=== PATIENT | male | born 1950 | race Caucasian/White ===

== ENCOUNTER 2019-06-05 16:57 | Emergency (ER) | payer MEDICAID, SELFPAY | END 2019-06-06 00:02 | disposition admitted as inpatient to this hospital (09) | LOC: ER 07-18 09:18 | PROVIDERS: Emergency Provider Emergency Medicine; Family Provider Internal Medicine; PCP Internal Medicine | DX: J18.9 Pneumonia, unspecified organism (principal); F17.210 Nicotine dependence, cigarettes, uncomplicated | CPT/HCPCS: 36600; 71045; 74177; 80053; 80307; 82550; 82803; 83605; 83690; 84443; 84484; 85025; 87040; 93005; 94660; 96360; 96365; 96366; 96367; 96368; 96374; 96375; 99282; 99285; J2405; J3370; J7030; J7050; Q9967 ==

== ENCOUNTER 2019-06-05 16:57 | Inpatient (IN) | payer MEDICAID, SELFPAY ==
[2019-06-05] VITALS (10 sets, daily range): BP systolic 116–154; BP diastolic 57–100; PULSE 74–99; RESP 17–35; TEMP 36.8; O2SAT 90–98; BMI 32.5
--- NOTE | 2019-06-05 15:29 | ED_ITS ---
Entered by Nuha León, acting as scribe for Leroy Whitehead DO Documented by User: Katia Noyola MD 06/05/19 23:59 HPI - General Adult General: Chief complaint: General Medical Stated complaint: WEAKNESS X1 MONTH Time Seen by Provider: 06/05/19 18:13 [facility] ED PFSH: Statuses (acute, chronic, etc) shown below reflect problem list status as previously entered and may not be historically accurate Surgical History H/O laminectomy (Acute) History of dental surgery (Acute) Social History Smoking and tobacco status: current some day smoker Alcohol intake: current Course Vital Signs: Vital signs: Vital Signs Temperature 97.9 F 06/10/19 16:55 Pulse Rate 75 06/10/19 16:55 Respiratory Rate 18 06/10/19 16:55 Blood Pressure 142/78 06/10/19 16:55 Pulse Oximetry 91 06/10/19 16:55 MDM - General Adult MDM Narrative: Medical decision making narrative: Patient presents here with cough and is found to have bilateral pneumonia. Patient is requiring BiPAP here. Patient is much improved here after BiPAP and I spoke to hospitalist and will admit. Patient given IV antibiotics here. Lab Data: Labs: Lab Results 06/05/19 06/05/19 06/05/19 Range/Units 15:08 15:08 15:08 WBC 14.1 H (4.0-10.0) 10^3/ uL RBC 4.47 (4.1-5.3) 10^6/u L Hgb 11.9 (11.7-16.6) g/dL Hct 38.1 L (42.0-52.0) % MCV 85.2 (80-94) fL MCH 26.6 L (28.0-34.0) pg MCHC 31.2 (30.0-36.0) g/dL RDW 13.6 (12.1-15.1) % Plt Count 336 (130-400) 10^3/c mm MPV 10.6 H (7.4-10.4) fL Neut % (Auto) 82.5 % Lymph % (Auto) 8.7 % Montgomery % (Auto) 6.7 % Eos % (Auto) 1.2 % Baso % (Auto) 0.3 % Neut # (Auto) 11.6 H (1.8-7.7) 10^3/u L Lymph # (Auto) 1.2 (0.8-4.8) 10^3/u L Montgomery # (Auto) 1.0 H (0.2-0.9) 10^3/u L Eos # (Auto) 0.2 (0.0-0.8) 10^3/u L Baso # (Auto) 0.0 (0.0-0.1) 10^3/u L Nucleated RBC % (a uto) 0 % Nucleated RBCs # 0.0 /100WBC Specimen Type Sample Site ABG pH (7.35-7.45) ABG pCO2 (35-45) mmHg ABG pO2 (80.0-100.0) mmH g ABG HCO3 (22-26) mmol/L ABG Base Excess (-2.0-2.0) mmol/ L Bladimir Test Hematocrit (42-52) % O2 Delivery Device FiO2 % Mode BiPAP Physician Office Clin Asst ID Sodium 140 (136-145) mmol/L Potassium 3.8 (3.5-5.1) mmol/L Chloride 98 (98-107) mmol/L Carbon Dioxide 27 (22-29) mmol/L Anion Gap 18.8 (5-19) BUN 14 (8-23) mg/dL Creatinine 0.8 (0.7-1.2) mg/dL GFR Calculation 96.1 (90-130) mL/min Glucose 203 H (74-106) mg/dL Lactic Acid (0.5-2.2) mmol/L Calcium 9.8 (8.8-10.2) mg/Dl Total Bilirubin 0.5 (0.15-1.2) mg/dL AST 20 (0-40) U/L ALT 18 (0-41) U/L Alkaline Phosphata se 95 (40-130) IU/L Creatine Kinase 59 (39-308) U/L Troponin I 6 Hour (0-15) ng/L Troponin T Baselin e 30 H (0-15) ng/mL Troponin T 120 Min [place] (0-15) ng/mL Total Protein 7.6 (6.6-8.7) g/dL Albumin 4.0 (3.5-5.2) g/dL Globulin 3.6 (1.3-4.6) g/dL Lipase 165 H (13-60) U/L TSH 1.01 (0.27-4.20) uIU/ mL Ethyl Alcohol (0-10) mg/dL 06/05/19 06/05/19 06/05/19 Range/Units 19:30 21:35 21:38 WBC (4.0-10.0) 10^3/ uL RBC (4.1-5.3) 10^6/u L Hgb (11.7-16.6) g/dL Hct (42.0-52.0) % MCV (80-94) fL MCH (28.0-34.0) pg MCHC (30.0-36.0) g/dL RDW (12.1-15.1) % Plt Count (130-400) 10^3/c mm MPV (7.4-10.4) fL Neut % (Auto) % Lymph % (Auto) % Montgomery % (Auto) % Eos % (Auto) % Baso % (Auto) % Neut # (Auto) (1.8-7.7) 10^3/u L Lymph # (Auto) (0.8-4.8) 10^3/u L Montgomery # (Auto) (0.2-0.9) 10^3/u L Eos # (Auto) (0.0-0.8) 10^3/u L Baso # (Auto) (0.0-0.1) 10^3/u L Nucleated RBC % (a uto) % Nucleated RBCs # /100WBC Specimen Type Arterial Sample Site Radial, right ABG pH 7.50 H (7.35-7.45) ABG pCO2 32.5 L (35-45) mmHg ABG pO2 112.0 H (80.0-100.0) mmH g ABG HCO3 25.2 (22-26) mmol/L ABG Base Excess 2.3 H (-2.0-2.0) mmol/ L Bladimir Test Pos Hematocrit 33.5 L (42-52) % O2 Delivery Device Bipap FiO2 40.0 % Mode BiPAP 18/9 Physician Office Clin Asst ID harkr Sodium (136-145) mmol/L Potassium (3.5-5.1) mmol/L Chloride (98-107) mmol/L Carbon Dioxide (22-29) mmol/L Anion Gap (5-19) BUN (8-23) mg/dL Creatinine (0.7-1.2) mg/dL GFR Calculation (90-130) mL/min Glucose (74-106) mg/dL Lactic Acid 1.3 (0.5-2.2) mmol/L Calcium (8.8-10.2) mg/Dl Total Bilirubin (0.15-1.2) mg/dL AST (0-40) U/L ALT (0-41) U/L Alkaline Phosphata se (40-130) IU/L Creatine Kinase (39-308) U/L Troponin I 6 Hour (0-15) ng/L Troponin T Baselin e (0-15) ng/mL Troponin T 120 Min [place] 30.97 H (0-15) ng/mL Total Protein (6.6-8.7) g/dL Albumin (3.5-5.2) g/dL Globulin (1.3-4.6) g/dL Lipase (13-60) U/L TSH (0.27-4.20) uIU/ mL Ethyl Alcohol (0-10) mg/dL 06/05/19 06/05/19 Range/Units 21:42 21:42 WBC (4.0-10.0) 10^3/ uL RBC (4.1-5.3) 10^6/u L Hgb (11.7-16.6) g/dL Hct (42.0-52.0) % MCV (80-94) fL MCH (28.0-34.0) pg MCHC (30.0-36.0) g/dL RDW (12.1-15.1) % Plt Count (130-400) 10^3/c mm MPV (7.4-10.4) fL Neut % (Auto) % Lymph % (Auto) % Montgomery % (Auto) % Eos % (Auto) % Baso % (Auto) % Neut # (Auto) (1.8-7.7) 10^3/u L Lymph # (Auto) (0.8-4.8) 10^3/u L Montgomery # (Auto) (0.2-0.9) 10^3/u L Eos # (Auto) (0.0-0.8) 10^3/u L Baso # (Auto) (0.0-0.1) 10^3/u L Nucleated RBC % (a uto) % Nucleated RBCs # /100WBC Specimen Type Sample Site ABG pH (7.35-7.45) ABG pCO2 (35-45) mmHg ABG pO2 (80.0-100.0) mmH g ABG HCO3 (22-26) mmol/L ABG Base Excess (-2.0-2.0) mmol/ L Bladimir Test Hematocrit (42-52) % O2 Delivery Device FiO2 % Mode BiPAP Physician Office Clin Asst ID Sodium (136-145) mmol/L Potassium (3.5-5.1) mmol/L Chloride (98-107) mmol/L Carbon Dioxide (22-29) mmol/L Anion Gap (5-19) BUN (8-23) mg/dL Creatinine (0.7-1.2) mg/dL GFR Calculation (90-130) mL/min Glucose (74-106) mg/dL Lactic Acid (0.5-2.2) mmol/L Calcium (8.8-10.2) mg/Dl Total Bilirubin (0.15-1.2) mg/dL AST (0-40) U/L ALT (0-41) U/L Alkaline Phosphata se (40-130) IU/L Creatine Kinase (39-308) U/L Troponin I 6 Hour 30.82 H (0-15) ng/L Troponin T Baselin e (0-15) ng/mL Troponin T 120 Min [place] (0-15) ng/mL Total Protein (6.6-8.7) g/dL Albumin (3.5-5.2) g/dL Globulin (1.3-4.6) g/dL Lipase (13-60) U/L TSH (0.27-4.20) uIU/ mL Ethyl Alcohol < 10 (0-10) mg/dL Imaging Data^: Other Imaging: Attestation: I personally reviewed and interpreted this imaging study as follows: Radiologist's impression: Ordering Physician: Leroy Whitehead DO Date of Service: 06/05/19 Procedure(s): CT abdomen pelvis w con* [id number] Accession Number(s): [id number] cc: Leroy Whitehead DO PROCEDURE INFORMATION: Exam: CT Abdomen And Pelvis With Contrast Exam date and time: 06/05/2019 6:24 PM Age: 69 years old Clinical indication: Abdominal pain; Generalized; Additional info: Abd pain / n/v TECHNIQUE: Imaging protocol: Computed tomography of the abdomen and pelvis with intravenous contrast. Total DLP: 1936.36 mGy-cm Radiation optimization: All CT scans at this facility use at least one of these dose optimization techniques: automated exposure control; mA and/or kV adjustment per patient size (includes targeted exams where dose is matched to clinical indication); or iterative reconstruction. Contrast material: OMNI 300; Contrast volume: 95 ml; Contrast route: AC IV; COMPARISON: Right upper quadrant ultrasound August 25, 2018. Portable chest earlier today. PA and lateral chest May 26, 2019. FINDINGS: Lungs: Diffuse interstitial thickening with relatively confluent ground-glass opacities throughout the included lung bases, with some subpleural sparing posteriorly. The included airways appear patent. No pleural effusions. Liver: Normal. No mass. Gallbladder and bile ducts: Normal. No calcified stones. No ductal dilation. Pancreas: Normal. No ductal dilation. Spleen: Normal. No splenomegaly. Adrenals: Normal. No mass. 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 No renal or ureteral calculi. No hydronephrosis. 2.1 cm left upper pole simple cyst. Stomach and bowel: No obstruction. No inflammatory changes. Appendix: No evidence of appendicitis. Intraperitoneal space: No free air. No significant fluid collection. Vasculature: Moderate atherosclerotic calcification. No aortic aneurysm. Lymph nodes: Unremarkable. No enlarged lymph nodes. Bladder: Unremarkable as visualized. Reproductive: Unremarkable as visualized. Bones/joints: Lumbar degenerative changes with posterior decompression at L4/5. No acute or aggressive osseous lesion. Soft tissues: Unremarkable. CT/CT abdomen pelvis w con* [id number] IMPRESSION: 1. No acute abdominopelvic findings. 2. Incidental 2.1 cm simple left renal cyst. 3. Limited imaging of the lung bases reveals diffuse interstitial thickening and ground-glass opacities, as seen on earlier portable chest. Differential is broad including atypical pneumonia and nonspecific inflammatory airways disease. The appearance is not typical for edema. EKG Data^: EKG 1: Attestation: I personally reviewed and interpreted this EKG as follows: EKG interpretation date: 06/05/19 EKG interpretation time: 21:51 Interpretation: nsr hr [address] or t wave abnormalities qrs 11 Computer generated interpretation: Chest X-Ray 06/05/19 15:44 Impression: 1. Diffuse interstitial changes throughout both lungs which may represent pneumonia, unusual pulmonary edema, drug reaction and a large number of other entities. 2. Cardiomegaly and atherosclerosis. Abdomen/Pelvis CT 06/05/19 17:56 IMPRESSION: 1. No acute abdominopelvic findings. 2. Incidental 2.1 cm simple left renal cyst. 3. Limited imaging of the lung bases reveals diffuse interstitial thickening and ground-glass opacities, as seen on earlier portable chest. Differential is broad including atypical pneumonia and nonspecific inflammatory airways disease. The appearance is not typical for edema. Radiation Dose CTDIVOL = (mGy): DLP = 1936.36 (mGy-cm) Chest CTA 06/08/19 09:36 IMPRESSION: 1. Severe bilateral alveolar and interstitial opacities consistent with pneumonia versus pulmonary edema. 2. Mild to moderate centrilobular emphysema. 3. Severe calcified coronary artery disease. Radiation Dose CTDIVOL = (mGy): DLP = 1130.11 (mGy-cm) Discharge Plan Discharge Patient Disposition: Admitted As Inpatient Admit Provider: Terry Mello Clinical Impression: Bilateral pneumonia Condition: Stable Discharge Orders: Discharge Order (Routine); Ordered 06/10/19 Ordered By: Sharon Olivares Discharge Diet: Usual diet Discharge Activity: Oxygen as instructed Discharge Date/Time: 06/06/19 00:02 Coding Level of Care Code ED Differential Repairer for Chg Fwd Exam Problem Focused Documented by User: Leroy Whitehead DO 06/12/19 08:39 HPI - General Adult General: Chief complaint: General Medical Stated complaint: WEAKNESS X1 MONTH Time Seen by Provider: 06/05/19 18:13 History of Present Illness: HPI narrative: 69 yo male presents with weakness [id number]. Pt states that he feels like he is dying. Pt states that he has diarrhea, cough and shortness of breath. Pt states that he can't get up due to weakness, and has a loss of appetite. Pt states that he had a medication changes yesterday by Dr. Goodwin. Pt states that he is out of his inhaler. MD complaint: weakness Location: back (chronic low back pain) Relieving factors: none Associated symptoms: Reports cough, decreased appetite, short of breath and weakness; Deny chest pain, confusion, dyspnea, headache(s), malaise, nausea, rash, palpitations, syncope or vomiting Review of Systems Const: Reports: fatigue and night sweats; Denies: fever, chills, body aches or malaise Eyes: Denies: change in vision or blurry vision ENMT: Denies: throat pain, oral sores/lesions, dental pain, nasal discharge or nasal congestion Card: Denies: chest pain, palpitations, irregular heart rhythm, edema, syncope, shortness of breath on exertion, shortness of breath when lying down or leg pain with exertion Resp: Reports: productive cough; Denies: shortness of breath or wheezing GI: Reports: diarrhea; Denies: abdominal pain, nausea, vomiting, vomiting blood, coffee grounds in vomit, difficulty swallowing, heartburn/indigestion, constipation, cramping, blood in stool or black tarry stool : Denies: flank pain, difficulty urinating, painful urination, urinary frequency, urinary urgency, urinary incontinence or blood in urine Musc: Reports: back pain (chronic); Denies: neck pain, extremity pain, extremity swelling, joint pain or joint swelling Skin/Breast: Denies: rash, itching or redness Neuro: Reports: difficulty walking; Denies: headache, numbness in extremities, weakness in extremities, changes in sensation, lack of coordination, frequent falls, dizziness, vertigo or confusion Endo: Denies: excessive urination, excessive thirst, tired all the time or cold intolerance Jose/Lymph: Denies: easy bruising, easy bleeding, petechiae, enlarged lymph nodes or tender lymph nodes PFSH ED PFSH: Statuses (acute, chronic, etc) shown below reflect problem list status as previously entered and may not be historically accurate Surgical History H/O laminectomy (Acute) History of dental surgery (Acute) Social History Smoking and tobacco status: current some day smoker Alcohol intake: current Physical Exam Const: COMMON NORMALS: average body habitus, oriented x3 and alert GENERAL APPEARANCE: cooperative and well developed NUTRITIONAL APPEARANCE: obese ORIENTATION/CONSCIOUSNESS: Yes awake, Yes oriented to person and Yes oriented to place HENMT: COMMON NORMALS: normocephalic, head/scalp atraumatic, EAC's normal, TM's normal bilaterally, external nose normal, moist oral mucous membranes and oropharynx normal HEAD & SCALP: normocephalic and atraumatic NOSE: external nose normal EXTERNAL AUDITORY CANAL: EAC's normal TYMPANIC MEMBRANE: TM's normal bilaterally MOUTH: oral and palatal mucosa normal, lip normal and tongue normal THROAT: posterior oropharynx normal and tonsils normal Eye: COMMON NORMALS: PERRL, EOMs intact bilaterally, conjunctivae normal and no scleral icterus CONJUNCTIVA: Yes conjunctivae normal PUPIL: Yes PERRL Neck/C-Spine: COMMON NORMALS: full ROM, no lymphadenopathy, supple, no meningeal signs and thyroid normal THYROID: thyroid normal and asymmetrical Lymph: LYMPHATIC: no lymphadenopathy noted Chest: COMMONS NORMALS: palpation of chest normal CHEST: Yes abnormal inspection of the chest Resp: EFFORT & INSPECTION: Yes labored and Yes grunting AUSCULTATION: rhonchi throughout and wheezes throughout Cardio: COMMON NORMALS: regular rate and regular rhythm RATE: regular rate RHYTHM: regular rhythm HEART SOUNDS: no murmurs GI: COMMON NORMALS: normal to inspection, nondistended, normoactive bowel sounds, soft to palpation and no hepatosplenomegaly PALPATION: Yes soft and Yes no hepatosplenomegaly : COMMON NORMALS: Yes no CVA tenderness BLADDER/KIDNEY EXAM: Yes no CVA tenderness Back/Pelvis: COMMON NORMALS: no CVA tenderness LUMBAR SPINE/LOWER BACK: Yes normal to inspection Extremity: COMMON NORMALS: no clubbing, cyanosis or edema, no calf tenderness and no pedal edema Neuro: COMMON NORMALS: oriented x3 SENSORIUM/ORIENTATION: Yes alert, Yes oriented to person and Yes oriented to place MENINGEAL SIGNS: Yes no meningeal signs Skin: COMMON NORMALS: no rashes or lesions noted and skin turgor normal GENERAL SKIN EXAM: no rashes or lesions noted and turgor normal Course ED course: Initially seen by myself initial orders entered. Care turned over to Dr. Noyola at change of shift. Vital Signs: Vital signs: Vital Signs Temperature 97.9 F 06/10/19 16:55 Pulse Rate 75 06/10/19 16:55 Respiratory Rate 18 06/10/19 16:55 Blood Pressure 142/78 06/10/19 16:55 Pulse Oximetry 91 06/10/19 16:55 MDM - General Adult Lab Data: Labs: Lab Results 06/05/19 06/05/19 06/05/19 Range/Units 15:08 15:08 15:08 WBC 14.1 H (4.0-10.0) 10^3/ uL RBC 4.47 (4.1-5.3) 10^6/u L Hgb 11.9 (11.7-16.6) g/dL Hct 38.1 L (42.0-52.0) % MCV 85.2 (80-94) fL MCH 26.6 L (28.0-34.0) pg MCHC 31.2 (30.0-36.0) g/dL RDW 13.6 (12.1-15.1) % Plt Count 336 (130-400) 10^3/c mm MPV 10.6 H (7.4-10.4) fL Neut % (Auto) 82.5 % Lymph % (Auto) 8.7 % Montgomery % (Auto) 6.7 % Eos % (Auto) 1.2 % Baso % (Auto) 0.3 % Neut # (Auto) 11.6 H (1.8-7.7) 10^3/u L Lymph # (Auto) 1.2 (0.8-4.8) 10^3/u L Montgomery # (Auto) 1.0 H (0.2-0.9) 10^3/u L Eos # (Auto) 0.2 (0.0-0.8) 10^3/u L Baso # (Auto) 0.0 (0.0-0.1) 10^3/u L Nucleated RBC % (a uto) 0 % Nucleated RBCs # 0.0 /100WBC Specimen Type Sample Site ABG pH (7.35-7.45) ABG pCO2 (35-45) mmHg ABG pO2 (80.0-100.0) mmH g ABG HCO3 (22-26) mmol/L ABG Base Excess (-2.0-2.0) mmol/ L Bladimir Test Hematocrit (42-52) % O2 Delivery Device FiO2 % Mode BiPAP Physician Office Clin Asst ID Sodium 140 (136-145) mmol/L Potassium 3.8 (3.5-5.1) mmol/L Chloride 98 (98-107) mmol/L Carbon Dioxide 27 (22-29) mmol/L Anion Gap 18.8 (5-19) BUN 14 (8-23) mg/dL Creatinine 0.8 (0.7-1.2) mg/dL GFR Calculation 96.1 (90-130) mL/min Glucose 203 H (74-106) mg/dL Lactic Acid (0.5-2.2) mmol/L Calcium 9.8 (8.8-10.2) mg/Dl Total Bilirubin 0.5 (0.15-1.2) mg/dL AST 20 (0-40) U/L ALT 18 (0-41) U/L Alkaline Phosphata se 95 (40-130) IU/L Creatine Kinase 59 (39-308) U/L Troponin I 6 Hour (0-15) ng/L Troponin T Baselin e 30 H (0-15) ng/mL Troponin T 120 Min [place] (0-15) ng/mL Total Protein 7.6 (6.6-8.7) g/dL Albumin 4.0 (3.5-5.2) g/dL Globulin 3.6 (1.3-4.6) g/dL Lipase 165 H (13-60) U/L TSH 1.01 (0.27-4.20) uIU/ mL Ethyl Alcohol (0-10) mg/dL 06/05/19 06/05/19 06/05/19 Range/Units 19:30 21:35 21:38 WBC (4.0-10.0) 10^3/ uL RBC (4.1-5.3) 10^6/u L Hgb (11.7-16.6) g/dL Hct (42.0-52.0) % MCV (80-94) fL MCH (28.0-34.0) pg MCHC (30.0-36.0) g/dL RDW (12.1-15.1) % Plt Count (130-400) 10^3/c mm MPV (7.4-10.4) fL Neut % (Auto) % Lymph % (Auto) % Montgomery % (Auto) % Eos % (Auto) % Baso % (Auto) % Neut # (Auto) (1.8-7.7) 10^3/u L Lymph # (Auto) (0.8-4.8) 10^3/u L Montgomery # (Auto) (0.2-0.9) 10^3/u L Eos # (Auto) (0.0-0.8) 10^3/u L Baso # (Auto) (0.0-0.1) 10^3/u L Nucleated RBC % (a uto) % Nucleated RBCs # /100WBC Specimen Type Arterial Sample Site Radial, right ABG pH 7.50 H (7.35-7.45) ABG pCO2 32.5 L (35-45) mmHg ABG pO2 112.0 H (80.0-100.0) mmH g ABG HCO3 25.2 (22-26) mmol/L ABG Base Excess 2.3 H (-2.0-2.0) mmol/ L Bladimir Test Pos Hematocrit 33.5 L (42-52) % O2 Delivery Device Bipap FiO2 40.0 % Mode BiPAP 18/9 Physician Office Clin Asst ID harkr Sodium (136-145) mmol/L Potassium (3.5-5.1) mmol/L Chloride (98-107) mmol/L Carbon Dioxide (22-29) mmol/L Anion Gap (5-19) BUN (8-23) mg/dL Creatinine (0.7-1.2) mg/dL GFR Calculation (90-130) mL/min Glucose (74-106) mg/dL Lactic Acid 1.3 (0.5-2.2) mmol/L Calcium (8.8-10.2) mg/Dl Total Bilirubin (0.15-1.2) mg/dL AST (0-40) U/L ALT (0-41) U/L Alkaline Phosphata se (40-130) IU/L Creatine Kinase (39-308) U/L Troponin I 6 Hour (0-15) ng/L Troponin T Baselin e (0-15) ng/mL Troponin T 120 Min [place] 30.97 H (0-15) ng/mL Total Protein (6.6-8.7) g/dL Albumin (3.5-5.2) g/dL Globulin (1.3-4.6) g/dL Lipase (13-60) U/L TSH (0.27-4.20) uIU/ mL Ethyl Alcohol (0-10) mg/dL 06/05/19 06/05/19 Range/Units 21:42 21:42 WBC (4.0-10.0) 10^3/ uL RBC (4.1-5.3) 10^6/u L Hgb (11.7-16.6) g/dL Hct (42.0-52.0) % MCV (80-94) fL MCH (28.0-34.0) pg MCHC (30.0-36.0) g/dL RDW (12.1-15.1) % Plt Count (130-400) 10^3/c mm MPV (7.4-10.4) fL Neut % (Auto) % Lymph % (Auto) % Montgomery % (Auto) % Eos % (Auto) % Baso % (Auto) % Neut # (Auto) (1.8-7.7) 10^3/u L Lymph # (Auto) (0.8-4.8) 10^3/u L Montgomery # (Auto) (0.2-0.9) 10^3/u L Eos # (Auto) (0.0-0.8) 10^3/u L Baso # (Auto) (0.0-0.1) 10^3/u L Nucleated RBC % (a uto) % Nucleated RBCs # /100WBC Specimen Type Sample Site ABG pH (7.35-7.45) ABG pCO2 (35-45) mmHg ABG pO2 (80.0-100.0) mmH g ABG HCO3 (22-26) mmol/L ABG Base Excess (-2.0-2.0) mmol/ L Bladimir Test Hematocrit (42-52) % O2 Delivery Device FiO2 % Mode BiPAP Physician Office Clin Asst ID Sodium (136-145) mmol/L Potassium (3.5-5.1) mmol/L Chloride (98-107) mmol/L Carbon Dioxide (22-29) mmol/L Anion Gap (5-19) BUN (8-23) mg/dL Creatinine (0.7-1.2) mg/dL GFR Calculation (90-130) mL/min Glucose (74-106) mg/dL Lactic Acid (0.5-2.2) mmol/L Calcium (8.8-10.2) mg/Dl Total Bilirubin (0.15-1.2) mg/dL AST (0-40) U/L ALT (0-41) U/L Alkaline Phosphata se (40-130) IU/L Creatine Kinase (39-308) U/L Troponin I 6 Hour 30.82 H (0-15) ng/L Troponin T Baselin e (0-15) ng/mL Troponin T 120 Min [place] (0-15) ng/mL Total Protein (6.6-8.7) g/dL Albumin (3.5-5.2) g/dL Globulin (1.3-4.6) g/dL Lipase (13-60) U/L TSH (0.27-4.20) uIU/ mL Ethyl Alcohol < 10 (0-10) mg/dL EKG Data^: EKG 1: Computer generated interpretation: Chest X-Ray 06/05/19 15:44 Impression: 1. Diffuse interstitial changes throughout both lungs which may represent pneumonia, unusual pulmonary edema, drug reaction and a large number of other entities. 2. Cardiomegaly and atherosclerosis. Abdomen/Pelvis CT 06/05/19 17:56 IMPRESSION: 1. No acute abdominopelvic findings. 2. Incidental 2.1 cm simple left renal cyst. 3. Limited imaging of the lung bases reveals diffuse interstitial thickening and ground-glass opacities, as seen on earlier portable chest. Differential is broad including atypical pneumonia and nonspecific inflammatory airways disease. The appearance is not typical for edema. Radiation Dose CTDIVOL = (mGy): DLP = 1936.36 (mGy-cm) Chest CTA 06/08/19 09:36 IMPRESSION: 1. Severe bilateral alveolar and interstitial opacities consistent with pneumonia versus pulmonary edema. 2. Mild to moderate centrilobular emphysema. 3. Severe calcified coronary artery disease. Radiation Dose CTDIVOL = (mGy): DLP = 1130.11 (mGy-cm) Discharge Plan Discharge Patient Disposition: Admitted As Inpatient Admit Provider: Terry Mello Clinical Impression: Bilateral pneumonia Condition: Stable Discharge Orders: Discharge Order (Routine); Ordered 06/10/19 Ordered By: Sharon Olivares Discharge Diet: Usual diet Discharge Activity: Oxygen as instructed Discharge Date/Time: 06/06/19 00:02 Coding Level of Care Code ED Differential Repairer for Chg Fwd Exam Problem Focused The documentation recorded by the Mau gold Kialy, accurately reflects the service I personally performed and the decisions made by Ventura badillo Curtis L, Jun 05, 2019 16:57
--- NOTE | 2019-06-05 15:44 | XR_ITS ---
WS: [id number] Portable AP upright chest, 06/05/2019 Clinical Data: dyspnea Comparison: Portable chest, 05/26/2019. Findings: No nodules, masses or effusions are seen. The heart is enlarged. The aortic arch and descen ding aorta are tortuous. The pulmonary vascularity is not increased. No pneumonia or pneumothorax is seen. The diffuse interstitial changes throughout both lungs remains the same. XR/XR chest 1V portable [id number] Impression: 1. Diffuse interstitial changes throughout both lungs which may represent pneum onia, unusual pulmonary edema, drug reaction and a large number of other entiti es. 2. Cardiomegaly and atherosclerosis.
[2019-06-05] MEDS: ondansetron 2 mg/ML SDV 2 mL 4 MG IVP (16:00)
[2019-06-05] MEDS: sodium chloride 0.9% 1,000 ML 999 ML IV (16:00)
[2019-06-05 16:02] LABS: Basophils % 0.3 %; Eosinophils # 0.2 10^3/uL (0.0-0.8); Eosinophils % 1.2 %; Hematocrit 38.1 % (42.0-52.0); Hemoglobin 11.9 g/dL (11.7-16.6); Lymphocytes # 1.2 10^3/uL (0.8-4.8); Lymphocytes % 8.7 %; Mean Corpuscular HGB Conc 31.2 g/dL (30.0-36.0); Mean Corpuscular Hemoglobin 26.6 pg (28.0-34.0); Mean Corpuscular Volume 85.2 fL (80-94); Mean Platelet Volume 10.6 fL (7.4-10.4); Monocytes % 6.7 %; Neutrophils # 11.6 10^3/uL (1.8-7.7); Neutrophils % 82.5 %; Nucleated Red Blood Cells % 0 %; Platelet Count 336 10^3/cmm (130-400); Red Blood Count 4.47 10^6/uL (4.1-5.3); Red Cell Distribution Width 13.6 % (12.1-15.1); White Blood Count 14.1 10^3/uL (4.0-10.0)
[2019-06-05 16:16] LABS: Alanine Aminotransferase 18 U/L (0-41); Alkaline Phosphatase 95 IU/L (40-130); Anion Gap 18.8 (5-19); Aspartate Amino Transferase 20 U/L (0-40); Blood Urea Nitrogen 14 mg/dL (8-23); Calcium 9.8 mg/Dl (8.8-10.2); Carbon Dioxide 27 mmol/L (22-29); Chloride 98 mmol/L (98-107); Creatine Phosphokinase 59 U/L (39-308); Globulin 3.6 g/dL (1.3-4.6); Glomerular Filtration Rate 96.1 mL/min (90-130); Glucose 203 mg/dL (74-106); Lipase 165 U/L (13-60); Potassium 3.8 mmol/L (3.5-5.1); Sodium 140 mmol/L (136-145); Thyroid Stimulating Hormone 1.01 uIU/mL (0.27-4.20); Total Bilirubin 0.5 mg/dL (0.15-1.2); Total Protein 7.6 g/dL (6.6-8.7)
[2019-06-05 16:33] LABS: Troponin(5th) Baseline 30 ng/mL (0-15)
--- NOTE | 2019-06-05 17:46 | ECG_ITS ---
Measurements Intervals [place] Rate: 80 P: 52 RI: 172 QRS: 23 QRSD: 103 T: 87 QT: 413 QTc: 476 SINUS RHYTHM LOW QRS VOLTAGE IN EXTREMITY LEADS [QRS DEFLECTION < 0.5 mV IN LIMB LEADS] NONSPECIFIC T-WAVE ABNORMALITY Compared to ECG 06/05/2019 16:14:33 Possible ischemia no longer present T-wave abnormality still present Electronically Signed On 06-06-2019 5:39:[address] [employer] by Kathryn Cabrera M.[email or web address]
--- NOTE | 2019-06-05 17:56 | CTR_ITS ---
PROCEDURE INFORMATION: Exam: CT Abdomen And Pelvis With Contrast Exam date and time: 06/05/2019 6:24 PM Age: 69 years old Clinical indication: Abdominal pain; Generalized; Additional info: Abd pain / n/v TECHNIQUE: Imaging protocol: Computed tomography of the abdomen and pelvis with intravenous contrast. Total DLP: 1936.36 mGy-cm Radiation optimization: All CT scans at this facility use at least one of these dose optimization techniques: automated exposure control; mA and/or kV adjustment per patient size (includes targeted exams where dose is matched to clinical indication); or iterative reconstruction. Contrast material: OMNI 300; Contrast volume: 95 ml; Contrast route: AC IV; COMPARISON: Right upper quadrant ultrasound August 25, 2018. Portable chest earlier today. PA and lateral chest May 26, 2019. FINDINGS: Lungs: Diffuse interstitial thickening with relatively confluent ground-glass opacities throughout the included lung bases, with some subpleural sparing posteriorly. The included airways appear patent. No pleural effusions. Liver: Normal. No mass. Gallbladder and bile ducts: Normal. No calcified stones. No ductal dilation. Pancreas: Normal. No ductal dilation. Spleen: Normal. No splenomegaly. Adrenals: Normal. No mass. 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 No renal or ureteral calculi. No hydronephrosis. 2.1 cm left upper pole simple cyst. Stomach and bowel: No obstruction. No inflammatory changes. Appendix: No evidence of appendicitis. Intraperitoneal space: No free air. No significant fluid collection. Vasculature: Moderate atherosclerotic calcification. No aortic aneurysm. Lymph nodes: Unremarkable. No enlarged lymph nodes. Bladder: Unremarkable as visualized. Reproductive: Unremarkable as visualized. Bones/joints: Lumbar degenerative changes with posterior decompression at L4/5. No acute or aggressive osseous lesion. Soft tissues: Unremarkable. CT/CT abdomen pelvis w con* [id number] IMPRESSION: 1. No acute abdominopelvic findings. 2. Incidental 2.1 cm simple left renal cyst. 3. Limited imaging of the lung bases reveals diffuse interstitial thickening and ground-glass opacities, as seen on earlier portable chest. Differential is broad including atypical pneumonia and nonspecific inflammatory airways disease. The appearance is not typical for edema. Radiation Dose CTDIVOL = (mGy): DLP = 1936.36 (mGy-cm)
[2019-06-05] MEDS: ipratropium-albuterol 3 mL Neb INHALATION (19:19)
[2019-06-05 20:06] LABS: Troponin 5 2HR 30.97 ng/mL (0-15)
--- NOTE | 2019-06-05 21:24 | PC.NURSE ---
Assisted patient to bedside commode and changed linen. Assisted patient in clean up and placed new brief on and helped back into bed. Placed warm blankets on patient.
[2019-06-05 21:46] LABS: ABG PCO2 32.5 mmHg (35-45); Arterial Blood Gas Hematocrit 33.5 % (42-52); Base Excess ABG 2.3 mmol/L (-2.0-2.0); Blood Gas Allen Test Pos; Blood Gas Sample Site Radial, right; Blood Gas Sample Type Arterial; HCO3 ABG 25.2 mmol/L (22-26)
--- NOTE | 2019-06-05 21:46 | ECG_ITS ---
Measurements Intervals [place] Rate: 77 P: 46 MS: 173 QRS: 16 QRSD: 110 T: 27 QT: 414 QTc: 469 SINUS RHYTHM LOW QRS VOLTAGE IN EXTREMITY LEADS [QRS DEFLECTION < 0.5 mV IN LIMB LEADS] MODERATE T-WAVE ABNORMALITY, CONSIDER ANTERIOR ISCHEMIA [-0.1+ mV T WAVE IN V3/V4] Compared to ECG 05/26/2019 13:50:04 Low QRS voltage now present T-wave abnormality now present Possible ischemia now present Electronically Signed On 06-05-2019 17:10:23 DICTATING MACHINE TYPIST by Kathryn Cabrera M.D. [email or web address]
--- NOTE | 2019-06-05 21:47 | PM.HP ---
Providers/Chief Complaint Primary Care Provider: Flaquita Goodwin MD Chief Complaint: bilateral pneumonia History of Present Illness Yoni Connell is a 69 year old male who carries diagnosis of sleep apnea, uses 2 L oxygen at night, non-oxygen dependent COPD, obesity, came in after experiencing shortness of breath and cough. Patient is stating that his symptoms started about 4 weeks ago with runny nose, runny eyes, fever, cough and chills, initially he attributed his symptoms to cold and try to use his inhalers more often but his breathing and cough was getting worse on daily basis, he also experienced subjective fever with chills and couple of episodes of diarrhea, he is feeling weak, he was experiencing myalgias, not associated with any nausea or vomiting. In general he was feeling weaker and weaker and because excessive cough and shortness of breath he decided to come to ER today for evaluation. He has orthopnea and PND as well, no chest pain, numbness, tingling, dysuria. He is a poor historian. Patient says he quit smoking he is using a rolling papers to smoke tobacco this days he is denying use of electronic cigarettes Diagnostics in ER shows leukocytosis, tachypnea, patient was afebrile, hypertensive, CT shows bilateral interstitial infiltrates versus groundglass appearance Flu panel negative He was put on BiPAP, blood gas showed respiratory alkalosis Review of Systems Narrative: In general patient is feeling weaker, he says he is hurting everywhere, he is suffering from myalgias, Conjunctive are normal no injections or hyperemia No sore throat, No chest pain No abdominal pain, diarrhea positive, No headache, No skin ulcers, No burning on voiding urine No headache, No night sweats Sad mood/depression positive Shortness of breath positive at rest and on exertion Medications/Allergies Home Medications Medication Instructions Recorded Confirmed Last Taken Type enalapril maleate 10 mg PO DAILY 06/05/19 06/05/19 06/04/19 History metformin 500 mg PO BID 06/05/19 06/05/19 06/04/19 History trazodone 150 mg PO BEDTIME 06/05/19 06/05/19 06/04/19 History Allergies Allergy/AdvReac Type Severity Reaction Status Date / Time No Known Allergies Allergy Verified 06/05/19 15:25 PFSH Acute PFSH: Statuses (acute, chronic, etc) shown below reflect problem list status as previously entered and may not be historically accurate Medical History (Updated 06/05/19 @ 23:19 by Terry Mello MD) Alcohol intoxication (Acute) Anxiety (Acute) Bladder cancer (Acute) COPD (chronic obstructive pulmonary disease) (Acute) Dyslipidemia (Acute) GERD (gastroesophageal reflux disease) (Acute) Hypertension (Acute) Neuropathy (Acute) Polysubstance abuse (Acute) Sleep apnea (Acute) Type 2 diabetes mellitus (Acute) Surgical History (Updated 06/05/19 @ 21:49 by Terry Mello MD) H/O laminectomy (Acute) History of dental surgery (Acute) Family History (Updated 06/05/19 @ 21:49 by Terry Mello MD) Other CAD (coronary artery disease) Cancer Diabetes Hyperlipidemia Social History (Updated 06/05/19 @ 21:49 by Terry Mello MD) Smoking and tobacco status: current some day smoker Alcohol intake: current Substance/Drug Use: current Vitals/I&O/Wt Last Vital Signs Temp 98.3 F 06/05/19 15:18 Pulse 79 06/05/19 19:27 Resp 19 H 06/05/19 19:27 BP 154/100 06/05/19 18:00 Pulse Ox 98 06/05/19 19:27 Weight last 48 hrs Weight 108.862 kg Physical Exam Narrative: EXAM NARRATIVE: Obese male with poor hygiene Laying in his bed with BiPAP BiPAP machine was discontinued for interview and physical exam No pursed lip breathing, No JVD or signs of heart failure S1-S2 no murmur appreciated, no lower extremity edema, Neurologically nonfocal exam, no cerebellar signs, and reflexes equivocal On lung auscultation he has bilateral crackles with rhonchi without active wheezing decreased airflow, Abdomen soft nontender but distended, bowel sounds present No signs of ischemia gangrene or skin ulcers No CVA tenderness A&P Assessment and plan (1) Sepsis: Status: Acute Code(s): A41.9 - Sepsis, unspecified organism (2) Bilateral pneumonia: Status: Acute Code(s): J18.9 - Pneumonia, unspecified organism Sepsis secondary to community-acquired bilateral pneumonia Flu panel negative, patient is using rolling prefer to smoke nicotine Sepsis criteria met with tachypnea, leukocytosis, lactic acid normal, We will treat him with ceftriaxone and azithromycin DuoNeb scheduled Prednisone 40 mg for 5 days because of bilateral interstitial infiltrates, atypical lung imaging bilateral interstitial infiltrates with groundglass opacities he is not using electronic cigarettes or vaps Will check urine antigens for Legionella and strep pneumo He has been drinking alcohol on occasional basis previously he had a history of alcohol intoxication, will keep on thiamine, folic acid and CIWY protocol will check alcohol level PT evaluation patient is living alone at home Acute COPD exacerbation secondary to community-acquired pneumonia Currently on BiPAP to decrease work of breathing, blood gases showing respiratory alkalosis Obstructive sleep apnea history: Patient uses 2 L of oxygen at night, currently on BiPAP He is full code Attestations Medical Necessity Statement*: Anticipating stay to cross more than 2 midnights because of his myalgias, bilateral pneumonia and sepsis Time Spent in Patient Care: Greater than 35 minutes (>than 50% of time spent in counselling and/or direct pt care on unit). 50 Coding Level of Care Code Acute Production Gear Cutter for Margarito Vera Diagnoses Sepsis A41.9 Bilateral pneumonia J18.9
[2019-06-05 22:02] LABS: Lactic Sepsis W/Reflex 1.3 mmol/L (0.5-2.2)
[2019-06-05 22:14] LABS: Alcohol Level < 10 mg/dL (0-10)
[2019-06-05 22:17] LABS: Troponin 5 6HR 30.82 ng/L (0-15)
[2019-06-05] MEDS: piperacillin-tazobactam 3.375 GM in sodium chloride 0.9% (plus) 50 ML IV (22:48)
--- NOTE | 2019-06-05 23:05 | PC.NURSE ---
Patient rang call light and stated that he wants the bipap taken off. I explained to him that without the bipap his oxygen will drop. Informed doctor and nurse.
[2019-06-06] VITALS (22 sets, daily range): BP systolic 103–123; BP diastolic 57–78; PULSE 73–109; RESP 18–34; TEMP 36.5–38.1; O2SAT 88–97
[2019-06-06] MEDS: diphenoxylate/atropine Tablet 2 TAB PO (00:12)
[2019-06-06] MEDS: trazodone 150 mg Tablet PO ×2 (00:57→20:16)
[2019-06-06] MEDS: enoxaparin 40 mg/0.4 mL Syringe SUBCUT ×2 (00:57→23:12)
[2019-06-06] MEDS: ipratropium-albuterol 3 mL Neb INHALATION ×4 (02:04→23:07)
[2019-06-06 02:49] LABS: Influenza A by IFA Negative (Negative); Influenza B by IFA Negative (Negative)
[2019-06-06 03:31] LABS: Amphetamines Screen Urine Negative (Negative); Barbiturates Screen Urine Negative (Negative); Benzodiazepines Screen Urine Positive (Negative); Cocaine Screen Urine Negative (Negative); Opiate Screen Urine Negative (Negative); PCP Screen Urine Negative (Negative); THC Screen Urine Negative (Negative)
[2019-06-06 04:54] LABS: ABG PCO2 45.4 mmHg (35-45); ABG PH Result 7.41 (7.35-7.45); Base Excess ABG 3.3 mmol/L (-2.0-2.0); Blood Gas Allen Test Pos; Blood Gas Sample Site Radial, right; Blood Gas Sample Type Arterial; HCO3 ABG 28.6 mmol/L (22-26); PO2 ABG 74.9 mmHg (80.0-100.0)
[2019-06-06 06:08] LABS: Basophils % 0.4 %; Eosinophils # 0.5 10^3/uL (0.0-0.8); Eosinophils % 4.9 %; Hematocrit 35.2 % (42.0-52.0); Hemoglobin 10.6 g/dL (11.7-16.6); Lymphocytes # 1.1 10^3/uL (0.8-4.8); Lymphocytes % 11.1 %; Mean Corpuscular HGB Conc 30.1 g/dL (30.0-36.0); Mean Corpuscular Hemoglobin 25.4 pg (28.0-34.0); Mean Corpuscular Volume 84.4 fL (80-94); Mean Platelet Volume 9.6 fL (7.4-10.4); Monocytes # 0.8 10^3/uL (0.2-0.9); Monocytes % 7.9 %; Neutrophils # 7.6 10^3/uL (1.8-7.7); Nucleated Red Blood Cells % 0 %; Platelet Count 385 10^3/cmm (130-400); Red Blood Count 4.17 10^6/uL (4.1-5.3); Red Cell Distribution Width 13.8 % (12.1-15.1); White Blood Count 10.1 10^3/uL (4.0-10.0)
[2019-06-06 06:35] LABS: Anion Gap 15.1 (5-19); Blood Urea Nitrogen 12 mg/dL (8-23); Calcium 9.2 mg/Dl (8.8-10.2); Carbon Dioxide 27 mmol/L (22-29); Chloride 102 mmol/L (98-107); Glomerular Filtration Rate 74.3 mL/min (90-130); Glucose 198 mg/dL (74-106); Potassium 4.1 mmol/L (3.5-5.1); Sodium 140 mmol/L (136-145)
[2019-06-06 06:51] LABS: Lipase 334 U/L (13-60)
[2019-06-06] MEDS: cefTRIAXone 1,000 MG in sodium chloride 0.9% (plus) 50 ML 100 MG IV (08:42)
[2019-06-06] MEDS: multivitamin therapeutic Tablet 1 TAB PO (08:44)
[2019-06-06] MEDS: predniSONE 20 mg Tablet 40 MG PO (08:44)
[2019-06-06] MEDS: thiamine 100 mg Tablet PO (08:44)
[2019-06-06] MEDS: azithromycin 250 mg Tablet 500 MG PO (08:44)
[2019-06-06] MEDS: folic acid 1 mg Tablet PO (08:45)
[2019-06-06 08:55] LABS: Glucose Point of Care 176 mg/dL (70-110)
--- NOTE | 2019-06-06 10:57 | P.PN_ITS ---
Subjective Subjective: Interval history: History and physical was reviewed. Patient reports he is breathing better than he was on admission. Reports no chest discomfort. Medications: Reviewed: Yes Vitals/I&O/Wt Last Vital Signs Temp 99.1 F 06/06/19 07:11 Pulse 91 06/06/19 08:10 Resp 31 H 06/06/19 08:04 BP 108/74 06/06/19 07:11 Pulse Ox 94 06/06/19 08:04 06/05/19 06/06/19 06/06/19 22:59 06:59 14:59 Intake Total 75 / 75 600 / 600 Output Total 250 / 250 Balance 75 / 75 350 / 350 Weight last 48 hrs Weight 117.934 kg Weight 108.862 kg Physical Exam Narrative: EXAM NARRATIVE: General exam is no apparent distress. Cardiovascular regular rate and rhythm without murmur. Heart sounds distant Lungs diminished breath sounds bilaterally. A faint expiratory wheeze Abdomen is soft with positive bowel sounds Extremities no cyanosis clubbing or edema Data Micro: Micro: Microbiology 06/05/19 21:38 Blood Culture - Pr eliminary Blood SPECIMEN [facility] 06/05/19 21:42 Blood Culture - Pr eliminary Blood SPECIMEN [facility] Attestations Medical Necessity Statement*: Needs continued hospitalization for pulmonary toilet, IV antibiotics for pneumonia. Coding Level of Care Code Acute Prison Warden for Margarito Vera
[2019-06-06 11:25] LABS: Glucose Point of Care 289 mg/dL (70-110)
--- NOTE | 2019-06-06 11:32 | P.PN_ITS ---
Subjective Subjective: Interval history: Yoni reports he is doing okay. Reports his shortness of breath is improved. Medications: Reviewed: Yes Vitals/I&O/Wt Last Vital Signs Temp 99.1 F 06/06/19 07:11 Pulse 91 06/06/19 08:10 Resp 31 H 06/06/19 08:04 BP 108/74 06/06/19 07:11 Pulse Ox 94 06/06/19 08:04 06/05/19 06/06/19 06/06/19 22:59 06:59 14:59 Intake Total 75 / 75 600 / 600 Output Total 250 / 250 Balance 75 / 75 350 / 350 Weight last 48 hrs Weight 117.934 kg Weight 108.862 kg Physical Exam Narrative: EXAM NARRATIVE: General exam is a white male, no apparent distress Cardiovascular regular rate and rhythm without murmur Lungs diminished breath sounds bilaterally. A few expiratory wheezes Abdomen is soft, positive bowel sounds Extremities no cyanosis clubbing or edema Data Micro: Micro: Microbiology 06/05/19 21:38 Blood Culture - Pr eliminary Blood SPE[facility]EN [facility] 06/05/19 21:42 Blood Culture - Pr eliminary Blood SPECIMEN [facility] A&P Assessment and plan (1) Sepsis: Appears resolved. Status: Acute Code(s): A41.9 - Sepsis, unspecified organism (2) Bilateral pneumonia: Rocephin and a azithromycin have been started Status: Acute Code(s): J18.9 - Pneumonia, unspecified organism (3) COPD (chronic obstructive pulmonary disease): Currently with acute exacerbation. Pulmonary toilet. Prednisone. Status: Acute Code(s): J44.9 - Chronic obstructive pulmonary disease, unspecified (4) Type 2 diabetes mellitus: Stable. Sliding scale insulin ordered Status: Acute Code(s): E11.9 - Type 2 diabetes mellitus without complications (5) Alcohol intoxication: No evidence of withdrawal Status: Acute Code(s): F10.929 - Alcohol use, unspecified with intoxication, unspecified (6) Dyslipidemia: Stable Status: Acute Code(s): E78.5 - Hyperlipidemia, unspecified (7) Hypertension: Stable Status: Acute Code(s): I10 - Essential (primary) hypertension (8) GERD (gastroesophageal reflux disease): Asymptomatic Status: Acute Code(s): K21.9 - Gastro-esophageal reflux disease without esophagitis Attestations Medical Necessity Statement*: Needs continued hospitalization for IV antibiotics for pneumonia Coding Level of Care Code Acute [employer] for Chg Fwd Diagnoses Sepsis A41.9 Bilateral pneumonia J18.9 COPD (chronic obstructive pulmonary disease) J44.9 Type 2 diabetes mellitus E11.9 Alcohol intoxication F10.929 Dyslipidemia E78.5 Hypertension I10 GERD (gastroesophageal reflux disease) K21.9
--- NOTE | 2019-06-06 12:47 | PC.CHAP ---
Pastoral Care Encounter/Spiritual Assessment Type of Contact [x] Declined nutrition services worker visit [] Patient/Family/Request visit [] Outpatient visit [] Follow-up visit [] Physician referral [] Code/Alert [] Routine visit [] Staff referral [] Actively dying [] Patient sleeping [] Family support [] [] Out of room [] Palliative care [] [] Receiving care in room [] Pre-surgical visit [] Trauma [] Long length of stay [] ICU visit [] Other: Relational/Emotional Strength [] Patient feels connected with others/family/visitors/staff [] Distress [] Loneliness/isolation [] Abandonment Spirituality of Patient [] Person of [place] [] Attends Rastafari of their [place] [] Believes in Prayer [] Reads Bible or Jainism materials [] There are Spiritual issues to be addressed Rubber Down Interventions [] Prayer [] Active listening [] Non-anxious presence [] Spiritual/emotional support [] Crisis/trauma care [] Spiritual counseling [] Bereavement support [] Provided bereavement packet [] Provided Bible/devotional materials [] Provided toy/stuffed animal, coloring book to patient or family member [] Completed spiritual assessment [] Provided Communion [] Anointing/[place] [] Salvation [] Other: Impact on Illness or Injury [] Angry [] Fearful [] Anxious [] Often cries [] Exhaustion [] Unable to work [] Unable to attend mu-ism [] Unable to walk/stand [] Unable to read [] Unable to drive [] Unable to eat/drink [] Unable to sleep [] Unable to be with family [] Other: Summary Patient declined visit; Carl Green Time spent with patient 2-Minutes
[2019-06-06 19:01] LABS: Glucose Point of Care 308 mg/dL (70-110)
--- NOTE | 2019-06-06 19:48 | PC.RESP ---
BIPAP on standby at this time. No respiratory distress noted.
[2019-06-06 21:13] LABS: Glucose Point of Care 284 mg/dL (70-110)
[2019-06-07] VITALS (18 sets, daily range): BP systolic 104–131; BP diastolic 64–81; PULSE 63–145; RESP 16–23; TEMP 36.4–36.8; O2SAT 89–98
--- NOTE | 2019-06-07 02:33 | PC.RESP ---
Increased FiO2 to 40% due to low sats, sats increased to 91%
[2019-06-07] MEDS: ipratropium-albuterol 3 mL Neb INHALATION ×6 (02:35→23:52)
[2019-06-07 06:28] LABS: Glucose Point of Care 220 mg/dL (70-110)
--- NOTE | 2019-06-07 07:15 | PC.RESP ---
[id number] on standby at bedside
[2019-06-07] MEDS: folic acid 1 mg Tablet PO (08:46)
[2019-06-07] MEDS: multivitamin therapeutic Tablet 1 TAB PO (08:46)
[2019-06-07] MEDS: predniSONE 20 mg Tablet 40 MG PO (08:46)
[2019-06-07] MEDS: thiamine 100 mg Tablet PO (08:47)
[2019-06-07] MEDS: cefTRIAXone 1,000 MG in sodium chloride 0.9% (plus) 50 ML 100 MG IV (08:52)
[2019-06-07] MEDS: azithromycin 250 mg Tablet 500 MG PO (08:57)
[2019-06-07 11:18] LABS: Glucose Point of Care 233 mg/dL (70-110)
--- NOTE | 2019-06-07 12:34 | PC.PT ---
Patient SBA to independent with all functional activities. Discharge from skilled PT services.
--- NOTE | 2019-06-07 12:51 | P.PN_ITS ---
Subjective Subjective: Interval history: Yoni reports that he is feeling okay. Still short of breath. Coughing some. Does feel better than on admission but certainly not at baseline. Medications: Reviewed: Yes Vitals/I&O/Wt Last Vital Signs Temp 97.6 F 06/07/19 07:47 Pulse 78 06/07/19 11:10 Resp 18 06/07/19 11:04 BP 104/64 06/07/19 07:47 Pulse Ox 91 06/07/19 11:04 06/06/19 06/07/19 06/07/19 22:59 06:59 14:59 Intake Total 580 / 1470 150 / 1620 120 / 120 Output Total 400 / 650 Balance 180 / 820 150 / 970 120 / 120 Weight last 48 hrs Weight 117.934 kg Weight 108.862 kg Physical Exam Narrative: EXAM NARRATIVE: General exam is no apparent distress Cardiovascular regular rate and rhythm Lungs a few expiratory wheezes. Diminished breath sounds bilaterally Abdomen is soft, positive bowel sounds Extremities no cyanosis clubbing or edema Data Micro: Micro: Microbiology 06/05/19 21:38 Blood Culture - Pr eliminary Blood NEGATIVE TO KENIA E 06/05/19 21:42 Blood Culture - Pr eliminary Blood NEGATIVE TO KENIA E A&P Assessment and plan (1) Sepsis: Appears resolved. Status: Acute Code(s): A41.9 - Sepsis, unspecified organism (2) Bilateral pneumonia: Rocephin and a azithromycin have been started. Slow improvement Status: Acute Code(s): J18.9 - Pneumonia, unspecified organism (3) COPD (chronic obstructive pulmonary disease): Currently with acute exacerbation. Pulmonary toilet. Prednisone. Slow improvement. Encouraged activity today. Hopefully can wean oxygen some. If no significant improvement by tomorrow consider dedicated CT of chest secondary to groundglass appearance caught on chest x-ray and CT abdomen pelvis Status: Acute Code(s): J44.9 - Chronic obstructive pulmonary disease, unspecified (4) Type 2 diabetes mellitus: Stable. Sliding scale insulin ordered Status: Acute Code(s): E11.9 - Type 2 diabetes mellitus without complications (5) Alcohol intoxication: No evidence of withdrawal Status: Acute Code(s): F10.929 - Alcohol use, unspecified with intoxication, unspecified (6) Dyslipidemia: Stable Status: Acute Code(s): E78.5 - Hyperlipidemia, unspecified (7) Hypertension: Stable Status: Acute Code(s): I10 - Essential (primary) hypertension (8) GERD (gastroesophageal reflux disease): Asymptomatic Status: Acute Code(s): K21.9 - Gastro-esophageal reflux disease without esophagitis Attestations Medical Necessity Statement*: Needs continued hospitalization for IV antibiotics secondary to pneumonia Coding Level of Care Code Acute Serials Librarian for g Fwd Diagnoses Sepsis A41.9 Bilateral pneumonia J18.9 COPD (chronic obstructive pulmonary disease) J44.9 Type 2 diabetes mellitus E11.9 Alcohol intoxication F10.929 Dyslipidemia E78.5 Hypertension I10 GERD (gastroesophageal reflux disease) K21.9
--- NOTE | 2019-06-07 16:07 | PC.RESP ---
[id number] on standby at bedside.
[2019-06-07 17:07] LABS: Glucose Point of Care 282 mg/dL (70-110)
--- NOTE | 2019-06-07 19:58 | PC.RESP ---
pt refused bipap at this time pt stated it tore up his nose and he doesnt like it. pt educated on wearing bipap tonight pt still adamant about not wearing it unless his oxygen level drops
[2019-06-07] MEDS: trazodone 150 mg Tablet PO (21:17)
[2019-06-07 21:28] LABS: Glucose Point of Care 248 mg/dL (70-110)
[2019-06-07] MEDS: enoxaparin 40 mg/0.4 mL Syringe SUBCUT (23:05)
[2019-06-08] VITALS (18 sets, daily range): BP systolic 118–137; BP diastolic 69–76; PULSE 63–89; RESP 16–32; TEMP 36.6–36.8; O2SAT 82–95
[2019-06-08] MEDS: ipratropium-albuterol 3 mL Neb INHALATION ×5 (03:24→23:23)
[2019-06-08 06:55] LABS: Glucose Point of Care 134 mg/dL (70-110)
--- NOTE | 2019-06-08 07:05 | PC.RESP ---
bipap id: [id number] on standby at bedside.
--- NOTE | 2019-06-08 07:39 | PC.RESP ---
Nurse notified therapist about sats being in the 70s to low 80s. Therapist entered the room and the nurse had turned up Oxygen from 4LPM to 6LPM. sats are 90% HR 69. patient has agreed to wear bipap for awhile.
[2019-06-08] MEDS: azithromycin 250 mg Tablet 500 MG PO (09:25)
[2019-06-08] MEDS: predniSONE 20 mg Tablet 40 MG PO (09:25)
[2019-06-08] MEDS: multivitamin therapeutic Tablet 1 TAB PO (09:25)
[2019-06-08] MEDS: folic acid 1 mg Tablet PO (09:26)
[2019-06-08] MEDS: thiamine 100 mg Tablet PO (09:26)
[2019-06-08] MEDS: cefTRIAXone 1,000 MG in sodium chloride 0.9% (plus) 50 ML 100 MG IV (09:30)
--- NOTE | 2019-06-08 09:36 | CTR_ITS ---
PROCEDURE INFORMATION: Exam: CT Angiography Chest With Contrast Exam date and time: 06/08/2019 9:49 AM Age: 69 years old Clinical indication: Shortness of breath; Additional info: Dyspnea, hypoxia TECHNIQUE: Imaging protocol: Computed tomographic angiography of the chest with intravenous contrast. 3D rendering: MIP and/or 3D reconstructed images were created by the technologist. Total DLP: 1130.11 mGy-cm Radiation optimization: All CT scans at this facility use at least one of these dose optimization techniques: automated exposure control; mA and/or kV adjustment per patient size (includes targeted exams where dose is matched to clinical indication); or iterative reconstruction. Contrast material: OMNI 350; Contrast volume: 95 ml; Contrast route: RT AC; COMPARISON: CT chest wo con [id number] 06/27/2016 11:42 AM FINDINGS: Pulmonary arteries: Normal. No pulmonary emboli. Aorta: Unremarkable. No aortic aneurysm. No aortic dissection. Lungs: Severe bilateral alveolar and interstitial opacities consistent with pneumonia versus pulmonary edema. Mild to moderate centrilobular emphysema. Pleural space: Unremarkable. No pneumothorax. No pleural effusion. Heart: Severe calcified coronary artery disease. Kidneys and ureters: Stable left renal cyst measuring > 1.0 cm. Lymph nodes: Unremarkable. No enlarged lymph nodes. Bones/joints: Unremarkable. No acute fracture. Soft tissues: Unremarkable. CT/CT angio chest PE protcl [id number] IMPRESSION: 1. Severe bilateral alveolar and interstitial opacities consistent with pneumonia versus pulmonary edema. 2. Mild to moderate centrilobular emphysema. 3. Severe calcified coronary artery disease. Radiation Dose CTDIVOL = (mGy): DLP = 1130.11 (mGy-cm)
--- NOTE | 2019-06-08 09:43 | P.PN_ITS ---
Subjective Subjective: Interval history: Yoni reports he feels a little bit better. It appeared on documentation he was on 4 L but when I entered the room he was still on 6 L per nasal cannula. He reports he is less short of breath. He denies any chest pain. Medications: Reviewed: Yes Vitals/I&O/Wt Last Vital Signs Temp 97.8 F 06/08/19 07:24 Pulse 69 06/08/19 07:45 Resp 20 H 06/08/19 07:24 BP 118/69 06/08/19 07:24 Pulse Ox 91 06/08/19 07:45 06/07/19 06/08/19 06/08/19 22:59 06:59 14:59 Intake Total 1160 / 1570 Output Total 725 / 725 1225 / 1950 Balance 435 / 845 -1225 / -380 Physical Exam Narrative: EXAM NARRATIVE: General exam is no apparent distress Cardiovascular regular rate and rhythm without murmur Lungs diminished breath sounds bilaterally. A few expiratory wheezes Abdomen is soft, positive bowel sounds Extremities no cyanosis clubbing or edema A&P Assessment and plan (1) Sepsis: Appears resolved. Status: Acute Code(s): A41.9 - Sepsis, unspecified organism (2) Bilateral pneumonia: Rocephin and a azithromycin have been started. He feels clinically better but he is still on a fair amount of oxygen Status: Acute Code(s): J18.9 - Pneumonia, unspecified organism (3) COPD (chronic obstructive pulmonary disease): Currently with acute exacerbation. Pulmonary toilet. Prednisone. Very slow improvement. Will arrange for a dedicated CT chest, CTA considering his dyspnea and history of no oxygen at home. This will be done today. Status: Acute Code(s): J44.9 - Chronic obstructive pulmonary disease, unspecified (4) Type 2 diabetes mellitus: Stable. Sliding scale insulin ordered Status: Acute Code(s): E11.9 - Type 2 diabetes mellitus without complications (5) Alcohol intoxication: No evidence of withdrawal Status: Acute Code(s): F10.929 - Alcohol use, unspecified with intoxication, unspecified (6) Dyslipidemia: Stable Status: Acute Code(s): E78.5 - Hyperlipidemia, unspecified (7) Hypertension: Stable Status: Acute Code(s): I10 - Essential (primary) hypertension (8) GERD (gastroesophageal reflux disease): Asymptomatic Status: Acute Code(s): K21.9 - Gastro-esophageal reflux disease without esophagitis Attestations Medical Necessity Statement*: Needs continued hospitalization for IV antibiotics secondary to pneumonia Coding Level of Care Code Acute Greenhouse Assistant for Chg Fwd Diagnoses Sepsis A41.9 Bilateral pneumonia J18.9 COPD (chronic obstructive pulmonary disease) J44.9 Type 2 diabetes mellitus E11.9 Alcohol intoxication F10.929 Dyslipidemia E78.5 Hypertension I10 GERD (gastroesophageal reflux disease) K21.9
[2019-06-08] MEDS: iohexol 300 mg/mL 100 mL Btl IV (10:34)
--- NOTE | 2019-06-08 10:41 | PC.RESP ---
bipap id: [id number]
[2019-06-08 12:21] LABS: Glucose Point of Care 256 mg/dL (70-110)
--- NOTE | 2019-06-08 13:11 | USCV_ITS ---
Yoni Connell Age: 69 Gender: M : 1950 Exam Date: 06/08/2019 15:14 Ordering Phys: Senthil Chen MD Technologist: Enedina Vale [place] [facility] [place] Indication: Pulmonary edema BP: 137 / 76 HR: Rhythm: Sinus Technical Quality: Adequate MEASUREMENTS (Male / Female) Normal Values 2D ECHO LV Diastolic Diameter PLAX 4.7 cm 4.2 - 5.9 / 3.9 - 5.3 cm LV Systolic Diameter PLAX 3.5 cm LV Chamber Size 4.3 cm IVS Diastolic Thickness 1.4 cm 0.6 - 1.0 / 0.6 - 0.9 cm IVS Systolic Thickness 2.3 cm LVPW Diastolic Thickness 1.3 cm 0.6 - 1.0 / 0.6 - 0.9 cm LVPW Systolic Thickness 1.2 cm RV Chamber Size 4.1 cm LVOT Diameter 2.1 cm LV Ejection Fraction 2D Teich 49.0 % LA Diameter 4.8 cm LA Width 3.4 cm LA Height 6.2 cm RA Width 2.7 cm RA Height 5.5 cm Aorta at Sinotubular Diameter 3.7 cm M-MODE LV Diastolic Diameter MM 5.3 cm 4.2 - 5.9 / 3.9 - 5.3 cm LV Systolic Diameter MM 3.6 cm LV Ejection Fraction MM Teich 58.1 % IVS Diastolic Thickness MM 2.2 cm 0.6 - 1.0 / 0.6 - 0.9 cm IVS Systolic Thickness MM 2.3 cm LVPW Diastolic Thickness MM 1.4 cm 0.6 - 1.0 / 0.6 - 0.9 cm LVPW Systolic Thickness MM 2.0 cm RV Diastolic Diameter MM 2.7 cm Aortic Annulus Diameter 4.0 cm LA Ao Ratio MM 1.2 MV E Point Septal Separation 0.8 cm DOPPLER AV Peak Velocity 153.0 cm/s LVOT Peak Velocity 122.0 cm/s AV Area Cont Eq vti 2.9 cm squared AV Area Cont Eq pk 2.8 cm squared MV Area PHT 2.7 cm squared Mitral E to A Ratio 1.1 MV E' Velocity 12.0 cm/s Mitral E to MV E' Ratio 11.4 Mitral E to LV E' Lateral Ratio 8.5 Mitral E to LV E' Septal Ratio 17.2 TV Peak E Velocity 56.0 cm/s Right Atrial Pressure 3.0 mmHg PV Peak Velocity 102.0 cm/s FINDINGS Left Ventricle Normal left ventricular cavity size. Increased left ventricular wall thickness. Normal left ventricular systolic function. Left ventricular ejection fraction is estimated at 55 %. There is possible hypokinesis of basal inferoseptal and basal inferior baxter. Normal diastolic function. Right Ventricle Normal right ventricular size and systolic function. Tricuspid valve regurgitant jet is inadequate for estimation of right ventricular systolic pressure. Right Atrium Normal right atrial size. Right atrial pressure estimated at 3 mmHg. Left Atrium Normal left atrial size. Mitral Valve Structurally normal mitral valve. No mitral valve stenosis. Mild mitral valve regurgitation. Aortic Valve Structurally normal trileaflet aortic valve. No aortic valve stenosis. Trace aortic valve regurgitation. Tricuspid Valve Structurally normal tricuspid valve. No tricuspid valve stenosis. Trace tricuspid valve regurgitation. Pulmonic Valve Structurally normal pulmonic valve. No pulmonary valve stenosis. Trace pulmonary valve regurgitation. Pericardium No pericardial effusion. Aorta Normal-sized aortic root. Ascending aorta mildly dilated measured anteroposteriorly at 40 mm. CONCLUSIONS 1. Normal left ventricular cavity size and systolic function. Left ventricular ejection fraction is estimated at 55 %. There is possible hypokinesis of basal inferoseptal and basal inferior baxter. Normal diastolic function. 2. Normal right ventricular size and systolic function. 3. Mild mitral valve regurgitation. 4. No prior similar studies to compare. Kathryn Cabrera MD (Electronically Signed) Final Date: 09 June 2019 17:48 S
[2019-06-08] MEDS: FUROsemide 10 mg/mL SDV 4mL 40 MG IVP (14:32)
[2019-06-08 16:54] LABS: Glucose Point of Care 384 mg/dL (70-110)
[2019-06-08 21:11] LABS: Glucose Point of Care 340 mg/dL (70-110)
[2019-06-08] MEDS: trazodone 150 mg Tablet PO (21:16)
[2019-06-09] VITALS (19 sets, daily range): BP systolic 114–143; BP diastolic 63–80; PULSE 59–73; RESP 16–20; TEMP 36.5–36.9; O2SAT 90–98
[2019-06-09] MEDS: enoxaparin 40 mg/0.4 mL Syringe SUBCUT (00:11)
[2019-06-09] MEDS: ipratropium-albuterol 3 mL Neb INHALATION ×6 (03:31→23:07)
[2019-06-09 06:44] LABS: Anion Gap 15.8 (5-19); Blood Urea Nitrogen 12 mg/dL (8-23); Calcium 9.6 mg/Dl (8.8-10.2); Carbon Dioxide 30 mmol/L (22-29); Chloride 98 mmol/L (98-107); Glomerular Filtration Rate 112.1 mL/min (90-130); Glucose 149 mg/dL (74-106); Potassium 3.8 mmol/L (3.5-5.1); Sodium 140 mmol/L (136-145)
--- NOTE | 2019-06-09 07:21 | PC.RESP ---
bipap on stand by
[2019-06-09 07:48] LABS: Glucose Point of Care 166 mg/dL (70-110)
[2019-06-09 08:37] LABS: Basophils % 0.6 %; Eosinophils # 0.3 10^3/uL (0.0-0.8); Eosinophils % 5.1 %; Hematocrit 34.3 % (42.0-52.0); Hemoglobin 10.7 g/dL (11.7-16.6); Lymphocytes # 1.2 10^3/uL (0.8-4.8); Lymphocytes % 19.1 %; Mean Corpuscular HGB Conc 31.2 g/dL (30.0-36.0); Mean Corpuscular Hemoglobin 25.5 pg (28.0-34.0); Mean Corpuscular Volume 81.7 fL (80-94); Mean Platelet Volume 9.7 fL (7.4-10.4); Monocytes # 0.5 10^3/uL (0.2-0.9); Monocytes % 7.1 %; Neutrophils # 4.3 10^3/uL (1.8-7.7); Neutrophils % 67.2 %; Nucleated Red Blood Cells % 0 %; Platelet Count 390 10^3/cmm (130-400); Red Cell Distribution Width 13.2 % (12.1-15.1); White Blood Count 6.3 10^3/uL (4.0-10.0)
[2019-06-09] MEDS: cefTRIAXone 1,000 MG in sodium chloride 0.9% (plus) 50 ML 100 MG IV (08:43)
[2019-06-09] MEDS: multivitamin therapeutic Tablet 1 TAB PO (08:44)
[2019-06-09] MEDS: predniSONE 20 mg Tablet 40 MG PO (08:44)
[2019-06-09] MEDS: azithromycin 250 mg Tablet 500 MG PO (08:44)
[2019-06-09] MEDS: thiamine 100 mg Tablet PO (08:44)
[2019-06-09] MEDS: folic acid 1 mg Tablet PO (08:44)
[2019-06-09 11:55] LABS: Glucose Point of Care 273 mg/dL (70-110)
[2019-06-09 17:03] LABS: Glucose Point of Care 339 mg/dL (70-110)
--- NOTE | 2019-06-09 17:44 | PM.PN ---
Subjective Subjective: Interval history: Patient reports feeling symptomatically much improved today. His O2 sats are 94% on 6 L nasal cannula. He has remained afebrile and hemodynamically stable. Medications: Reviewed: Yes Vitals/I&O/Wt Last Vital Signs Temp 98.1 F 06/09/19 14:59 Pulse 68 06/09/19 15:20 Resp 16 06/09/19 15:13 BP 143/80 06/09/19 14:59 Pulse Ox 94 06/09/19 15:13 06/09/19 06/09/19 06/09/19 06:59 14:59 22:59 Intake Total 1170 / 1170 220 / 1390 Output Total 350 / 2800 350 / 350 Balance -350 / -1670 820 / 820 220 / 1040 Physical Exam Narrative: EXAM NARRATIVE: Awake alert and oriented, lying comfortably in bed. CVS S1-S2 normal no murmurs rubs gallops Respiratory system clear to auscultation bilateral anteriorly. Not auscultated posteriorly due to patient positioning Abdomen is soft nondistended nontender. A&P Assessment and plan (1) Sepsis: Appears resolved. Status: Acute Code(s): A41.9 - Sepsis, unspecified organism (2) Bilateral pneumonia: Rocephin and a azithromycin have been started. He feels clinically better but he is still on a fair amount of oxygen Status: Acute Code(s): J18.9 - Pneumonia, unspecified organism (3) COPD (chronic obstructive pulmonary disease): Currently with acute exacerbation. Pulmonary toilet. Prednisone. CT of the chest performed yesterday shows severe bilateral alveolar and interstitial opacities consistent with pneumonia versus pulmonary edema. Note made of emphysema. No note of PE. Status: Acute Code(s): J44.9 - Chronic obstructive pulmonary disease, unspecified (4) Type 2 diabetes mellitus: Stable. Sliding scale insulin ordered Status: Acute Code(s): E11.9 - Type 2 diabetes mellitus without complications (5) Alcohol intoxication: No evidence of withdrawal Status: Acute Code(s): F10.929 - Alcohol use, unspecified with intoxication, unspecified (6) Dyslipidemia: Stable Status: Acute Code(s): E78.5 - Hyperlipidemia, unspecified (7) Hypertension: Stable Status: Acute Code(s): I10 - Essential (primary) hypertension (8) GERD (gastroesophageal reflux disease): Asymptomatic Status: Acute Code(s): K21.9 - Gastro-esophageal reflux disease without esophagitis Attestations Medical Necessity Statement*: Admission for optimization of respiratory status.. 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
--- NOTE | 2019-06-09 19:05 | PC.NURSE ---
Introduction of staff and report received, aidet.
[2019-06-09 21:21] LABS: Glucose Point of Care 416 mg/dL (70-110)
[2019-06-09] MEDS: trazodone 150 mg Tablet PO (21:32)
[2019-06-10] VITALS (13 sets, daily range): BP systolic 116–152; BP diastolic 66–89; PULSE 57–75; RESP 16–18; TEMP 36.4–36.8; O2SAT 91–98
[2019-06-10] MEDS: enoxaparin 40 mg/0.4 mL Syringe SUBCUT (00:50)
[2019-06-10 07:15] LABS: Glucose Point of Care 143 mg/dL (70-110)
[2019-06-10] MEDS: ipratropium-albuterol 3 mL Neb INHALATION ×3 (07:21→15:49)
--- NOTE | 2019-06-10 07:25 | PC.RESP ---
BIPAP ID: [id number] on standby at bedside.
[2019-06-10] MEDS: cefTRIAXone 1,000 MG in sodium chloride 0.9% (plus) 50 ML 100 MG IV (08:26)
[2019-06-10] MEDS: azithromycin 250 mg Tablet 500 MG PO (08:27)
[2019-06-10] MEDS: folic acid 1 mg Tablet PO (08:28)
[2019-06-10] MEDS: predniSONE 20 mg Tablet 40 MG PO (08:28)
[2019-06-10] MEDS: thiamine 100 mg Tablet PO (08:28)
[2019-06-10] MEDS: multivitamin therapeutic Tablet 1 TAB PO (08:28)
[2019-06-10 11:36] LABS: Glucose Point of Care 299 mg/dL (70-110)
--- NOTE | 2019-06-10 11:42 | PC.RESP ---
BIPAP ID: [id number] ON STANDBY AT BEDSIDE.
[2019-06-10 17:02] LABS: Glucose Point of Care 365 mg/dL (70-110)
--- NOTE | 2019-06-10 17:42 | PM.DCS ---
Discharge Providers Date of Admission: 06/05/19 22:29 Date of Discharge: 06/10/19 Attending Provider at Admission: Terry Mello MD Attending Provider at Discharge: Sharon Olivares MD Primary Care Provider: Flaquita Goodwin MD Diagnoses at Discharge Discharge Diagnosis (1) Sepsis: Status: Acute (2) Bilateral pneumonia: Status: Acute (3) COPD (chronic obstructive pulmonary disease): Status: Acute (4) Type 2 diabetes mellitus: Status: Acute (5) Alcohol intoxication: Status: Acute (6) Dyslipidemia: Status: Acute (7) Hypertension: Status: Acute (8) GERD (gastroesophageal reflux disease): Status: Acute Reason for Visit Reason for Visit: Reason For Visit: bilateral pneumonia Hospital Course Discharge Summary: Taken from H&P Yoni Connell is a 69 year old male who carries diagnosis of sleep apnea, uses 2 L oxygen at night, non-oxygen dependent COPD, obesity, came in after experiencing shortness of breath and cough. Patient is stating that his symptoms started about 4 weeks ago with runny nose, runny eyes, fever, cough and chills, initially he attributed his symptoms to cold and try to use his inhalers more often but his breathing and cough was getting worse on daily basis, he also experienced subjective fever with chills and couple of episodes of diarrhea, he is feeling weak, he was experiencing myalgias, not associated with any nausea or vomiting. In general he was feeling weaker and weaker and because excessive cough and shortness of breath he decided to come to ER today for evaluation. He has orthopnea and PND as well, no chest pain, numbness, tingling, dysuria. He is a poor historian. Patient says he quit smoking he is using a rolling papers to smoke tobacco this days he is denying use of electronic cigarettes Diagnostics in ER shows leukocytosis, tachypnea, patient was afebrile, hypertensive, CT shows bilateral interstitial infiltrates versus groundglass appearance Flu panel negative He was put on BiPAP, blood gas showed respiratory alkalosis Patient was admitted and received IV antibiotic treatment with 5 days of ceftriaxone and azithromycin. He also received a course of prednisone 40 mg per acute COPD exacerbation. He improved significantly with BiPAP, duo nebs and supplemental O2. He does use 2 L of oxygen at night at the time of discharge is using between 5 to 6 L at rest. His shortness of breath significantly improved. He was also noted during that admission to have possible alcohol withdrawal for which he was started on thiamine folic acid. [facility] protocol was followed. He did not exhibit any gross signs of agitation at the time of discharge. CTA for PE was negative Physical Exam Narrative: EXAM NARRATIVE: General : Awake alert oriented no apparent distress Cardiovascular regular rate and rhythm without murmur Lungs diminished breath sounds bilaterally. A few expiratory wheezes Abdomen is soft, positive bowel sounds Extremities no cyanosis clubbing or edema Discharge Data Data Completed and Pending: Completed Studies During Hospitalization Category Date Time Status CT abdomen pelvis w con* [id number] Urge nt Cat Scan 06/05/19 17:[address] angio chest PE protcl [id number] Rout ine Cat Scan 06/08/19 09:36 Completed XR chest 1V vishal ble [id number] Urgent Exams 06/05/19 15:44 Completed CV echo complete* [id number] Routine Ultrasound 06/08/19 13:11 Completed Pending at discharge Category Date Time Status ABG [Arterial Blo od Gas W/O Coox] R outine Lab 06/05/19 21:35 Results Arterial Blood Ga s W/O Coox AM LABS Lab 06/06/19 04:43 Results Blood Culture Sta t Lab 06/05/19 21:38 Results Labs from last 24 hours 06/10/19 06/10/19 06/10/19 16:38 10:48 06:14 POC Glucose 365 299 143 06/09/19 20:54 POC Glucose 416 Vitals: Last Vital Signs Temp 97.9 F 06/10/19 16:55 Pulse 75 06/10/19 16:55 Resp 18 06/10/19 16:55 BP 142/78 06/10/19 16:55 Pulse Ox 91 06/10/19 16:55 Discharge Plan Discharge Patient Disposition: Home, Self-Care Condition: Stable Prescriptions: New prednisone 20 mg Tablet 40 mg PO DAILY Qty: 5 RF: 0 folic acid 1 mg Tablet 1 mg PO DAILY Qty: 0 RF: 0 Vitamin B-1 (mononitrate) 100 mg Tablet 100 mg PO DAILY Qty: 0 RF: 0 Thera 400 mcg Tablet 1 tab PO DAILY Qty: 0 RF: 0 Continued metformin 500 mg Tablet 500 mg PO BID RF: 0 enalapril maleate 10 mg Tablet 10 mg PO DAILY RF: 0 trazodone 150 mg Tablet 150 mg PO BEDTIME RF: 0 Advair Diskus 250-50 mcg/dose blister with device INHALATION RF: 0 bupropion HCl [Wellbutrin XL] 300 mg tablet extended release 24 hr 150 mg PO RF: 0 diazepam 10 mg tablet RF: 0 diclofenac sodium 50 mg tablet,delayed release (DR/EC) PO RF: 0 fluoxetine 40 mg capsule RF: 0 gabapentin 300 mg capsule RF: 0 glyburide 5 mg tablet RF: 0 Discontinued cephalexin 500 mg capsule RF: 0 Discharge Orders: Discharge Order (Routine); Ordered 06/10/19 Ordered By: Sharon Olivares Discharge Diet: Usual diet Discharge Activity: Oxygen as instructed Discharge Attestations Time Spent in Discharge Care*: greater than 30 min Quality Metrics Clinical Quality Measures During this hospital stay, did patient experience: None Coding Level of Care Code 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
[2019-06-11 07:51] LABS: BIPAP 18/9; Oxygen Device BIPAP
[2019-06-11 08:26] LABS: BIPAP 16/8; Oxygen Device BIPAP
== END 2019-06-10 17:00 | disposition home or self-care (01) | DRG 871 ==
LOC: ER 18:13 → MEDSURG 22:30
PROVIDERS: Family Medicine; Internal Medicine; Admitting Provider Internal Medicine; Emergency Provider Emergency Medicine; Family Provider Internal Medicine; PCP Internal Medicine; Visit Provider Student in an Organized Health Care Education/Training Program
DX: A41.9 Sepsis, unspecified organism (principal); J18.9 Pneumonia, unspecified organism; E87.3 Alkalosis; J44.1 Chronic obstructive pulmonary disease with (acute) exacerbation; E11.9 Type 2 diabetes mellitus without complications; F10.929 Alcohol use, unspecified with intoxication, unspecified; G47.33 Obstructive sleep apnea (adult) (pediatric); E66.9 Obesity, unspecified; Z68.33 Body mass index [BMI] 33.0-33.9, adult; F17.290 Nicotine dependence, other tobacco product, uncomplicated; E78.5 Hyperlipidemia, unspecified; K21.9 Gastro-esophageal reflux disease without esophagitis; I10 Essential (primary) hypertension; F41.9 Anxiety disorder, unspecified; Z79.84 Long term (current) use of oral hypoglycemic drugs
CPT/HCPCS: 36415; 36416; 36600; 71045; 71275; 74177; 80048; 80053; 80307; 82550; 82803; 82962; 83605; 83690; 84443; 84484; 85025; 87040; 87804; 93005; 93306; 94640; 94660; 96360; 96365; 96372; 96374; 97161; 97530; 99282; J0696; J1650; J1815; J1940; J2405; J2543; J3370; J3411; J7030; J7050; J7512; Q0144; Q9967

== ENCOUNTER → 2019-06-24 13:10 | Outpatient (BNVA) | payer MEDICAID, SELFPAY | PROVIDERS: Family Provider Internal Medicine; PCP Internal Medicine; Visit Provider Nurse Practitioner | DX: F33.2 Major depressive disorder, recurrent severe without psychotic features (principal); F41.1 Generalized anxiety disorder | CPT/HCPCS: 99213 ==

== ENCOUNTER 2019-08-05 05:56 | Day surgery (SDC) | payer MEDICAID, SELFPAY ==
[2019-08-04 11:05] VITALS: BMI 34.5
[2019-08-05 06:29] VITALS: BP 153/88; PULSE 71; RESP 16; TEMP 37.1; O2SAT 97
[2019-08-05] MEDS: sodium chloride 0.9% 1,000 ML 30 ML (06:30)
[2019-08-05 06:39] LABS: Glucose Point of Care 153 mg/dL (70-110)
--- NOTE | 2019-08-05 06:52 | ANES.PREANE2 ---
Pre-Anesthetic Assessment Pre-Anesthetic Assessment: Height/Weight: Height 1.83 m Weight 115.666 kg Temp Pulse Resp BP Pulse Ox 98.7 F 71 16 153/88 97 08/05/19 06:29 08/05/19 06:29 08/05/19 06:29 08/05/19 06:29 08/05/19 06:29 Preop Diagnosis: polyp Proposed Procedure: Operation Date: 08/05/19 07:00 Proposed Procedures p Colonoscopy 36850/Z86.010(Not Applicable) - Jalil Roth MD Was Beta Uriel taken within 24 hours: N/A Last intake: Intake Last Liquid Date 08/04/19 Last Liquid Time 20:00 Last Solid Date 08/04/19 Last Solid Time 20:00 Social: Social History: Tobacco (2-3cig day) Exam: Pre-Anes Outpt Exam: alert and oriented x 3 Airway: Submandibular: WNL Cervical ROM: WNL Dentition: False History/ROS: No significant history except as noted and No significant complaints Pulmonary: Pulmonary: COPD and Cough Comments: pneumonia 1/ has home o2 but doesnt wear it CV/HEM: CV/HEM: HTN : : None reported Hepatic: Hepatic: None reported GI: GI: None reported Metabolic: Metabolic: DM and Hyperlipidemia Musc/skel: Musc/skel: None reported Neuropsych: Neuropsych: None reported Anesthetic Plan: ASA status: 3 Anesthesia: MAC PFSH Anesthesia PFSH: Social History Smoking and tobacco status: former smoker Smoking risk assessment/counseling performed?: Yes Tobacco counseling given: counseling >3 minutes Alcohol intake: current Alcohol intake frequency: few times a month Alcohol type: beer Household members: family Marital status: Single Current occupational status: disabled History of recent travel: No Data Anesthesia Other Labs: Laboratory Results - last 48 hr 08/05/19 06:34 POC Glucose 153 Cardiac Studies: No Data to Display
--- NOTE | 2019-08-05 06:59 | W.PM.OPSUD ---
Surgery/Procedure H&P Update DATE OF PROCEDURE: August 05, 2019 DATE H&P PERFORMED: 08/04/19 H&P UPDATE INFORMATION: I have reviewed H&P completed within last 30 days, I have examined patient prior to procedure and No changes to prior documentation PREOP DIAGNOSIS: polyp PLANNED PROCEDURE: Operation Date: 08/05/19 07:00 Proposed Procedures p Colonoscopy 61948/Z86.010(Not Applicable) - Jalil Roth MD
[2019-08-05 07:29] VITALS: BP 130/78; PULSE 64; RESP 18; TEMP 37; O2SAT 97
[2019-08-05 07:45] VITALS: BP 132/77; PULSE 66; RESP 18; O2SAT 95
--- NOTE | 2019-08-05 07:59 | ANE.PACU2 ---
 Inpatient post-anesthesia follow up: Airway intact: Yes Vital signs: Temperature 98.6 F Pulse Rate 66 Respiratory Rate 18 Blood Pressure 132/77 Pulse Oximetry 95 Oxygen Delivery Me thod Room Air Oxygen Flow Rate 2.0 Fraction of Inspir ed Oxygen Hydration adequate: Yes Nausea and vomiting: No Mental status: Baseline
--- NOTE | 2019-08-08 17:54 | P.HP_ITS ---
Same Day Surgery H&P Indication for Procedure/HPI DATE OF PROCEDURE: August 08, 2019 CHIEF COMPLAINT/INDICATIONFOR SURGICAL PROCEDURE: History of colon polyps PREOP DIAGNOSIS: polyp PLANNED PROCEDRUE: Operation Date: 08/05/19 07:00 Proposed Procedures p Colonoscopy(Not Applicable) - Jalil Roth MD Medications/Allergies* Home Medications Medication Instructions Recorded Confirmed Type enalapril maleate 10 mg PO DAILY 06/05/19 08/05/19 History gabapentin 300 mg PO TID 06/06/19 08/05/19 History albuterol sulfate [ProAir HFA] 1 - 2 puff INHALATION QID PRN 08/04/19 08/05/19 History glyburide 5 mg PO BID 08/04/19 08/05/19 History lovastatin 40 mg PO DAILY 08/04/19 08/05/19 History metformin 1,000 mg PO BID 08/04/19 08/05/19 History ranitidine HCl 150 mg PO DAILY 08/05/19 08/05/19 History Allergies/Adverse Reactions Allergy/AdvReac Type Severity Reaction Status Date / Time No Known Allergies Allergy Verified 08/05/19 06:15 Pertinent History/Comorbid Conditions* Medical History (Updated 07/04/19 @ 13:20 by Jalil Roth MD) Alcohol intoxication Anxiety Bladder cancer COPD (chronic obstructive pulmonary disease) Dyslipidemia Generalized anxiety disorder GERD (gastroesophageal reflux disease) History of colon polyps Hypertension Major depressive disorder, recurrent severe without psychotic features Neuropathy Polysubstance abuse Sleep apnea Type 2 diabetes mellitus Surgical History (Updated 08/05/19 @ 07:29 by Jalil Roth MD) H/O circumcision H/O laminectomy History of bladder surgery history of bladder cancer History of dental surgery History of tonsillectomy Status post colonoscopy with polypectomy 08/04/19: rectal polyp Family History (Updated 07/04/19 @ 11:16 by Azalea Mondragon LPN) Diabetes CAD (coronary artery disease) Hyperlipidemia Cancer Denies family history of Anesthesia complication Bleeding disorder Social History Smoking and tobacco status: former smoker Smoking risk assessment/counseling performed?: Yes Tobacco counseling given: counseling >3 minutes Alcohol intake: current Alcohol intake frequency: few times a month Alcohol type: beer Household members: family Marital status: Single Current occupational status: disabled History of recent travel: No Pertinent Exam Findings alert, oriented x 3 and regular rate & rhythm Recommendations Surgery/Procedure today Coding Level of Care Code Acute 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
== END 2019-08-05 08:00 | disposition home or self-care (01) ==
PROVIDERS: Family Provider Internal Medicine; PCP Internal Medicine; Visit Provider Surgery
PROC: 0DJD8ZZ Inspection of Lower Intestinal Tract, Via Natural or Artificial Opening Endoscopic (ICD-10-PCS; CPT 45378; principal; 2019-08-05 07:00)
DX: D12.8 Benign neoplasm of rectum (principal); Z86.010 Personal history of colon polyps; Z85.51 Personal history of malignant neoplasm of bladder; J44.9 Chronic obstructive pulmonary disease, unspecified; E78.5 Hyperlipidemia, unspecified; I10 Essential (primary) hypertension; G47.30 Sleep apnea, unspecified; E11.40 Type 2 diabetes mellitus with diabetic neuropathy, unspecified; Z82.49 Family history of ischemic heart disease and other diseases of the circulatory system; Z83.3 Family history of diabetes mellitus; Z87.891 Personal history of nicotine dependence; Z99.81 Dependence on supplemental oxygen
CPT/HCPCS: 12345; 36416; 45380; 82962; 88305; J2001; J2704; J7030

== ENCOUNTER → 2019-08-14 10:10 | Outpatient (BNVA) | payer MEDICAID, SELFPAY | PROVIDERS: Family Provider Internal Medicine; PCP Internal Medicine; Visit Provider Urology | DX: C67.0 Malignant neoplasm of trigone of bladder (principal) | CPT/HCPCS: 81001 ==

== ENCOUNTER → 2019-09-16 08:28 | Outpatient (BNVA) | payer MEDICAID, SELFPAY | PROVIDERS: Family Provider Internal Medicine; PCP Internal Medicine; Visit Provider Nurse Practitioner | DX: F33.2 Major depressive disorder, recurrent severe without psychotic features (principal); F41.1 Generalized anxiety disorder | CPT/HCPCS: 99213 ==

== ENCOUNTER 2019-11-18 13:22 | Outpatient (CLI) | payer MEDICAID, SELFPAY ==
--- NOTE | 2019-11-18 13:35 | CT_ITS ---
WS: [id number] CT CHEST TECHNIQUE: Contrast enhanced CT of the chest with coronal and sagittal reformatted images. CLINICAL INFORMATION: HEMOPTYSIS/DYSPNEA COMPARISON: CTA chest June 08, [address] chest June 27, 2016, June 22, 2015 DLP: 988.[address] scans at [facility] use at least one of these dose optimization techniques: automat ed exposure control; mA and/or kV adjustment per patient size (includes targeted exams where dose is matched to clinical indication); or iterative reconstruction. FINDINGS: Stable mild/moderate centrilobular emphysema. No acute pulmonary infiltrates. Slight atelectasis in t he lung bases. No acute pulmonary infiltrates. Vascular calcification including coronary. No axillary lymphadenopathy. A few prominent mediastinal and paratracheal lymph nodes nonspecific but likely dianne ctive. No hilar lymphadenopathy. Adrenal glands are normal. Small left renal cyst measuring 2.1 cm. A few small noncalcified pulmonary nodules in both lower lobes the largest measuring 3 mm. Small subcentimeter nodule left upper lobe a long the fissure. Subpleural interstitial thickening in both lungs. Hypertrophic changes thoracic spi ne. Moderate thoracic kyphosis. CT/CT chest w con* [id number] IMPRESSION: 1. Mild chronic emphysematous change. 2. No acute pulmonary infiltrates. 3. A few tiny subpleural noncalcified pulmonary nodules in both lower lobes. R ecommend 12 month follow-up. 4. Small left renal cyst measuring 2 CM. 5. Vascular calcification including coronary. 6. A few prominent anterior mediastinal lymph nodes nonspecific but likely dianne ctive.
[2019-11-18] MEDS: iohexol 300 mg/mL 100 mL Btl IV (14:07)
== END 2019-11-18 13:23 | disposition home or self-care (01) ==
LOC: RAD 13:25
PROVIDERS: PCP Internal Medicine; Visit Provider Internal Medicine
DX: R04.2 Hemoptysis (principal); R06.00 Dyspnea, unspecified; J43.8 Other emphysema; N28.1 Cyst of kidney, acquired; I25.10 Atherosclerotic heart disease of native coronary artery without angina pectoris; R91.8 Other nonspecific abnormal finding of lung field
CPT/HCPCS: 71260

== ENCOUNTER → 2019-12-15 07:52 | Outpatient (BNVA) | payer MEDICAID, SELFPAY | PROVIDERS: PCP Internal Medicine; Visit Provider Nurse Practitioner | DX: F33.2 Major depressive disorder, recurrent severe without psychotic features (principal); F41.1 Generalized anxiety disorder | CPT/HCPCS: 99213 ==

== ENCOUNTER → 2020-03-09 08:21 | Outpatient (BNVA) | payer MEDICAID, SELFPAY | PROVIDERS: PCP Internal Medicine; Visit Provider Nurse Practitioner | DX: F41.1 Generalized anxiety disorder (principal); F33.2 Major depressive disorder, recurrent severe without psychotic features | CPT/HCPCS: 99213 ==

== ENCOUNTER → 2020-03-24 07:55 | Outpatient (BNVA) | payer MEDICAID, SELFPAY | PROVIDERS: PCP Internal Medicine; Referring Provider Internal Medicine; Visit Provider Anesthesiology Pain Medicine | DX: G89.29 Other chronic pain (principal); M47.816 Spondylosis without myelopathy or radiculopathy, lumbar region; M54.16 Radiculopathy, lumbar region; M51.36 Other intervertebral disc degeneration, lumbar region; M54.12 Radiculopathy, cervical region; M47.812 Spondylosis without myelopathy or radiculopathy, cervical region; M54.9 Dorsalgia, unspecified; Z79.899 Other long term (current) drug therapy | CPT/HCPCS: 99204 ==

== ENCOUNTER 2020-03-30 12:48 | Outpatient (CLI) | payer MEDICAID, SELFPAY ==
--- NOTE | 2020-03-30 13:00 | MR_ITS ---
WS: [id number] MRI CERVICAL SPINE HISTORY: M54.12 Radiculopathy, cervical region COMPARISON: None available. Mild straightening of the normal cervical lordosis. Mild multilevel spondylitic changes. No marrow ed beulah or fracture. Mild disc space narrowing and desiccation throughout and endplate osteophytes. Signal within the cervical cord is normal. Visualized posterior fossa is unremarkable. Craniocervical junction, C1 and C2 relationship, odontoid process and soft tissues are normal. C2-C3: Mild osteophytic ridging. No stenosis. C3-C4: Mild osteophytic ridging. No stenosis. C4-C5: Very mild annular disc bulging. No stenosis. C5-C6: Normal. C6-C7: Mild annular disc bulging and osteophytic ridging. Central shallow disc protrusion. Very mild encroachment upon the ventral thecal sac with mild LEFT foraminal narrowing. C7-T1: Mild annular disc bulging and osteophytic ridging. Mild central and bilateral foraminal stenos is, RIGHT greater than LEFT. Paraspinal soft tissue are normal. MR/MR cervical spin wo con* [id number] IMPRESSION: 1. Multilevel mild to moderate spondylitic changes throughout the cervical spi ne. 2. No acute fracture. 3. No severe central or foraminal stenosis. 4. Mild central and bilateral foraminal stenosis at C7-T1, greatest on the RIG HT. 5. Shallow central disc protrusion at C6-7 with mild central and LEFT foramina l narrowing.
--- NOTE | 2020-03-30 13:45 | MR_ITS ---
WS: [id number] MRI LUMBAR SPINE NONCONTRAST HISTORY: M54.16 Radiculopathy, lumbar region COMPARISON: 01/14/2014 TECHNIQUE: Sagittal and axial multisequence imaging is submitted. Straightening of the normal lumbar lordosis. No acute fractures or marrow edema. Posterior alignment is normal. Moderate degenerative disc disease L4-5 and L5-S1 with mild progression since 2013. Endplate osteophy raoul at all levels. Conus terminates normally at L1-2 disc level. L1-L2: Normal. L2-L3: Moderate ligamentum flavum hypertrophy encroaching upon the thecal sac. Mild central and subar ticular recess stenosis, greatest on the LEFT. Central stenosis has progressed since the prior study. RIGHT laminectomy defect is noted. L3-L4: Diffuse annular disc bulging and osteophytic ridging. Posterior laminectomy defects. No signif icant central stenosis. There is mild encroachment on the subarticular recesses and the L4 nerve root s bilaterally. Similar to the prior study. Prominent epidural fat is encroaching upon the thecal sac at the L3 and L4 levels. L4-L5: Moderate disc bulging and osteophytic ridging. Laminectomy defects posteriorly. Only mild encr oachment upon the thecal sac with more significant osteophyte encroachment into the lateral recesses bilaterally. Osteophytes about the L5 nerve roots bilaterally the subarticular recesses. Similar to t kalpesh prior study. Compared to the prior study there has been partial resolution of the central stenosis due to laminectomies. Mild arachnoiditis. L5-S1: Mild annular disc bulging and osteophytic ridging. LEFT renal cyst measures 2.2 cm. MR/MR lumbar spine wo con* [id number] IMPRESSION: 1. Posterior laminectomy defects are new at the L3 and L4 levels. 2. Resolution of the central stenosis at L4-5 due to the laminectomies. There is continued osteophyte encroachment into the subarticular recesses bilaterally encroaching upon the L5 nerve roots. 3. Mild central and bilateral subarticular recess stenosis at L2-3. 4. Mild osteophyte encroachment into the subarticular recesses at L3-4. No pro gression.
== END 2020-03-30 12:49 | disposition home or self-care (01) ==
LOC: RADSHAW 12:52
PROVIDERS: PCP Internal Medicine; Visit Provider Anesthesiology Pain Medicine
DX: M54.12 Radiculopathy, cervical region (principal); M54.16 Radiculopathy, lumbar region; M96.1 Postlaminectomy syndrome, not elsewhere classified; M48.061 Spinal stenosis, lumbar region without neurogenic claudication; M25.78 Osteophyte, vertebrae; M48.03 Spinal stenosis, cervicothoracic region; M50.223 Other cervical disc displacement at C6-C7 level
CPT/HCPCS: 72141; 72148

== ENCOUNTER → 2020-04-08 09:23 | Outpatient (BNVA) | payer MEDICAID, SELFPAY | PROVIDERS: PCP Internal Medicine; Visit Provider Urology | DX: C67.0 Malignant neoplasm of trigone of bladder (principal); N49.2 Inflammatory disorders of scrotum | CPT/HCPCS: 81003 ==

== ENCOUNTER → 2020-05-20 08:31 | Outpatient (BNVA) | payer MEDICAID, SELFPAY | PROVIDERS: PCP Internal Medicine; Visit Provider Nurse Practitioner | DX: F33.2 Major depressive disorder, recurrent severe without psychotic features (principal); F41.1 Generalized anxiety disorder | CPT/HCPCS: 99213 ==

== ENCOUNTER 2020-09-17 14:06 | Outpatient (CLI) | payer MEDICAID, SELFPAY ==
--- NOTE | 2020-09-17 | CT_ITS ---
WS: [id number] CT scan of the chest with IV contrast, additional two-dimensional coronal and sagittal reconstruction was performed. 09/17/2020 Clinical Data: COPD Comparison: CT chest, 11/18/2019. DLP: 1163.[address] scans at [facility] use at least one of these dose optimization techniques: automat ed exposure control; mA and/or kV adjustment per patient size (includes targeted exams where dose is matched to clinical indication); or iterative reconstruction. Findings: There is a left upper lobe mass measuring 4.8 x 5.4 x 7.3 cm in AP, superior-inferior and transverse dimensions respectively. This mass has developed since the last CT scan 11/18/2019. The small nodules noted in various locations throughout the lungs remain the same. There is peripheral atelectasis in t he lingula of the left upper lobe. The heart size is normal with no pericardial effusion. Coronary ar daniel calcification is present. No pneumonia or pneumothorax is noted. The pulmonary arterial system a nd thoracic aorta demonstrate no abnormalities or dilatations. There is no axillary or significant me diastinal adenopathy. The thyroid gland shows normal enhancement. The upper abdomen shows no change from before. There are no lesions in the visualized liver and the l eft kidney shows a renal cortical cyst. The adrenal glands are normal in size. The bony thorax shows no metastatic lesions. CT/CT chest w con* [id number] Impression: 1. Large left upper lobe mass with greatest dimension of 7.3 cm most consistent with cancer of the lung. 2. No change in subpleural nodules.
[2020-09-17] MEDS: iohexol 300 mg/mL 100 mL Btl IV (14:29)
== END 2020-09-17 14:07 | disposition home or self-care (01) ==
PROVIDERS: PCP Internal Medicine; Visit Provider Internal Medicine
DX: J44.9 Chronic obstructive pulmonary disease, unspecified (principal); R91.8 Other nonspecific abnormal finding of lung field
CPT/HCPCS: 71260; Q9967

== ENCOUNTER → 2020-09-27 09:28 | Outpatient (BNVA) | payer MEDICAID, SELFPAY | PROVIDERS: PCP Internal Medicine; Visit Provider Internal Medicine Critical Care Medicine | DX: Z20.822 Contact with and (suspected) exposure to COVID-19 (principal); J44.9 Chronic obstructive pulmonary disease, unspecified | CPT/HCPCS: 87635 ==

== ENCOUNTER 2020-10-01 05:43 | Day surgery (SDC) | payer MEDICAID, SELFPAY ==
[2020-09-29 13:42] VITALS: BMI 35.9
[2020-10-01] VITALS (12 sets, daily range): BP systolic 90–151; BP diastolic 53–89; PULSE 73–99; RESP 18–23; TEMP 36.2–36.8; O2SAT 90–100
[2020-10-01 06:40] LABS: Glucose Point of Care 163 mg/dL (70-110)
[2020-10-01] MEDS: sodium chloride 0.9% 1,000 ML 30 ML IV (06:45)
--- NOTE | 2020-10-01 06:53 | W.PM.OPSUD ---
Surgery/Procedure H&P Update DATE OF PROCEDURE: October 01, 2020 DATE H&P PERFORMED: 09/27/20 H&P UPDATE INFORMATION: I have reviewed H&P completed within last 30 days, I have examined patient prior to procedure and No changes to prior documentation PREOP DIAGNOSIS: Lung cancer PRIMARY INDICATION FOR PROCEDURE: Suspected lung cancer PLANNED PROCEDURE: Bronchoscopy inspection of the airway, possible endobronchial biopsy, bronchoalveolar lavage, Cytobrush, endobronchial sound guided transbronchial needle aspiration of lymph nodes and control of bleeding Operation Date: 10/01/20 07:10 Proposed Procedures p Bronchoscopy(Not Applicable) - Suzanna Castillo MD s Ebus(Not Applicable) - Suzanna Castillo MD Operation Date: 10/01/20 07:00 Proposed Procedures p Ebus [id number] R91.1(Not Applicable) - Suzanna Castillo MD s Bronchoscopy(Not Applicable) - Suzanna Castillo MD Operation Date: 10/01/20 07:00 Proposed Procedures p Ebus(Not Applicable) - Suzanna Castillo MD
--- NOTE | 2020-10-01 07:07 | ANES.PREANE2 ---
Pre-Anesthetic Assessment Pre-Anesthetic Assessment: Height/Weight: Height 1.83 m Weight 120.202 kg Temp Pulse Resp BP Pulse Ox 97.2 F L 73 20 H 145/82 95 10/01/20 06:15 10/01/20 06:15 10/01/20 06:15 10/01/20 06:15 10/01/20 06:15 Preop Diagnosis: Lung cancer Proposed Procedure: Operation Date: 10/01/20 07:10 Proposed Procedures p Bronchoscopy(Not Applicable) - Suzanna Castillo MD s Ebus(Not Applicable) - Suzanna Castillo MD Operation Date: 10/01/20 07:00 Proposed Procedures p Ebus [id number] R91.1(Not Applicable) - Suzanna Castillo MD s Bronchoscopy(Not Applicable) - Suzanna Castillo MD Operation Date: 10/01/20 07:00 Proposed Procedures p Ebus(Not Applicable) - Suzanna Castillo MD Familial anesthetic complications: None Was Beta Uriel taken within 24 hours: N/A Was Clonidine taken within 24 hours: N/A Last intake: Intake Last Liquid Date 09/30/20 Last Liquid Time 17:00 Last Solid Date 09/30/20 Last Solid Time 17:00 Social: Social History: No alcohol and No tobacco Comment: former smoker Exam: Pre-Anes Outpt Exam: alert, oriented x 3 and regular rate & rhythm Additional Exam Findings (including area of procedure): caorse breath sounds b/l Airway: Cervical ROM: WNL MP: 4 Dentition: Other (edentulous) Pulmonary: Pulmonary: COPD and Sleep apnea Comments: Radha gmass CV/HEM: CV/HEM: HTN GI: GI: GERD Metabolic: Metabolic: Hyperlipidemia Neuropsych: Neuropsych: Anxiety Anesthetic Plan: ASA status: 4 Anesthesia: General Risk of > 500 ml blood loss (7ml/kg in children): No Meds/Allergies Current Medications: Current Medications Generic Name Dose Route Start Last Admin Trade Name Freq PRN Reason Stop Dose Admin Sodium Chloride 1,000 mls @ 30 ml s/hr 10/01/20 06:15 10/01/20 06:45 Sodium Chloride 0.9% IV 10/02/20 06:14 30 mls/hr .Q24H LASHAWN Administration PFSH Anesthesia PFSH: Medical History (Updated 09/27/20 @ 09:21 by Suzanna Castillo MD) Alcohol intoxication Anxiety Bladder cancer Cancer of trigone of urinary bladder COPD (chronic obstructive pulmonary disease) Dyslipidemia Generalized anxiety disorder GERD (gastroesophageal reflux disease) History of colon polyps Hypertension Major depressive disorder, recurrent severe without psychotic features Neuropathy Polysubstance abuse Sleep apnea Type 2 diabetes mellitus Surgical History H/O circumcision H/O laminectomy History of bladder surgery history of bladder cancer History of dental surgery History of tonsillectomy Status post colonoscopy with polypectomy 08/04/19: rectal polyp Family History Father , in his 50's Heart failure Mother , at age 73 Cancer breast Other CAD (coronary artery disease) Diabetes Hyperlipidemia Denies family history of Anesthesia complication Bleeding disorder Social History Smoking and tobacco status: former smoker Quit status (tobacco): has quit using tobacco Year quit tobacco: Jun [id number] Second hand smoke exposure: Yes Smoking risk assessment/counseling performed?: Yes Tobacco counseling given: counseling >3 minutes Alcohol intake: current Alcohol intake frequency: few times a month Alcohol type: beer Lives independently: Yes Household members: none Housing: House Marital status: service: No Current occupational status: disabled Pets and animals: Yes History of recent travel: No Current gender identity: Male Data Anesthesia Other Labs: Laboratory Results - last 48 hr 10/01/20 06:35 POC Glucose 163 H Cardiac Studies: No Data to Display
[2020-10-01] MEDS: lidocaine 2% INJ 20 mL (07:25)
[2020-10-01] MEDS: lidocaine 1% INJ 20 mL XX (07:25)
--- NOTE | 2020-10-01 08:10 | P.OP_ITS ---
Operative Report Date of procedure: October 01, 2020 Pre-op Diagnosis: Lung cancer Post-op diagnosis: same Brief History: This is a 70-year-old gentleman coming in for bronchoscopic evaluation of left hilar lung mass. Procedure: Name of the procedure: Bronchoscopy with inspection of the airway, bronchoalveolar lavage, endobronchial biopsies, endobronchial ultrasound-guided transbronchial needle aspiration of lymph nodes and control of bleeding. Indication: Left hilar lung mass Anesthesia: General anesthesia. Local anesthesia: The vocal cords, trachea, elizabeth in the right and left pavan nstem bronchi were anesthetized with 1% lidocaine, 7 mL. Description of the procedure: The procedure was explained to the patient and the consent was obtained. The patient was brought to the OR. The patient underwent laryngeal mask airway placement for general anesthesia. Following induction of general anesthesia, the bronchoscope was advanced through the LMA. The vocal cords anesthetized with 1% lidocaine. 3 mL lidocaine was used. The upper and lower lower trachea appeared normal. No endotracheal lesion was seen. Splayed. The elizabeth, the right and left mainstem bronchi are anesthetized with 1% lidocaine. In a systematic manner bilateral bronchial tree was then examined. The bronchoscope was advanced into the left mainstem bronchus. Infiltrating endobronchial lesion was seen at the opening of the left upper lobe bronchus. The opening of the left upper lobe bronchus was completely occluded. The lesion was very friable and bled easily to touch. The segmental bronchi in the lower lobe bronchus were normal. The bronchoscope was then introduced into the right mainstem bronchus. The right upper lobe, right middle lobe and right lower lobe bronchi were examined up to the third subsegmental level and no abnormalities were identified. There was mild airway erythema throughout the lung. Endobronchial biopsies were performed from the left upper lobe. 5 specimens wer e obtained. Bronchoalveolar lavage was performed from the left upper lobe. 60 mL of fluid was instilled, fluid return was 35 mL. The fluid was bloody. The endobronchial ultrasound was introduced through the LMA. Left hilar lung mass was easily identified. There was subcarinal lymphadenopathy. No significant lymphadenopathy on the right side. Fine-needle aspiration was performed first from station 7 and then from left hilar lymph node. Samples: 1. Bronchoalveolar lavage specimen was sent for cytology. 2. The endobronchial biopsies are sent for histopathology. 3. The transbronchial needle aspiration of the aforementioned lymph node groups were sent for histopathology. Complications: There was no immediate complications.
--- NOTE | 2020-10-01 08:54 | SUR.PHASEI ---
0836 PT TO PACU SLEEPY WITH ORAL AIRWAY IN PLACE, MONITOR AFIB/A FLUTTER, WITH PVCS OCCASIONALLY , SOME SR PT IN AND OUT BP LOW ON ADMIT BUT NOW NORMAL, PT AWAKED AND ORAL AIRWAY OUT PT TALKATIVE NO DISTRESS, VSS PT ORIENTED X 3 SITTING UP IN BED AT 45 DEGREES LAST BP 116/77 PT REQUESTS SODA TO SIP ON HANDOFF AT BEDSIDE.
--- NOTE | 2020-10-01 12:56 | ANE.PACU2 ---
Inpatient post-anesthesia follow up: Airway intact: Yes Vital signs: Temperature 98.2 F Pulse Rate 77 Respiratory Rate 18 Blood Pressure 144/85 Pulse Oximetry 94 Oxygen Delivery Me thod Nasal Cannula Oxygen Flow Rate 2 Fraction of Inspir ed Oxygen Hydration adequate: Yes Nausea and vomiting: No Pain level: 1 Mental status: Baseline
[2020-10-06 10:24] LABS: PD-L1 (Clone 22C3) by IHC BBPL See Report
== END 2020-10-01 09:25 | disposition home or self-care (01) ==
PROVIDERS: PCP Internal Medicine; Visit Provider Internal Medicine Critical Care Medicine
PROC: BB4BZZZ Ultrasonography of Pleura (ICD-10-PCS; principal; 2020-10-01 07:00)
PROC: 0BJ08ZZ Inspection of Tracheobronchial Tree, Via Natural or Artificial Opening Endoscopic (ICD-10-PCS; CPT 31622; 2020-10-01 07:00)
DX: R91.8 Other nonspecific abnormal finding of lung field (principal); J44.9 Chronic obstructive pulmonary disease, unspecified; G47.30 Sleep apnea, unspecified; I10 Essential (primary) hypertension; K21.9 Gastro-esophageal reflux disease without esophagitis; E78.5 Hyperlipidemia, unspecified; F41.9 Anxiety disorder, unspecified; E11.40 Type 2 diabetes mellitus with diabetic neuropathy, unspecified; Z87.891 Personal history of nicotine dependence
CPT/HCPCS: 31624; 31625; 31652; 36416; 80500; 82962; 88112; 88305; 88342; 96360; 96361; J2704; J3010; J7030

== ENCOUNTER 2020-10-07 12:44 | Outpatient (CLI) | payer MEDICAID, SELFPAY ==
--- NOTE | 2020-10-07 17:37 | ONC CON_ITS ---
Dr. Tang New Patient Note Patient: Yoni Connell Unit #: [id number]: 1950 Dicatated By: Yamil Tang M.D.Date of Visit: October 07, 2020 Onc MED New Patient/Consult Referring Physician: Dr. LENNY CASTILLO M.D. Dr. MADHURI STEVENSON M.D. Chief Complaint: Lung cancer. 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 By clinical evaluation his disease is stage at least IIIA (T4, N1, M0). He had presented recently with hemoptysis, onset approximately [address] on 09/17/2020 showed a left upper lobe mass measuring 4.8 x 5.4 x 7.3 cm, new compared to a prior CT from November 2019. Small nodules noted in various locations throughout the lungs appeared stable. The visualized portions of the liver and the adrenal glands appeared normal. He was referred to Dr. Castillo. On 10/01/2020 he underwent bronchoscopy/EBUS with endobronchial biopsies and with FNA biopsies from station 7 and from left hilar lymph nodes. Pathology of the left upper lobe endobronchial biopsy and I have the left hilar mass FNA biopsy showed moderate to poorly differentiated squamous cell carcinoma. The FNA biopsy at station 7 showed benign pathology. He is seen now for further management. He says his energy has been a little slow. He still has mostly normal activity, though it is limited. His ECOG score is 1. He says his appetite is slowing down. His weight is down about 20 pounds. He has not had fever. He sometimes has night sweating. He has had some soreness in his throat, but no difficulty swallowing. He still has cough with associated hemoptysis. He says his breathing is okay, and he does not complain of chest pain. He has no GI or complaints. He does see Dr. Epstein for superficial bladder cancer. He has joint pain, mainly in the elbows and hands, and he also has lower back pain. He has been having headache behind his left eye. He sometimes has lightheadedness when he first wakes up in the morning. He has no focal neurologic symptoms. He does report ongoing problems with anxiety and depression. Past Medical History: His medical history includes chronic obstructive pulmonary disease, depression, gastroesophageal reflux disease, history of bladder cancer (followed by Dr Epstein), hyperlipidemia, hypertension, obstructive sleep apnea, peripheral neuropathy, polysubstance abuse, and type II diabetes. Past Surgical History: He underwent bronchoscopy/EBUS on 10/01/2020. His other surgical/procedural history includes tonsillectomy, TURBT in 2015, and lumbar laminectomy for lumbar spinal canal stenosis in 2013. Medications: Advair Diskus 1 puff(s) (of 250-50 mcg/dose) Aerosol Powder, Breath Activated Inhalation b.i.d., BuPROPion HCl ER (XL) 1 Tablet (of 300 mg) Tablet SR 24 HR Oral every am, DiazePAM 1 Tablet (of 5 mg) Oral t.i.d., Enalapril Maleate (10 mg) Tablet Oral daily, FLUoxetine HCl 1 Capsule (of 40 mg) Oral daily, Gabapentin 1 Tablet (of 300 mg) Oral t.i.d., Hydrocodone-Acetaminophen 1 Tablet (of 7.5-325 mg) Oral four times a day PRN, Lovastatin 1 Tablet (of 40 mg) Oral daily, Riarc-0-uwsp Ethyl Esters 2 Capsule (of 1 G) Oral daily, TraZODone HCl 1 Tablet (of 150 mg) Oral at bedtime Allergies: No Known Allergies. Social History: Mr. Connell is and he is a disabled. He has a history of smoking off and on for 50 years up to 1 pack of cigarettes daily. He has now quit smoking. He has had heavy alcohol use in the past, he now drinks beer just occasionally. His records indicate a history of polysubstance abuse. Family History: Father in his sleep at age 51, presumably of heart disease. Mother had breast cancer and diabetes. She at age 73. A brother age 60 with complications of dementia and alcoholism. A sister with asthma at age 55. Review Of Symptoms: Constitutional - His energy is a little slow. He has limited activity, though mostly normal. Appetite is slowing down. His weight is down about 20 pounds. He has not had fever. He sometimes has night sweating. ECOG score is 1, ENMT - He has hearing loss and tinnitus. No sinus congestion/drainage. No mouth sores. He sometimes has sore throat, but no difficulty swallowing, Hematologic/Lymphatic - No abnormal bruising, Respiratory - No shortness of breath. He has cough and hemoptysis, Cardiovascular - No angina pain. No palpitations, Gastrointestinal - No nausea or vomiting. No heartburn or acid reflux. No diarrhea or constipation. No blood in the stool or black stools, Genitourinary (M) - No dysuria or hematuria. No urinary frequency. No urgency or incontinence, Musculoskeletal - He has joint pain and he has chronic lower back pain, Integumentary - No skin rash or other skin changes, Neurologic - He has headache behind the left eye. He sometimes has lightheadedness when he first gets up. No numbness or tingling. No other focal neurologic symptoms, Psychiatric - He has anxiety and depressio Vital Signs: Performed on October 07, 2020 14:00: 7, 7, 35.78 (HIGH), 2.40 sq.m, 72 in, 96 %, 76 /min, 18 /min, 158/80 mm(hg) (HIGH), 97.7 F (LOW), and 263.8 lbs (LOW). Physical Examination: Constitutional - He appears somewhat weak generally, Eyes - Sclerae nonicteric. Conjunctivae clear, ENMT - No lesions noted in the oral cavity, Neck - No mass or thyromegaly, Hematologic/Lymphatic - No cervical, clavicular, or axillary adenopathy, Respiratory - Lungs sound clear with some decrease in air movement bilaterally, Cardiovascular - Heart rhythm is regular. There is no murmur, gallop, or rub noted, Abdomen - Moderately distended. Liver and spleen are not enlarged. There is no abdominal mass or ascites noted and there is no inguinal adenopathy, Back/Spine - No spine or CVA tenderness noted, Extremities - No edema. Pedal pulses are palpable bilaterally, Integumentary - No rashes. No suspicious skin lesions noted, Neurologic - No focal neurologic deficits noted. Problem List: 1. 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 By clinical evaluation his disease is stage at least IIIA (T4, N1, M0). 2. Hypertension. 3. Hyperlipidemia. 4. Type 2 diabetes. 5. COPD. 6. GERD. 7. Obstructive sleep apnea. 8. Peripheral neuropathy. 9. History of lumbar spinal stenosis. 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 11. History of polysubstance abuse. 12. Depression. 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 By clinical evaluation his disease is stage at least IIIA (T4, N1, M0). He has an endobronchial lesion with associated hemoptysis. The CT findings and pathology results were reviewed with the patient, and we discussed the clinical implications. He has non-small cell lung cancer, stage at least IIIA. It is very unlikely that his disease would be operable, and in all likelihood the recommended treatment will be chemoradiation, assuming we do not find evidence of more advanced disease. He does need to complete staging with PET/CT, which is already scheduled for Sunday, and with brain MRI, which will be scheduled now. I will check baseline laboratory studies as well. If there is no evidence of metastatic disease, he will be scheduled to have radiation oncology consultation with Dr. Green next week. He will also then need to see a surgeon for placement of Port-A-Cath venous access device for the chemotherapy. Signed By: Yamil Tang M.D. <<Signature on File>>
== END 2020-10-07 12:45 | disposition home or self-care (01) ==
LOC: ONCMED 12:46
PROVIDERS: PCP Internal Medicine; Visit Provider Internal Medicine Medical Oncology
DX: C34.12 Malignant neoplasm of upper lobe, left bronchus or lung (principal); I10 Essential (primary) hypertension; E78.5 Hyperlipidemia, unspecified; E11.42 Type 2 diabetes mellitus with diabetic polyneuropathy; J44.9 Chronic obstructive pulmonary disease, unspecified; K21.9 Gastro-esophageal reflux disease without esophagitis; G47.33 Obstructive sleep apnea (adult) (pediatric); F32.9 Major depressive disorder, single episode, unspecified; M51.36 Other intervertebral disc degeneration, lumbar region; M48.061 Spinal stenosis, lumbar region without neurogenic claudication; F19.10 Other psychoactive substance abuse, uncomplicated; Z85.51 Personal history of malignant neoplasm of bladder; Z79.899 Other long term (current) drug therapy
CPT/HCPCS: 99205

== ENCOUNTER → 2020-10-12 12:58 | Outpatient (BNVA) | payer MEDICAID, SELFPAY | PROVIDERS: PCP Internal Medicine; Visit Provider Urology | DX: C67.0 Malignant neoplasm of trigone of bladder (principal); C67.8 Malignant neoplasm of overlapping sites of bladder; R91.8 Other nonspecific abnormal finding of lung field | CPT/HCPCS: 81003 ==

== ENCOUNTER 2020-10-22 10:31 | Outpatient (CLI) | payer MEDICAID, SELFPAY ==
--- NOTE | 2020-10-22 11:00 | MR_ITS ---
WS: [id number] MRI HEAD WITH CONTRAST TECHNIQUE: Sagittal T1, T2 axial, T2 axial FLAIR, axial susceptibility weighted imaging, axial diffus ion weighted images, and coronal T2 images were obtained. Pre and post-T1 axial and post T1 coronal i mages. ADC and FSPGR images. CLINICAL INFORMATION: LUNG CANCER;HEADACHE COMPARISON: CT August 23, 2018 FINDINGS: No evidence of restricted diffusion to suggest acute ischemia. Ventricular system and basal cisterns are patent. Mild small vessel changes. Moderate parenchymal volume loss. Normal posterior fossa. Norm al vascular flow voids at the skull base. No extra-axial fluid collections. No evidence of mass or ma ss effect. No hemosiderin on susceptibly weighted images. Moderate symmetric atrophy temporal lobes and hippocam pal formations. Normal optic chiasm and pituitary infundibulum. Mild mucosal thickening in the right mastoid air cells. Mild mucosal thickening in the paranasal sinuses. No evidence of enhancing intracranial metastatic disease. Normal dural venous sinuses. MR/MR head wo/w con [id number] IMPRESSION: 1. No evidence of restricted diffusion to suggest acute ischemia. 2. No evidence of enhancing intracranial metastatic disease. 3. Mild small vessel changes. Moderate parenchymal volume loss. 4. No other significant findings.
[2020-10-22 11:38] LABS: Blood Urea Nitrogen 14 mg/dL (8-23); Glomerular Filtration Rate 95.8 mL/min (90-130)
[2020-10-22] MEDS: gadobenate dimeglumine 20 mL vial IV (12:02)
== END 2020-10-22 10:32 | disposition home or self-care (01) ==
LOC: RADSHAW 10:34
PROVIDERS: PCP Internal Medicine; Visit Provider Internal Medicine Medical Oncology
DX: C34.12 Malignant neoplasm of upper lobe, left bronchus or lung (principal); R51.9 Headache, unspecified
CPT/HCPCS: 70553; 82565; 84520; A9577

== ENCOUNTER 2020-10-27 13:48 | Outpatient (RCR) | payer MEDICAID, SELFPAY ==
--- NOTE | 2020-10-25 14:53 | N.ONRAD NP_ITS ---
Radiation Oncology New Patient Visit Patient: Yoni Connell MR#: [id number] : 1950 Age: 70 Sex: Male Dictated by: Dr. Jac Masters Date of Service: 10/25/2020 Referring Physician(s) : Alec Cheng M.D. Diagnosis: C34.12 - malignant neoplasm of upper lobe, left bronchus or lung, Diagnosed 10/07/2020 (active), stage iiia, t4, n1, m0. Radiotherapy to date: Summary > No prior radiation therapy. Chief Complaint / History of Present Illness: 70 yo formal smoker with several months of clotty hemoptysis. CT chest 09/2020 revealed a new central left hilar mass abutting the left main stem bronchus vs 11/2019. Small indeterminate lung nodules were stable. Bronch here 10/01/2020 with BX of ILDEFONSO and FNA of hilum positive for SCC. Breathing is more short but better with inhaler. He uses O2 at night. Inactive at home with a home health aid that comes for support. No RICEKTTS, N or V. MRI brain was clear. Weight declined from 280 to 250 despite good appetite. Current Medications: Advair Diskus, buPROPion HCl ER (XL), diazePAM, enalapril Maleate, fLUoxetine HCl, gabapentin, hydrocodone-Acetaminophen, lovastatin, [id number] Ethyl Esters, traZODone HCl. Allergies: No Known Allergies Medical History: - Chronic obstructive pulmonary disease, - depression, - gastroesophageal reflux disease, - history of bladder cancer (followed by Dr Epstein) , - hyperlipidemia, - hypertension, - obstructive sleep apnea, - peripheral neuropathy, - polysubstance abuse, - type II diabetes. No history of collagen vascular disease. No previous radiation therapy. Surgical History: Bronchoscopy/EBUS on 10/01/2020, colonoscopy, covid vaccine #1 in 06/2020, covid vaccine #2 in 07/2020, lumbar laminectomy for lumbar spinal canal stenosis on 03/06/2014, tonsillectomy and tURBT on 11/18/2015. Family History: Father is at age 50 having experienced heart disease. Mother is at age 73 having experienced breast cancer, and osteoarthritis. Brother is alive having experienced heart disease, and renal disease. Sister is at age 55 having experienced asthma. Father in his sleep at age 51, presumably of heart disease. Mother had breast cancer and diabetes. She at age 73. A brother age 60 with complications of dementia and alcoholism. A sister with asthma at age 55. Social History: Last screened on 10/25/2020 - Yes - but has quit for less than one year. Smoked 0.5 packs/day for 50 years (25 pack years). Last screened on 10/25/2020 - Drinks occasionally 2 drinks/da Lives alone with his dog. . ! adult daughter with whom he does have a relationship. Worked in [employer] in [place] became disabled due to back problems in 1996 and moved here. No significant hobbies. Current Complaints / Review of Systems: . Vital Signs: Performed on 10/25/2020 1:18 PM BMI - 35.235 kg/m2 (high), Height - 72.00 in, Weight - 259.8 lbs, Temperature - 96.0 f, Pulse - 87, Respiration - 20, O2 Sat - 96 %, Pain - 0 and BP - 146/ 102 mm(hg)(high). Physical Exam: Robust in NAD. Edentulous with dentures in place. No palpable adenopathy. Lungs clear with no rhonchi or wheezes. Heart regular with occasional premature beat. Abd obese otherwise ok, No focal neuro deficits seen. No clubbing or edema of extremities. Performance Status: 1 - No physically strenuous activity, but ambulatory and able to carry out light or sedentary work (e.g. office work, light house work). (ECOG) Pathology: Primary, c34.12 - malignant neoplasm of upper lobe, left bronchus or lung, Diagnosed 10/07/2020 (active) stage iiia, t4, n1, m0. Lab: Test performed on 10/22/2020 11:05 AM Cr Clearance (Est) - 147.5000 ml/min (high). Imaging: See HPI Impression: Plan: St III( T4 N1 M0) SCC of central left lung. Significant heme and unplanned weight loss. Not a good candidate to consider pneumonectomy. Agree with combined chest radiation and systemic chemo as best overall treatment. Discussed with patient. Port placement 10/26, simulation with treatment to follow. Signed by: 10/25/2020 2:51:18 PM <<Signature on File>> Time spent with patient: CPT Code: CPT Code:
--- NOTE | 2020-10-27 | CT_ITS ---
Radiation Therapy Planning CT images; total exam DLP: 1061.99 mGy-cm MTDD
== END 2020-11-01 23:59 | disposition home or self-care (01) ==
LOC: ONCMED 13:48
PROVIDERS: PCP Internal Medicine; Visit Provider Radiology Radiation Oncology
DX: Z51.0 Encounter for antineoplastic radiation therapy (principal); C34.12 Malignant neoplasm of upper lobe, left bronchus or lung; J44.9 Chronic obstructive pulmonary disease, unspecified; F32.9 Major depressive disorder, single episode, unspecified; K21.9 Gastro-esophageal reflux disease without esophagitis; E78.5 Hyperlipidemia, unspecified; I10 Essential (primary) hypertension; G47.33 Obstructive sleep apnea (adult) (pediatric); E11.42 Type 2 diabetes mellitus with diabetic polyneuropathy; F19.10 Other psychoactive substance abuse, uncomplicated; Z79.899 Other long term (current) drug therapy
CPT/HCPCS: 77300; 77301; 77334; 77338; 77470; 99205

== ENCOUNTER → 2020-10-28 11:29 | Outpatient (BNVA) | payer MEDICAID, SELFPAY | PROVIDERS: PCP Internal Medicine; Visit Provider Surgery | DX: Z20.822 Contact with and (suspected) exposure to COVID-19 (principal); C34.90 Malignant neoplasm of unspecified part of unspecified bronchus or lung | CPT/HCPCS: 87635 ==

== ENCOUNTER 2020-11-02 11:19 | Day surgery (SDC) | payer MEDICAID, SELFPAY ==
[2020-10-29 18:32] VITALS: BMI 35.2
[2020-11-02] VITALS (7 sets, daily range): BP systolic 112–149; BP diastolic 69–95; PULSE 57–67; RESP 13–19; TEMP 36.4–36.6; O2SAT 92–98
--- NOTE | 2020-11-02 | SCC_ITS ---
Procedure Done: 1. Placement of PowerPort in the right subclavian vein 2. Fluoroscopic guidance and interpretation for placement of catheter 29.2 seconds of fluoroscopic guidance, for a cumulative dose of 20.10 mGy, was provided to Dr. Roth by the radiology department. C-arm images of the chest were saved for the patient's permanent record. [facility]
[2020-11-02 11:47] LABS: Glucose Point of Care 167 mg/dL (70-110)
[2020-11-02] MEDS: sodium chloride 0.9% 1,000 ML 30 ML IV (11:51)
--- NOTE | 2020-11-02 12:10 | W.PM.OPSUD ---
Surgery/Procedure H&P Update DATE OF PROCEDURE: November 02, 2020 DATE H&P PERFORMED: 10/26/20 H&P UPDATE INFORMATION: I have reviewed H&P completed within last 30 days, I have examined patient prior to procedure and No changes to prior documentation PREOP DIAGNOSIS: Lung cancer PLANNED PROCEDURE: Operation Date: 11/02/20 12:00 Proposed Procedures p Portacath Placement [id number] c34.90(Not Applicable) - Jalil Roth MD
--- NOTE | 2020-11-02 12:15 | SC_ITS ---
WS: [id number] INTRAOPERATIVE TECHNIQUE: 2 Spot fluoroscopic images for intraoperative purposes. FLUOROSCOPY TIME: 29.2 seconds CLINICAL INFORMATION: port a cath COMPARISON: None. FINDINGS: Right Port-A-Cath with tip in the mid SVC. IMPRESSION: Images obtained for intraoperative purposes.
--- NOTE | 2020-11-02 12:42 | ANES.PREANE2 ---
Pre-Anesthetic Assessment Pre-Anesthetic Assessment: Height/Weight: Height 1.83 m Weight 117.934 kg Temp Pulse Resp BP Pulse Ox 97.8 F 65 18 149/95 92 11/02/20 11:37 11/02/20 11:37 11/02/20 11:37 11/02/20 11:37 11/02/20 11:37 Preop Diagnosis: Lung cancer Proposed Procedure: Operation Date: 11/02/20 12:00 Proposed Procedures p Portacath Placement 38097 c34.90(Not Applicable) - Jalil Roth MD Was Beta Uriel taken within 24 hours: N/A Was Clonidine taken within 24 hours: N/A Last intake: Intake Last Liquid Date 11/01/20 Last Liquid Time 18:30 Last Solid Date 11/01/20 Last Solid Time 18:30 Social: Social History: Alcohol and Tobacco Exam: Pre-Anes Outpt Exam: alert, oriented x 3 and regular rate & rhythm Airway: Submandibular: WNL Cervical ROM: WNL MP: 2 Dentition: False Pulmonary: Pulmonary: COPD CV/HEM: CV/HEM: HTN GI: GI: GERD Metabolic: Metabolic: DM and Morbid obesity Neuropsych: Neuropsych: Anxiety and Depression Anesthetic Plan: ASA status: 3 Anesthesia: MAC Risk of > 500 ml blood loss (7ml/kg in children): No Meds/Allergies Current Medications: Current Medications Generic Name Dose Route Start Last Admin Trade Name Freq PRN Reason Stop Dose Admin Sodium Chloride 1,000 mls @ 30 ml s/hr 11/02/20 11:30 11/02/20 11:51 Sodium Chloride 0.9% IV 11/03/20 11:29 30 mls/hr .Q24H LASHAWN Administration PFSH Anesthesia PFSH: Medical History Alcohol intoxication Anxiety Bladder cancer Cancer of trigone of urinary bladder COPD (chronic obstructive pulmonary disease) Dyslipidemia Generalized anxiety disorder GERD (gastroesophageal reflux disease) History of colon polyps Hypertension Major depressive disorder, recurrent severe without psychotic features Neuropathy Polysubstance abuse Sleep apnea Type 2 diabetes mellitus Surgical History H/O circumcision H/O laminectomy History of bladder surgery history of bladder cancer History of dental surgery History of tonsillectomy Status post colonoscopy with polypectomy 08/04/19: rectal polyp Family History Father , in his 50's Heart failure Mother , at age 73 Cancer breast Other CAD (coronary artery disease) Diabetes Hyperlipidemia Denies family history of Anesthesia complication Bleeding disorder Social History Smoking and tobacco status: former smoker Quit status (tobacco): has quit using tobacco Year quit tobacco: Jun [id number] Second hand smoke exposure: Yes Smoking risk assessment/counseling performed?: Yes Tobacco counseling given: counseling >3 minutes Alcohol intake: current Alcohol intake frequency: few times a month Alcohol type: beer Lives independently: Yes Household members: none Housing: House Marital status: service: No Current occupational status: disabled Pets and animals: Yes History of recent travel: No Current gender identity: Male Data Anesthesia Other Labs: Laboratory Results - last 48 hr 11/02/20 11:43 POC Glucose 167 H Cardiac Studies: No Data to Display
[2020-11-02] MEDS: lidocaine 1% INJ 20 mL INJECTION (12:46)
[2020-11-02] MEDS: heparin, porcine 1,000 unit/mL INJ 10 mL 6000 UNIT INJECTION (12:47)
--- NOTE | 2020-11-02 13:30 | PM.OP ---
Operative Report Date of procedure: November 02, 2020 Pre-op Diagnosis: Lung cancer Post-op diagnosis: same Procedure Done: 1. Placement of PowerPort in the right subclavian vein 2. Fluoroscopic guidance and interpretation for placement of catheter Pathology: none sent Surgeon: Jalil Roth Anesthesia: MAC Condition: stable Disposition: PACU Procedure: The patient was taken to the Operating Room and the chest and neck bilaterally were prepped and draped in a sterile manner after the antibiotic had been administered and shoulder rolls had been placed. A total of 10 mL of 1% lidocaine with 0.5% Marcaine was infiltrated under the clavicle on the right side at the site of the planned entry into the subclavian vein. An introducer needle was then used to access the subclavian vein under the clavicle and after withdrawing blood syringe was removed and a guidewire passed under fluoroscopy into the superior vena cava. The site of the planned port was then marked on the chest and a 15 blade was used to make a 3 cm skin incision this was extended into the subcutaneous tissue using electrocautery and a subcutaneous pocket over the pectoralis fascia was created 2-0 Vicryl suture was used to suture the port to the pectoral fascia in the pocket on 3 sides. The catheter, after having been flushed with hep saline, was attached to the tunneler and a tunnel created between the port site and the subclavian vein entry site. Under fluoroscopy the dilator sheath was passed over the guidewire into the proximal superior vena cava. The inner dilator was removed and the sheath left behind and~ the catheter was introduced through the peel-away sheath with the tip in the superior vena cava. The peel-away sheath was removed. The proximal end of the catheter was cut to the right size and was attached to the port. Using a Nickerson needle the port was accessed, it withdrew blood easily and flushed easily. A final 5cc of heparin was used to flush the PowerPort. The subcutaneous tissue was approximated using interrupted 3-0 Vicryl sutures and the skin at the introducer site and the port site was closed using subcuticular running 4-0 Monocryl sutures. Surgical glue was applied and the patient was stable throughout the procedure. Fluoroscopic guidance and interpretation was performed for introduction of the guidewire in the right subclavian vein, passage of dilator and placement of catheter tip in the distal superior vena cava.
== END 2020-11-02 14:27 | disposition home or self-care (01) ==
PROVIDERS: PCP Internal Medicine; Visit Provider Surgery
PROC: (CPT 36561; principal; 2020-11-02 12:00)
DX: C34.90 Malignant neoplasm of unspecified part of unspecified bronchus or lung (principal); J44.9 Chronic obstructive pulmonary disease, unspecified; I10 Essential (primary) hypertension; K21.9 Gastro-esophageal reflux disease without esophagitis; E11.40 Type 2 diabetes mellitus with diabetic neuropathy, unspecified; E66.01 Morbid (severe) obesity due to excess calories; Z68.35 Body mass index [BMI] 35.0-35.9, adult; F41.9 Anxiety disorder, unspecified; F32.9 Major depressive disorder, single episode, unspecified; Z85.51 Personal history of malignant neoplasm of bladder; E78.5 Hyperlipidemia, unspecified; Z86.010 Personal history of colon polyps
CPT/HCPCS: 36561; 36416; 77001; 82962; 96365; C1788; J0690; J1644; J2250; J3010; J3490; J7030

== ENCOUNTER → 2020-11-08 12:36 | Outpatient (BNVA) | payer MEDICAID, SELFPAY | PROVIDERS: PCP Internal Medicine; Visit Provider Nurse Practitioner | DX: F41.1 Generalized anxiety disorder (principal); F33.2 Major depressive disorder, recurrent severe without psychotic features; F17.211 Nicotine dependence, cigarettes, in remission | CPT/HCPCS: 99214 ==

== ENCOUNTER 2020-12-01 05:51 | Outpatient (RCR) | payer MEDICAID, SELFPAY ==
[2020-11-15 09:39] LABS: Basophils # 0.1 10^3/uL (0.0-0.1); Basophils % 0.9 %; Eosinophils # 0.8 10^3/uL (0.0-0.8); Eosinophils % 8.9 %; Hematocrit 40.6 % (42.0-52.0); Lymphocytes # 1.5 10^3/uL (0.8-4.8); Lymphocytes % 17.4 %; Mean Corpuscular Hemoglobin 27.7 pg (28.0-34.0); Mean Corpuscular Volume 86.6 fL (80-94); Mean Platelet Volume 10.1 fL (7.4-10.4); Monocytes # 0.8 10^3/uL (0.2-0.9); Monocytes % 9.3 %; Neutrophils # 5.52 10^3/uL (1.8-7.7); Neutrophils % 62.9 %; Nucleated Red Blood Cells % 0 %; Platelet Count 204 10^3/cmm (130-400); Red Blood Count 4.69 10^6/uL (4.1-5.3); Red Cell Distribution Width 13.7 % (12.1-15.1); White Blood Count 8.8 10^3/uL (4.0-10.0)
[2020-11-15 10:06] LABS: Alanine Aminotransferase 10 U/L (0-41); Albumin Level 4.4 g/dL (3.5-5.2); Alkaline Phosphatase 88 IU/L (40-130); Anion Gap 14.6 (5-19); Aspartate Amino Transferase 12 U/L (0-40); Blood Urea Nitrogen 14 mg/dL (8-23); Carbon Dioxide 27 mmol/L (22-29); Chloride 97 mmol/L (98-107); Globulin 2.5 g/dL (1.3-4.6); Glomerular Filtration Rate 95.8 mL/min (90-130); Glucose 244 mg/dL (65-115); Osmolality Calculated 287 mOsm/kg (285-295); Potassium 4.6 mmol/L (3.5-5.1); Sodium 134 mmol/L (136-145); Total Bilirubin 0.4 mg/dL (0.15-1.2); Total Protein 6.9 g/dL (6.6-8.7)
[2020-11-15] MEDS: sodium chloride 0.9% 250 ML 75 ML IV (12:05)
[2020-11-15] MEDS: palonosetron 0.25 mg/5 mL SDV IVP (12:05)
[2020-11-15] MEDS: famotidine 20 mg/2 mL INJ IVP (12:08)
[2020-11-15] MEDS: diphenhydrAMINE 50 mg/mL SDV 1mL 25 MG IVP (12:10)
[2020-11-15] MEDS: HYDROcodone-acetaminophen 7.5-325 mg Tablet 1 TAB PO (12:53)
--- NOTE | 2020-11-16 13:19 | ONCRAD TMN_ITS ---
Radiation Oncology Treatment Management Note Patient Name: Yoni Connell Date of : 1950 Date of Service: 11/15/2020 Attending Physician: Yoni Green M.D. 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 The patient has received 2 Gy of a prescribed 60 Lara with an intensity modulated carboplatin (2 AUC) and Abraxane (40 mg/m???) weekly during radiotherapy. Upon review of systems, he denied pulmonary symptoms. On physical examination, the patient weighed 273 lbs. His temperature was 97.8 ???F with a blood pressure of 125/74 mmHg. The pulse was 65 bpm and his respiratory rate was 20. Oxygen saturation while breathing room air was 96%. There was no erythema within the treatment brown. Auscultation of the posterior lung brown identified bronchial breath sounds. Continue thoracic radiotherapy as prescribed. Signed by: Dr. Yoni Green 11/16/2020 1:18:39 PM
[2020-11-19 14:05] LABS: Basophils # 0.1 10^3/uL (0.0-0.1); Basophils % 0.8 %; Eosinophils # 0.6 10^3/uL (0.0-0.8); Eosinophils % 8.4 %; Hematocrit 40.6 % (42.0-52.0); Hemoglobin 13.2 g/dL (11.7-16.6); Lymphocytes # 1.5 10^3/uL (0.8-4.8); Mean Corpuscular HGB Conc 32.5 g/dL (30.0-36.0); Mean Corpuscular Hemoglobin 29.2 pg (28.0-34.0); Mean Corpuscular Volume 89.8 fL (80-94); Mean Platelet Volume 12.4 fL (7.4-10.4); Monocytes # 0.7 10^3/uL (0.2-0.9); Monocytes % 8.6 %; Neutrophils # 4.71 10^3/uL (1.8-7.7); Neutrophils % 61.7 %; Nucleated Red Blood Cells % 0 %; Platelet Count 150 10^3/cmm (130-400); Red Blood Count 4.52 10^6/uL (4.1-5.3); White Blood Count 7.6 10^3/uL (4.0-10.0)
[2020-11-19 14:45] LABS: Alanine Aminotransferase 9 U/L (0-41); Albumin Level 4.1 g/dL (3.5-5.2); Alkaline Phosphatase 88 IU/L (40-130); Anion Gap 15.2 (5-19); Aspartate Amino Transferase 8 U/L (0-40); Blood Urea Nitrogen 17 mg/dL (8-23); Carbon Dioxide 25 mmol/L (22-29); Chloride 100 mmol/L (98-107); Globulin 2.6 g/dL (1.3-4.6); Glomerular Filtration Rate 95.8 mL/min (90-130); Glucose 245 mg/dL (65-115); Osmolality Calculated 292 mOsm/kg (285-295); Potassium 4.2 mmol/L (3.5-5.1); Sodium 136 mmol/L (136-145); Total Bilirubin 0.3 mg/dL (0.15-1.2); Total Protein 6.7 g/dL (6.6-8.7)
[2020-11-22] MEDS: alteplase 1 mg/mL SDV 2 mL 2 MG INTRACATH (12:20)
[2020-11-22] MEDS: sodium chloride 0.9% 250 ML 75 ML IV (12:40)
[2020-11-22] MEDS: diphenhydrAMINE 50 mg/mL SDV 1mL 25 MG IVP (12:40)
[2020-11-22] MEDS: famotidine 20 mg/2 mL INJ IVP (12:43)
[2020-11-22] MEDS: palonosetron 0.25 mg/5 mL SDV IVP (12:45)
--- NOTE | 2020-11-23 14:10 | ONCRAD TMN_ITS ---
Radiation Oncology Treatment Management Note Patient Name: Yoni Connell Date of : 1950 Date of Service: 11/23/2020 Attending Physician: Yoni Green M.D. 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 The patient has received 14 Gy of a prescribed 60 Lara with an intensity modulated carboplatin (2 AUC) and Abraxane (40 mg/m???) weekly during radiotherapy. Upon review of systems, he denied pulmonary symptoms. On physical examination, the patient weighed 271 lbs. His temperature was 98.9 ???F with a blood pressure of 124/76 mmHg. The pulse was 66 bpm and his respiratory rate was 20. Oxygen saturation while breathing room air was 98%. There was no erythema within the treatment brown. Auscultation of the posterior lung brown identified bronchial breath sounds. Continue thoracic radiotherapy as planned. Signed by: Dr. Yoni Green 11/23/2020 2:09:28 PM
[2020-11-26 11:30] LABS: Basophils # 0.1 10^3/uL (0.0-0.1); Basophils % 0.9 %; Eosinophils # 0.4 10^3/uL (0.0-0.8); Eosinophils % 5.4 %; Hematocrit 41.9 % (42.0-52.0); Hemoglobin 13.5 g/dL (11.7-16.6); Lymphocytes # 0.9 10^3/uL (0.8-4.8); Lymphocytes % 13.5 %; Mean Corpuscular HGB Conc 32.2 g/dL (30.0-36.0); Mean Corpuscular Hemoglobin 28.1 pg (28.0-34.0); Mean Corpuscular Volume 87.3 fL (80-94); Mean Platelet Volume 9.8 fL (7.4-10.4); Monocytes # 0.5 10^3/uL (0.2-0.9); Monocytes % 7.8 %; Neutrophils # 4.61 10^3/uL (1.8-7.7); Neutrophils % 71.6 %; Nucleated Red Blood Cells % 0 %; Platelet Count 227 10^3/cmm (130-400); White Blood Count 6.4 10^3/uL (4.0-10.0)
[2020-11-26 11:51] LABS: Alanine Aminotransferase 13 U/L (0-41); Albumin Level 4.2 g/dL (3.5-5.2); Alkaline Phosphatase 82 IU/L (40-130); Anion Gap 15.1 (5-19); Aspartate Amino Transferase 12 U/L (0-40); Blood Urea Nitrogen 13 mg/dL (8-23); Calcium 8.9 mg/dL (8.5-10.5); Carbon Dioxide 26 mmol/L (22-29); Chloride 100 mmol/L (98-107); Globulin 2.2 g/dL (1.3-4.6); Glomerular Filtration Rate 95.8 mL/min (90-130); Glucose 179 mg/dL (65-115); Osmolality Calculated 289 mOsm/kg (285-295); Potassium 4.1 mmol/L (3.5-5.1); Sodium 137 mmol/L (136-145); Total Bilirubin 0.3 mg/dL (0.15-1.2); Total Protein 6.4 g/dL (6.6-8.7)
--- NOTE | 2020-11-28 22:25 | ONC FU_ITS ---
[facility] Patient Note Patient: Yoni Connell Unit #: [id number]: 1950 Dictated By: Monty LockDate of Visit: Nov 15, 2020 Onc MED Follow-Up/Prog Note Chief Complaint: Lung cancer. 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 By clinical evaluation his disease is stage at least IIIA (T4, N1, M0). He had presented recently with hemoptysis, onset approximately [address] on 09/17/2020 showed a left upper lobe mass measuring 4.8 x 5.4 x 7.3 cm, new compared to a prior CT from November 2019. Small nodules noted in various locations throughout the lungs appeared stable. The visualized portions of the liver and the adrenal glands appeared normal. He was referred to Dr. Castillo. On 10/01/2020 he underwent bronchoscopy/EBUS with endobronchial biopsies and with FNA biopsies from station 7 and from left hilar lymph nodes. Pathology of the left upper lobe endobronchial biopsy and I have the left hilar mass FNA biopsy showed moderate to poorly differentiated squamous cell carcinoma. The FNA biopsy at station 7 showed benign pathology. He was seen on October 07, [address] Tang for further management. He had had about a 20 pound weight loss at that time. He also had been having a headache behind his left eye. 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 His last visit with Dr. Epstein per [facility] was October 12, 2020. Mr. Connell had PET/CT imaging on October 16, 2020 which reported a left upper lobe mass measuring 5.2 x 4.1 cm with an SUV of 20.6. He did have FDG positive subaortic lymph nodes and other pulmonary nodules were too small to characterize. He had staging MRI of the head with contrast on 10/22/2020 which reported no evidence of enhancing intracranial metastatic disease. There were mild small vessel changes and moderate parenchymal volume loss. There was no evidence of restricted diffusion to suggest acute ischemia. Mr. Connell was seen by Dr. Masters in Radiation Oncology at [facility] on October 25, 2020. At that time he was recommended to have combined treatment with radiation and systemic chemotherapy. Mr. Connell had a PowerPort placed per Dr. Roth on November 02, 2020. His chemotherapy recommendation is weekly carboplatin and Abraxane. He does a history of type 2 diabetes which has been relatively uncontrolled and therefore not a candidate for steroids for premeds for Taxol. Mr. Connell is here today for follow-up and initiation of his first week of treatment with chemotherapy to include weekly carboplatin and Abraxane. He has no new concerns today. He denies any new pain. He continues to have some hemoptysis. He states typically it only occurs once a day of the morning. He states it has gotten any better but has not gotten any worse . He denies any new shortness of breath orthopnea. He denies any nausea or vomiting. He states his appetite is good. He said no lower extremity edema. He denies any chest pain or palpitations. His ECOG is 1. Past Medical History: Chronic obstructive pulmonary disease Depression Gastroesophageal reflux disease History of bladder cancer (followed by Dr Epstein) Hyperlipidemia Hypertension Obstructive sleep apnea Peripheral neuropathy Polysubstance abuse Type II diabetes Past Surgical History: Bone marrow aspiration/biopsy Tonsillectomy PowerPort-Right subclavian vein-Dr Roth in 2020 Bronchoscopy/EBUS in 2020 Covid vaccine #2 in 2020 Covid vaccine #1 in 2020 Colonoscopy in 2019 TURBT in 2016 Lumbar laminectomy for lumbar spinal canal stenosis in 2013 Allergies: No Known Allergies. Medications: Advair Diskus 1 Puff(s) (of 250-50 mcg/dose) Aerosol Powder, Breath Activated Inhalation b.i.d. BuPROPion HCl ER (XL) 1 Tablet (of 300 mg) Tablet SR 24 HR Oral every am DiazePAM 1 Tablet (of 5 mg) Oral t.i.d. Enalapril Maleate (10 mg) Tablet Oral daily FLUoxetine HCl 1 Capsule (of 40 mg) Oral daily Gabapentin 1 Tablet (of 300 mg) Oral t.i.d. Hydrocodone-Acetaminophen 1 Tablet (of 7.5-325 mg) Tablet Oral four times a day PRN Lovastatin 1 Tablet (of 40 mg) Oral daily [id number] Ethyl Esters 2 Capsule (of 1 G) Oral daily Stiolto Respimat 2 Puff(s) (of 2.5-2.5 mcg/act) Aerosol, solution Inhalation b.i.d. TraZODone HCl 1 Tablet (of 150 mg) Oral at bedtime Family History: Mr. Connell's mother at age 73: breast cancer, and osteoarthritis. Mr. Connell's father at age 50: heart disease. Mr. Connell has 1 brother who is alive: heart disease, and renal disease. He has 1 sister who is : asthma. Father in his sleep at age 51, presumably of heart disease. Mother had breast cancer and diabetes. She at age 73. A brother age 60 with complications of dementia and alcoholism. A sister with asthma at age 55. Social History: Mr. Connell is and he is a disabled. Mr. Connell quit smoking less than one year ago but had smoked 0.5 packs/day for 50 years. He drinks occasionally. He consumes 2 drinks/day. He has a history of smoking off and on for 50 years up to 1 pack of cigarettes daily. He has now quit smoking. He has had heavy alcohol use in the past, he now drinks beer just occasionally. His records indicate a history of polysubstance abuse. Review Of Symptoms: <See Above> Vital Signs: Performed on Nov 15, 2020 14:30 Height - 72.00 in Temperature - 97.1 F (LOW) Pulse - 62 /min Respiration - 18 /min BP - 147/62 mm(hg) (HIGH) O2 Sat - 93 % (LOW) Performed on Nov 15, 2020 11:19 Height - 72.00 in Weight - 272.8 lbs BSA - 2.43 sq.m BMI - 37.00 (HIGH) Temperature - 97.4 F (LOW) Pulse - 72 /min Respiration - 20 /min BP - 144/82 mm(hg) (HIGH) O2 Sat - 94 % (LOW) Pain - 7 Fatigue - 7 Performed on Nov 15, 2020 11:02 Height - 72.00 in Weight - 272.8 lbs Temperature - 97.8 F Pulse - 65 Respiration - 20 BP - 125/74 mm(hg) O2 Sat - 96 % Pain - 0 Performed on Nov 15, 2020 11:02 BMI - 36.999 kg/m2 (HIGH),1 - No physically strenuous activity, but ambulatory and able to carry out light or sedentary work (e.g. office work, light house work). (ECOG) Physical Examination: Constitutional Alert, oriented, no acute distress. Skin pink, warm and dry. Head Normocephalic; atraumatic. Eyes Conjunctivae and sclerae are clear and without icterus. Pupils are reactive and equal. Neck Supple without masses or thyromegaly. No jugular venous distension. Hematologic/Lymphatic No petechiae or purpura. No tender or palpable lymph nodes in the cervical or supraclavicular areas. Respiratory Lungs are clear to auscultation without rhonchi or wheezing. Cardiovascular Regular rate and rhythm of heart without murmurs,clicks, gallops or rubs. Chest Chest is symmetric without chest wall deformities. Right chest wall Power Port site has healed well. Back/Spine Non-tender to palpation. Extremities No visible deformities, no cyanosis, clubbing or edema. Musculoskeletal No tenderness or swelling, normal range of motion without obvious weakness. Integumentary No rashes or lesions. Neurologic No sensory or motor deficits, normal cerebellar function, normal gait. Psychiatric Alert and oriented times three. Coherent speech. Verbalizes understanding of our discussions today. Laboratory:Test performed on Nov 19, 2020 11:30 Creatinine 0.8 mg/dL Cr Clearance (Est) 145.26 mL/min Test performed on Nov 15, 2020 09:23 Sodium 134 mmol/L Potassium 4.6 mmol/L Chloride 97 mmol/L CO2 27 mmol/L Anion Gap 14.6 BUN 14 mg/dL eGFR 95.8 mL/min Glucose 244 mg/dL Osmolality - Calculated 287 mOsm/kg Calcium 9.0 mg/dL Protein, Total 6.9 g/dL Albumin 4.4 g/dL Globulin 2.5 g/dL Bilirubin, Total 0.4 mg/dL ALT (SGPT) 10 U/L AST (SGOT) 12 U/L Alkaline Phosphatase 88 IU/L WBC 8.8 10 3/uL RBC 4.69 10 6/uL HGB 13.0 g/dL HCT 40.6 % MCV 86.6 fL MCH 27.7 pg MCHC 32.0 g/dL RDW 13.7 % Platelet Count 204 10 3/cmm MPV 10.1 fL Neutrophils 5.52 10 3/uL Lymphocytes 1.5 10 3/uL Monocytes 0.8 10 3/uL Eosinophils 0.8 10 3/uL Basophils 0.1 10 3/uL Neutrophil % 62.9 % Lymphocyte % 17.4 % Monocyte % 9.3 % Eosinophil % 8.9 % Basophils % 0.9 % NRBC % 0 % Test performed on October 07, 2020 14:54 Manual Diff Cancelled via OM: Entered in error Impression: 1. 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 By clinical evaluation his disease is stage at least IIIA (T4, N1, M0). 2. Hypertension. 3. Hyperlipidemia. 4. Type 2 diabetes. 5. COPD. 6. GERD. 7. Obstructive sleep apnea. 8. Peripheral neuropathy. 9. History of lumbar spinal stenosis. 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 11. History of polysubstance abuse. 12. Depression. Plan/Problems Addressed at this Visit: 1. 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 By clinical evaluation his disease is stage at least IIIA (T4, N1, M0). He has an endobronchial lesion with associated hemoptysis. The CT findings and pathology results were reviewed and the clinical implications were discussed per Dr Tang. He has non-small cell lung cancer, stage at least IIIA. It is very unlikely that his disease would be operable. He has a normal MRI of the brain and his staging PET/CT from 10/16/2020 reported a left upper lobe lung mass measuring 5.2 x 4.1 cm with an SUV of 20.6. There were multiple subcentral pulmonary nodules too small to characterize and activity the subaortic lymph nodes. Mr. Connell had port placement on 11/02/[address] Roth. His treatment plan consist of weekly chemotherapy with carboplatin and Abraxane and daily radiation. A. Proceed with week 1 carboplatin/Abraxane. B. He will have aggressive antiemetics. C. Today's labs reviewed in detail and discussed with Mr. Connell and a copy was given to him. WBC 8.8, hemoglobin 13, platelets 204,000, ANC is 5520. Potassium 4.6 random glucose 244, creatinine 0.8 LFTs are normal. He reports that he did have chocolate milk this morning and that is why his blood sugar is high. D. 2. Chemo teaching A. The patient was informed of chemotherapy plan and specific drugs were discussed. We also discussed how chemotherapy works and identified common side effects including alopecia; myelosuppression-including neutropenia, anemia, thrombocytopenia; peripheral neuropathy; fatigue; nausea; diarrhea; constipation; bleeding or bruising; skin changes; mouth sores; drug hypersensitivity/allergic reactions or anaphylaxis and extravasation. They have also been informed how to contact the clinic with side effects or symptoms, including but not limited to fever greater than 100.4???, chills, sore throat, bleeding or bruising that is not explained or mouth sores, cough, nasal discharge, diarrhea, constipation, nausea and/or vomiting not relieved with medications on hand at home, as well as any other concern or question they may have. Our hours are 8:00 a.m. to 4:30 p.m. on Sunday through and 8-12:00 on Sunday. However, someone is onsite health coach 24 hours per day and they have been advised to contact the [facility] at if it is after hours. We have also discussed potential long-term side effects of chemotherapy including secondary cancers, infertility, pulmonary complications, cardiac complications, and again peripheral neuropathy. We have discussed that they certainly need to let us know before taking any antioxidants or herbal or further dietary supplements, as we are unsure of how these agents react with chemotherapy and we request that they avoid these products for now. They were informed that it is okay to take multivitamins at normal doses. They verbally state that they understand to take all medications as directed by their healthcare provider unless otherwise indicated. They also verbalized understanding to leave the pressure dressing on the intravenous administration site for at least two hours after treatment. Instructions for oral care with baking soda and salt water rinses as well as a guide for use of [id number] medication were provided with the treatment plan. They have been given a written patient treatment plan, of which a copy is in the chart, as well as specific drug information. They have no questions and verbalized understanding and are willing to proceed with chemotherapy at this time. 3. Right PowerPort per Dr. Roth on November 02, 2020. A. He will require port maintenance with each port access. 4. Follow-up plan A. He will have weekly visits with CBC CMP prior to his weekly carboplatin Abraxane. B. He will continue with daily radiation as per Dr. Green. C. He may have supportive care as needed. D. Mr. Connell was instructed to contact us in the interim should questions or problems arise. Total time spent with Mr. Connell's visit today included review of his records prior to his visit and review of his current treatment plan. We discussed the plan of care to be weekly carboplatin and Abraxane and that he will not need steroid premedication. We also discussed potential side effects and how to identify those as well as how to manage them. Total visit time was 55 minutes which also included post visit documentation. Signed By: Monty Lock-, AOCNP Yamil Tang MD <<Signature on File>>
--- NOTE | 2020-11-29 09:36 | ONC FU_ITS ---
[facility] Patient Note Patient: Yoni Connell Unit #: [id number]: 1950 Dictated By: Monty LockDate of Visit: Nov 29, 2020 Onc MED Follow-Up/Prog Note Chief Complaint: Lung cancer. 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 By clinical evaluation his disease is stage at least IIIA (T4, N1, M0). He had presented recently with hemoptysis, onset approximately [address] on 09/17/2020 showed a left upper lobe mass measuring 4.8 x 5.4 x 7.3 cm, new compared to a prior CT from November 2019. Small nodules noted in various locations throughout the lungs appeared stable. The visualized portions of the liver and the adrenal glands appeared normal. He was referred to Dr. Castillo. On 10/01/2020 he underwent bronchoscopy/EBUS with endobronchial biopsies and with FNA biopsies from station 7 and from left hilar lymph nodes. Pathology of the left upper lobe endobronchial biopsy and I have the left hilar mass FNA biopsy showed moderate to poorly differentiated squamous cell carcinoma. The FNA biopsy at station 7 showed benign pathology. He was seen on October 07, [address] Tang for further management. He had had about a 20 pound weight loss at that time. He also had been having a headache behind his left eye. 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 His last visit with Dr. Epstein per [facility] was October 12, 2020. Mr. Connell had PET/CT imaging on October 16, 2020 which reported a left upper lobe mass measuring 5.2 x 4.1 cm with an SUV of 20.6. He did have FDG positive subaortic lymph nodes and other pulmonary nodules were too small to characterize. He had staging MRI of the head with contrast on 10/22/2020 which reported no evidence of enhancing intracranial metastatic disease. There were mild small vessel changes and moderate parenchymal volume loss. There was no evidence of restricted diffusion to suggest acute ischemia. Mr. Connell was seen by Dr. Masters in Radiation Oncology at [facility] [place] on October 25, 2020. At that time he was recommended to have combined treatment with radiation and systemic chemotherapy. Mr. Connell had a PowerPort placed per Dr. Roth on November 02, 2020. His chemotherapy recommendation is weekly carboplatin and Abraxane. He does a history of type 2 diabetes which has been relatively uncontrolled and therefore not a candidate for steroids for premeds for Taxol. Mr. Connell is here today for follow-up and his third week of treatment with weekly carboplatin and Abraxane. He has no new concerns today. Upon entering the exam room however he said that he felt shaky and weak. He states he had not eaten anything this morning but did take all of his morning meds. He was given tasneem crackers and 2 servings of fruit juice and recovered well. It was noted that he was diaphoretic on exam. His speech is clear. He states he feels much better after having some nutrition . He denies any new shortness of breath orthopnea. He states he has a productive cough but it is getting less and less and has had no hemoptysis. He denies any chest pain or palpitations. He said no nausea or vomiting. He states that he has arthritis in his right finger and thumb but otherwise has had no episodes of neuropathy or discomfort. His appetite is good. He continues to be relatively active around the house as much as he can. He denies any pain today. His ECOG is 1. Past Medical History: Chronic obstructive pulmonary disease Depression Gastroesophageal reflux disease History of bladder cancer (followed by Dr Epstein) Hyperlipidemia Hypertension Obstructive sleep apnea Peripheral neuropathy Polysubstance abuse Type II diabetes Past Surgical History: Bone marrow aspiration/biopsy Tonsillectomy PowerPort-Right subclavian vein-Dr Roth in 2020 Bronchoscopy/EBUS in 2020 Covid vaccine #2 in 2020 Covid vaccine #1 in 2020 Colonoscopy in 2019 TURBT in 2015 Lumbar laminectomy for lumbar spinal canal stenosis in 2013 Allergies: No Known Allergies. Medications: Advair Diskus 1 Puff(s) (of 250-50 mcg/dose) Aerosol Powder, Breath Activated Inhalation b.i.d. BuPROPion HCl ER (XL) 1 Tablet (of 300 mg) Tablet SR 24 HR Oral every am DiazePAM 1 Tablet (of 5 mg) Oral t.i.d. Enalapril Maleate (10 mg) Tablet Oral daily FLUoxetine HCl 1 Capsule (of 40 mg) Oral daily Gabapentin 1 Tablet (of 300 mg) Oral t.i.d. Hydrocodone-Acetaminophen 1 Tablet (of 7.5-325 mg) Tablet Oral four times a day PRN Lovastatin 1 Tablet (of 40 mg) Oral daily [id number] Ethyl Esters 2 Capsule (of 1 G) Oral daily Stiolto Respimat 2 Puff(s) (of 2.5-2.5 mcg/act) Aerosol, solution Inhalation b.i.d. TraZODone HCl 1 Tablet (of 150 mg) Oral at bedtime Family History: Mr. Connell's mother at age 73: breast cancer, and osteoarthritis. Mr. Connell's father at age 50: heart disease. Mr. Connell has 1 brother who is alive: heart disease, and renal disease. He has 1 sister who is : asthma. Father in his sleep at age 51, presumably of heart disease. Mother had breast cancer and diabetes. She at age 73. A brother age 60 with complications of dementia and alcoholism. A sister with asthma at age 55. Social History: Mr. Connell is and he is a disabled. Mr. Connell quit smoking less than one year ago but had smoked 0.5 packs/day for 50 years. He drinks occasionally. He consumes 2 drinks/day. He has a history of smoking off and on for 50 years up to 1 pack of cigarettes daily. He has now quit smoking. He has had heavy alcohol use in the past, he now drinks beer just occasionally. His records indicate a history of polysubstance abuse. Review Of Symptoms: <See Above> Vital Signs: Performed on Nov 29, 2020 08:53 Height - 72.00 in Weight - 260.8 lbs (LOW) BSA - 2.38 sq.m BMI - 35.37 (HIGH) Temperature - 96.2 F (LOW) Pulse - 93 /min Respiration - 18 /min BP - 120/86 mm(hg) O2 Sat - 97 % Pain - 7 Fatigue - 8,1 - No physically strenuous activity, but ambulatory and able to carry out light or sedentary work (e.g. office work, light house work). (ECOG) Physical Examination: Constitutional Alert, oriented, no acute distress. Skin pink, warm and dry. Head Normocephalic; atraumatic. Eyes Conjunctivae and sclerae are clear and without icterus. Pupils are reactive and equal. Neck Supple without masses or thyromegaly. No jugular venous distension. Hematologic/Lymphatic No petechiae or purpura. No tender or palpable lymph nodes in the cervical or supraclavicular areas. Respiratory Lungs are clear to auscultation without rhonchi or wheezing. Cardiovascular Regular rate and rhythm of heart without murmurs,clicks, gallops or rubs. Chest Chest is symmetric without chest wall deformities. Right chest wall Power Port site has healed well. Back/Spine Non-tender to palpation. Extremities No visible deformities, no cyanosis, clubbing or edema. Musculoskeletal No tenderness or swelling, normal range of motion without obvious weakness. Integumentary No rashes or lesions. Neurologic No sensory or motor deficits, normal cerebellar function, normal gait. Psychiatric Alert and oriented times three. Coherent speech. Verbalizes understanding of our discussions today. Laboratory:Test performed on Nov 26, 2020 09:13 Creatinine 0.8 mg/dL Cr Clearance (Est) 145.26 mL/min Test performed on Nov 15, 2020 09:23 Sodium 134 mmol/L Potassium 4.6 mmol/L Chloride 97 mmol/L CO2 27 mmol/L Anion Gap 14.6 BUN 14 mg/dL eGFR 95.8 mL/min Glucose 244 mg/dL Osmolality - Calculated 287 mOsm/kg Calcium 9.0 mg/dL Protein, Total 6.9 g/dL Albumin 4.4 g/dL Globulin 2.5 g/dL Bilirubin, Total 0.4 mg/dL ALT (SGPT) 10 U/L AST (SGOT) 12 U/L Alkaline Phosphatase 88 IU/L WBC 8.8 10 3/uL RBC 4.69 10 6/uL HGB 13.0 g/dL HCT 40.6 % MCV 86.6 fL MCH 27.7 pg MCHC 32.0 g/dL RDW 13.7 % Platelet Count 204 10 3/cmm MPV 10.1 fL Neutrophils 5.52 10 3/uL Lymphocytes 1.5 10 3/uL Monocytes 0.8 10 3/uL Eosinophils 0.8 10 3/uL Basophils 0.1 10 3/uL Neutrophil % 62.9 % Lymphocyte % 17.4 % Monocyte % 9.3 % Eosinophil % 8.9 % Basophils % 0.9 % NRBC % 0 % Test performed on October 07, 2020 14:54 Manual Diff Cancelled via OM: Entered in error Impression: 1. 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 By clinical evaluation his disease is stage at least IIIA (T4, N1, M0). 2. Hypertension. 3. Hyperlipidemia. 4. Type 2 diabetes. 5. COPD. 6. GERD. 7. Obstructive sleep apnea. 8. Peripheral neuropathy. 9. History of lumbar spinal stenosis. 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 11. History of polysubstance abuse. 12. Depression. Plan/Problems Addressed at this Visit: 1. 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 By clinical evaluation his disease is stage at least IIIA (T4, N1, M0). He has an endobronchial lesion with associated hemoptysis. The CT findings and pathology results were reviewed and the clinical implications were discussed per Dr Tang. He has non-small cell lung cancer, stage at least IIIA. It is very unlikely that his disease would be operable. He has a normal MRI of the brain and his staging PET/CT from 10/16/2020 reported a left upper lobe lung mass measuring 5.2 x 4.1 cm with an SUV of 20.6. There were multiple subcentral pulmonary nodules too small to characterize and activity the subaortic lymph nodes. Mr. Connell had port placement on 11/02/[address] Roth. His treatment plan consist of weekly chemotherapy with carboplatin and Abraxane and daily radiation. He began his first dose of carbo Abraxane on November 15, 2020. He has tolerated it well thus far. A. Proceed with week 3 carboplatin/Abraxane. B. He will have aggressive antiemetics. C. Labs from 11/26/2020 were reviewed in detail and discussed with Mr. Connell and a copy was given to him. WBC 6.4, hemoglobin 13.5, platelets 227,000 ANC is 4610. Potassium 4.1 random glucose on 11/26/2020 was 179 his creatinine was 0.8 and his LFTs were normal. 2. Right PowerPort per Dr. Roth on November 02, 2020. A. He will require port maintenance with each port access. 3. Follow-up plan A. He will have weekly visits with CBC CMP prior to his weekly carboplatin Abraxane. B. He will continue with daily radiation as per Dr. Green. C. He may have supportive care as needed. D. Mr. Connell was instructed to contact us in the interim should questions or problems arise. Signed By: Monty Lock-, [facility] Yamil Tang MD <<Signature on File>>
[2020-11-29] MEDS: sodium chloride 0.9% 250 ML 75 ML IV (09:40)
[2020-11-29] MEDS: famotidine 20 mg/2 mL INJ IVP (09:40)
[2020-11-29] MEDS: diphenhydrAMINE 50 mg/mL SDV 1mL 25 MG IV (09:42)
[2020-11-29] MEDS: palonosetron 0.25 mg/5 mL SDV IV (09:45)
--- NOTE | 2020-11-30 14:02 | ONCRAD TMN_ITS ---
Radiation Oncology Treatment Management Note Patient Name: Yoni Connell Date of : 1950 Date of Service: 11/30/2020 Attending Physician: Yoni Green M.D. 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 The patient has received 24 Gy of a prescribed 60 Lara with an intensity modulated carboplatin (2 AUC) and Abraxane (40 mg/m???) weekly during radiotherapy. Upon review of systems, he denied pulmonary symptoms. On physical examination, the patient weighed 262 lbs. His temperature was 98.2 ???F with a blood pressure of 141/84 mmHg. The pulse was 85 bpm and his respiratory rate was 20. Oxygen saturation while breathing room air was 96%. There was no erythema within the treatment brown. Auscultation of the posterior lung brown identified bronchial breath sounds. Continue thoracic radiotherapy as prescribed. Signed by: Dr. Yoni Green 11/30/2020 2:01:29 PM
== END 2020-12-01 23:59 | disposition home or self-care (01) ==
LOC: ONCMED 05:51
PROVIDERS: Internal Medicine Medical Oncology; Nurse Practitioner; Absent Provider Radiology Radiation Oncology; PCP Internal Medicine; Visit Provider Radiology Radiation Oncology
DX: Z51.0 Encounter for antineoplastic radiation therapy (principal); Z51.11 Encounter for antineoplastic chemotherapy; C34.12 Malignant neoplasm of upper lobe, left bronchus or lung; I10 Essential (primary) hypertension; E78.5 Hyperlipidemia, unspecified; J44.9 Chronic obstructive pulmonary disease, unspecified; K21.9 Gastro-esophageal reflux disease without esophagitis; G47.33 Obstructive sleep apnea (adult) (pediatric); E11.42 Type 2 diabetes mellitus with diabetic polyneuropathy; M51.36 Other intervertebral disc degeneration, lumbar region; M48.061 Spinal stenosis, lumbar region without neurogenic claudication; Z85.51 Personal history of malignant neoplasm of bladder; Z79.899 Other long term (current) drug therapy
CPT/HCPCS: 36415; 36591; 77336; 77386; 80053; 85025; 96367; 96368; 96375; 96413; 96417; 99214; 99215; J1100; J1200; J2469; J2997; J3490; J7050; J9045; J9264

== ENCOUNTER 2020-12-31 05:52 | Outpatient (RCR) | payer MEDICAID, SELFPAY ==
--- NOTE | 2020-12-07 14:13 | ONCRAD TMN_ITS ---
Radiation Oncology Treatment Management Note Patient Name: Yoni Connell Date of : 1950 Date of Service: 12/07/2020 Attending Physician: Yoni Green M.D. 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 The patient has received 32 Gy of a prescribed 60 Lara with an intensity modulated carboplatin (2 AUC) and Abraxane (40 mg/m???) weekly during radiotherapy. Upon review of systems, he denied pulmonary symptoms. On physical examination, the patient weighed 262 lbs. His temperature was 96.6 ???F with a blood pressure of 128/83 mmHg. The pulse was 89 bpm and his respiratory rate was 22. Oxygen saturation while breathing room air was 98%. There was no erythema within the treatment brown. Auscultation of the posterior lung brown identified bronchial breath sounds. Continue thoracic radiotherapy as planned. Signed by: Dr. Yoni Green 12/07/2020 2:11:15 PM
[2020-12-08 08:50] LABS: Basophils % 0.8 %; Eosinophils # 0.1 10^3/uL (0.0-0.8); Eosinophils % 2.3 %; Hematocrit 45.9 % (42.0-52.0); Hemoglobin 14.8 g/dL (11.7-16.6); Lymphocytes # 0.6 10^3/uL (0.8-4.8); Lymphocytes % 12.1 %; Mean Corpuscular HGB Conc 32.2 g/dL (30.0-36.0); Mean Corpuscular Hemoglobin 28.2 pg (28.0-34.0); Mean Corpuscular Volume 87.6 fL (80-94); Mean Platelet Volume 10.2 fL (7.4-10.4); Monocytes # 0.7 10^3/uL (0.2-0.9); Monocytes % 13.4 %; Neutrophils # 3.75 10^3/uL (1.8-7.7); Neutrophils % 70.8 %; Nucleated Red Blood Cells % 0 %; Platelet Count 131 10^3/cmm (130-400); Red Blood Count 5.24 10^6/uL (4.1-5.3); Red Cell Distribution Width 14.6 % (12.1-15.1); White Blood Count 5.3 10^3/uL (4.0-10.0)
[2020-12-08 09:10] LABS: Estmated Average Glucose 194; Hemoglobin A1C 8.4 % (4.0-6.0)
[2020-12-08 09:14] LABS: Alanine Aminotransferase 13 U/L (0-41); Albumin Level 4.1 g/dL (3.5-5.2); Alkaline Phosphatase 89 IU/L (40-130); Aspartate Amino Transferase 12 U/L (0-40); Blood Urea Nitrogen 18 mg/dL (8-23); Calcium 8.6 mg/dL (8.5-10.5); Carbon Dioxide 26 mmol/L (22-29); Chloride 98 mmol/L (98-107); Globulin 2.3 g/dL (1.3-4.6); Glomerular Filtration Rate 83.7 mL/min (90-130); Glucose 248 mg/dL (65-115); Osmolality Calculated 296 mOsm/kg (285-295); Sodium 138 mmol/L (136-145); Total Bilirubin 0.3 mg/dL (0.15-1.2); Total Protein 6.4 g/dL (6.6-8.7)
[2020-12-08 09:20] LABS: Anion Gap 18.2 (5-19); Potassium 4.2 mmol/L (3.5-5.1)
[2020-12-08] MEDS: famotidine 20 mg/2 mL INJ IVP (09:33)
[2020-12-08] MEDS: diphenhydrAMINE 50 mg/mL SDV 1mL 25 MG IVP (09:35)
[2020-12-08] MEDS: sodium chloride 0.9% 250 ML 75 ML IV (09:35)
[2020-12-08] MEDS: palonosetron 0.25 mg/5 mL SDV IVP (09:39)
--- NOTE | 2020-12-08 18:18 | ONC FU_ITS ---
Dr. Tang Patient Follow-Up Note Patient: Yoni Connell Unit #: [id number]: 1950 Dicatated By: Yamil Tang M.D.Date of Visit:Dec 08, 2020 Onc Med Follow-up/Prog Note Chief Complaint: Lung cancer. 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 By clinical evaluation his disease is stage at least IIIA (T4, N1, M0). He had presented recently with hemoptysis, onset approximately [address] on 09/17/2020 showed a left upper lobe mass measuring 4.8 x 5.4 x 7.3 cm, new compared to a prior CT from November 2019. Small nodules noted in various locations throughout the lungs appeared stable. The visualized portions of the liver and the adrenal glands appeared normal. He was referred to Dr. Castillo. On 10/01/2020 he underwent bronchoscopy/EBUS with endobronchial biopsies and with FNA biopsies from station 7 and from left hilar lymph nodes. Pathology of the left upper lobe endobronchial biopsy and of the left hilar mass FNA biopsy showed moderate to poorly differentiated squamous cell carcinoma. The FNA biopsy at station 7 showed benign pathology. I had seen him initially on 10/07/2020. His staging PET/CT on 10/16/2020 showed left upper lobe mass measuring 5.2 x 4.1 cm with SUV 20.6, consistent with primary malignancy. Lingular infiltrates were noted to be FDG negative and most likely benign. Multiple subcentimeter pulmonary nodules were too small to characterize. There was mild activity and subaortic lymph nodes, suspected to be due to local metastatic disease. Staging head MRI on 10/22/2020 showed no evidence of metastatic disease. With those findings, he was recommended to undergo chemoradiation. INTERIM HISTORY: On 11/15/2020 he began radiation, concurrently with weekly carboplatin/Abraxane chemotherapy. He tolerated his initial chemotherapy infusion without acute toxicity, and he then continued with week 2 treatment on 11/22/2020 and with week 3 treatment on 11/29/2020. He is seen for a follow-up visit. He has limited activity tolerance, which he just attributes to feeling lazy. His ECOG score is 2. His appetite is okay, he does have some early satiety. He has not had fever. He has had occasional sweating at night, but not lately. He has not had sore mouth or throat. He does tend to have cough when he first gets up in the morning. He does not complain of shortness of breath or chest pain. He has had very occasional nausea or heartburn. Bowel and bladder function have been okay. He has joint pain in his hands and elbows and he also has some chronic back pain. He does not complain of headache or dizziness. He has no numbness/paresthesia or other neuropathy symptoms. Medications: Advair Diskus 1 Puff(s) (of 250-50 mcg/dose) Aerosol Powder, Breath Activated Inhalation b.i.d., BuPROPion HCl ER (XL) 1 Tablet (of 300 mg) Tablet SR 24 HR Oral every am, DiazePAM 1 Tablet (of 5 mg) Oral t.i.d., Enalapril Maleate (10 mg) Tablet Oral daily, FLUoxetine HCl 1 Capsule (of 40 mg) Oral daily, Gabapentin 1 Tablet (of 300 mg) Oral t.i.d., Hydrocodone-Acetaminophen 1 Tablet (of 7.5-325 mg) Tablet Oral four times a day PRN, Lovastatin 1 Tablet (of 40 mg) Oral daily, [id number] Ethyl Esters 2 Capsule (of 1 G) Oral daily, Stiolto Respimat 2 Puff(s) (of 2.5-2.5 mcg/act) Aerosol, solution Inhalation b.i.d., TraZODone HCl 1 Tablet (of 150 mg) Oral at bedtime Allergies: No Known Allergies. Vital Signs: Performed on Dec 08, 2020 11:35 Height - 72.00 in Temperature - 97.0 F (LOW) Pulse - 81 /min Respiration - 18 /min BP - 124/85 mm(hg) O2 Sat - 97 % Performed on Dec 08, 2020 09:42 Height - 72.00 in Weight - 265.4 lbs (HIGH) BSA - 2.40 sq.m BMI - 35.99 (HIGH) Temperature - 97.4 F (LOW) Pulse - 86 /min Respiration - 18 /min BP - 143/74 mm(hg) (HIGH) O2 Sat - 97 % Pain - 0 Fatigue - 0 Physical Examination: Constitutional - He looks pretty good generally, Eyes - Sclerae nonicteric. Conjunctivae clear, ENMT - No lesions noted in the oral cavity, Hematologic/Lymphatic - No cervical, clavicular, or axillary adenopathy, Respiratory - Lungs sound clear with some decrease in air movement bilaterally, Cardiovascular - Heart rhythm is regular. There is no murmur, gallop, or rub noted, Abdomen - Moderately distended. Liver and spleen are not enlarged. There is no abdominal mass or ascites noted and there is no inguinal adenopathy, Extremities - No edema, Neurologic - No focal neurologic deficits noted. Lab/Imaging: Test performed on Dec 08, 2020 09:19 Creatinine 0.9 mg/dL Cr Clearance (Est) 129.12 mL/min Test performed on Dec 08, 2020 08:15 Sodium 138 mmol/L Potassium 4.2 mmol/L Chloride 98 mmol/L Est Avg Glucose (eAG) 194 mg/dL CO2 26 mmol/L Anion Gap 18.2 BUN 18 mg/dL eGFR 83.7 mL/min Glucose 248 mg/dL Osmolality - Calculated 296 mOsm/kg Calcium 8.6 mg/dL Protein, Total 6.4 g/dL Albumin 4.1 g/dL Globulin 2.3 g/dL Bilirubin, Total 0.3 mg/dL ALT (SGPT) 13 U/L AST (SGOT) 12 U/L Alkaline Phosphatase 89 IU/L Hemoglobin A1C % 8.4 % WBC 5.3 10 3/uL RBC 5.24 10 6/uL HGB 14.8 g/dL HCT 45.9 % MCV 87.6 fL MCH 28.2 pg MCHC 32.2 g/dL RDW 14.6 % Platelet Count 131 10 3/cmm MPV 10.2 fL Neutrophils 3.75 10 3/uL Lymphocytes 0.6 10 3/uL Monocytes 0.7 10 3/uL Eosinophils 0.1 10 3/uL Basophils 0.0 10 3/uL Neutrophil % 70.8 % Lymphocyte % 12.1 % Monocyte % 13.4 % Eosinophil % 2.3 % Basophils % 0.8 % NRBC % 0 % Problem List: 1. Moderate to poorly differentiated squamous cell carcinoma involving the upper lobe of the left lung, by clinical evaluation stage at least IIIA (T4, N1, M0). 2. Hypertension. 3. Hyperlipidemia. 4. Type 2 diabetes. 5. COPD. 6. GERD. 7. Obstructive sleep apnea. 8. Peripheral neuropathy. 9. History of lumbar spinal stenosis. 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 11. History of polysubstance abuse. 12. Depression. 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 By clinical evaluation his disease appeared to be stage at least IIIA (T4, N1, M0). He had an endobronchial lesion with associated hemoptysis at initial presentation. His staging PET/CT also showed mild activity in subaortic lymph nodes, suggesting possible N2 disease. With those findings, he was recommended to undergo chemoradiation. On 11/15/2020 he began radiation concurrently with weekly carboplatin/Abraxane chemotherapy. He has now completed 3 weekly chemotherapy infusions. Overall, he has tolerated his treatment very well. He will proceed with his week 4 carboplatin/Abraxane. The dosages remain the same. He returns in 1 week. Signed By: Yamil Tang M.D. <<Signature on File>>
[2020-12-13 09:31] LABS: Basophils % 0.8 %; Eosinophils # 0.1 10^3/uL (0.0-0.8); Eosinophils % 1.9 %; Hematocrit 42.7 % (42.0-52.0); Hemoglobin 14.2 g/dL (11.7-16.6); Lymphocytes # 0.6 10^3/uL (0.8-4.8); Lymphocytes % 12.2 %; Mean Corpuscular HGB Conc 33.3 g/dL (30.0-36.0); Mean Corpuscular Hemoglobin 28.9 pg (28.0-34.0); Mean Platelet Volume 10.3 fL (7.4-10.4); Monocytes # 0.4 10^3/uL (0.2-0.9); Monocytes % 7.5 %; Neutrophils # 3.67 10^3/uL (1.8-7.7); Nucleated Red Blood Cells % 0 %; Platelet Count 98 10^3/cmm (130-400); Red Blood Count 4.91 10^6/uL (4.1-5.3); Red Cell Distribution Width 14.5 % (12.1-15.1); White Blood Count 4.8 10^3/uL (4.0-10.0)
[2020-12-13 09:51] LABS: Alanine Aminotransferase 14 U/L (0-41); Albumin Level 4.1 g/dL (3.5-5.2); Alkaline Phosphatase 78 IU/L (40-130); Anion Gap 17.4 (5-19); Aspartate Amino Transferase 11 U/L (0-40); Blood Urea Nitrogen 14 mg/dL (8-23); Calcium 8.8 mg/dL (8.5-10.5); Carbon Dioxide 26 mmol/L (22-29); Chloride 100 mmol/L (98-107); Globulin 2.3 g/dL (1.3-4.6); Glomerular Filtration Rate 83.7 mL/min (90-130); Glucose 216 mg/dL (65-115); Osmolality Calculated 295 mOsm/kg (285-295); Potassium 4.4 mmol/L (3.5-5.1); Sodium 139 mmol/L (136-145); Total Bilirubin 0.3 mg/dL (0.15-1.2); Total Protein 6.4 g/dL (6.6-8.7)
[2020-12-13] MEDS: famotidine 20 mg/2 mL INJ IVP (11:24)
[2020-12-13] MEDS: diphenhydrAMINE 50 mg/mL SDV 1mL 25 MG IVP (11:25)
[2020-12-13] MEDS: palonosetron 0.25 mg/5 mL SDV IVP (11:26)
[2020-12-13] MEDS: sodium chloride 0.9% 250 ML 75 ML IV (11:26)
--- NOTE | 2020-12-14 07:41 | ONC FU_ITS ---
Dr. Tang Patient Follow-Up Note Patient: Yoni Connell Unit #: [id number]: 1950 Dicatated By: Yamil Tang M.D.Date of Visit:Dec 13, 2020 Onc Med Follow-up/Prog Note Chief Complaint: Lung cancer. 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 By clinical evaluation his disease is stage at least IIIA (T4, N1, M0). He had presented recently with hemoptysis, onset approximately [address] on 09/17/2020 showed a left upper lobe mass measuring 4.8 x 5.4 x 7.3 cm, new compared to a prior CT from November 2019. Small nodules noted in various locations throughout the lungs appeared stable. The visualized portions of the liver and the adrenal glands appeared normal. He was referred to Dr. Castillo. On 10/01/2020 he underwent bronchoscopy/EBUS with endobronchial biopsies and with FNA biopsies from station 7 and from left hilar lymph nodes. Pathology of the left upper lobe endobronchial biopsy and of the left hilar mass FNA biopsy showed moderate to poorly differentiated squamous cell carcinoma. The FNA biopsy at station 7 showed benign pathology. I had seen him initially on 10/07/2020. His staging PET/CT on 10/16/2020 showed left upper lobe mass measuring 5.2 x 4.1 cm with SUV 20.6, consistent with primary malignancy. Lingular infiltrates were noted to be FDG negative and most likely benign. Multiple subcentimeter pulmonary nodules were too small to characterize. There was mild activity and subaortic lymph nodes, suspected to be due to local metastatic disease. Staging head MRI on 10/22/2020 showed no evidence of metastatic disease. With those findings, he was recommended to undergo chemoradiation. INTERIM HISTORY: On 11/15/2020 he began radiation, concurrently with weekly carboplatin/Abraxane chemotherapy. He tolerated his initial chemotherapy infusion without acute toxicity, and he he was then able to continue treatment on a weekly schedule. He is seen for a follow-up visit. He has now completed 4 weekly chemotherapy infusions, which he has tolerated well. He says he is feeling okay, though his energy is going downhill somewhat. He is still able to do some light work, and his ECOG score is 1. He has good appetite. He has not had fever. He occasionally has sweating at night. He has not had sore mouth or throat, and he has no difficulty swallowing. He has a little bit of cough, mainly in the mornings. He does not complain of shortness of breath. He has had some chest pain, which he thinks is associated with acid reflux. He has just occasional nausea. He has had some constipation, but bowel function remains adequate. He has no complaints. He has generalized joint pain, which is unchanged. He has occasional headache behind his eye. He has no numbness/paresthesia or other neuropathy symptoms. Medications: Advair Diskus 1 Puff(s) (of 250-50 mcg/dose) Aerosol Powder, Breath Activated Inhalation b.i.d., BuPROPion HCl ER (XL) 1 Tablet (of 300 mg) Tablet SR 24 HR Oral every am, DiazePAM 1 Tablet (of 5 mg) Oral t.i.d., Enalapril Maleate (10 mg) Tablet Oral daily, FLUoxetine HCl 1 Capsule (of 40 mg) Oral daily, Gabapentin 1 Tablet (of 300 mg) Oral t.i.d., Hydrocodone-Acetaminophen 1 Tablet (of 7.5-325 mg) Tablet Oral four times a day PRN, Lovastatin 1 Tablet (of 40 mg) Oral daily, [id number] Ethyl Esters 2 Capsule (of 1 G) Oral daily, Stiolto Respimat 2 Puff(s) (of 2.5-2.5 mcg/act) Aerosol, solution Inhalation b.i.d., TraZODone HCl 1 Tablet (of 150 mg) Oral at bedtime Allergies: No Known Allergies. Vital Signs: Performed on Dec 13, 2020 10:32 Height - 72.00 in Weight - 269.4 lbs (HIGH) BSA - 2.42 sq.m BMI - 36.54 (HIGH) Temperature - 95.4 F (LOW) Pulse - 76 /min Respiration - 18 /min BP - 112/75 mm(hg) O2 Sat - 94 % (LOW) Pain - 5 Fatigue - 5 Physical Examination: Constitutional - He looks pretty good generally, Eyes - Sclerae nonicteric. Conjunctivae clear, ENMT - No lesions noted in the oral cavity, Hematologic/Lymphatic - No cervical, clavicular, or axillary adenopathy, Respiratory - Lungs show sliglhtly coarse breath sounds with some decrease in air movement bilaterally, Cardiovascular - Heart rhythm is regular. There is no murmur, gallop, or rub noted, Abdomen - Moderately distended. Liver and spleen are not enlarged. There is no abdominal mass or ascites noted and there is no inguinal adenopathy, Extremities - No edema, Neurologic - No focal neurologic deficits noted. Lab/Imaging: Test performed on Dec 13, 2020 10:57 Creatinine 0.9 mg/dL Cr Clearance (Est) 129.12 mL/min Test performed on Dec 13, 2020 09:04 Sodium 139 mmol/L Potassium 4.4 mmol/L Chloride 100 mmol/L CO2 26 mmol/L Anion Gap 17.4 BUN 14 mg/dL eGFR 83.7 mL/min Glucose 216 mg/dL Osmolality - Calculated 295 mOsm/kg Calcium 8.8 mg/dL Protein, Total 6.4 g/dL Albumin 4.1 g/dL Globulin 2.3 g/dL Bilirubin, Total 0.3 mg/dL ALT (SGPT) 14 U/L AST (SGOT) 11 U/L Alkaline Phosphatase 78 IU/L WBC 4.8 10 3/uL RBC 4.91 10 6/uL HGB 14.2 g/dL HCT 42.7 % MCV 87.0 fL MCH 28.9 pg MCHC 33.3 g/dL RDW 14.5 % Platelet Count 98 10 3/cmm MPV 10.3 fL Neutrophils 3.67 10 3/uL Lymphocytes 0.6 10 3/uL Monocytes 0.4 10 3/uL Eosinophils 0.1 10 3/uL Basophils 0.0 10 3/uL Neutrophil % 77.0 % Lymphocyte % 12.2 % Monocyte % 7.5 % Eosinophil % 1.9 % Basophils % 0.8 % NRBC % 0 % Problem List: 1. Moderate to poorly differentiated squamous cell carcinoma involving the upper lobe of the left lung, by clinical evaluation stage at least IIIA (T4, N1, M0). 2. Hypertension. 3. Hyperlipidemia. 4. Type 2 diabetes. 5. COPD. 6. GERD. 7. Obstructive sleep apnea. 8. Peripheral neuropathy. 9. History of lumbar spinal stenosis. 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 11. History of polysubstance abuse. 12. Depression. Problems Addressed with this Encounter and Plan: 1. 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 By clinical evaluation his disease appeared to be stage at least IIIA (T4, N1, M0). He had an endobronchial lesion with associated hemoptysis at initial presentation. His staging PET/CT also showed mild activity in subaortic lymph nodes, suggesting possible N2 disease. With those findings, he was recommended to undergo chemoradiation. On 11/15/2020 he began radiation concurrently with weekly carboplatin/Abraxane chemotherapy. He has now completed 4 weekly chemotherapy infusions. Overall, he has been tolerating his treatment very well. He will proceed with his week 5 carboplatin/Abraxane. The dosages remain the same. He returns in 1 week. He will be scheduled for labs and treatment in 1 week, which will complete his course of chemotherapy. He will be scheduled for restaging chest CT approximately 2 weeks after he completes radiation. Depending on his response, he may then be eligible for maintenance immunotherapy. 2. He is having GERD symptoms and he will be given a prescription for pantoprazole 40 mg daily. Signed By: Yamil Tang M.D. <<Signature on File>>
--- NOTE | 2020-12-14 14:22 | ONCRAD TMN_ITS ---
Radiation Oncology Treatment Management Note Patient Name: Yoni Connell Date of : 1950 Date of Service: 12/14/2020 Attending Physician: Yoni Green M.D. 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 The patient has received 42 Gy of a prescribed 60 Lara with an intensity modulated carboplatin (2 AUC) and Abraxane (40 mg/m???) weekly during radiotherapy. Upon review of systems, he denied pulmonary symptoms. On physical examination, the patient weighed 270 lbs. His temperature was 98.4 ???F with a blood pressure of 110/74 mmHg. The pulse was 88 bpm and his respiratory rate was 22. Oxygen saturation while breathing room air was 97%. There was no erythema within the treatment brown. Auscultation of the posterior lung brown identified bronchial breath sounds. Continue thoracic radiotherapy as planned. Signed by: Dr. Yoni Green 12/14/2020 2:20:45 PM
[2020-12-20 11:04] LABS: Basophils % 0.7 %; Eosinophils # 0.1 10^3/uL (0.0-0.8); Eosinophils % 1.6 %; Hematocrit 37.8 % (42.0-52.0); Hemoglobin 12.3 g/dL (11.7-16.6); Lymphocytes # 0.4 10^3/uL (0.8-4.8); Lymphocytes % 12.7 %; Mean Corpuscular HGB Conc 32.5 g/dL (30.0-36.0); Mean Corpuscular Hemoglobin 29.1 pg (28.0-34.0); Mean Corpuscular Volume 89.4 fL (80-94); Mean Platelet Volume 9.3 fL (7.4-10.4); Monocytes # 0.3 10^3/uL (0.2-0.9); Monocytes % 9.1 %; Neutrophils # 2.32 10^3/uL (1.8-7.7); Neutrophils % 75.6 %; Nucleated Red Blood Cells % 0 %; Platelet Count 88 10^3/cmm (130-400); Red Blood Count 4.23 10^6/uL (4.1-5.3); Red Cell Distribution Width 14.9 % (12.1-15.1); White Blood Count 3.1 10^3/uL (4.0-10.0)
[2020-12-20 11:54] LABS: Alanine Aminotransferase 15 U/L (0-41); Alkaline Phosphatase 73 IU/L (40-130); Anion Gap 15.9 (5-19); Aspartate Amino Transferase 14 U/L (0-40); Blood Urea Nitrogen 13 mg/dL (8-23); Calcium 8.3 mg/dL (8.5-10.5); Carbon Dioxide 26 mmol/L (22-29); Chloride 100 mmol/L (98-107); Glomerular Filtration Rate 95.8 mL/min (90-130); Glucose 245 mg/dL (65-115); Osmolality Calculated 294 mOsm/kg (285-295); Potassium 3.9 mmol/L (3.5-5.1); Sodium 138 mmol/L (136-145); Total Bilirubin 0.3 mg/dL (0.15-1.2)
[2020-12-20] MEDS: sodium chloride 0.9% 250 ML 75 ML IV (12:23)
[2020-12-20] MEDS: famotidine 20 mg/2 mL INJ IVP (12:23)
[2020-12-20] MEDS: diphenhydrAMINE 50 mg/mL SDV 1mL 25 MG IVP (12:25)
[2020-12-20] MEDS: palonosetron 0.25 mg/5 mL SDV IVP (12:29)
--- NOTE | 2020-12-21 14:44 | ONCRAD TMN_ITS ---
Radiation Oncology Weekly Treatment Management Patient: Ko Vallejo> MR#: [id number] : 1950> Attending Physician: Dr. Chi Moreira Date of Service: 12/21/2020 Referring Physician(s) : Alec Cheng M.D. Diagnosis: C34.12 - Malignant neoplasm of upper lobe, left bronchus or lung, Diagnosed 10/07/2020 (Active) Stage IIIA, T4, N1, M0 Radiotherapy to date: Course: LT Lung 2020, Treatment Site: LT Lung 66Gy, Ref. ID: [id number], Energy: 6X, Dose/Fx (cGy): 200, #Fx: 26 / 33, Dose Correction (cGy): 0, Total Dose (cGy): 5,200, Start Date: 11/15/2020, Elapsed Days: 36 Reason for visit: The patient is being seen today as part of their regularly scheduled weekly on treatment visits to assess for acute toxicities from radiotherapy. Review of Systems: Mr. Connell is tolerating treatment well. He has had improvement in his shortness of breath. He has minimal cough that is nonproductive. He has had no hemoptysis. His appetite is good. He has no symptoms of esophagitis at all. He has no troublesome skin reaction. He has minimal fatigue. Vital Signs: Performed on 12/21/2020 2:24 PM BMI - 37.161 kg/m2 (high), Height - 72.00 in, Weight - 274.0 lbs, Temperature - 98.5 f, Pulse - 77, Respiration - 18, O2 Sat - 94 % (low), Pain - 0 and BP - 118/ 61 mm(hg)(/low). Physical Exam: Pulse ox is 94% on room air at rest. His lungs are clear to auscultation bilaterally. No lymphadenopathy in the supraclavicular or cervical areas. Imaging: Radiation therapy imaging related to accurate target localization (i.e. KV, MV and CBCT) was reviewed. Appropriate changes, if any, were made to ensure treatment accuracy. Plan: Continue treatment as planned. Mr. Connell had no specific question, but did express disappointment about not being able to have surgery. I tried to encourage him by telling him that some patients are cured with chemoradiation and certainly many live 2 or 3 years even if not cured. He was aware of that. He unerstands that he will finish radiation next week. Signed by: Dr. Chi Moreira 12/21/2020 2:43:15 PM
--- NOTE | 2020-12-28 14:24 | ONCRAD TMN_ITS ---
Radiation Oncology Weekly Treatment Management Patient: Yoni Connell> MR#: [id number] : 1950> Attending Physician: Dr. Chi Moreira Date of Service: 12/28/2020 Referring Physician(s) : Alec Cheng Diagnosis: C34.12 - Malignant neoplasm of upper lobe, left bronchus or lung, Diagnosed 10/07/2020 (Active) Stage IIIA, T4, N1, M0 Radiotherapy to date: Course: LT Lung 2020, Treatment Site: LT Lung 66Gy, Ref. ID: [id number], Energy: 6X, Dose/Fx (cGy): 200, #Fx: , Dose Correction (cGy): 0, Total Dose (cGy): 6,200, Start Date: 11/15/2020, Elapsed Days: 43 Reason for visit: The patient is being seen today as part of their regularly scheduled weekly on treatment visits to assess for acute toxicities from radiotherapy. Review of Systems: Pulmonary symptoms are minimal. He has occasional episodes of dyspnea. He has a mild productive cough that occurs primarily in the morning. Overall his cough and shortness of breath is improved. He is activity level is stable. No esophagitis. No skin reaction. Vital Signs: Performed on 12/28/2020 1:36 PM BMI - 37.08 kg/m2 (high), Height - 72.00 in, Weight - 273.4 lbs, Temperature - 97.8 f, Pulse - 70, Respiration - 20, O2 Sat - 96 %, Pain - 0 and BP - 119/ 64 mm(hg)(/low). Physical Exam: Alert, oriented, no distress. Lungs clear to percussion. On auscultation no rales rhonchi or wheezes. Heart sounds distant. Imaging: Radiation therapy imaging related to accurate target localization (i.e. KV, MV and CBCT) was reviewed. Appropriate changes, if any, were made to ensure treatment accuracy. Plan: Continue treatment as planned. He has 2 treatments to go. He still seems to be very disappointed that he cannot be operated on. He seems to think that the treatment he is undergoing now leaves him with a sentence. I told him, as I did last week, that is not necessarily true. He is anxious to know what is been accomplished by treatment. I told him he will need to arrange an approximately 1 month follow-up and that he will have scans either before or after that visit. I tried to explain to him that with any treatment we have to wait and see how things develop over time and that we never know the results of treatment the day we finish. Signed by: Dr. Chi Moreira 12/28/2020 2:22:55 PM
--- NOTE | 2020-12-31 12:33 | N.ONRD TS_ITS ---
Radiation Oncology Treatment Summary Patient: Yoin Connell MR#: [id number] : 1950> Age: 70> Sex: Male Dictated by: Dr. Chi Moreira Date of Service: 12/31/2020 Referring Physician(s) : Alec Cheng Diagnosis: C34.12 - Malignant neoplasm of upper lobe, left bronchus or lung, Diagnosed 10/07/2020 (Active) Stage IIIA, T4, N1, M0 Radiotherapy to Date: Course: LT Lung 2020, Treatment Site: LT Lung 66Gy, Ref. ID: [id number], Energy: 6X, Dose/Fx (cGy): 200, #Fx: 33 / 33, Dose Correction (cGy): 0, Total Dose (cGy): 6,600, Start Date: 11/15/2020, End Date: 12/31/2020, Elapsed Days: 46 Clinical Summary: The patient tolerated RT well. Cone beam CT suggested a good response of the cancer to the course of radiation. Mr. Connell's dyspnea and cough improved. His performance status remained stable to improved. He had no problems with esophagitis. He had a very mild skin reaction on his back that responded to aloe vera application. Plan: End of treatment today. Continue aloe vera until the skin reaction resolves. Follow up in one month. Signed by: Dr. Chi Moreira>12/31/2020 12:32:20 PM <<Signature on File>>
== END 2021-01-01 23:59 | disposition home or self-care (01) ==
LOC: ONCMED 05:52
PROVIDERS: Internal Medicine Medical Oncology; Absent Provider Specialist; PCP Internal Medicine; Visit Provider Specialist
DX: Z51.0 Encounter for antineoplastic radiation therapy (principal); Z51.11 Encounter for antineoplastic chemotherapy; C34.12 Malignant neoplasm of upper lobe, left bronchus or lung; I10 Essential (primary) hypertension; E78.5 Hyperlipidemia, unspecified; J44.9 Chronic obstructive pulmonary disease, unspecified; K21.9 Gastro-esophageal reflux disease without esophagitis; G47.33 Obstructive sleep apnea (adult) (pediatric); E11.42 Type 2 diabetes mellitus with diabetic polyneuropathy; M51.36 Other intervertebral disc degeneration, lumbar region; M48.061 Spinal stenosis, lumbar region without neurogenic claudication; Z85.51 Personal history of malignant neoplasm of bladder; Z79.899 Other long term (current) drug therapy
CPT/HCPCS: 36415; 77014; 77336; 77386; 80053; 83036; 85025; 96367; 96375; 96413; 96417; 99214; 99215; J1100; J1200; J2469; J3490; J7050; J9045; J9264

== ENCOUNTER 2021-01-10 08:10 | Outpatient (CLI) | payer MEDICAID, SELFPAY ==
--- NOTE | 2021-01-10 09:03 | CT_ITS ---
WS: [id number] CT CHEST WITH INTRAVENOUS CONTRAST HISTORY: LUNG CANCER TECHNIQUE: Contiguous 5 mm axial imaging performed on the thorax. Coronal and sagittal reformats are submitted. All CT scans at [facility] use at least one of these dose optimization techniq ues: automated exposure control; mA and/or kV adjustment per patient size (includes targeted exams wh ere dose is matched to clinical indication); or iterative reconstruction. CONTRAST: Omnipaque 300; 95 mL IV. DLP: 1132.9 mGycm COMPARISON: 09/17/2020, 11/18/2019, PET/CT 10/16/2020 Lungs and central airway: Pulmonary hyperexpansion from emphysema. Hyperinflated lungs with interstit ial thickening and articulations in the periphery. Recently described neoplasm and PET/CT positive ma ss centered at the LEFT hilum has significantly decreased since 09/17/2020. Persistent soft tissue mas s centered at the LEFT hilum increase in the bronchovascular structures measures 1.2 x 3.1 cm. There is extension into the LEFT upper and LEFT lower lobe bronchovascular bundle. No new or increasing pul monary mass. Pleura: Normal. No pleural effusion. Heart and pericardium: Mildly enlarged heart. No pericardial effusion. Mediastinum and tom: 10 mm LEFT paratracheal lymph node. Lymph node is slightly smaller than on the prior study of 09/17/2020. No enlarging subaortic lymph nodes. Vessels: Pulmonary artery size is dilated measuring up to 3.7 cm in diameter. Chest wall and lower neck: No soft tissue masses. Upper abdomen: Hepatic steatosis. No adrenal mass. 1.9 cm cyst LEFT kidney. Osseous structures: No osteoblastic or osteolytic disease. CT/CT chest w con* [id number] IMPRESSION: 1. Significant decrease in size of the LEFT hilar neoplasm since 10/16/2020 PET /CT. Residual soft tissue measures 1.2 x 3.1 cm. 2. No new or enlarging mediastinal or hilar lymph nodes. 3. No metastatic disease to the liver or adrenal gland. 4. Mild pulmonary hypertension.
[2021-01-10] MEDS: iohexol 300 mg/mL 100 mL Btl IV (09:32)
== END 2021-01-10 08:11 | disposition home or self-care (01) ==
PROVIDERS: PCP Internal Medicine; Visit Provider Internal Medicine Medical Oncology
DX: C34.12 Malignant neoplasm of upper lobe, left bronchus or lung (principal); I27.20 Pulmonary hypertension, unspecified
CPT/HCPCS: 71260; Q9967

== ENCOUNTER 2021-01-28 05:41 | Outpatient (RCR) | payer MEDICAID, SELFPAY ==
[2021-01-11 12:56] LABS: Basophils # 0.1 10^3/uL (0.0-0.1); Basophils % 1.3 %; Eosinophils # 0.1 10^3/uL (0.0-0.8); Eosinophils % 1.9 %; Hematocrit 38.5 % (42.0-52.0); Hemoglobin 12.9 g/dL (11.7-16.6); Lymphocytes # 0.6 10^3/uL (0.8-4.8); Lymphocytes % 14.7 %; Mean Corpuscular HGB Conc 33.5 g/dL (30.0-36.0); Mean Corpuscular Hemoglobin 29.6 pg (28.0-34.0); Mean Corpuscular Volume 88.3 fL (80-94); Mean Platelet Volume 9.1 fL (7.4-10.4); Monocytes # 0.8 10^3/uL (0.2-0.9); Monocytes % 22.4 %; Neutrophils % 58.6 %; Nucleated Red Blood Cells % 0 %; Platelet Count 117 10^3/cmm (130-400); Red Blood Count 4.36 10^6/uL (4.1-5.3); Red Cell Distribution Width 17.6 % (12.1-15.1); White Blood Count 3.8 10^3/uL (4.0-10.0)
[2021-01-11 13:20] LABS: Alanine Aminotransferase 12 U/L (0-41); Albumin Level 4.3 g/dL (3.5-5.2); Alkaline Phosphatase 77 IU/L (40-130); Anion Gap 13.9 (5-19); Aspartate Amino Transferase 11 U/L (0-40); Blood Urea Nitrogen 20 mg/dL (8-23); Calcium 8.7 mg/dL (8.5-10.5); Carbon Dioxide 24 mmol/L (22-29); Chloride 101 mmol/L (98-107); Globulin 2.3 g/dL (1.3-4.6); Glomerular Filtration Rate 83.7 mL/min (90-130); Glucose 136 mg/dL (65-115); Osmolality Calculated 285 mOsm/kg (285-295); Potassium 3.9 mmol/L (3.5-5.1); Sodium 135 mmol/L (136-145); Total Bilirubin 0.4 mg/dL (0.15-1.2); Total Protein 6.6 g/dL (6.6-8.7)
[2021-01-11 14:18] LABS: Thyroid Stimulating Hormone 1.08 uIU/mL (0.27-4.20)
--- NOTE | 2021-01-11 16:52 | ONC FU_ITS ---
Dr. Tang Patient Follow-Up Note Patient: Yoni Connell Unit #: [id number]: 1950 Dicatated By: Yamil Tang M.D.Date of Visit:Jan 11, 2021 Onc Med Follow-up/Prog Note Chief Complaint: Lung cancer. 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 By clinical evaluation his disease is stage at least IIIA (T4, N1, M0). He had presented recently with hemoptysis, onset approximately [address] on 09/17/2020 showed a left upper lobe mass measuring 4.8 x 5.4 x 7.3 cm, new compared to a prior CT from November 2019. Small nodules noted in various locations throughout the lungs appeared stable. The visualized portions of the liver and the adrenal glands appeared normal. He was referred to Dr. Castillo. On 10/01/2020 he underwent bronchoscopy/EBUS with endobronchial biopsies and with FNA biopsies from station 7 and from left hilar lymph nodes. Pathology of the left upper lobe endobronchial biopsy and of the left hilar mass FNA biopsy showed moderate to poorly differentiated squamous cell carcinoma. The FNA biopsy at station 7 showed benign pathology. I had seen him initially on 10/07/2020. His staging PET/CT on 10/16/2020 showed left upper lobe mass measuring 5.2 x 4.1 cm with SUV 20.6, consistent with primary malignancy. Lingular infiltrates were noted to be FDG negative and most likely benign. Multiple subcentimeter pulmonary nodules were too small to characterize. There was mild activity and subaortic lymph nodes, suspected to be due to local metastatic disease. Staging head MRI on 10/22/2020 showed no evidence of metastatic disease. With those findings, he was recommended to undergo chemoradiation. INTERIM HISTORY: On 11/15/2020 he began radiation, concurrently with weekly carboplatin/Abraxane chemotherapy. He tolerated his initial chemotherapy infusion without acute toxicity, and he was then able to continue treatment on a weekly schedule. He completed his 6th and final chemotherapy infusion on 12/20/2020. He completed radiation on 12/31/2020 to a total dose of 6600 cGy administered in [address] on 01/10/2021 showed significant decrease in the left hilar region mass measuring 1.2 x 3.1 cm compared to 5.2 x 4.1 cm on the pretreatment study. There was noted to be extension into the left upper and left lower lobe bronchovascular bundle. There was no new or increasing pulmonary mass. A 10 mm left paratracheal lymph node was noted to be slightly smaller compared to the prior study. He is seen for a follow-up visit. He says his energy is not too good now, but he is able to do some light work. ECOG score is 1. His appetite is the same. He has not had fever. He does have some night sweating. He occasionally has sore throat. He has a morning cough. He does not complain of shortness of breath or chest pain. He had some nausea yesterday and he has been having some acid reflux. It is adequately managed with Shannan-Maddock. He has constipation, but that is adequately managed with MiraLAX and senna. He has urinary frequency and urgency. He says his lower back hurts a little, but he says he has had back problems for a long time. He has a little bit of headache behind his right eye. He does not complain of dizziness. He has no numbness/paresthesia or other focal neurologic symptoms. Medications: Advair Diskus 1 Puff(s) (of 250-50 mcg/dose) Aerosol Powder, Breath Activated Inhalation b.i.d., BuPROPion HCl ER (XL) 1 Tablet (of 300 mg) Tablet SR 24 HR Oral every am, DiazePAM 1 Tablet (of 5 mg) Oral t.i.d., Enalapril Maleate (10 mg) Tablet Oral daily, FLUoxetine HCl 1 Capsule (of 40 mg) Oral daily, Gabapentin 1 Tablet (of 300 mg) Oral t.i.d., Hydrocodone-Acetaminophen 1 Tablet (of 7.5-325 mg) Tablet Oral four times a day PRN, Lovastatin 1 Tablet (of 40 mg) Oral daily, [id number] Ethyl Esters 2 Capsule (of 1 G) Oral daily, Stiolto Respimat 2 Puff(s) (of 2.5-2.5 mcg/act) Aerosol, solution Inhalation b.i.d., TraZODone HCl 1 Tablet (of 150 mg) Oral at bedtime Allergies: No Known Allergies. Vital Signs: Performed on Jan 11, 2021 13:49 Height - 72.00 in Weight - 269.2 lbs (LOW) BSA - 2.42 sq.m BMI - 36.51 (HIGH) Temperature - 96.2 F (LOW) Pulse - 83 /min Respiration - 18 /min BP - 150/79 mm(hg) (HIGH) O2 Sat - 94 % (LOW) Pain - 7 Fatigue - 6 Physical Examination: Constitutional - He looks pretty good generally, Eyes - Sclerae nonicteric. Conjunctivae clear, ENMT - No lesions noted in the oral cavity, Hematologic/Lymphatic - No cervical, clavicular, or axillary adenopathy, Respiratory - Lungs diminished air movement bilaterally, Cardiovascular - Heart rhythm is regular. There is no murmur, gallop, or rub noted, Abdomen - Mildly distended but soft. Liver and spleen are not enlarged. There is no abdominal mass or ascites noted and there is no inguinal adenopathy, Back/Spine - There is no bony tenderness in the spine, Extremities - No edema, Neurologic - No focal neurologic deficits noted. Lab/Imaging: Test performed on Jan 11, 2021 12:45 Sodium 135 mmol/L TSH 1.08 uIU/mL Potassium 3.9 mmol/L Chloride 101 mmol/L CO2 24 mmol/L Anion Gap 13.9 BUN 20 mg/dL Creatinine 0.9 mg/dL Cr Clearance (Est) 129.1200 mL/min eGFR 83.7 mL/min Glucose 136 mg/dL Osmolality - Calculated 285 mOsm/kg Calcium 8.7 mg/dL Protein, Total 6.6 g/dL Albumin 4.3 g/dL Globulin 2.3 g/dL Bilirubin, Total 0.4 mg/dL ALT (SGPT) 12 U/L AST (SGOT) 11 U/L Alkaline Phosphatase 77 IU/L WBC 3.8 10 3/uL RBC 4.36 10 6/uL HGB 12.9 g/dL HCT 38.5 % MCV 88.3 fL MCH 29.6 pg MCHC 33.5 g/dL RDW 17.6 % Platelet Count 117 10 3/cmm MPV 9.1 fL Neutrophils 2.20 10 3/uL Lymphocytes 0.6 10 3/uL Monocytes 0.8 10 3/uL Eosinophils 0.1 10 3/uL Basophils 0.1 10 3/uL Neutrophil % 58.6 % Lymphocyte % 14.7 % Monocyte % 22.4 % Eosinophil % 1.9 % Basophils % 1.3 % NRBC % 0 % Problem List: 1. Moderate to poorly differentiated squamous cell carcinoma involving the upper lobe of the left lung, by clinical evaluation stage at least IIIA (T4, N1, M0). 2. Hypertension. 3. Hyperlipidemia. 4. Type 2 diabetes. 5. COPD. 6. GERD. 7. Obstructive sleep apnea. 8. Peripheral neuropathy. 9. History of lumbar spinal stenosis. 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 11. History of polysubstance abuse. 12. Depression. 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 By clinical evaluation his disease appeared to be stage at least IIIA (T4, N1, M0). He had an endobronchial lesion with associated hemoptysis at initial presentation. His staging PET/CT also showed mild activity in subaortic lymph nodes, suggesting possible N2 disease. With those findings, he was recommended to undergo chemoradiation. On 11/15/2020 he began radiation, concurrently with weekly carboplatin/Abraxane chemotherapy. He tolerated his initial chemotherapy infusion without acute toxicity, and he was then able to continue treatment on a weekly schedule. He completed his 6th and final chemotherapy infusion on 12/20/2020. He completed radiation on 12/31/2020 to a total dose of 6600 cGy administered in 33 fractions. Overall, he tolerated the treatment well. He has had a significant response by follow-up chest CT. As such, he is eligible now for maintenance therapy with durvalumab. I reviewed potential side effects, which may include enteritis/colitis, pneumonitis, endocrinopathies, skin eruption, and renal and/or hepatic dysfunction, among others. He indicates that he does wish to continue with the maintenance immunotherapy. He will return for cycle 1 of durvalumab, subject to verification of insurance coverage. It will be administered at a 4-week dosing schedule. Signed By: Yamil Tang M.D. <<Signature on File>>
[2021-01-19 09:42] LABS: Basophils # 0.1 10^3/uL (0.0-0.1); Basophils % 1.2 %; Eosinophils # 0.2 10^3/uL (0.0-0.8); Eosinophils % 2.9 %; Hematocrit 36.8 % (42.0-52.0); Hemoglobin 12.2 g/dL (11.7-16.6); Lymphocytes # 0.6 10^3/uL (0.8-4.8); Lymphocytes % 12.5 %; Mean Corpuscular HGB Conc 33.2 g/dL (30.0-36.0); Mean Corpuscular Hemoglobin 30.1 pg (28.0-34.0); Mean Corpuscular Volume 90.9 fl (80-94); Mean Platelet Volume 8.8 fL (7.4-10.4); Monocytes # 0.8 10^3/uL (0.2-0.9); Monocytes % 16.3 %; Neutrophils # 3.37 10^3/uL (1.8-7.7); Neutrophils % 65.5 %; Nucleated Red Blood Cells % 0 %; Platelet Count 149 10^3/cmm (130-400); Red Blood Count 4.05 10^6/uL (4.1-5.3); Red Cell Distribution Width 17.9 % (12.1-15.1); White Blood Count 5.1 10^3/uL (4.0-10.0)
[2021-01-19 10:16] LABS: Alanine Aminotransferase 11 U/L (0-41); Albumin Level 4.2 g/dL (3.5-5.2); Alkaline Phosphatase 82 IU/L (40-130); Anion Gap 14.1 (5-19); Aspartate Amino Transferase 10 U/L (0-40); Blood Urea Nitrogen 13 mg/dL (8-23); Calcium 8.7 mg/dL (8.5-10.5); Carbon Dioxide 25 mmol/L (22-29); Chloride 100 mmol/L (98-107); Globulin 2.4 g/dL (1.3-4.6); Glomerular Filtration Rate 95.8 mL/min (90-130); Glucose 203 mg/dL (65-115); Osmolality Calculated 286 mOsm/kg (285-295); Potassium 4.1 mmol/L (3.5-5.1); Sodium 135 mmol/L (136-145); Total Bilirubin 0.3 mg/dL (0.15-1.2); Total Protein 6.6 g/dL (6.6-8.7)
--- NOTE | 2021-01-19 17:39 | ONC FU_ITS ---
Dr. Tang Patient Follow-Up Note Patient: Yoni Connell Unit #: [id number]: 1950 Dicatated By: Yamil Tang M.D.Date of Visit:Jan 19, 2021 Onc Med Follow-up/Prog Note Chief Complaint: Lung cancer. 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 By clinical evaluation his disease is stage at least IIIA (T4, N1, M0). He had presented recently with hemoptysis, onset approximately [address] on 09/17/2020 showed a left upper lobe mass measuring 4.8 x 5.4 x 7.3 cm, new compared to a prior CT from November 2019. Small nodules noted in various locations throughout the lungs appeared stable. The visualized portions of the liver and the adrenal glands appeared normal. He was referred to Dr. Castillo. On 10/01/2020 he underwent bronchoscopy/EBUS with endobronchial biopsies and with FNA biopsies from station 7 and from left hilar lymph nodes. Pathology of the left upper lobe endobronchial biopsy and of the left hilar mass FNA biopsy showed moderate to poorly differentiated squamous cell carcinoma. The FNA biopsy at station 7 showed benign pathology. I had seen him initially on 10/07/2020. His staging PET/CT on 10/16/2020 showed left upper lobe mass measuring 5.2 x 4.1 cm with SUV 20.6, consistent with primary malignancy. Lingular infiltrates were noted to be FDG negative and most likely benign. Multiple subcentimeter pulmonary nodules were too small to characterize. There was mild activity and subaortic lymph nodes, suspected to be due to local metastatic disease. Staging head MRI on 10/22/2020 showed no evidence of metastatic disease. With those findings, he was recommended to undergo chemoradiation. INTERIM HISTORY: On 11/15/2020 he began radiation, concurrently with weekly carboplatin/Abraxane chemotherapy. He tolerated his initial chemotherapy infusion without acute toxicity, and he was then able to continue treatment on a weekly schedule. He completed his 6th and final chemotherapy infusion on 12/20/2020. He completed radiation on 12/31/2020 to a total dose of 6600 cGy administered in [address] on 01/10/2021 showed significant decrease in the left hilar region mass measuring 1.2 x 3.1 cm compared to 5.2 x 4.1 cm on the pretreatment study. There was noted to be extension into the left upper and left lower lobe bronchovascular bundle. There was no new or increasing pulmonary mass. A 10 mm left paratracheal lymph node was noted to be slightly smaller compared to the prior study. His is seen for a followup visit. He is feeling pretty good generally. He is able to do light work at home. ECOG score is 1. He has good appetite. He has not had fever. He still sometimes has a little bit of sweating at night, but that has improved. He has not had sore mouth or throat. He has a little bit of cough. His breathing is pretty good now. He does not complain of chest pain. He has not been having nausea. He sometimes has heartburn, which he manages with [place]. He has constipation. He has frequent urination. He complains that his back hurts a little. He occasionally has headache behind his right eye. He occasionally has tingling in his left foot. Medications: Advair Diskus 1 Puff(s) (of 250-50 mcg/dose) Aerosol Powder, Breath Activated Inhalation b.i.d., BuPROPion HCl ER (XL) 1 Tablet (of 300 mg) Tablet SR 24 HR Oral every am, DiazePAM 1 Tablet (of 5 mg) Oral t.i.d., Enalapril Maleate (10 mg) Tablet Oral daily, FLUoxetine HCl 1 Capsule (of 40 mg) Oral daily, Gabapentin 1 Tablet (of 300 mg) Oral t.i.d., Hydrocodone-Acetaminophen 1 Tablet (of 7.5-325 mg) Tablet Oral four times a day PRN, Lovastatin 1 Tablet (of 40 mg) Oral daily, [id number] Ethyl Esters 2 Capsule (of 1 G) Oral daily, Stiolto Respimat 2 Puff(s) (of 2.5-2.5 mcg/act) Aerosol, solution Inhalation b.i.d., TraZODone HCl 1 Tablet (of 150 mg) Oral at bedtime Allergies: No Known Allergies. Vital Signs: Performed on Jan 19, 2021 10:53 Height - 72.00 in Weight - 270.8 lbs (HIGH) BSA - 2.42 sq.m BMI - 36.73 (HIGH) Temperature - 97.7 F (LOW) Pulse - 79 /min Respiration - 18 /min BP - 122/74 mm(hg) O2 Sat - 92 % (LOW) Pain - 7 Fatigue - 6 Physical Examination: Constitutional - He looks pretty good generally, Eyes - Sclerae nonicteric. Conjunctivae clear, ENMT - No lesions noted in the oral cavity, Hematologic/Lymphatic - No cervical, clavicular, or axillary adenopathy, Respiratory - Lungs show diminished air movement bilaterally. There are a few coarse rales present, Cardiovascular - Heart rhythm is regular. There is no murmur, gallop, or rub noted, Abdomen - Mildly distended but soft. Liver and spleen are not enlarged. There is no abdominal mass or ascites noted and there is no inguinal adenopathy, Extremities - No edema, Neurologic - No focal neurologic deficits noted. Lab/Imaging: Test performed on Jan 19, 2021 09:29 Sodium 135 mmol/L Potassium 4.1 mmol/L Chloride 100 mmol/L CO2 25 mmol/L Anion Gap 14.1 BUN 13 mg/dL Creatinine 0.8 mg/dL Cr Clearance (Est) 151.41 mL/min eGFR 95.8 mL/min Glucose 203 mg/dL Osmolality - Calculated 286 mOsm/kg Calcium 8.7 mg/dL Protein, Total 6.6 g/dL Albumin 4.2 g/dL Globulin 2.4 g/dL Bilirubin, Total 0.3 mg/dL ALT (SGPT) 11 U/L AST (SGOT) 10 U/L Alkaline Phosphatase 82 IU/L WBC 5.1 10 3/uL RBC 4.05 10 6/uL HGB 12.2 g/dL HCT 36.8 % MCV 90.9 fl MCH 30.1 pg MCHC 33.2 g/dL RDW 17.9 % Platelet Count 149 10 3/cmm MPV 8.8 fL Neutrophils 3.37 10 3/uL Lymphocytes 0.6 10 3/uL Monocytes 0.8 10 3/uL Eosinophils 0.2 10 3/uL Basophils 0.1 10 3/uL Neutrophil % 65.5 % Lymphocyte % 12.5 % Monocyte % 16.3 % Eosinophil % 2.9 % Basophils % 1.2 % NRBC % 0 % Problem List: 1. Moderate to poorly differentiated squamous cell carcinoma involving the upper lobe of the left lung, by clinical evaluation stage at least IIIA (T4, N1, M0). 2. Hypertension. 3. Hyperlipidemia. 4. Type 2 diabetes. 5. COPD. 6. GERD. 7. Obstructive sleep apnea. 8. Peripheral neuropathy. 9. History of lumbar spinal stenosis. 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 11. History of polysubstance abuse. 12. Depression. 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 By clinical evaluation his disease appeared to be stage at least IIIA (T4, N1, M0). He had an endobronchial lesion with associated hemoptysis at initial presentation. His staging PET/CT also showed mild activity in subaortic lymph nodes, suggesting possible N2 disease. With those findings, he was recommended to undergo chemoradiation. On 11/15/2020 he began radiation, concurrently with weekly carboplatin/Abraxane chemotherapy. He tolerated his initial chemotherapy infusion without acute toxicity, and he was then able to continue treatment on a weekly schedule. He completed his 6th and final chemotherapy infusion on 12/20/2020. He completed radiation on 12/31/2020 to a total dose of 6600 cGy administered in 33 fractions. Overall, he tolerated the treatment well. He has had a significant response by follow-up chest CT. He will now begin cycle 1 of maintenance durvalumab, 1500 mg by IV infusion administered at 4-week intervals. I again reviewed potential side effects with him. He will return for follow-up visit in 4 weeks. In the meantime, I will have him add senna/docusate to his bowel regimen. Signed By: Yamil Tang M.D. <<Signature on File>>
[2021-01-20] MEDS: sodium chloride 0.9% 250 ML 75 ML IV (08:47)
--- NOTE | 2021-01-28 09:27 | ONCRAD EPV_ITS ---
Radiation Oncology Follow-Up Note Patient Name: Yoni Connell Date of : 1950 Date of Service: 01/28/2021 Attending Physician: Yoni Green M.D. Yoni Connell returned to my office this morning for a routinely scheduled follow-up appointment. He completed thoracic radiotherapy in December for the management of a clinical stage IIIA (T4N1) invasive squamous cell carcinoma of the left upper lobe of the lung. Thoracic radiation therapy was delivered between the dates of November 15, 2020 through December 31, 2020. A prescribed dose of 60 Gy was delivered in 30 fractions encompassing 47 elapsed days. Carboplatin (2 AUC) and Abraxane (40 mg/m???) were prescribed weekly during radiotherapy. On review of systems, He did not report any residual toxicities from radiotherapy. On physical examination, he weighed 272 lbs and the temperature was 98.3???F. His blood pressure was 105/62 mmHg. The pulse was 64 bpm and the respiratory rate was 22 breaths per minute. His oxygen saturation while breathing ambient air was 97%. In summary, Mr. Connell returned for a routine post-radiotherapy follow-up. A recent CT scan demonstrated a significant response to treatment. He has begun ICI therapy (Imfinzi) monthly and will continue follow-up as scheduled with his medical oncologist. Signed by: Dr. Yoni Green 01/28/2021 9:25:53 AM
== END 2021-02-01 23:59 | disposition home or self-care (01) ==
LOC: ONCMED 05:41
PROVIDERS: Internal Medicine Medical Oncology; PCP Internal Medicine; Visit Provider Radiology Radiation Oncology
DX: Z51.12 Encounter for antineoplastic immunotherapy (principal); C34.12 Malignant neoplasm of upper lobe, left bronchus or lung; I10 Essential (primary) hypertension; E78.5 Hyperlipidemia, unspecified; E11.42 Type 2 diabetes mellitus with diabetic polyneuropathy; J44.9 Chronic obstructive pulmonary disease, unspecified; K21.9 Gastro-esophageal reflux disease without esophagitis; G47.33 Obstructive sleep apnea (adult) (pediatric); F32.9 Major depressive disorder, single episode, unspecified; M48.061 Spinal stenosis, lumbar region without neurogenic claudication; F19.11 Other psychoactive substance abuse, in remission; Z85.51 Personal history of malignant neoplasm of bladder; Z79.899 Other long term (current) drug therapy
CPT/HCPCS: 36591; 80053; 84443; 85025; 96413; 99024; 99214; J7050; J9173

== ENCOUNTER 2021-02-08 02:40 | Inpatient (IN) | payer MEDICAID, SELFPAY ==
[2021-02-08] VITALS (10 sets, daily range): BP systolic 106–176; BP diastolic 64–101; PULSE 59–96; RESP 16–24; TEMP 36.3–36.7; O2SAT 77–98; BMI 36.6
--- NOTE | 2021-02-08 02:41 | XRR_ITS ---
PROCEDURE INFORMATION: Exam: XR Chest Exam date and time: 02/08/2021 2:41 AM Age: 70 years old Clinical indication: Injury or trauma; Fall; Blunt trauma (contusions or hematomas); Prior surgery; Surgery date: 6+ months; Surgery type: Port; Patient HX: Lung CA; Additional info: Pain TECHNIQUE: Imaging protocol: XR of the chest. Views: 1 view. COMPARISON: CT chest w con* [id number] 01/10/2021 9:26 AM FINDINGS: Tubes, catheters and devices: Right-sided Port-A-Cath, tip likely in the SVC. Lungs: Moderate left mid and upper lung opacities, generally in a perihilar distribution. The appearance is suspicious for possible pneumonia, asymmetric pulmonary edema felt much less likely. Given patient's history of left lung cancer, possible changes secondary to radiation therapy, or lymphangitic spread of carcinoma not excluded. Please correlate clinically. These findings were not present, or only minimally present on the comparison CT scan. The visible right lung appears essentially clear. Pleural spaces: No visible pneumothorax. No definite pleural fluid. Heart/Mediastinum: Heart size is within normal limits. Bones/joints: The known right 5th rib fractures not well visualized on this image. XR/XR chest 1V portable [id number] IMPRESSION: 1. Moderate left mid and upper lung opacities, generally in a perihilar distribution. See above discussion. 2. Other findings discussed above.
--- NOTE | 2021-02-08 02:41 | XRR_ITS ---
PROCEDURE INFORMATION: Exam: XR Right Shoulder Exam date and time: 02/08/2021 2:41 AM Age: 70 years old Clinical indication: Injury or trauma; Fall; Blunt trauma (contusions or hematomas); Shoulder; Right; Additional info: Pain TECHNIQUE: Imaging protocol: XR Right shoulder. Views: 2 or more views. COMPARISON: Chest X-Ray 06/05/2019 3:55 P.M. FINDINGS: Tubes, catheters and devices: A right-sided Port-A-Cath is present, tip probably in the SVC. Bones/joints: Moderately displaced fracture of the lateral right 5th rib. I suspect this is an acute fracture, please correlate clinically. There is no right shoulder dislocation. There is no other definite acute fracture visible at this time. Mild to moderate arthritic changes involving the right glenohumeral joint. Moderate arthritic changes involving the right AC joint, with moderate inferior bony spurring. Soft tissues: No significant acute finding. XR/XR shoulder RT min 2V* [id number] IMPRESSION: 1. Fracture of the right 5th rib, see above details. 2. No evidence for right shoulder dislocation. 3. No acute fracture or dislocation. 4. Other findings discussed above.
--- NOTE | 2021-02-08 02:59 | CTR_ITS ---
PROCEDURE INFORMATION: Exam: CT Chest Without Contrast; Diagnostic Exam date and time: 02/08/2021 2:59 AM Age: 70 years old Clinical indication: Injury or trauma; Blunt trauma (contusions or hematomas); Injury details: Fall, RT shoulder pain, abnormal shoulder xray (scapula); Prior surgery; Surgery date: 6+ months; Surgery type: Port; Patient HX: Bladder CA, lung CA TECHNIQUE: Imaging protocol: Diagnostic computed tomography of the chest without contrast. Radiation optimization: All CT scans at this facility use at least one of these dose optimization techniques: automated exposure control; mA and/or kV adjustment per patient size (includes targeted exams where dose is matched to clinical indication); or iterative reconstruction. COMPARISON: CT chest w con* [id number] 01/10/2021 9:26 AM RADIATION DOSE METRICS: Total DLP (mGy-cm): 1141.36 FINDINGS: Lungs: Hazy opacities in the left lung are new and are concerning for infection. Pleural spaces: Unremarkable. No pneumothorax. No pleural effusion. Heart: Unremarkable. No cardiomegaly. No pericardial effusion. Aorta: Unremarkable. No aortic aneurysm. Lymph nodes: Unremarkable. No enlarged lymph nodes. Liver: There is fatty infiltration of the liver. Kidneys and ureters: 2.9 cm left renal cyst. Bones/joints: There is a right 5th rib fracture. Soft tissues: Unremarkable. CT/CT chest wo con [id number] IMPRESSION: 1. Fatty infiltration of the liver. 2. There is a right 5th rib fracture. 3. Hazy opacities in the left lung are new and are concerning for infection. COMMENTS: Consistent with the [employer]'s Incidental Findings Committee white paper (J Am Ileana Radiol 2018): Any incidental renal lesion less than 1 cm or classified as too small to characterize, or any incidental cystic renal lesion characterized as simple-appearing, is likely benign. No follow-up imaging is recommended for these lesions per consensus recommendations based on imaging criteria. Radiation Dose CTDIVOL = (mGy): DLP = 1141.36 (mGy-cm)
--- NOTE | 2021-02-08 03:14 | ED_ITS ---
HPI - Extremity Problem General: Chief complaint: Extremity Injury, Upper Stated complaint: COLLAR BONE PAIN/FALL Time Seen by Provider: 02/08/21 02:41 Source: patient Mode of arrival: ambulatory Limitations: no limitations History of Present Illness: HPI Narrative: 70-year-old male states that he fell 3 days ago. States he fell onto his right side landed on his right shoulder. He states that right shoulder and chest pain since then. He states he is also had a cough that is developed and caused him severe pain anytime he coughs or moves. He had some shortness of breath. He denies any fevers. He denies any vomiting or diarrhea. Denies hitting his head when he fell. Associated symptoms: Reports chest pain; Deny fever(s) or rash Review of Systems Const: Denies: fever(s), chills, body aches or change in appetite Eyes: Denies: blurry vision or eye discomfort ENMT: Denies: throat pain or dental pain Card: Reports: chest pain Resp: Reports: dyspnea GI: Denies: abdominal pain, nausea, vomiting or diarrhea : Denies: dysuria Musc: Reports: extremity pain Skin/Breast: Denies: rash Neuro: Denies: headache(s) Psych: Denies: depression Jose/Lymph: Denies: easy bruising All/Imm: Denies: urticaria PFSH ED PFSH: Medical History (Updated 02/08/21 @ 04:47 by Katia Noyola MD) Alcohol intoxication Anxiety Bladder cancer Cancer of trigone of urinary bladder COPD (chronic obstructive pulmonary disease) Dyslipidemia Generalized anxiety disorder GERD (gastroesophageal reflux disease) History of colon polyps Hypertension Major depressive disorder, recurrent severe without psychotic features Neuropathy Nicotine dependence, cigarettes, in remission Polysubstance abuse Sleep apnea Type 2 diabetes mellitus Surgical History (Updated 11/02/20 @ 13:28 by Jalil Roth MD) H/O circumcision H/O laminectomy History of bladder surgery history of bladder cancer History of dental surgery History of tonsillectomy Port-A-Cath in place (11/02/20) Status post colonoscopy with polypectomy 08/04/19: rectal polyp Family History Father , in his 50's Heart failure Mother , at age 73 Cancer breast Other CAD (coronary artery disease) Diabetes Hyperlipidemia Denies family history of Anesthesia complication Bleeding disorder Social History Smoking and tobacco status: former smoker Quit status (tobacco): has quit using tobacco Year quit tobacco: Jun [id number] Second hand smoke exposure: Yes Smoking risk assessment/counseling performed?: Yes Tobacco counseling given: counseling >3 minutes Alcohol intake: current Alcohol intake frequency: few times a month Alcohol type: beer Lives independently: Yes Household members: none Housing: House Marital status: service: No Current occupational status: disabled Pets and animals: Yes History of recent travel: No Current gender identity: Male Physical Exam Const: COMMON NORMALS: no acute distress, patient oriented x3 and healthy appearing HENMT: COMMON NORMALS: normocephalic and atraumatic HEAD & SCALP: normocephalic and atraumatic Eye: COMMON NORMALS: Equal, round and reactive pupils present and EOMs intact bilaterally PUPIL: Yes Equal, round and reactive pupils present Neck/C-Spine: COMMON NORMALS: full ROM and supple Chest: COMMONS NORMALS: normal inspection of the chest and normal palpation of entire chest wall Resp: COMMON NORMALS: normal respiratory effort, No retractions, No use of accessory muscles and clear to auscultation bilaterally AUSCULTATION: clear to auscultation bilaterally Cardio: COMMON NORMALS: regular rate, regular rhythm and No murmurs present (Cardio) RATE: regular rate RHYTHM: regular rhythm GI: COMMON NORMALS: Normal to inspection, nondistended, normoactive bowel sounds present, Soft to palpation, non-tender and no masses PALPATION: Yes Soft to palpation Extremity: COMMON NORMALS: normal to inspection and full ROM NARRATIVE EXTREMITY EXAM: tenderness over right shoulder Neuro: COMMON NORMALS: patient oriented x3, moves all extremities and no focal motor deficits Psych: COMMON NORMALS: mental status grossly normal, Normal thought process present and cooperative THOUGHT PROCESS: Normal thought process present Skin: COMMON NORMALS: no rashes or lesions noted and no wounds GENERAL SKIN EXAM: no rashes or lesions noted Course Vital Signs: Vital signs: Vital Signs Temperature 97.4 F L 02/08/21 02:44 Pulse Rate 96 02/08/21 02:44 Respiratory Rate 18 02/08/21 02:44 Blood Pressure 176/101 02/08/21 02:44 Pulse Oximetry 87 L 09/07/21 02:44 MDM - Extremity (Nontraumatic) MDM Narrative: Medical decision making narrative: Patient presents here with left sided pneumonia. He also has a right rib fracture from a fall. Patient has no signs of pneumothorax or displaced rib fractures. He is hypoxic here from the pneumonia. His Covid here is negative. I spoke to the hospitalist and will admit at this time for his hypoxia and pneumonia. Lab Data: Labs: Lab Results 02/08/21 02/08/21 Range/Units 03:35 03:35 WBC 7.2 (4.0-10.0) 10^3/ uL RBC 3.50 L (4.1-5.3) 10^6/u L Hgb 10.8 L (11.7-16.6) g/dL Hct 33.8 L (42.0-52.0) % MCV 96.6 H (80-94) fl MCH 30.9 (28.0-34.0) pg MCHC 32.0 (30.0-36.0) g/dL RDW 17.5 H (12.1-15.1) % Plt Count 169 (130-400) 10^3/c mm MPV 9.6 (7.4-10.4) fL Neut % (Auto) 77.1 % Lymph % (Auto) 5.8 % [place] % (Auto) 13.0 % Eos % (Auto) 2.5 % Baso % (Auto) 0.6 % Neut # (Auto) 5.59 (1.8-7.7) 10^3/u L Lymph # (Auto) 0.4 L (0.8-4.8) 10^3/u L [place] # (Auto) 0.9 (0.2-0.9) 10^3/u L Eos # (Auto) 0.2 (0.0-0.8) 10^3/u L Baso # (Auto) 0.0 (0.0-0.1) 10^3/u L Nucleated RBC % (a uto) 0 % Nucleated RBCs # 0.0 /100WBC Sodium 136 (136-145) mmol/L Potassium 4.3 (3.5-5.1) mmol/L Chloride 99 (98-107) mmol/L Carbon Dioxide 26 (22-29) mmol/L Anion Gap 15.3 (5-19) BUN 11 (8-23) mg/dL Creatinine 0.9 (0.7-1.2) mg/dL GFR Calculation 83.7 L (90-130) mL/min Glucose 282 H (65-115) mg/dL Calculated Osmolal ity 292 (285-295) mOsm/k g Calcium 8.7 (8.5-10.5) mg/dL Total Bilirubin 0.4 (0.15-1.2) mg/dL AST 14 (0-40) U/L ALT 13 (0-41) U/L Alkaline Phosphata se 89 (40-130) IU/L Total Protein 6.1 L (6.6-8.7) g/dL Albumin 3.7 (3.5-5.2) g/dL Globulin 2.4 (1.3-4.6) g/dL Imaging Data^: CT Chest: Radiologist's impression: [place] [address] CT Scan Report Signed Patient: Yoni Connell Unit #: [id number] : 1950 295 Age/Sex: 70 / M ADM Date: 02/08/21 Loc: ER Room/Bed: Attending Dr: Ordering Provider/Ordering MD: Katia Noyola MD Date of Service: 02/08/21 Procedure(s): CT chest wo con [id number] Accession Number(s): [id number] Report Number: [id number] PROCEDURE INFORMATION: Exam: CT Chest Without Contrast; Diagnostic Exam date and time: 02/08/2021 2:59 AM Age: 70 years old Clinical indication: Injury or trauma; Blunt trauma (contusions or hematomas); Injury details: Fall, RT shoulder pain, abnormal shoulder xray (scapula); Prior surgery; Surgery date: 6+ months; Surgery type: Port; Patient HX: Bladder CA, lung CA TECHNIQUE: Imaging protocol: Diagnostic computed tomography of the chest without contrast. Radiation optimization: All CT scans at this facility use at least one of these dose optimization techniques: automated exposure control; mA and/or kV adjustment per patient size (includes targeted exams where dose is matched to clinical indication); or iterative reconstruction. COMPARISON: CT chest w con* [id number] 01/10/2021 9:26 AM RADIATION DOSE METRICS: Total DLP (mGy-cm): 1141.36 FINDINGS: Lungs: Hazy opacities in the left lung are new and are concerning for infection. Pleural spaces: Unremarkable. No pneumothorax. No pleural effusion. Heart: Unremarkable. No cardiomegaly. No pericardial effusion. Aorta: Unremarkable. No aortic aneurysm. Lymph nodes: Unremarkable. No enlarged lymph nodes. Liver: There is fatty infiltration of the liver. Kidneys and ureters: 2.9 cm left renal cyst. Bones/joints: There is a right 5th rib fracture. Soft tissues: Unremarkable. CT/CT chest wo con [id number] IMPRESSION: 1. Fatty infiltration of the liver. 2. There is a right 5th rib fracture. 3. Hazy opacities in the left lung are new and are concerning for infection. COMMENTS: Consistent with the [employer]'s Incidental Findings Committee white paper (J Am Ileana Radiol 2018): Any incidental renal lesion less than 1 cm or classified as too small to characterize, or any incidental cystic renal lesion characterized as simple-appearing, is likely benign. No follow-up imaging is recommended for these lesions per consensus recommendations based on imaging criteria. Radiation Dose CTDIVOL = (mGy): DLP = 1141.36 (mGy-cm) Dictated By: Gonzalez Holloway Signed By: Gonzalez Holloway Signed Date/Time: 02/08/21441 DD/ 0 Discharge Plan Discharge Patient Disposition: Admitted As Inpatient Clinical Impression: Pneumonia Qualifiers: Pneumonia type: due to unspecified organism Laterality: left Lung location: unspecified part of lung Qualified Code(s): J18.9 - Pneumonia, unspecified organism Fracture of rib Qualifiers: Encounter type: initial encounter Rib fracture type: single rib Fracture type: closed Laterality: right Qualified Code(s): S22.31XA - Fracture of one rib, right side, initial encounter for closed fracture Condition: Stable Coding Level of Care Code ED Training And Development Manager for [facility] Fwd Exam Comprehensive
[2021-02-08] MEDS: ondansetron 2 mg/ML SDV 2 mL 4 MG IVP ×2 (03:25→14:05)
[2021-02-08] MEDS: morphine 4 mg/mL SDV 1 mL IVP (03:25)
[2021-02-08 04:02] LABS: Basophils % 0.6 %; Eosinophils # 0.2 10^3/uL (0.0-0.8); Eosinophils % 2.5 %; Hematocrit 33.8 % (42.0-52.0); Hemoglobin 10.8 g/dL (11.7-16.6); Lymphocytes # 0.4 10^3/uL (0.8-4.8); Lymphocytes % 5.8 %; Mean Corpuscular Hemoglobin 30.9 pg (28.0-34.0); Mean Corpuscular Volume 96.6 fl (80-94); Mean Platelet Volume 9.6 fL (7.4-10.4); Monocytes # 0.9 10^3/uL (0.2-0.9); Neutrophils # 5.59 10^3/uL (1.8-7.7); Neutrophils % 77.1 %; Nucleated Red Blood Cells % 0 %; Platelet Count 169 10^3/cmm (130-400); Red Cell Distribution Width 17.5 % (12.1-15.1); White Blood Count 7.2 10^3/uL (4.0-10.0)
[2021-02-08 04:21] LABS: Alanine Aminotransferase 13 U/L (0-41); Albumin Level 3.7 g/dL (3.5-5.2); Alkaline Phosphatase 89 IU/L (40-130); Anion Gap 15.3 (5-19); Aspartate Amino Transferase 14 U/L (0-40); Blood Urea Nitrogen 11 mg/dL (8-23); Calcium 8.7 mg/dL (8.5-10.5); Carbon Dioxide 26 mmol/L (22-29); Chloride 99 mmol/L (98-107); Globulin 2.4 g/dL (1.3-4.6); Glomerular Filtration Rate 83.7 mL/min (90-130); Glucose 282 mg/dL (65-115); Osmolality Calculated 292 mOsm/kg (285-295); Potassium 4.3 mmol/L (3.5-5.1); Sodium 136 mmol/L (136-145); Total Bilirubin 0.4 mg/dL (0.15-1.2); Total Protein 6.1 g/dL (6.6-8.7)
[2021-02-08 05:30] LABS: SARS Covid-2 Antigen Negative (Negative)
[2021-02-08] MEDS: HYDROmorphone 1 mg/mL INJ 1 mL IVP (05:49)
--- NOTE | 2021-02-08 06:15 | PM.HP ---
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 On 11/15/2020 he began radiation, concurrently with weekly carboplatin/Abraxane chemotherapy, completing final chemotherapy infusion on 12/20/2020. He completed radiation on 12/31/[address] on 01/10/2021 showed significant decrease in the left hilar region mass. There was noted to be extension into the left upper and left lower lobe bronchovascular bundle. He is currently on maintenance durvalumab. Presents to the ER today with c/o having sustained a mechanical fall 3 days ago on to high right side and subsequent development of cough, pleuritic type chest pain and subjective dyspnea. He has a new 02 requirement in the ER at 2-3lpm supplemental 02, however reports that he has COPD, supposed to be on nightly 2lpm but doesnt use it as 02 sat remains 96-97% CT of the chest w/o contrast shows right 5th rib fracture and Hazy opacities in the left lung are new and are concerning for developing infection. Vaccinated for Covid 19 with 2 dose moderna series in Jul 2020. Review of Systems General: Reports: 10 or more systems reviewed and unremarkable except in HPI and below Const: Denies: fever(s), chills or body aches Eyes: Denies: change in vision, blurry vision or photophobia ENMT: Reports: hoarseness; Denies: throat pain, enlarged tonsils, odynophagia or nasal congestion Card: Denies: chest pain, palpitations, irregular heart rhythm, edema, swelling of feet/ankles, lightheadedness, pre-syncope, dyspnea on exertion or orthopnea Resp: Denies: dyspnea, productive cough, non-productive cough, wheezing, stridor, pain on inspiration, change in phlegm color, hemoptysis or chest congestion GI: Denies: abdominal pain, nausea, vomiting, hematemesis, coffee ground emesis, dysphagia, heartburn, diarrhea, constipation, GI cramping, change in stool character, hematochezia or melena : Denies: flank pain, dysuria, urinary frequency, urinary urgency, urinary hesitancy or hematuria Musc: Denies: neck pain, back pain, extremity pain, joint swelling, joint warmth or deformity Neuro: Denies: headache(s), numbness in extremities, weakness in extremities, sensory changes, difficulty walking, frequent falls, dizziness, vertigo, behavioral changes, Slurred speech present or seizure-like activity Psych: Denies: anxiety, depression, suicidal ideation or homicidal ideation Endo: Denies: polyuria, polydipsia, tired all the time, cold intolerance or hot flashes Jose/Lymph: Denies: easy bruising or easy bleeding Medications/Allergies Home Medications Medication Instructions Recorded Confirmed Last Taken Type enalapril maleate 10 mg PO DAILY 06/05/19 11/08/20 11/02/20 History gabapentin 300 mg PO TID 06/06/19 11/08/20 11/02/20 History albuterol sulfate [ProAir HFA] 1 - 2 puff INHALATION QID PRN 08/04/19 11/08/20 11/02/20 History glyburide 5 mg PO BID 08/04/19 11/08/20 11/01/20 History lovastatin 40 mg PO DAILY 08/04/19 11/08/20 11/01/20 History metformin 1,000 mg PO BID 08/04/19 11/08/20 11/01/20 History aspirin 81 mg tablet,delayed 81 mg PO DAILY 09/27/20 11/08/20 11/01/20 History release acetaminophen 650 mg 650 mg PO Q12H 10/12/20 11/08/20 Unknown History tablet,extended release diphenhydramine HCl 25 mg tablet 25 mg PO TID PRN 10/12/20 11/08/20 Unknown History hydrocodone 5 mg-acetaminophen 325 1 tab PO BID PRN 10/12/20 11/08/20 11/02/20 History mg tablet tiotropium 2.5 mcg-olodaterol 2.5 2 puff INHALATION DAILY 30 Days #4 10/15/20 11/08/20 11/02/20 Rx mcg/actuation mist for inhalation g cyanocobalamin (vitamin B-12) 1,000 mcg PO DAILY 10/26/20 11/08/20 11/01/20 History 1,000 mcg capsule hydrocodone-acetaminophen 1 tab PO Q6H PRN #20 tab 11/02/20 11/08/20 Unknown Rx ondansetron HCl [Zofran] 4 mg PO Q6H PRN #20 tab 11/02/20 11/08/20 Unknown Rx bupropion HCl 300 mg 24 hr tablet, 300 mg PO QAM #30 tab 11/08/20 11/08/20 Unknown Rx extended release diazepam 5 mg tablet 5 mg PO TID PRN #90 tab 11/08/20 11/08/20 Unknown Rx fluoxetine 40 mg capsule 40 mg PO QDAY #30 cap 11/08/20 11/08/20 Unknown Rx trazodone 150 mg tablet 150 mg PO BEDTIME #30 tab 11/08/20 11/08/20 Unknown Rx docusate sodium 100 mg capsule See Rx Instructions .ROUTE 12/15/20 Unknown Rx .COMPLEX #30 cap Allergies Allergy/AdvReac Type Severity Reaction Status Date / Time No Known Allergies Allergy Verified 10/29/20 18:26 PFSH Acute PFSH: Medical History Alcohol intoxication Anxiety Bladder cancer Cancer of trigone of urinary bladder COPD (chronic obstructive pulmonary disease) Dyslipidemia Generalized anxiety disorder GERD (gastroesophageal reflux disease) History of colon polyps Hypertension Major depressive disorder, recurrent severe without psychotic features Neuropathy Nicotine dependence, cigarettes, in remission Polysubstance abuse Sleep apnea Type 2 diabetes mellitus Surgical History H/O circumcision H/O laminectomy History of bladder surgery history of bladder cancer History of dental surgery History of tonsillectomy Port-A-Cath in place (11/02/20) Status post colonoscopy with polypectomy 08/04/19: rectal polyp Family History Father , in his 50's Heart failure Mother , at age 73 Cancer breast Other CAD (coronary artery disease) Diabetes Hyperlipidemia Denies family history of Anesthesia complication Bleeding disorder Social History Smoking and tobacco status: former smoker Quit status (tobacco): has quit using tobacco Year quit tobacco: Jun [id number] Second hand smoke exposure: Yes Smoking risk assessment/counseling performed?: Yes Tobacco counseling given: counseling >3 minutes Alcohol intake: current Alcohol intake frequency: few times a month Alcohol type: beer Lives independently: Yes Household members: none Housing: House Marital status: service: No Current occupational status: disabled Pets and animals: Yes History of recent travel: No Current gender identity: Male Vitals/I&O/Wt Last Vital Signs Temp 97.4 F L 02/08/21 02:44 Pulse 96 02/08/21 02:44 Resp 18 02/08/21 02:44 BP 176/101 02/08/21 02:44 Pulse Ox 87 L 02/08/21 02:44 Weight last 48 hrs Weight 122.47 kg Physical Exam Narrative: EXAM NARRATIVE: General: No acute distress, AO x3 HEENT: PERRLA, pupils bilaterally equal and reactive, pallors not present Chest: Normal vesicular breath sounds, no added sounds, equal good air entry bilaterally CVS: S1-S2 regular, no murmurs, no tachycardia, no gallops, no rubs Abdomen: Soft, nontender, no organomegaly, bowel sounds present Neuro: No focal deficits, no facial deformity, AO x3, power 5/5 in all limbs Data : 02/08/21 03:35 02/08/21 03:35 Other Labs: Laboratory Results WBC 7.2 10^3/uL (4.0-10.0) 02/08/21 03:35 RBC 3.50 10^6/uL (4.1-5.3) L 02/08/21 03:35 Hgb 10.8 g/dL (11.7-16.6) L 02/08/21 03:35 Hct 33.8 % (42.0-52.0) L 02/08/21 03:35 MCV 96.6 fl (80-94) H 02/08/21 03:35 MCH 30.9 pg (28.0-34.0) 02/08/21 03:35 MCHC 32.0 g/dL (30.0-36.0) 02/08/21 03:35 RDW 17.5 % (12.1-15.1) H 02/08/21 03:35 Plt Count 169 10^3/cmm (130-400) 02/08/21 03:35 MPV 9.6 fL (7.4-10.4) 02/08/21 03:35 Neut % (Auto) 77.1 % 02/08/21 03:35 Lymph % (Auto) 5.8 % 02/08/21 03:35 [place] % (Auto) 13.0 % 02/08/21 03:35 Eos % (Auto) 2.5 % 02/08/21 03:35 Baso % (Auto) 0.6 % 02/08/21 03:35 Neut # (Auto) 5.59 10^3/uL (1.8-7.7) 02/08/21 03:35 Lymph # (Auto) 0.4 10^3/uL (0.8-4.8) L 02/08/21 03:35 [place] # (Auto) 0.9 10^3/uL (0.2-0.9) 02/08/21 03:35 Eos # (Auto) 0.2 10^3/uL (0.0-0.8) 02/08/21 03:35 Baso # (Auto) 0.0 10^3/uL (0.0-0.1) 02/08/21 03:35 Nucleated RBC % (auto) 0 % 02/08/21 03:35 Nucleated RBCs # 0.0 /100WBC 02/08/21 03:35 Sodium 136 mmol/L (136-145) 02/08/21 03:35 Potassium 4.3 mmol/L (3.5-5.1) 02/08/21 03:35 Chloride 99 mmol/L (98-107) 02/08/21 03:35 Carbon Dioxide 26 mmol/L (22-29) 02/08/21 03:35 Anion Gap 15.3 (5-19) 02/08/21 03:35 BUN 11 mg/dL (8-23) 02/08/21 03:35 Creatinine 0.9 mg/dL (0.7-1.2) 02/08/21 03:35 GFR Calculation 83.7 mL/min (90-130) L 02/08/21 03:35 Glucose 282 mg/dL (65-115) H 02/08/21 03:35 Calculated Osmolality 292 mOsm/kg (285-295) 02/08/21 03:35 Calcium 8.7 mg/dL (8.5-10.5) 02/08/21 03:35 Total Bilirubin 0.4 mg/dL (0.15-1.2) 02/08/21 03:35 AST 14 U/L (0-40) 02/08/21 03:35 ALT 13 U/L (0-41) 02/08/21 03:35 Alkaline Phosphatase 89 IU/L (40-130) 02/08/21 03:35 Total Protein 6.1 g/dL (6.6-8.7) L 02/08/21 03:35 Albumin 3.7 g/dL (3.5-5.2) 02/08/21 03:35 Globulin 2.4 g/dL (1.3-4.6) 02/08/21 03:35 SARS-CoV-2 Ag (Rapid) Negative (Negative) 02/08/21 04:25 Impressions Chest X-Ray 02/08/21 02:41 IMPRESSION: 1. Moderate left mid and upper lung opacities, generally in a perihilar distribution. See above discussion. 2. Other findings discussed above. Shoulder X-Ray 02/08/21 02:41 IMPRESSION: 1. Fracture of the right 5th rib, see above details. 2. No evidence for right shoulder dislocation. 3. No acute fracture or dislocation. 4. Other findings discussed above. Chest CT 02/08/21 02:59 IMPRESSION: 1. Fatty infiltration of the liver. 2. There is a right 5th rib fracture. 3. Hazy opacities in the left lung are new and are concerning for infection. COMMENTS: Consistent with the [employer]'s Incidental Findings Committee white paper (J Am Ileana Radiol 2018): Any incidental renal lesion less than 1 cm or classified as too small to characterize, or any incidental cystic renal lesion characterized as simple-appearing, is likely benign. No follow-up imaging is recommended for these lesions per consensus recommendations based on imaging criteria. Radiation Dose CTDIVOL = (mGy): DLP = 1141.36 (mGy-cm) A&P Assessment and plan (1) Fracture of rib: Pain control with prn morphine and norco 5/325, lidocaine patch locally Currently still reports pain in right chest wall unable to take deep breaths 2/2 pain incentive spirometry Status: Acute Qualifiers: Encounter type: initial encounter Fracture type: closed Laterality: right Rib fracture type: single rib Qualified Code(s): S22.31XA - Fracture of one rib, right side, initial encounter for closed fracture (2) Pneumonia: developing LLL pneumonitis , no gross lobar consolidation Findings concerning for developing pneumonia per radiology read started on empric CTX and azithromycin for treatment of CAP sputum cx, MRSA nares, urine legionella and bacterial Ag check procal alternate differentials: radiation pneumonitis vs immunotherapy related pneumonitis, though would expect latter to be B/L Supplemental 02 to keep sat >92% . Status: Acute Qualifiers: Laterality: left Lung location: unspecified part of lung Pneumonia type: due to unspecified organism Qualified Code(s): J18.9 - Pneumonia, unspecified organism Additional A&P Information COPD :continue duoneb inhalation q6h Mariaa DM: insulin sliding scale while inpatient Full code DVT ppx: lovenox Attestations Medical Necessity Statement*: anticipate >2midnight stay for management of pneumonia, iv abx, pain control Coding Level of Care Code Acute Corporate Real Estate Specialist for Chg Fwd Diagnoses Fracture of rib S22.31XA Encounter type: initial encounter Fracture type: closed Laterality: right Rib fracture type: single rib Pneumonia J18.9 Laterality: left Lung location: unspecified part of lung Pneumonia type: due to unspecified organism
[2021-02-08] MEDS: azithromycin 500 MG in sodium chloride 0.9% 250 ML 250 MG IV (06:36)
[2021-02-08] MEDS: cefTRIAXone 1,000 MG in sodium chloride 0.9% (plus) 50 ML 100 MG IV (06:36)
[2021-02-08] MEDS: ipratropium-albuterol 3 mL Neb INHALATION (07:18)
[2021-02-08 07:22] LABS: Procalcitonin 0.14 ng/mL (0-0.5)
--- NOTE | 2021-02-08 07:30 | PC.NURSE ---
Report received from LUCRECIA Ballard at this time.
[2021-02-08] MEDS: enoxaparin 40 mg/0.4 mL Syringe SUBCUT (07:40)
[2021-02-08 07:44] LABS: D Dimer 1.01 ug/mIFEU (0-0.59)
[2021-02-08 08:25] LABS: Glucose Point of Care 236 mg/dL (70-110)
[2021-02-08] MEDS: gabapentin 300 mg Capsule PO ×3 (08:32→20:59)
[2021-02-08] MEDS: atorvastatin 40 mg Tablet 20 MG PO (08:32)
[2021-02-08] MEDS: aspirin 81 mg EC Tablet PO (08:32)
[2021-02-08] MEDS: lidocaine 5% Patch 1 PATCH TOPICAL ×2 (08:37→20:57)
[2021-02-08] MEDS: fluoxetine 20 mg Capsule 40 MG PO (08:50)
--- NOTE | 2021-02-08 10:46 | PC.NURSE ---
O2 sat 86% while sleeping, over 90 when awake. Pt placed on 2L NC for comfort.
[2021-02-08 11:32] LABS: Glucose Point of Care 195 mg/dL (70-110)
[2021-02-08] MEDS: acetaminophen 325 mg Tablet 650 MG PO ×2 (13:35→20:59)
[2021-02-08] MEDS: morphine 4 mg/mL SDV 1 mL 2 MG IVP (14:04)
--- NOTE | 2021-02-08 15:01 | PM.PN ---
Subjective Subjective: Interval history: Patient was seen in the ER, patient endorsed feeling better on 2 L nasal cannula, patient is stating that he lives alone with his dog, there is a daughter who should be notified in case of an emergency who lives in [place] Vitals/I&O/Wt Last Vital Signs Temp 98 F 02/08/21 14:13 Pulse 82 02/08/21 14:13 Resp 20 H 02/08/21 14:13 BP 134/78 02/08/21 14:13 Pulse Ox 97 02/08/21 14:13 02/08/21 02/08/21 02/08/21 06:59 14:59 22:59 Intake Total 300 / 300 Output Total 800 / 800 Balance -500 / -500 Weight last 48 hrs Weight 122.47 kg Physical Exam Narrative: EXAM NARRATIVE: Patient was laying flat in right lateral position saturating well on 2 L nasal cannula Appropriate mood and affect No neurological deficit S1, S2 sinus rhythm No signs of heart failure Lower symmetry no edema Appropriate mood and affect Abdomen distended with obesity No sign of cellulitis or joint swelling Data : 02/08/21 03:35 02/08/21 03:35 Micro: Microbiology 02/08/21 07:45 Legionella Urinary Antigen - Final Urine,Voided Bacterial Antigens - Final 02/08/21 06:10 Blood Culture - Preliminary Blood SPECIMEN COLLECTED 02/08/21 05:55 Blood Culture - Preliminary Blood SPECIMEN COLLECTED A&P Assessment and plan (1) Pneumonia: Status: Acute Qualifiers: Laterality: left Lung location: unspecified part of lung Pneumonia type: due to unspecified organism Qualified Code(s): J18.9 - Pneumonia, unspecified organism (2) Fracture of rib: Status: Acute Qualifiers: Encounter type: initial encounter Fracture type: closed Laterality: right Rib fracture type: single rib Qualified Code(s): S22.31XA - Fracture of one rib, right side, initial encounter for closed fracture (3) Squamous cell lung cancer: Status: Acute (4) Lung mass: Status: Acute (5) Cervical spondylosis: Status: Acute (6) Bladder cancer: Status: Acute Qualifiers: Bladder location: overlapping sites Qualified Code(s): C67.8 - Malignant neoplasm of overlapping sites of bladder (7) Type 2 diabetes mellitus: Status: Acute (8) Sleep apnea: Status: Acute Additional A&P Information Acute hypoxic restaurant failure due to pneumonia Currently getting ceftriaxone and is at regimen We will follow up with sputum, blood culture and urine antigens Currently afebrile no leukocytosis feeling better on 2 L nasal cannula High D-dimer related to underlying cancer in case of worsening of hypoxia would get CTA chest hold off for now Fracture of rib: Currently pain under control with opiate regimen we will add bowel regimen to avoid constipation Type 2 diabetes moderate sliding scale Squamous cell lung cancer currently on maintenance dose of durvaluMab Full code DVT prophylaxis Lovenox Consistent carb diet Attestations Medical Necessity Statement*: Continue medical management Time Spent in Patient Care: less than 15 minutes Coding Level of Care Code Acute Armored Machine Operator for g Fwd Diagnoses Pneumonia J18.9 Laterality: left Lung location: unspecified part of lung Pneumonia type: due to unspecified organism Fracture of rib S22.31XA Encounter type: initial encounter Fracture type: closed Laterality: right Rib fracture type: single rib Squamous cell lung cancer C34.90 Lung mass R91.8 Cervical spondylosis M47.812 Bladder cancer C67.8 Bladder location: overlapping sites Type 2 diabetes mellitus E11.9 Sleep apnea G47.30
[2021-02-08 16:03] LABS: Coronavirus Test Green County Not Detected
[2021-02-08 17:13] LABS: Glucose Point of Care 226 mg/dL (70-110)
[2021-02-08] MEDS: sennosides-docusate Tablet 2 TAB PO (17:29)
--- NOTE | 2021-02-08 17:40 | PC.NURSE ---
rcvd tele order for cardiac diet. global technical writer entered order
--- NOTE | 2021-02-08 18:38 | PC.NURSE ---
patient is negative for covid per PCR and rapid. per Dr Mello, okay to discontinue isolation order.
[2021-02-08 20:36] LABS: Glucose Point of Care 212 mg/dL (70-110)
[2021-02-08] MEDS: trazodone 150 mg Tablet PO (20:59)
[2021-02-09] VITALS (9 sets, daily range): BP systolic 112–132; BP diastolic 63–81; PULSE 67–88; RESP 18–20; TEMP 36.5–37.1; O2SAT 91–98
[2021-02-09] MEDS: acetaminophen 325 mg Tablet 650 MG PO (03:23)
[2021-02-09 05:48] LABS: Basophils % 0.6 %; Eosinophils # 0.3 10^3/uL (0.0-0.8); Eosinophils % 3.6 %; Hematocrit 38.2 % (42.0-52.0); Lymphocytes # 0.5 10^3/uL (0.8-4.8); Lymphocytes % 6.4 %; Mean Corpuscular HGB Conc 31.4 g/dL (30.0-36.0); Mean Corpuscular Hemoglobin 30.1 pg (28.0-34.0); Mean Corpuscular Volume 95.7 fl (80-94); Mean Platelet Volume 9.6 fL (7.4-10.4); Monocytes % 13.6 %; Neutrophils # 5.39 10^3/uL (1.8-7.7); Nucleated Red Blood Cells % 0 %; Platelet Count 185 10^3/cmm (130-400); Red Blood Count 3.99 10^6/uL (4.1-5.3); White Blood Count 7.2 10^3/uL (4.0-10.0)
[2021-02-09] MEDS: enoxaparin 40 mg/0.4 mL Syringe SUBCUT (06:08)
[2021-02-09] MEDS: cefTRIAXone 1,000 MG in sodium chloride 0.9% (plus) 50 ML 100 MG IV (06:08)
[2021-02-09] MEDS: buPROPion XL (24 HR) 300 mg Tablet PO (06:09)
[2021-02-09 06:21] LABS: Anion Gap 14.2 (5-19); Blood Urea Nitrogen 12 mg/dL (8-23); Calcium 8.6 mg/dL (8.5-10.5); Carbon Dioxide 27 mmol/L (22-29); Chloride 102 mmol/L (98-107); Glomerular Filtration Rate 95.8 mL/min (90-130); Glucose 186 mg/dL (65-115); Osmolality Calculated 293 mOsm/kg (285-295); Potassium 4.2 mmol/L (3.5-5.1); Sodium 139 mmol/L (136-145)
[2021-02-09 06:31] LABS: Glucose Point of Care 188 mg/dL (70-110)
[2021-02-09] MEDS: fluoxetine 20 mg Capsule 40 MG PO (07:51)
[2021-02-09] MEDS: aspirin 81 mg EC Tablet PO (07:51)
[2021-02-09] MEDS: azithromycin 250 mg Tablet 500 MG PO (07:51)
[2021-02-09] MEDS: atorvastatin 40 mg Tablet 20 MG PO (07:52)
[2021-02-09] MEDS: sennosides-docusate Tablet 2 TAB PO (07:53)
[2021-02-09] MEDS: lidocaine 5% Patch 1 PATCH TOPICAL (07:53)
[2021-02-09] MEDS: gabapentin 300 mg Capsule PO (07:55)
[2021-02-09] MEDS: ipratropium-albuterol 3 mL Neb INHALATION (08:35)
--- NOTE | 2021-02-09 09:34 | PC.CHAP ---
Pastoral Care Encounter/Spiritual Assessment Type of Contact [] Declined power mule operator visit [] Patient/Family/Request visit [] Outpatient visit [] Follow-up visit [] Physician referral [] Code/Alert [x] Routine visit [] Staff referral [] Actively dying [] Patient sleeping [] Family support [] [] Out of room [] Palliative care [] [x] Receiving care in room [] Pre-surgical visit [] Trauma [] Long length of stay [] ICU visit [] Other: Relational/Emotional Strength [] Patient feels connected with others/family/visitors/staff [] Distress [] Loneliness/isolation [] Abandonment Spirituality of Patient [] Person of [place] [] Attends Spiritism of their [place]ia [] Believes in Prayer [] Reads Bible or Zoroastrianism materials [] There are Spiritual issues to be addressed Welding Machine Operator [place] Interventions [] Prayer [] Active listening [] Non-anxious presence [] Spiritual/emotional support [] Crisis/trauma care [] Spiritual counseling [] Bereavement support [] Provided bereavement packet [] Provided Bible/devotional materials [] Provided toy/stuffed animal, coloring book to patient or family member [] Provided Communion [] Anointing/[place] [] Salvation [] Completed spiritual assessment [] Other: Impact on Illness or Injury [] Angry [] Fearful [] Anxious [] Often cries [] Exhaustion [] Unable to work [] Unable to attend spiritism [] Unable to walk/stand [] Unable to read [] Unable to drive [] Unable to eat/drink [] Unable to sleep [] Unable to be with family [] Patient intubated [] Other: Summary Time spent with patient
--- NOTE | 2021-02-09 10:12 | P.DS_ITS ---
Discharge Providers Date of Admission: 02/08/21 07:14 Date of Discharge: February 09, 2021 Attending Provider at Admission: Sharon Olivares MD Attending Provider at Discharge: Terry Mello MD Primary Care Provider: Flaquita Goodwin MD Diagnoses at Discharge Discharge Diagnosis (1) Pneumonia: Status: Acute Qualifiers: Laterality: left Lung location: unspecified part of lung Pneumonia type: due to unspecified organism Qualified Code(s): J18.9 - Pneumonia, unspecified organism (2) Fracture of rib: Status: Acute Qualifiers: Encounter type: initial encounter Fracture type: closed Laterality: right Rib fracture type: single rib Qualified Code(s): S22.31XA - Fracture of one rib, right side, initial encounter for closed fracture (3) Squamous cell lung cancer: Status: Acute (4) Lung mass: Status: Acute (5) Cervical spondylosis: Status: Acute (6) Bladder cancer: Status: Acute Qualifiers: Bladder location: overlapping sites Qualified Code(s): C67.8 - Malignant neoplasm of overlapping sites of bladder (7) Type 2 diabetes mellitus: Status: Acute (8) Sleep apnea: Status: Acute Reason for Visit Reason for Visit: COLLAR BONE PAIN/FALL Hospital Course Hospital Course History of Present Illness by Dr. 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 On 11/15/2020 he began radiation, concurrently with weekly carboplatin/Abraxane chemotherapy, completing final chemotherapy infusion on 12/20/2020. He completed radiation on 12/31/[address] on 01/10/2021 showed significant decrease in the left hilar region mass. There was noted to be extension into the left upper and left lower lobe bronchovascular bundle. He is currently on maintenance durvalumab. Presents to the ER today with c/o having sustained a mechanical fall 3 days ago on to high right side and subsequent development of cough, pleuritic type chest pain and subjective dyspnea. He has a new 02 requirement in the ER at 2-3lpm supplemental 02, however reports that he has COPD, supposed to be on nightly 2lpm but doesnt use it as 02 sat remains 96-97% CT of the chest w/o contrast shows right 5th rib fracture and Hazy opacities in the left lung are new and are concerning for developing infection. Vaccinated for Covid 19 with 2 dose moderna series in Jul 2020 Hospital course Patient was admitted for management of pneumonia, community-acquired, pain management for right fifth rib fracture, patient did well on ceftriaxone and azithromycin, urine antigens negative, blood cultures sterile, he did not spike any fever during hospitalization, patient was feeling better on 2 L nasal cannula, he was advised to finish 7 days of Levaquin along Medrol pack for his wheezing, opioids given with bowel regimen for right fifth rib fracture. Patient is eager to return home does not need any rehab or mcc placement. Physical Exam Narrative: EXAM NARRATIVE: saturating well on RA Appropriate mood and affect No neurological deficit S1, S2 sinus rhythm No signs of heart failure Lower symmetry no edema Appropriate mood and affect Abdomen distended with obesity No sign of cellulitis or joint swelling Discharge Data Data Completed and Pending: Completed Studies During Hospitalization Category Date Time Status CT chest wo con 7 1250 Urgent Cat Scan 02/08/21 02:59 Completed XR chest 1V vishal ble [id number] Stat Exams 02/08/21 02:41 Completed XR shoulder RT mi n 2V* [id number] Stat Exams 02/08/21 02:41 Completed Pending at discharge Category Date Time Status Blood Culture Sta t Lab 02/08/21 06:10 Results Labs from last 24 hours 02/09/21 02/09/21 02/09/21 06:26 05:06 05:06 WBC 7.2 RBC 3.99 L Hgb 12.0 Hct 38.2 L MCV 95.7 H MCH 30.1 MCHC 31.4 RDW 17.0 H Plt Count 185 MPV 9.6 Neut % (Auto) 75.0 Lymph % (Auto) 6.4 [place] % (Auto) 13.6 Eos % (Auto) 3.6 Baso % (Auto) 0.6 Neut # (Auto) 5.39 Lymph # (Auto) 0.5 L [place] # (Auto) 1.0 H Eos # (Auto) 0.3 Baso # (Auto) 0.0 Nucleated RBC % (a uto) 0 Nucleated RBCs # 0.0 Sodium 139 Potassium 4.2 Chloride 102 Carbon Dioxide 27 Anion Gap 14.2 BUN 12 Creatinine 0.8 GFR Calculation 95.8 Glucose 186 H POC Glucose 188 H Calculated Osmolal ity 293 Calcium 8.6 Nasal/Oral COVID-1 9 PCR 02/08/21 02/08/21 02/08/21 20:25 17:10 11:27 WBC RBC Hgb Hct MCV MCH MCHC RDW Plt Count MPV Neut % (Auto) Lymph % (Auto) [place] % (Auto) Eos % (Auto) Baso % (Auto) Neut # (Auto) Lymph # (Auto) [place] # (Auto) Eos # (Auto) Baso # (Auto) Nucleated RBC % (a uto) Nucleated RBCs # Sodium Potassium Chloride Carbon Dioxide Anion Gap BUN Creatinine GFR Calculation Glucose POC Glucose 212 H 226 H 195 H Calculated Osmolal ity Calcium Nasal/Oral COVID-1 9 PCR 02/08/21 06:50 WBC RBC Hgb Hct MCV MCH MCHC RDW Plt Count MPV Neut % (Auto) Lymph % (Auto) [place] % (Auto) Eos % (Auto) Baso % (Auto) Neut # (Auto) Lymph # (Auto) [place] # (Auto) Eos # (Auto) Baso # (Auto) Nucleated RBC % (a uto) Nucleated RBCs # Sodium Potassium Chloride Carbon Dioxide Anion Gap BUN Creatinine GFR Calculation Glucose POC Glucose Calculated Osmolal ity Calcium Nasal/Oral COVID-1 9 PCR Not detected Vitals: Last Vital Signs Temp 97.7 F 02/09/21 07:50 Pulse 87 02/09/21 08:35 Resp 20 H 02/09/21 08:35 BP 132/77 02/09/21 10:10 Pulse Ox 96 02/09/21 08:35 Discharge Plan Discharge Patient Disposition: Home Condition: Stable Prescriptions: New Medrol (Rubin) 4 mg tablets,dose pack See Rx Instructions .ROUTE .COMPLEX Qty: 21 RF: 0 levofloxacin 750 mg tablet 750 mg PO DAILY 7 Days RF: 0 Senna-S 8.6-50 mg tablet 1 tab-cap PO DAILY Qty: 20 RF: 0 Continued aspirin [Aspirin Low Dose] 81 mg tablet,delayed release (DR/EC) 81 mg PO DAILY RF: 0 acetaminophen [Tylenol Arthritis Pain] 650 mg tablet extended release 650 mg PO Q12H RF: 0 diphenhydramine HCl [Benadryl Allergy] 25 mg tablet 25 mg PO TID PRN (Reason: Allergy Symptoms) RF: 0 gabapentin 300 mg capsule 300 mg PO TID RF: 0 albuterol sulfate [ProAir HFA] 90 mcg/actuation HFA aerosol inhaler 1 - 2 puff INHALATION QID PRN (Reason: Shortness Of Breath Or Wheezing) RF: 0 metformin 1,000 mg Tablet 1,000 mg PO BID RF: 0 lovastatin 40 mg tablet 40 mg PO DAILY RF: 0 Zofran 4 mg Tablet 4 mg PO Q6H PRN (Reason: NAUSEA/VOMITING) RF: 0 trazodone 150 mg tablet 150 mg PO BEDTIME RF: 0 Stool Softener 100 mg capsule 100 mg PO BID RF: 0 Jardiance 10 mg tablet 10 mg PO DAILY RF: 0 Stiolto Respimat 2.5-2.5 mcg/actuation Mist 2 puff INHALATION DAILY RF: 0 hydrocodone-acetaminophen 5-325 mg tablet 1 tab PO BID PRN (Reason: PAIN) 10 Days Qty: 20 RF: 0 Discontinued [place] 324 mg Tablet, Effervescent 324 mg PO DAILY PRN (Reason: unknown) RF: 0 Discharge Orders: Discharge Order (Routine); Ordered 02/09/21 Ordered By: Terry Mello Other Ambulatory Orders: DME: Oxygen (Order) Location: None Selected Ordered By: Terry Mello Referrals: Flaquita Goodwin MD [Primary Care Provider] - 4-7 days (DOCTOR OFFICE WILL CALL WITH APPOINTMENT WITH DR BAIRD [phone]) Discharge Diet: Cardiac Discharge Activity: Increase activity as tolerated Patient Instructions: Methylprednisolone (By mouth), Levofloxacin (By mouth), Pneumonia (GEN), Opioid Safety, Pneumonia Stoplight, Fractures - Rib Activity Restrictions/Additional Instructions: Please finish 7 days of antibiotic and steroid regimen. You can use 2 L of oxygen [id number]. Follow-up with your oncologist and PCP. Discharge Attestations Time Spent in Discharge Care*: less than 30 min Quality Metrics Clinical Quality Measures During this hospital stay, did patient experience: None Coding Level of Care Code Acute g FW DC note Diagnoses Pneumonia J18.9 Laterality: left Lung location: unspecified part of lung Pneumonia type: due to unspecified organism Fracture of rib S22.31XA Encounter type: initial encounter Fracture type: closed Laterality: right Rib fracture type: single rib Squamous cell lung cancer C34.90 Lung mass R91.8 Cervical spondylosis M47.812 Bladder cancer C67.8 Bladder location: overlapping sites Type 2 diabetes mellitus E11.9 Sleep apnea G47.30
[2021-02-09 11:40] LABS: Glucose Point of Care 253 mg/dL (70-110)
--- NOTE | 2021-02-10 12:13 | PC.SOCIAL ---
discharge follow up call made. follow up appointments made and dates and times given to patient. [facility] rides set up for patient. Dr. Goodwin pick and shovel man time [id number] trip #[id number] Tang pick and shovel man time [id number] trip #[id number]. patient picked up medications from the pharmacy and he is taking as prescribed.
--- NOTE | 2021-02-11 17:58 | PC.RESP ---
PULMONARY REHAB INFORMATION SENT TO PATIENT.
== END 2021-02-09 13:25 | disposition home or self-care (01) | DRG 194 ==
LOC: ER 04:59 → ER IP 07:38 → MEDSURG 14:13
PROVIDERS: Admitting Provider Student in an Organized Health Care Education/Training Program; Emergency Provider Emergency Medicine; PCP Internal Medicine; Visit Provider Internal Medicine
DX: J18.9 Pneumonia, unspecified organism (principal); S22.31XA Fracture of one rib, right side, initial encounter for closed fracture; C34.12 Malignant neoplasm of upper lobe, left bronchus or lung; F33.2 Major depressive disorder, recurrent severe without psychotic features; J44.0 Chronic obstructive pulmonary disease with (acute) lower respiratory infection; W19.XXXA Unspecified fall, initial encounter; R09.02 Hypoxemia; C67.8 Malignant neoplasm of overlapping sites of bladder; F41.9 Anxiety disorder, unspecified; E78.5 Hyperlipidemia, unspecified; F17.201 Nicotine dependence, unspecified, in remission; G47.33 Obstructive sleep apnea (adult) (pediatric); E11.40 Type 2 diabetes mellitus with diabetic neuropathy, unspecified; M47.812 Spondylosis without myelopathy or radiculopathy, cervical region; Z92.3 Personal history of irradiation; Z79.899 Other long term (current) drug therapy; Z79.84 Long term (current) use of oral hypoglycemic drugs
CPT/HCPCS: 36415; 36416; 71045; 71250; 73030; 80048; 80053; 82962; 84145; 85025; 85378; 86403; 87040; 87426; 87449; 87635; 94640; 96365; 96367; 96372; 96375; 99285; J0456; J0696; J1170; J1650; J1815; J2270; J2405; J7050; Q0144

== ENCOUNTER 2021-02-15 06:10 | Outpatient (RCR) | payer MEDICAID, SELFPAY ==
[2021-02-15 10:42] LABS: Basophils # 0.1 10^3/uL (0.0-0.1); Basophils % 0.9 %; Eosinophils # 0.2 10^3/uL (0.0-0.8); Eosinophils % 2.3 %; Hematocrit 37.6 % (42.0-52.0); Hemoglobin 12.3 g/dL (11.7-16.6); Lymphocytes # 0.8 10^3/uL (0.8-4.8); Lymphocytes % 9.9 %; Mean Corpuscular HGB Conc 32.7 g/dL (30.0-36.0); Mean Corpuscular Hemoglobin 30.8 pg (28.0-34.0); Mean Platelet Volume 9.5 fL (7.4-10.4); Monocytes # 0.6 10^3/uL (0.2-0.9); Monocytes % 8.1 %; Neutrophils # 5.94 10^3/uL (1.8-7.7); Neutrophils % 76.9 %; Nucleated Red Blood Cells % 0 %; Platelet Count 232 10^3/cmm (130-400); Red Cell Distribution Width 16.1 % (12.1-15.1); White Blood Count 7.7 10^3/uL (4.0-10.0)
[2021-02-15 11:07] LABS: Alanine Aminotransferase 14 U/L (0-41); Albumin Level 4.1 g/dL (3.5-5.2); Alkaline Phosphatase 85 IU/L (40-130); Aspartate Amino Transferase 12 U/L (0-40); Blood Urea Nitrogen 16 mg/dL (8-23); Carbon Dioxide 26 mmol/L (22-29); Chloride 100 mmol/L (98-107); Globulin 2.6 g/dL (1.3-4.6); Glomerular Filtration Rate 95.8 mL/min (90-130); Glucose 216 mg/dL (65-115); Osmolality Calculated 294 mOsm/kg (285-295); Sodium 138 mmol/L (136-145); Thyroid Stimulating Hormone 0.64 uIU/mL (0.27-4.20); Total Bilirubin 0.2 mg/dL (0.15-1.2); Total Protein 6.7 g/dL (6.6-8.7)
[2021-02-15] MEDS: sodium chloride 0.9% 250 ML 75 ML IV (12:20)
--- NOTE | 2021-02-15 18:27 | ONC FU_ITS ---
Dr. Tang Patient Follow-Up Note Patient: Yoni Connell Unit #: [id number]: [id number] Dicatated By: Yamil Tang M.D.Date of Visit:Feb 15, 2021 Onc Med Follow-up/Prog Note Chief Complaint: Lung cancer. 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 By clinical evaluation his disease is stage at least IIIA (T4, N1, M0). He had presented recently with hemoptysis, onset approximately [address] on 09/17/2020 showed a left upper lobe mass measuring 4.8 x 5.4 x 7.3 cm, new compared to a prior CT from November 2019. Small nodules noted in various locations throughout the lungs appeared stable. The visualized portions of the liver and the adrenal glands appeared normal. He was referred to Dr. Castillo. On 10/01/2020 he underwent bronchoscopy/EBUS with endobronchial biopsies and with FNA biopsies from station 7 and from left hilar lymph nodes. Pathology of the left upper lobe endobronchial biopsy and of the left hilar mass FNA biopsy showed moderate to poorly differentiated squamous cell carcinoma. The FNA biopsy at station 7 showed benign pathology. I had seen him initially on 10/07/2020. His staging PET/CT on 10/16/2020 showed left upper lobe mass measuring 5.2 x 4.1 cm with SUV 20.6, consistent with primary malignancy. Lingular infiltrates were noted to be FDG negative and most likely benign. Multiple subcentimeter pulmonary nodules were too small to characterize. There was mild activity and subaortic lymph nodes, suspected to be due to local metastatic disease. Staging head MRI on 10/22/2020 showed no evidence of metastatic disease. With those findings, he underwent treatment with radiation, concurrently with weekly carboplatin/Abraxane chemotherapy. He tolerated his initial chemotherapy infusion without acute toxicity, and he was then able to continue treatment on a weekly schedule. He completed his 6th and final chemotherapy infusion on 12/20/2020. He completed radiation on 12/31/2020 to a total dose of 6600 cGy administered in [address] on 01/10/2021 showed significant decrease in the left hilar region mass measuring 1.2 x 3.1 cm compared to 5.2 x 4.1 cm on the pretreatment study. There was noted to be extension into the left upper and left lower lobe bronchovascular bundle. There was no new or increasing pulmonary mass. A 10 mm left paratracheal lymph node was noted to be slightly smaller compared to the prior study. With those findings he was recommended to continue with maintenance immunotherapy with durvalumab. His other medical illnesses include hypertension, hyperlipidemia, type 2 diabetes, GERD, COPD, obstructive sleep apnea, and peripheral neuropathy. He has history of polysubstance abuse and he has a history of depression. 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 He has a history of smoking off and on for 50 years, up to a pack of cigarettes daily. He has quit. INTERIM HISTORY: On 01/19/2021 he began cycle 1 of durvalumab administered at a fixed dosage of 1500 mg by IV infusion every 4 weeks. He tolerated it without acute toxicity. On 02/08/2021 he was admitted to the hospital with pneumonia which developed following a traumatic right fifth rib fracture. He improved on antibiotic coverage and he was discharged home with Levaquin and Medrol Dosepak. His is seen for a followup visit. He is still having some chest discomfort associated with the rib fracture, and it is particularly bothersome because he can feel it moving around. His energy, though, is about the same. He is still able to do light work. ECOG score is 1. His appetite is also the same. He has not had fever. He had sweating a couple of nights, that has resolved. He has not had sore mouth or throat. He was having cough, but that is getting better. His breathing is okay except for the rib pain. He has no GI or complaints. He has no other joint or bone pain. He does not complain of headache or dizziness. He has no focal neurologic symptoms. Medications: Advair Diskus 1 Puff(s) (of 250-50 mcg/dose) Aerosol Powder, Breath Activated Inhalation b.i.d., BuPROPion HCl ER (XL) 1 Tablet (of 300 mg) Tablet SR 24 HR Oral every am, DiazePAM 1 Tablet (of 5 mg) Oral t.i.d., Enalapril Maleate (10 mg) Tablet Oral daily, FLUoxetine HCl 1 Capsule (of 40 mg) Oral daily, Gabapentin 1 Tablet (of 300 mg) Oral t.i.d., Hydrocodone-Acetaminophen 1 Tablet (of 7.5-325 mg) Tablet Oral four times a day PRN, Lovastatin 1 Tablet (of 40 mg) Oral daily, [id number] Ethyl Esters 2 Capsule (of 1 G) Oral daily, Stiolto Respimat 2 Puff(s) (of 2.5-2.5 mcg/act) Aerosol, solution Inhalation b.i.d., TraZODone HCl 1 Tablet (of 150 mg) Oral at bedtime Allergies: No Known Allergies. Vital Signs: Performed on Feb 15, 2021 11:30 Height - 72.00 in Weight - 266.2 lbs (LOW) BSA - 2.41 sq.m BMI - 36.10 (HIGH) Temperature - 97.4 F (LOW) Pulse - 78 /min Respiration - 18 /min BP - 119/73 mm(hg) O2 Sat - 96 % Pain - 7 Fatigue - 5 Physical Examination: Constitutional - He looks pretty good generally, Eyes - Sclerae nonicteric. Conjunctivae clear, ENMT - No lesions noted in the oral cavity, Hematologic/Lymphatic - No cervical, clavicular, or axillary adenopathy, Respiratory - Lungs show diminished air movement bilaterally. There is audible rub on inspiration associated with the rib fracture, Cardiovascular - Heart rhythm is regular. There is no murmur, gallop, or rub noted, Abdomen - Mildly distended. Liver and spleen are not enlarged. There is no abdominal mass or ascites noted and there is no inguinal adenopathy, Extremities - No edema, Neurologic - No focal neurologic deficits noted. Lab/Imaging: Test performed on Feb 15, 2021 14:57 Sodium 140 mmol/L Potassium 4.3 mmol/L Chloride 101 mmol/L CO2 23 mmol/L BUN 16 mg/dL Creatinine 0.91 mg/dL Cr Clearance (Est) 130.85 mL/min eGFR 86 mL/min BUN/Creat Ratio 18 Glucose 205 mg/dL Calcium 9.7 mg/dL Protein, Total 7.1 g/dL Albumin 4.7 g/dL Globulin 2.4 g/dL Bilirubin, Total 0.3 mg/dL ALT (SGPT) 15 Units/L AST (SGOT) 14 Units/L Alkaline Phosphatase 96 International Units/L Hemoglobin A1C % 8.3 % WBC 8.2 10^3/uL RBC 4.49 10^6/uL HGB 13.6 g/dL HCT 40.4 % MCV 90 fl MCH 30.3 pg MCHC 33.7 g/dL RDW 18.2 % Platelet Count 203 10^3/uL Neutrophils 6.4 10^3/uL Lymphocytes 0.7 10^3/uL Monocytes 0.8 10^3/uL Eosinophils 0.2 10^3/uL Basophils 0.1 10^3/uL Neutrophil % 78 % Lymphocyte % 8 % Monocyte % 10 % Eosinophil % 2 % Basophils % 1 % Test performed on Feb 15, 2021 10:06 TSH 0.64 uIU/mL Anion Gap 16.0 Osmolality - Calculated 294 mOsm/kg MPV 9.5 fL NRBC % 0 % Problem List: 1. Moderate to poorly differentiated squamous cell carcinoma involving the upper lobe of the left lung, by clinical evaluation stage at least IIIA (T4, N1, M0). 2. Hypertension. 3. Hyperlipidemia. 4. Type 2 diabetes. 5. COPD. 6. GERD. 7. Obstructive sleep apnea. 8. Peripheral neuropathy. 9. History of lumbar spinal stenosis. 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 11. History of polysubstance abuse. 12. Depression. Problems Addressed with this Encounter and Plan: 1. 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 By clinical evaluation his disease appeared to be stage at least IIIA (T4, N1, M0). He had an endobronchial lesion with associated hemoptysis at initial presentation. His staging PET/CT also showed mild activity in subaortic lymph nodes, suggesting possible N2 disease. With those findings, he was recommended to undergo chemoradiation. On 11/15/2020 he began radiation, concurrently with weekly carboplatin/Abraxane chemotherapy. He tolerated his initial chemotherapy infusion without acute toxicity, and he was then able to continue treatment on a weekly schedule. He completed his 6th and final chemotherapy infusion on 12/20/2020. He completed radiation on 12/31/2020 to a total dose of 6600 cGy administered in 33 fractions. Overall, he tolerated the treatment well. He has had a significant response by follow-up chest CT. On 01/19/2021 he began cycle 1 of maintenance durvalumab, 1500 mg by IV infusion administered at 4-week intervals. He tolerated it without acute toxicity. He will proceed now with cycle 2 of durvalumab, 1500 mg by IV infusion. He returns in 4 weeks. 2. He recently required treatment for pneumonia which developed in association with traumatic right fifth rib fracture. His pneumonia symptoms have improved on antibiotic therapy. The rib fracture is being managed symptomatically. Signed By: Yamil Tang M.D. <<Signature on File>>
== END 2021-03-03 23:59 | disposition home or self-care (01) ==
LOC: ONCMED 06:10
PROVIDERS: PCP Internal Medicine; Visit Provider Internal Medicine Medical Oncology
DX: Z51.12 Encounter for antineoplastic immunotherapy (principal); C34.12 Malignant neoplasm of upper lobe, left bronchus or lung; I10 Essential (primary) hypertension; E78.5 Hyperlipidemia, unspecified; E11.42 Type 2 diabetes mellitus with diabetic polyneuropathy; J44.9 Chronic obstructive pulmonary disease, unspecified; K21.9 Gastro-esophageal reflux disease without esophagitis; G47.33 Obstructive sleep apnea (adult) (pediatric); F32.9 Major depressive disorder, single episode, unspecified; Z87.39 Personal history of other diseases of the musculoskeletal system and connective tissue; Z85.51 Personal history of malignant neoplasm of bladder; F19.11 Other psychoactive substance abuse, in remission; Z79.899 Other long term (current) drug therapy
CPT/HCPCS: 80053; 84443; 85025; 96413; 99215; J7050; J9173

== ENCOUNTER → 2021-02-22 07:30 | Outpatient (BNVA) | payer MEDICAID, SELFPAY | PROVIDERS: PCP Internal Medicine; Visit Provider Nurse Practitioner | DX: F41.1 Generalized anxiety disorder (principal); F33.2 Major depressive disorder, recurrent severe without psychotic features | CPT/HCPCS: 99214 ==

== ENCOUNTER 2021-03-13 22:47 | Inpatient (IN) | payer MEDICAID, SELFPAY ==
[2021-03-13 22:50] VITALS: BP 172/94; PULSE 96; RESP 22; TEMP 36.3; O2SAT 94; BMI 36.2
--- NOTE | 2021-03-13 23:03 | XRR_ITS ---
PROCEDURE INFORMATION: Exam: XR Chest Exam date and time: 03/13/2021 11:03 PM Age: 70 years old Clinical indication: Dyspnea; Patient HX: Hx-lung cancer; Additional info: SOB TECHNIQUE: Imaging protocol: XR of the chest. Views: 1 view. COMPARISON: CT chest wo con [id number] 02/08/2021 3:48 AM FINDINGS: Tubes, catheters and devices: Tunneled Port-A-Cath in the right chest terminates in the mid SVC. Lungs: Diffusely increased interstitial opacities and patchy ground-glass alveolar opacities increased from comparison imaging. Pleural spaces: Unremarkable. No pleural effusion. No pneumothorax. Heart/Mediastinum: Mild cardiac enlargement. Bones/joints: Bones are demineralized. XR/XR chest 1V portable [id number] IMPRESSION: Worsening nonspecific airspace disease compared with 02/08/2021. Radiation Dose CTDIVOL = (mGy): DLP = (mGy-cm)
--- NOTE | 2021-03-13 23:03 | ECG_ITS ---
[facility] Test Date: 2021-03-13 Pat Name: Yoni Connell Department: Room: Gender: Male Peanut Vendor: : 1950 Requested By: Kenneth Renteria Order Number: [id number] Rody MD: Demarcus Henriquez M.D. Measurements Intervals [place] Rate: 107 P: 46 IL: 168 QRS: 92 QRSD: 106 T: 19 QT: 317 QTc: 424 Interpretive Statements SINUS TACHYCARDIA WITH FREQUENT VENTRICULAR PREMATURE COMPLEXES POSSIBLE LEFT ATRIAL ENLARGEMENT [-0.1mV P-WAVE IN V1/V2] BORDERLINE RIGHT AXIS DEVIATION [QRS AXIS > 90] Compared to ECG 06/05/2019 18:02:21 Ventricular premature complex(es) now present Sinus rhythm no longer present T-wave abnormality no longer present Electronically Signed On 03-14-2021 14:25:48 CDT by Demarcus Henriquez M.D. [id number]
[2021-03-13 23:16] LABS: Basophils % 0.5 %; Eosinophils # 0.1 10^3/uL (0.0-0.8); Eosinophils % 1.7 %; Hematocrit 33.3 % (42.0-52.0); Hemoglobin 10.6 g/dL (11.7-16.6); Lymphocytes # 0.4 10^3/uL (0.8-4.8); Lymphocytes % 5.4 %; Mean Corpuscular HGB Conc 31.8 g/dL (30.0-36.0); Mean Corpuscular Volume 91.2 fl (80-94); Mean Platelet Volume 9.1 fL (7.4-10.4); Monocytes # 0.6 10^3/uL (0.2-0.9); Monocytes % 7.5 %; Neutrophils # 6.87 10^3/uL (1.8-7.7); Neutrophils % 84.3 %; Nucleated Red Blood Cells % 0 %; Platelet Count 233 10^3/cmm (130-400); Red Blood Count 3.65 10^6/uL (4.1-5.3); White Blood Count 8.2 10^3/uL (4.0-10.0)
--- NOTE | 2021-03-13 23:25 | W.ED.SOB ---
Documented by User: ELISHA Reyez 03/14/21 03:18 HPI - SOB/Dyspnea General: Chief Complaint: Shortness of Breath/Dyspnea Stated Complaint: shortness of breathe Time Seen by Provider: 03/13/21 23:02 History of Present Illness: HPI Narrative: Patient is a 70-year-old male who comes to the ED with shortness of breath. Patient has a history of GERD, hypertension, COPD, dyslipidemia, GERD. He also has a history of squamous cell lung cancer and is on 2 L of oxygen at home. Patient says about 4 days ago he started having upper respiratory symptoms of fever, chills, nasal drainage and congestion cough. He says his cough is productive. He reports that today he started developing shortness of breath while up and ambulating. Says he can hardly take a couple steps without being too out of breath. Denies any chest pain. Patient says he is fully vaccinated for COVID-19 and has gotten epidural shot. Associated symptoms: Reports diaphoresis and fever(s); Deny abdominal pain, chest pain, nausea, orthopnea, palpitations or vomiting Review of Systems Const: Reports: fever(s), chills, fatigue, night sweats and diaphoresis Eyes: Denies: change in vision or eye discomfort ENMT: Denies: throat pain, odynophagia, nasal discharge or nasal congestion Card: Denies: chest pain, palpitations, edema, swelling of feet/ankles, dyspnea on exertion or orthopnea Resp: Reports: dyspnea and productive cough; Denies: non-productive cough GI: Denies: abdominal pain, nausea, vomiting, diarrhea, constipation or hematochezia : Denies: flank pain, difficulty urinating, dysuria or hematuria Musc: Denies: neck pain, back pain or extremity swelling Skin/Breast: Denies: rash or new lesions Neuro: Denies: headache(s), numbness in extremities or weakness in extremities PFSH ED PFSH: Medical History Alcohol intoxication Anxiety Bladder cancer Cancer of trigone of urinary bladder Cervical spondylosis COPD (chronic obstructive pulmonary disease) Dyslipidemia Generalized anxiety disorder GERD (gastroesophageal reflux disease) History of colon polyps Hypertension Lung mass Major depressive disorder, recurrent severe without psychotic features Neuropathy Nicotine dependence, cigarettes, in remission Polysubstance abuse Psychiatric care Sleep apnea Squamous cell lung cancer Type 2 diabetes mellitus Surgical History H/O circumcision H/O laminectomy History of bladder surgery history of bladder cancer History of dental surgery History of tonsillectomy Port-A-Cath in place (11/02/20) Status post colonoscopy with polypectomy 08/04/19: rectal polyp Family History Father , in his 50's Heart failure Mother , at age 73 Cancer breast Other CAD (coronary artery disease) Diabetes Hyperlipidemia Denies family history of Anesthesia complication Bleeding disorder Social History Smoking and tobacco status: former smoker Quit status (tobacco): has quit using tobacco Year quit tobacco: Jun [id number] Second hand smoke exposure: Yes Smoking risk assessment/counseling performed?: Yes Tobacco counseling given: counseling >3 minutes Alcohol intake: current Alcohol intake frequency: few times a month Alcohol type: beer Lives independently: Yes Household members: none Housing: House Marital status: service: No Current occupational status: disabled Pets and animals: Yes History of recent travel: No Current gender identity: Male Physical Exam Const: COMMON NORMALS: patient oriented x3 and alert GENERAL APPEARANCE: cooperative, comfortable and diaphoretic HENMT: COMMON NORMALS: normocephalic HEAD & SCALP: normocephalic MOUTH: Normal oral and palatal mucosa present THROAT: posterior oropharynx normal and uvula midline Eye: COMMON NORMALS: Equal, round and reactive pupils present PUPIL: Yes Equal, round and reactive pupils present Neck/C-Spine: COMMON NORMALS: supple GENERAL: Yes normal visual inspection Resp: COMMON NORMALS: normal respiratory effort, No retractions and No use of accessory muscles AUSCULTATION: diminished lung sounds bilateral in the lower lung brown Cardio: COMMON NORMALS: regular rate, regular rhythm, S1 normal heart sound present, S2 normal heart sound present, No gallops present (Cardio), No clicks present (Cardio), No murmurs present (Cardio) and Peripheral pulses 2+ throughout RATE: regular rate RHYTHM: regular rhythm HEART SOUNDS: S1 normal heart sound present and S2 normal heart sound present PERIPHERAL PULSES: Peripheral pulses 2+ throughout GI: COMMON NORMALS: Normal to inspection, nondistended, normoactive bowel sounds present, Soft to palpation, non-tender and no masses PALPATION: Yes Soft to palpation : COMMON NORMALS: Yes no CVA tenderness BLADDER/KIDNEY EXAM: Yes no CVA tenderness Back/Pelvis: COMMON NORMALS: no CVA tenderness Extremity: COMMON NORMALS: normal to inspection Neuro: COMMON NORMALS: patient oriented x3 and moves all extremities SENSORIUM/ORIENTATION: Yes alert Skin: GENERAL SKIN EXAM: dry skin Course Vital Signs: Vital signs: Vital Signs Temperature 97.4 F L 03/13/21 22:50 Pulse Rate 98 03/14/21 02:40 Respiratory Rate 18 03/14/21 02:40 Blood Pressure 132/80 03/14/21 02:40 Pulse Oximetry 95 03/14/21 02:40 MDM - SOB/Dyspnea MDM Narrative: Medical decision making narrative: Patient is a 70-year-old male who comes to the ED with shortness of breath. Patient has a history of squamous cell lung cancer and is currently on 2 L of oxygen at home. Patient has been fully vaccinated for COVID-19. Initial vitals respirations 22 and O2 sat 93% on 5 L via nasal cannula. Rest of vitals are stable. Diminished lung sounds at the bases bilaterally. Rest of exam is benign. Initial troponin 37 and 2-hour troponin was 50.7. BNP 1056. Arterial blood gas showed a pH of 7.46 and a pO2 of 63.7. Chest x-ray shows worsening nonspecific airspace disease compared to his chest x-ray from February 08, 2021. Due to patient's symptoms and increased O2 demand and bump in troponin I recommend patient be admitted. I talked with Dr. Plaza about patient case and he agreed with plan. He contacted Dr. Flores and told her about patient case and she agreed to have patient admitted. Lab Data: Attestation: I reviewed the patient's lab results. Labs: Lab Results 03/13/21 03/13/21 03/13/21 23:03 23:10 23:10 WBC 8.2 10^3/uL 10^3/ uL (4.0-10.0) RBC 3.65 10^6/uL L 10 ^6/uL (4.1-5.3) Hgb 10.6 g/dL L g/dL (11.7-16.6) Hct 33.3 % L % (42.0-52.0) MCV 91.2 fl fl (80-94) MCH 29.0 pg pg (28.0-34.0) MCHC 31.8 g/dL g/dL (30.0-36.0) RDW 14.0 % % (12.1-15.1) Plt Count 233 10^3/cmm 10^3 /cmm (130-400) MPV 9.1 fL fL (7.4-10.4) Neut % (Auto) 84.3 % % Lymph % (Auto) 5.4 % % O'Brien % (Auto) 7.5 % % Eos % (Auto) 1.7 % % Baso % (Auto) 0.5 % % Neut # (Auto) 6.87 10^3/uL 10^3 /uL (1.8-7.7) Lymph # (Auto) 0.4 10^3/uL L 10^ 3/uL (0.8-4.8) O'Brien # (Auto) 0.6 10^3/uL 10^3/ uL (0.2-0.9) Eos # (Auto) 0.1 10^3/uL 10^3/ uL (0.0-0.8) Baso # (Auto) 0.0 10^3/uL 10^3/ uL (0.0-0.1) Nucleated RBC % (a uto) 0 % % Nucleated RBCs # 0.0 /100WBC /100W BC Specimen Type Arterial Sample Site Radial, right ABG pH 7.46 H (7.35-7.45) ABG pCO2 38.2 mmHg mmHg (35-45) ABG pO2 63.7 mmHg L mmHg (80.0-100.0) ABG HCO3 27.2 mmol/L H mmo l/L (22-26) ABG O2 Saturation 93.3 ABG Base Excess 3.2 mmol/L H mmol /L (-2.0-2.0) Bladimir Test Pos A-a O2 Gradient 4.8 mmHg L mmHg (5-10) Hematocrit 35.1 % L % (42-52) Hgb O2 Saturation 90.8 % L % (95-100) Carboxyhemoglobin 2.3 %THgb %THgb (0.4-20.1) Methemoglobin 0.4 % % (0.4-1.5) Total Hemoglobin 11.4 g/dL L g/dL (14-18) Sodium 138.0 mmol/L mmol /L 139 mmol/L mmol/L (131-143) (136-145) Potassium 4.1 mmol/L mmol/L 4.2 mmol/L mmol/L (3.5-5.0) (3.5-5.1) Glucose 220.0 mg/dL H mg/ dL 210 mg/dL H mg/dL (70-115) (65-115) Ionized Calcium 1.2 mmol/L mmol/L (1.1-1.4) O2 Delivery Device Nc O2 Liters/Min 6.0 % % Travograph Operator ID ellpe Chloride 99 mmol/L mmol/L (98-107) Carbon Dioxide 25 mmol/L mmol/L (22-29) Anion Gap 19.2 H (5-19) BUN 13 mg/dL mg/dL (8-23) Creatinine 0.8 mg/dL mg/dL (0.7-1.2) GFR Calculation 95.8 mL/min mL/mi n (90-130) Calculated Osmolal ity 294 mOsm/kg mOsm/ kg (285-295) Lactic Acid Calcium 8.6 mg/dL mg/dL (8.5-10.5) Total Bilirubin 0.5 mg/dL mg/dL (0.15-1.2) AST 27 U/L U/L (0-40) ALT 20 U/L U/L (0-41) Alkaline Phosphata se 93 IU/L IU/L (40-130) Troponin T Baselin e Troponin T 120 Min chicken [place] Delta Troponin T NT-Pro-B Natriuret Pep Total Protein 6.0 g/dL L g/dL (6.6-8.7) Albumin 3.8 g/dL g/dL (3.5-5.2) Globulin 2.2 g/dL g/dL (1.3-4.6) SARS-CoV-2 Ag (Rap id) 03/13/21 03/13/21 03/14/21 23:10 23:10 00:05 WBC RBC Hgb Hct MCV MCH MCHC RDW Plt Count MPV Neut % (Auto) Lymph % (Auto) O'Brien % (Auto) Eos % (Auto) Baso % (Auto) Neut # (Auto) Lymph # (Auto) O'Brien # (Auto) Eos # (Auto) Baso # (Auto) Nucleated RBC % (a uto) Nucleated RBCs # Specimen Type Sample Site ABG pH ABG pCO2 ABG pO2 ABG HCO3 ABG O2 Saturation ABG Base Excess Bladimir Test A-a O2 Gradient Hematocrit Hgb O2 Saturation Carboxyhemoglobin Methemoglobin Total Hemoglobin Sodium Potassium Glucose Ionized Calcium O2 Delivery Device O2 Liters/Min Travograph Operator ID Chloride Carbon Dioxide Anion Gap BUN Creatinine GFR Calculation Calculated Osmolal ity Lactic Acid 1.4 mmol/L mmol/L (0.5-2.2) Calcium Total Bilirubin AST ALT Alkaline Phosphata se Troponin T Baselin e 37 ng/L H ng/L (0-15) Troponin T 120 Min [place] Delta Troponin T NT-Pro-B Natriuret Pep Total Protein Albumin Globulin SARS-CoV-2 Ag (Rap id) Negative (Negative) 03/14/21 03/14/21 01:22 01:22 WBC RBC Hgb Hct MCV MCH MCHC RDW Plt Count MPV Neut % (Auto) Lymph % (Auto) O'Brien % (Auto) Eos % (Auto) Baso % (Auto) Neut # (Auto) Lymph # (Auto) O'Brien # (Auto) Eos # (Auto) Baso # (Auto) Nucleated RBC % (a uto) Nucleated RBCs # Specimen Type Sample Site ABG pH ABG pCO2 ABG pO2 ABG HCO3 ABG O2 Saturation ABG Base Excess Bladimir Test A-a O2 Gradient Hematocrit Hgb O2 Saturation Carboxyhemoglobin Methemoglobin Total Hemoglobin Sodium Potassium Glucose Ionized Calcium O2 Delivery Device O2 Liters/Min Travograph Operator ID Chloride Carbon Dioxide Anion Gap BUN Creatinine GFR Calculation Calculated Osmolal ity Lactic Acid Calcium Total Bilirubin AST ALT Alkaline Phosphata se Troponin T Baselin e Troponin T 120 Min [place] 50.79 ng/L H ng/L (0-15) Delta Troponin T 13.79 ABS# H* ABS # (0-10) NT-Pro-B Natriuret Pep 1056 pg/mL H pg/m L (0-125) Total Protein Albumin Globulin SARS-CoV-2 Ag (Rap id) Imaging Data^: CXR: Attestation: I personally reviewed and interpreted this imaging study as follows: Radiologist's impression: [id number], [place] [address]NDpb ReportSigned Patient: Yoni Connell AUnit #: [id number]: [id number]#:[id number]/Sex: 70 / MADM Date: 03/13/21Loc: ERRoom/Bed:Attending Dr: Ordering Provider/Ordering MD: Kenneth Renteria Date of Service: 03/13/21 Procedure(s): XR chest 1V portable [id number] Accession Number(s): [id number] Report Number: [id number] PROCEDURE INFORMATION: Exam: XR Chest Exam date and time: 03/13/2021 11:03 PM Age: 70 years old Clinical indication: Dyspnea; Patient HX: Hx-lung cancer; Additional info: SOB TECHNIQUE: Imaging protocol: XR of the chest. Views: 1 view. COMPARISON: CT chest [facility] [id number] 02/08/2021 3:48 AM FINDINGS: Tubes, catheters and devices: Tunneled Port-A-Cath in the right chest terminates in the mid SVC. Lungs: Diffusely increased interstitial opacities and patchy ground-glass alveolar opacities increased from comparison imaging. Pleural spaces: Unremarkable. No pleural effusion. No pneumothorax. Heart/Mediastinum: Mild cardiac enlargement. Bones/joints: Bones are demineralized. XR/XR chest 1V portable [id number] IMPRESSION: Worsening nonspecific airspace disease compared with 02/08/2021. Radiation Dose CTDIVOL = (mGy): DLP = (mGy-cm) Dictated By:Eric Garland By:Eric Garland Date/Time:03/14/21 0148DD/ 02 EKG Data^: EKG 1: Attestation: I personally reviewed and interpreted this EKG as follows: EKG Interpretation Date: 03/13/21 Interpretation: Sinus tachycardia, [address] segment elevation or depression seen. PVCs present. Discharge Plan Discharge Patient Disposition: Admitted As Inpatient Admit Provider: Sharon Olivares Clinical Impression: Bilateral pneumonia Qualifiers: Pneumonia type: due to unspecified organism Lung location: unspecified part of lung Qualified Code(s): J18.9 - Pneumonia, unspecified organism Condition: Fair Coding Level of Care Code ED Body Sander for Chg Fwd Exam Comprehensive Documented by User: Be Plaza DO 03/14/21 04:02 HPI - SOB/Dyspnea General: Chief Complaint: Shortness of Breath/Dyspnea Stated Complaint: shortness of breathe Time Seen by Provider: 03/13/21 23:02 PFSH ED PFSH: Medical History Alcohol intoxication Anxiety Bladder cancer Cancer of trigone of urinary bladder Cervical spondylosis COPD (chronic obstructive pulmonary disease) Dyslipidemia Generalized anxiety disorder GERD (gastroesophageal reflux disease) History of colon polyps Hypertension Lung mass Major depressive disorder, recurrent severe without psychotic features Neuropathy Nicotine dependence, cigarettes, in remission Polysubstance abuse Psychiatric care Sleep apnea Squamous cell lung cancer Type 2 diabetes mellitus Surgical History H/O circumcision H/O laminectomy History of bladder surgery history of bladder cancer History of dental surgery History of tonsillectomy Port-A-Cath in place (11/02/20) Status post colonoscopy with polypectomy 08/04/19: rectal polyp Family History Father , in his 50's Heart failure Mother , at age 73 Cancer breast Other CAD (coronary artery disease) Diabetes Hyperlipidemia Denies family history of Anesthesia complication Bleeding disorder Social History Smoking and tobacco status: former smoker Quit status (tobacco): has quit using tobacco Year quit tobacco: Jun [id number] Second hand smoke exposure: Yes Smoking risk assessment/counseling performed?: Yes Tobacco counseling given: counseling >3 minutes Alcohol intake: current Alcohol intake frequency: few times a month Alcohol type: beer Lives independently: Yes Household members: none Housing: House Marital status: service: No Current occupational status: disabled Pets and animals: Yes History of recent travel: No Current gender identity: Male Course Consultations: Consultation #1: david Vital Signs: Vital signs: Vital Signs Temperature 97.4 F L 03/13/21 22:50 Pulse Rate 98 03/14/21 02:40 Respiratory Rate 18 03/14/21 02:40 Blood Pressure 132/80 03/14/21 02:40 Pulse Oximetry 95 03/14/21 02:40 MDM - SOB/Dyspnea MDM Narrative: Medical decision making narrative: This patient was originally seen by Mr. Myra PA-C. I agree with his history, evaluation, and treatment. This patient has significant hypoxia on top of his normal hypoxia, bilateral infiltrates on chest x-ray. His rapid Covid test is negative. PCR is pending. CT angio of the chest is pending. He will be admitted for pneumonia and hypoxic respiratory failure Lab Data: Labs: Lab Results 03/13/21 03/13/21 03/13/21 23:03 23:10 23:10 WBC 8.2 10^3/uL 10^3/ uL (4.0-10.0) RBC 3.65 10^6/uL L 10 ^6/uL (4.1-5.3) Hgb 10.6 g/dL L g/dL (11.7-16.6) Hct 33.3 % L % (42.0-52.0) MCV 91.2 fl fl (80-94) MCH 29.0 pg pg (28.0-34.0) MCHC 31.8 g/dL g/dL (30.0-36.0) RDW 14.0 % % (12.1-15.1) Plt Count 233 10^3/cmm 10^3 /cmm (130-400) MPV 9.1 fL fL (7.4-10.4) Neut % (Auto) 84.3 % % Lymph % (Auto) 5.4 % % O'Brien % (Auto) 7.5 % % Eos % (Auto) 1.7 % % Baso % (Auto) 0.5 % % Neut # (Auto) 6.87 10^3/uL 10^3 /uL (1.8-7.7) Lymph # (Auto) 0.4 10^3/uL L 10^ 3/uL (0.8-4.8) O'Brien # (Auto) 0.6 10^3/uL 10^3/ uL (0.2-0.9) Eos # (Auto) 0.1 10^3/uL 10^3/ uL (0.0-0.8) Baso # (Auto) 0.0 10^3/uL 10^3/ uL (0.0-0.1) Nucleated RBC % (a uto) 0 % % Nucleated RBCs # 0.0 /100WBC /100W BC Specimen Type Arterial Sample Site Radial, right ABG pH 7.46 H (7.35-7.45) ABG pCO2 38.2 mmHg mmHg (35-45) ABG pO2 63.7 mmHg L mmHg (80.0-100.0) ABG HCO3 27.2 mmol/L H mmo l/L (22-26) ABG O2 Saturation 93.3 ABG Base Excess 3.2 mmol/L H mmol /L (-2.0-2.0) Bladimir Test Pos A-a O2 Gradient 4.8 mmHg L mmHg (5-10) Hematocrit 35.1 % L % (42-52) Hgb O2 Saturation 90.8 % L % (95-100) Carboxyhemoglobin 2.3 %THgb %THgb (0.4-20.1) Methemoglobin 0.4 % % (0.4-1.5) Total Hemoglobin 11.4 g/dL L g/dL (14-18) Sodium 138.0 mmol/L mmol /L 139 mmol/L mmol/L (131-143) (136-145) Potassium 4.1 mmol/L mmol/L 4.2 mmol/L mmol/L (3.5-5.0) (3.5-5.1) Glucose 220.0 mg/dL H mg/ dL 210 mg/dL H mg/dL (70-115) (65-115) Ionized Calcium 1.2 mmol/L mmol/L (1.1-1.4) O2 Delivery Device Nc O2 Liters/Min 6.0 % % Travograph Operator ID ellpe Chloride 99 mmol/L mmol/L (98-107) Carbon Dioxide 25 mmol/L mmol/L (22-29) Anion Gap 19.2 H (5-19) BUN 13 mg/dL mg/dL (8-23) Creatinine 0.8 mg/dL mg/dL (0.7-1.2) GFR Calculation 95.8 mL/min mL/mi n (90-130) Calculated Osmolal ity 294 mOsm/kg mOsm/ kg (285-295) Lactic Acid Calcium 8.6 mg/dL mg/dL (8.5-10.5) Total Bilirubin 0.5 mg/dL mg/dL (0.15-1.2) AST 27 U/L U/L (0-40) ALT 20 U/L U/L (0-41) Alkaline Phosphata se 93 IU/L IU/L (40-130) Troponin T Baselin e Troponin T 120 Min chicken [place] Delta Troponin T NT-Pro-B Natriuret Pep Total Protein 6.0 g/dL L g/dL (6.6-8.7) Albumin 3.8 g/dL g/dL (3.5-5.2) Globulin 2.2 g/dL g/dL (1.3-4.6) SARS-CoV-2 Ag (Rap id) 03/13/21 03/13/21 03/14/21 23:10 23:10 00:05 WBC RBC Hgb Hct MCV MCH MCHC RDW Plt Count MPV Neut % (Auto) Lymph % (Auto) O'Brien % (Auto) Eos % (Auto) Baso % (Auto) Neut # (Auto) Lymph # (Auto) O'Brien # (Auto) Eos # (Auto) Baso # (Auto) Nucleated RBC % (a uto) Nucleated RBCs # Specimen Type Sample Site ABG pH ABG pCO2 ABG pO2 ABG HCO3 ABG O2 Saturation ABG Base Excess Bladimir Test A-a O2 Gradient Hematocrit Hgb O2 Saturation Carboxyhemoglobin Methemoglobin Total Hemoglobin Sodium Potassium Glucose Ionized Calcium O2 Delivery Device O2 Liters/Min Travograph Operator ID Chloride Carbon Dioxide Anion Gap BUN Creatinine GFR Calculation Calculated Osmolal ity Lactic Acid 1.4 mmol/L mmol/L (0.5-2.2) Calcium Total Bilirubin AST ALT Alkaline Phosphata se Troponin T Baselin e 37 ng/L H ng/L (0-15) Troponin T 120 Min [place] Delta Troponin T NT-Pro-B Natriuret Pep Total Protein Albumin Globulin SARS-CoV-2 Ag (Rap id) Negative (Negative) 03/14/21 03/14/21 01:22 01:22 WBC RBC Hgb Hct MCV MCH MCHC RDW Plt Count MPV Neut % (Auto) Lymph % (Auto) O'Brien % (Auto) Eos % (Auto) Baso % (Auto) Neut # (Auto) Lymph # (Auto) O'Brien # (Auto) Eos # (Auto) Baso # (Auto) Nucleated RBC % (a uto) Nucleated RBCs # Specimen Type Sample Site ABG pH ABG pCO2 ABG pO2 ABG HCO3 ABG O2 Saturation ABG Base Excess Bladimir Test A-a O2 Gradient Hematocrit Hgb O2 Saturation Carboxyhemoglobin Methemoglobin Total Hemoglobin Sodium Potassium Glucose Ionized Calcium O2 Delivery Device O2 Liters/Min Travograph Operator ID Chloride Carbon Dioxide Anion Gap BUN Creatinine GFR Calculation Calculated Osmolal ity Lactic Acid Calcium Total Bilirubin AST ALT Alkaline Phosphata se Troponin T Baselin e Troponin T 120 Min [place] 50.79 ng/L H ng/L (0-15) Delta Troponin T 13.79 ABS# H* ABS # (0-10) NT-Pro-B Natriuret Pep 1056 pg/mL H pg/m L (0-125) Total Protein Albumin Globulin SARS-CoV-2 Ag (Rap id) Discharge Plan Discharge Patient Disposition: Admitted As Inpatient Admit Provider: Sharon Olivares Clinical Impression: Bilateral pneumonia Qualifiers: Pneumonia type: due to unspecified organism Lung location: unspecified part of lung Qualified Code(s): J18.9 - Pneumonia, unspecified organism Condition: Fair Coding Level of Care Code ED Body Sander for [facility] Fwd Exam Comprehensive
[2021-03-13 23:27] LABS: ABG PCO2 38.2 mmHg (35-45); ABG PH Result 7.46 (7.35-7.45); Alveolar-Arterial Oxygen Gradi 4.8 mmHg (5-10); Arterial Blood Gas Hematocrit 35.1 % (42-52); Base Excess ABG 3.2 mmol/L (-2.0-2.0); Blood Gas Allen Test Pos; Blood Gas Sample Site Radial, right; Blood Gas Sample Type Arterial; Carboxyhemoglobin 2.3 %THgb (0.4-20.1); HCO3 ABG 27.2 mmol/L (22-26); HGB O2 Sat 90.8 % (95-100); Ionized Calcium Level - ABG 1.2 mmol/L (1.1-1.4); Methemoglobin 0.4 % (0.4-1.5); Oxygen Device NC; Oxygen Saturation ABG 93.3; PO2 ABG 63.7 mmHg (80.0-100.0); Potassium Level - ABG 4.1 mmol/L (3.5-5.0); Total Hemoglobin 11.4 g/dL (14-18)
[2021-03-13 23:39] LABS: Troponin(5th) Baseline 37 ng/L (0-15)
[2021-03-13 23:42] LABS: Alanine Aminotransferase 20 U/L (0-41); Albumin Level 3.8 g/dL (3.5-5.2); Alkaline Phosphatase 93 IU/L (40-130); Anion Gap 19.2 (5-19); Aspartate Amino Transferase 27 U/L (0-40); Blood Urea Nitrogen 13 mg/dL (8-23); Calcium 8.6 mg/dL (8.5-10.5); Carbon Dioxide 25 mmol/L (22-29); Chloride 99 mmol/L (98-107); Globulin 2.2 g/dL (1.3-4.6); Glomerular Filtration Rate 95.8 mL/min (90-130); Glucose 210 mg/dL (65-115); Osmolality Calculated 294 mOsm/kg (285-295); Potassium 4.2 mmol/L (3.5-5.1); Sodium 139 mmol/L (136-145); Total Bilirubin 0.5 mg/dL (0.15-1.2)
[2021-03-13 23:43] LABS: Lactic Sepsis W/Reflex 1.4 mmol/L (0.5-2.2)
[2021-03-14] VITALS (16 sets, daily range): BP systolic 112–150; BP diastolic 71–90; PULSE 71–98; RESP 16–30; TEMP 36.3–37.3; O2SAT 90–98; BMI 36.2
[2021-03-14 01:00] LABS: SARS Covid-2 Antigen Negative (Negative)
--- NOTE | 2021-03-14 01:28 | CTR_ITS ---
PROCEDURE INFORMATION: Exam: CTA Chest With Contrast Exam date and time: 03/14/2021 1:28 AM Age: 70 years old Clinical indication: Dyspnea; Additional info: SOB TECHNIQUE: Imaging protocol: Computed tomographic angiography of the chest with contrast. 3D rendering (Not supervised by radiologist): MIP and/or 3D reconstructed images were created by the technologist. Radiation optimization: All CT scans at this facility use at least one of these dose optimization techniques: automated exposure control; mA and/or kV adjustment per patient size (includes targeted exams where dose is matched to clinical indication); or iterative reconstruction. Contrast material: OMNI 350; Contrast volume: 95 ml; Contrast route: INTRAVENOUS (IV); COMPARISON: 1. CT angio chest PE protcl [id number] 06/08/2019 10:[address] chest wo con [id number] 02/08/2021 3:48:23 AM RADIATION DOSE METRICS: Total DLP (mGy-cm): 625.15 FINDINGS: Pulmonary arteries: No pulmonary embolism. The main pulmonary artery is enlarged, greater than 35 mm. Aorta: No aortic dissection. Other arteries: Atherosclerotic coronary artery calcifications are present. Lungs: Worsening bilateral pulmonary opacities consistent with pneumonia versus COVID-19. Pleural spaces: Small left pleural effusion. Heart: Unremarkable. No cardiomegaly. No pericardial effusion. Lymph nodes: Unremarkable. No enlarged lymph nodes. Kidneys and ureters: 3.2 cm left renal cyst. Bones/joints: Old right 5th rib fracture. Soft tissues: Unremarkable. CT/CT angio chest PE protcl [id number] IMPRESSION: 1. No pulmonary embolism. 2. Worsening bilateral pulmonary opacities consistent with pneumonia versus COVID-19. 3. Atherosclerotic disease of the coronary arteries. 4. No aortic dissection. 5. Main pulmonary artery enlargement concerning for pulmonary hypertension. 6. Small left pleural effusion. COMMENTS: Consistent with the [employer]'s Incidental Findings Committee white paper (J Am Ileana Radiol 2018): Any incidental renal lesion less than 1 cm or classified as too small to characterize, or any incidental cystic renal lesion characterized as simple-appearing, is likely benign. No follow-up imaging is recommended for these lesions per consensus recommendations based on imaging criteria. Radiation Dose CTDIVOL = (mGy): DLP = 625.15 (mGy-cm)
[2021-03-14] MEDS: iohexol 350 mg/mL 100 mL Btl IV (02:07)
[2021-03-14 02:42] LABS: Troponin 5 2HR 50.79 ng/L (0-15)
[2021-03-14 02:48] LABS: Troponin 5 2HR Delta 13.79 ABS# (0-10)
[2021-03-14 02:50] LABS: NT Pro B Type Natriuretic Pept 1056 pg/mL (0-125)
--- NOTE | 2021-03-14 05:35 | PM.HP ---
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 He was recently treated in early February for rib fracture and community-acquired pneumonia, treated with ceftriaxone and azithromycin and discharged with Levaquin and Medrol Dosepak. He presented to the emergency room today with shortness of breath. Around 4 days ago he developed symptoms of fever chills postnasal drip and worsening cough. He is vaccinated for COVID-19 with moderate 2 dose vaccine series in July 2020. Is currently on supplemental O2 4L/min via nasal cannula. CTA of the chest negative for PE, worsening bilateral opacities consistent with pneumonia versus possible COVID-19 infection. Main pulmonary artery enlargement concerning for pulmonary hypertension and a small left pleural effusion. Review of Systems General: Reports: 10 or more systems reviewed and unremarkable except in HPI and below Const: Reports: fever(s) and chills; Denies: body aches Eyes: Denies: change in vision, blurry vision or photophobia ENMT: Reports: hoarseness; Denies: throat pain, enlarged tonsils, odynophagia or nasal congestion Card: Denies: chest pain, palpitations, irregular heart rhythm, edema, swelling of feet/ankles, lightheadedness, pre-syncope, dyspnea on exertion or orthopnea Resp: Reports: dyspnea and productive cough; Denies: non-productive cough, wheezing, stridor, pain on inspiration, change in phlegm color, hemoptysis or chest congestion GI: Denies: abdominal pain, nausea, vomiting, hematemesis, coffee ground emesis, dysphagia, heartburn, diarrhea, constipation, GI cramping, change in stool character, hematochezia or melena : Denies: flank pain, dysuria, urinary frequency, urinary urgency, urinary hesitancy or hematuria Musc: Denies: neck pain, back pain, extremity pain, joint swelling, joint warmth or deformity Neuro: Denies: headache(s), numbness in extremities, weakness in extremities, sensory changes, difficulty walking, frequent falls, dizziness, vertigo, behavioral changes, Slurred speech present or seizure-like activity Psych: Denies: anxiety, depression, suicidal ideation or homicidal ideation Endo: Denies: polyuria, polydipsia, tired all the time, cold intolerance or hot flashes Jose/Lymph: Denies: easy bruising or easy bleeding Medications/Allergies Home Medications Medication Instructions Recorded Confirmed Last Taken Type gabapentin 300 mg PO TID 06/06/19 02/21/21 11/02/20 History albuterol sulfate [ProAir HFA] 1 - 2 puff INHALATION QID PRN 08/04/19 02/21/21 11/02/20 History lovastatin 40 mg PO DAILY 08/04/19 02/21/21 02/07/21 History metformin 1,000 mg PO BID 08/04/19 02/21/21 02/07/21 History aspirin 81 mg tablet,delayed 81 mg PO DAILY 09/27/20 02/21/21 02/07/21 History release acetaminophen 650 mg 650 mg PO Q12H 10/12/20 02/21/21 Unknown History tablet,extended release diphenhydramine HCl 25 mg tablet 25 mg PO TID PRN 10/12/20 02/21/21 Unknown History Jardiance 10 mg PO DAILY 02/08/21 02/21/21 02/07/21 History Stool Softener 100 mg PO BID 02/08/21 02/21/21 02/07/21 History Zofran 4 mg PO Q6H PRN 02/08/21 02/21/21 Unknown History hydrocodone-acetaminophen 1 tab PO BID PRN 10 Days #20 tab 02/09/21 02/21/21 02/07/21 Rx sennosides-docusate sodium 1 tab-cap PO DAILY #20 tab 02/09/21 02/21/21 Unknown Rx [Senna-S] umeclidinium 62.5 mcg-vilanterol 1 inh INHALATION DAILY 30 Days #60 02/21/21 02/21/21 Unknown Rx 25 mcg/actuation powdr for ea inhalation bupropion HCl 300 mg 24 hr tablet, 300 mg PO QAM #30 tab 02/22/21 02/22/21 Unknown Rx extended release diazepam 5 mg tablet 5 mg PO TID PRN #90 tab 02/22/21 02/22/21 Unknown Rx fluoxetine 40 mg capsule 40 mg PO QDAY #30 cap 02/22/21 02/22/21 Unknown Rx trazodone 150 mg tablet 150 mg PO BEDTIME #30 tab 02/22/21 02/22/21 Unknown Rx Allergies Allergy/AdvReac Type Severity Reaction Status Date / Time No Known Allergies Allergy Verified 02/21/21 10:57 PFSH Acute PFSH: Medical History (Updated 03/14/21 @ 05:43 by Sharon Olivares MD) Alcohol intoxication Anxiety Bladder cancer Cancer of trigone of urinary bladder Cervical spondylosis COPD (chronic obstructive pulmonary disease) Dyslipidemia Generalized anxiety disorder GERD (gastroesophageal reflux disease) History of colon polyps Hypertension Lung mass Major depressive disorder, recurrent severe without psychotic features Neuropathy Nicotine dependence, cigarettes, in remission Polysubstance abuse Psychiatric care Sleep apnea Squamous cell lung cancer Type 2 diabetes mellitus Surgical History H/O circumcision H/O laminectomy History of bladder surgery history of bladder cancer History of dental surgery History of tonsillectomy Port-A-Cath in place (11/02/20) Status post colonoscopy with polypectomy 08/04/19: rectal polyp Family History Father , in his 50's Heart failure Mother , at age 73 Cancer breast Other CAD (coronary artery disease) Diabetes Hyperlipidemia Denies family history of Anesthesia complication Bleeding disorder Social History Smoking and tobacco status: former smoker Quit status (tobacco): has quit using tobacco Year quit tobacco: Jun [id number] Second hand smoke exposure: Yes Smoking risk assessment/counseling performed?: Yes Tobacco counseling given: counseling >3 minutes Alcohol intake: current Alcohol intake frequency: few times a month Alcohol type: beer Lives independently: Yes Household members: none Housing: House Marital status: service: No Current occupational status: disabled Pets and animals: Yes History of recent travel: No Current gender identity: Male Vitals/I&O/Wt Last Vital Signs Temp 98.9 F 03/14/21 04:00 Pulse 84 03/14/21 04:00 Resp 20 H 03/14/21 04:00 BP 130/87 03/14/21 04:00 Pulse Ox 91 03/14/21 04:00 Weight last 48 hrs Weight 121.109 kg Weight 121.109 kg Physical Exam Narrative: EXAM NARRATIVE: General: No acute distress, AO x3 HEENT: PERRLA, pupils bilaterally equal and reactive, pallors not present Chest: Normal vesicular breath sounds, no added sounds, equal good air entry bilaterally CVS: S1-S2 regular, no murmurs, no tachycardia, no gallops, no rubs Abdomen: Soft, nontender, no organomegaly, bowel sounds present Neuro: No focal deficits, no facial deformity, AO x3, power 5/5 in all limbs Data : 03/13/21 23:10 03/13/21 23:10 Other Labs: Laboratory Results WBC 8.2 10^3/uL (4.0-10.0) 03/13/21 23:10 RBC 3.65 10^6/uL (4.1-5.3) L 03/13/21 23:10 Hgb 10.6 g/dL (11.7-16.6) L 03/13/21 23:10 Hct 33.3 % (42.0-52.0) L 03/13/21 23:10 MCV 91.2 fl (80-94) 03/13/21 23:10 MCH 29.0 pg (28.0-34.0) 03/13/21 23:10 MCHC 31.8 g/dL (30.0-36.0) 03/13/21 23:10 RDW 14.0 % (12.1-15.1) 03/13/21 23:10 Plt Count 233 10^3/cmm (130-400) 03/13/21 23:10 MPV 9.1 fL (7.4-10.4) 03/13/21 23:10 Neut % (Auto) 84.3 % 03/13/21 23:10 Lymph % (Auto) 5.4 % 03/13/21 23:10 [place] % (Auto) 7.5 % 03/13/21 23:10 Eos % (Auto) 1.7 % 03/13/21 23:10 Baso % (Auto) 0.5 % 03/13/21 23:10 Neut # (Auto) 6.87 10^3/uL (1.8-7.7) 03/13/21 23:10 Lymph # (Auto) 0.4 10^3/uL (0.8-4.8) L 03/13/21 23:10 [place] # (Auto) 0.6 10^3/uL (0.2-0.9) 03/13/21 23:10 Eos # (Auto) 0.1 10^3/uL (0.0-0.8) 03/13/21 23:10 Baso # (Auto) 0.0 10^3/uL (0.0-0.1) 03/13/21 23:10 Nucleated RBC % (auto) 0 % 03/13/21 23:10 Nucleated RBCs # 0.0 /100WBC 03/13/21 23:10 Specimen Type Arterial 03/13/21 23:03 Sample Site Radial, right 03/13/21 23:03 ABG pH 7.46 (7.35-7.45) H 03/13/21 23:03 ABG pCO2 38.2 mmHg (35-45) 03/13/21 23:03 ABG pO2 63.7 mmHg (80.0-100.0) L 03/13/21 23:03 ABG HCO3 27.2 mmol/L (22-26) H 03/13/21 23:03 ABG O2 Saturation 93.3 03/13/21 23:03 ABG Base Excess 3.2 mmol/L (-2.0-2.0) H 03/13/21 23:03 Bladimir Test Pos 03/13/21 23:03 A-a O2 Gradient 4.8 mmHg (5-10) L 03/13/21 23:03 Hematocrit 35.1 % (42-52) L 03/13/21 23:03 Hgb O2 Saturation 90.8 % (95-100) L 03/13/21 23:03 Carboxyhemoglobin 2.3 %THgb (0.4-20.1) 03/13/21 23:03 Methemoglobin 0.4 % (0.4-1.5) 03/13/21 23:03 Total Hemoglobin 11.4 g/dL (14-18) L 03/13/21 23:03 Sodium 138.0 mmol/L (131-143) 03/13/21 23:03 Potassium 4.1 mmol/L (3.5-5.0) 03/13/21 23:03 Glucose 220.0 mg/dL (70-115) H 03/13/21 23:03 Ionized Calcium 1.2 mmol/L (1.1-1.4) 03/13/21 23:03 O2 Delivery Device Nc 03/13/21 23:03 O2 Liters/Min 6.0 % 03/13/21 23:03 Data Analysis Assistant ID [email or web address] 03/13/21 23:03 Sodium 139 mmol/L (136-145) 03/13/21 23:10 Potassium 4.2 mmol/L (3.5-5.1) 03/13/21 23:10 Chloride 99 mmol/L (98-107) 03/13/21 23:10 Carbon Dioxide 25 mmol/L (22-29) 03/13/21 23:10 Anion Gap 19.2 (5-19) H 03/13/21 23:10 BUN 13 mg/dL (8-23) 03/13/21 23:10 Creatinine 0.8 mg/dL (0.7-1.2) 03/13/21 23:10 GFR Calculation 95.8 mL/min (90-130) 03/13/21 23:10 Glucose 210 mg/dL (65-115) H 03/13/21 23:10 Calculated Osmolality 294 mOsm/kg (285-295) 03/13/21 23:10 Lactic Acid 1.4 mmol/L (0.5-2.2) 03/13/21 23:10 Calcium 8.6 mg/dL (8.5-10.5) 03/13/21 23:10 Total Bilirubin 0.5 mg/dL (0.15-1.2) 03/13/21 23:10 AST 27 U/L (0-40) 03/13/21 23:10 ALT 20 U/L (0-41) 03/13/21 23:10 Alkaline Phosphatase 93 IU/L (40-130) 03/13/21 23:10 Troponin T Baseline 37 ng/L (0-15) H 03/13/21 23:10 Troponin T 120 Minute 50.79 ng/L (0-15) H 03/14/21 01:22 Delta Troponin T 13.79 ABS# (0-10) H* 03/14/21 01:22 NT-Pro-B Natriuret Pep 1056 pg/mL (0-125) H 03/14/21 01:22 Total Protein 6.0 g/dL (6.6-8.7) L 03/13/21 23:10 Albumin 3.8 g/dL (3.5-5.2) 03/13/21 23:10 Globulin 2.2 g/dL (1.3-4.6) 03/13/21 23:10 SARS-CoV-2 Ag (Rapid) Negative (Negative) 03/14/21 00:05 Impressions Chest X-Ray 03/13/21 23:03 IMPRESSION: Worsening nonspecific airspace disease compared with 02/08/2021. Radiation Dose CTDIVOL = (mGy): DLP = (mGy-cm) Chest CTA 03/14/21 01:28 IMPRESSION: 1. No pulmonary embolism. 2. Worsening bilateral pulmonary opacities consistent with pneumonia versus COVID-19. 3. Atherosclerotic disease of the coronary arteries. 4. No aortic dissection. 5. Main pulmonary artery enlargement concerning for pulmonary hypertension. 6. Small left pleural effusion. COMMENTS: Consistent with the [employer]'s Incidental Findings Committee white paper (J Am Ileana Radiol 2018): Any incidental renal lesion less than 1 cm or classified as too small to characterize, or any incidental cystic renal lesion characterized as simple-appearing, is likely benign. No follow-up imaging is recommended for these lesions per consensus recommendations based on imaging criteria. Radiation Dose CTDIVOL = (mGy): DLP = 625.15 (mGy-cm) Micro: Microbiology 03/14/21 01:14 Blood Culture - Preliminary Blood SPECIMEN COLLECTED 03/14/21 01:14 Blood Culture - Preliminary Blood SPECIMEN COLLECTED A&P Assessment and plan (1) Bilateral pneumonia: Status: Acute Qualifiers: Lung location: unspecified part of lung Pneumonia type: due to unspecified organism Qualified Code(s): J18.9 - Pneumonia, unspecified organism (2) Squamous cell lung cancer: Status: Acute Additional A&P Information Patient with squamous cell lung cancer status post chemoradiation completed December 2020, currently on immunotherapy presenting today with chief complaints of worsening dyspnea shortness of breath, cough and expectoration of the past [address] of the chest with bilateral infiltrates may be area representative of pneumonia versus pneumonitis. Check Covid PCR, influenza a and B antigens. Start presumptive steroids dexamethasone 6 mg IV every 24 hour while awaiting the above results. Empiric antibiotic coverage with Zosyn and azithromycin Check sputum culture, bacterial urine antigen, Legionella antigen, MRSA PCR Supplemental O2 to keep saturation greater than 92% DuoNebs and budesonide inhaled scheduled nebulization Attestations Medical Necessity Statement*: Greater than 2 midnight admission anticipated for above defined care. 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
[2021-03-14] MEDS: azithromycin 500 MG in sodium chloride 0.9% 250 ML 250 MG IV (06:58)
[2021-03-14] MEDS: buPROPion XL (24 HR) 300 mg Tablet PO (07:02)
[2021-03-14 07:34] LABS: Troponin 5 6HR 68.84 ng/L (0-15)
[2021-03-14 07:35] LABS: Troponin 5 6HR Delta 31.84 ng/L (0-12)
[2021-03-14 07:47] LABS: Glucose Point of Care 202 mg/dL (70-110)
[2021-03-14] MEDS: gabapentin 300 mg Capsule PO (08:12)
[2021-03-14] MEDS: docusate sodium 100 mg Capsule PO ×2 (08:12→17:26)
[2021-03-14] MEDS: fluoxetine 20 mg Capsule 40 MG PO (08:12)
[2021-03-14] MEDS: aspirin 81 mg EC Tablet PO (08:12)
[2021-03-14] MEDS: pantoprazole DR 40 mg Tablet PO (08:12)
[2021-03-14] MEDS: piperacillin-tazobactam 3.375 GM in sodium chloride 0.9% (plus) 50 ML IV ×2 (08:13→17:26)
[2021-03-14] MEDS: insulin lispro 100 unit/1 mL SUBCUT ×4 (08:13→21:42)
[2021-03-14] MEDS: enoxaparin 40 mg/0.4 mL Syringe SUBCUT (08:13)
[2021-03-14] MEDS: atorvastatin 40 mg Tablet 20 MG PO (08:13)
[2021-03-14] MEDS: dexamethasone 4 mg/mL INJ 6 MG IVP (08:13)
[2021-03-14 08:39] LABS: Influenza A by IFA Negative (Negative); Influenza B by IFA Negative (Negative)
[2021-03-14] MEDS: ipratropium-albuterol 3 mL Neb INHALATION ×3 (08:44→20:32)
[2021-03-14] MEDS: budesonide 0.5 mg/2 mL Neb INHALATION ×2 (08:44→20:32)
--- NOTE | 2021-03-14 10:19 | PC.PHAR ---
pt states he has [facility] but knows his medications-waiting for [facility] to fax med list-medications entered are medications the pt brought in and medications the pt states he takes-
[2021-03-14 10:36] LABS: Glucose Point of Care 218 mg/dL (70-110)
--- NOTE | 2021-03-14 11:52 | PM.PN ---
Subjective Subjective: Interval history: He denies any chest pain today or in the preceding few days. He denies any prior history of TN or CAD. He states he has oxygen at home but never uses it. States he is currently feeling all right, but states has been tired, not feeling well last few days, so did not sleep, this is why he states he is feeling sleepy today. Discussed with him concern of possible recent TN given increasing troponin. He is agreeable for additional treatment including increasing dose of aspirin, anticoagulation. Vitals/I&O/Wt Last Vital Signs Temp 98.7 F 03/14/21 10:53 Pulse 87 03/14/21 10:53 Resp 18 03/14/21 10:53 BP 150/90 03/14/21 10:53 Pulse Ox 92 03/14/21 10:53 03/13/21 03/14/21 03/14/21 22:59 06:59 14:59 Intake Total 120 / 120 370 / 370 Output Total 1000 / 1000 Balance 120 / 120 -630 / -630 Weight last 48 hrs Weight 121.109 kg Weight 121.109 kg Physical Exam Const: COMMON NORMALS: no acute distress and patient oriented x3 GENERAL APPEARANCE: cooperative NUTRITIONAL APPEARANCE: overweight ORIENTATION/CONSCIOUSNESS: Yes awake OTHER: Appears tired HENMT: COMMON NORMALS: oropharynx normal Neck/C-Spine: COMMON NORMALS: no JVD Resp: COMMON NORMALS: normal respiratory effort and clear to auscultation bilaterally AUSCULTATION: clear to auscultation bilaterally Cardio: COMMON NORMALS: no JVD, regular rhythm, S1 normal heart sound present, S2 normal heart sound present and No murmurs present (Cardio) RHYTHM: regular rhythm HEART SOUNDS: S1 normal heart sound present and S2 normal heart sound present GI: COMMON NORMALS: Normal to inspection, nondistended, normoactive bowel sounds present, Soft to palpation and non-tender PALPATION: Yes Soft to palpation Extremity: COMMON NORMALS: no joint enlargement and no pedal edema Neuro: COMMON NORMALS: patient oriented x3 and moves all extremities Skin: COMMON NORMALS: no rashes or lesions noted GENERAL SKIN EXAM: no rashes or lesions noted Data : 03/13/21 23:10 03/13/21 23:10 Micro: Microbiology 03/14/21 07:20 Legionella Urinary Antigen - Final Urine,Voided 03/14/21 01:14 Blood Culture - Preliminary Blood SPECIMEN COLLECTED 03/14/21 01:14 Blood Culture - Preliminary Blood SPECIMEN COLLECTED A&P Assessment and plan (1) Bilateral pneumonia: With hypoxia. Continue oxygen support, currently requiring 5 L nasal cannula oxygen. Continue Carvajal antibiotic treatment with Zosyn, azithromycin. Follow-up COVID-19 PCR testing. Status: Acute Qualifiers: Lung location: unspecified part of lung Pneumonia type: due to unspecified organism Qualified Code(s): J18.9 - Pneumonia, unspecified organism (2) Squamous cell lung cancer: Status: Acute Additional A&P Information Possible NSTEMI: Discussed with him possible NSTEMI with rising troponin, positive delta. Discussed with him escalating therapy, he is agreeable. We will add additional aspirin. Start on anticoagulation for now. Request TTE. Discussed with him would benefit from additional risk certification by stress testing once overall condition improves. He denies any chest pain currently or in recent few days. Denies past history of CAD. Somnolent this morning: We have held several of his medications including gabapentin, Wellbutrin, diazepam for now. May resume depending on mental status. Attestations Medical Necessity Statement*: Continue admission for cyst management of hypoxia Coding Level of Care Code Acute Sports Development Officer for [facility] Fwd Diagnoses Bilateral pneumonia J18.9 Lung location: unspecified part of lung Pneumonia type: due to unspecified organism Squamous cell lung cancer C34.90
[2021-03-14] MEDS: aspirin 81 mg EC Tablet 162 MG PO (12:11)
[2021-03-14] MEDS: enoxaparin 80 mg/0.8 mL Syringe SUBCUT (12:11)
--- NOTE | 2021-03-14 16:48 | PC.RESP ---
PULMONARY REHAB INFORMATION SENT TO PATIENT.
[2021-03-14 17:51] LABS: Glucose Point of Care 257 mg/dL (70-110)
[2021-03-14] MEDS: enoxaparin 120 mg/0.8 mL Syringe SUBCUT (20:34)
[2021-03-14 21:15] LABS: Glucose Point of Care 222 mg/dL (70-110)
[2021-03-15] VITALS (16 sets, daily range): BP systolic 90–147; BP diastolic 47–80; PULSE 65–95; RESP 17–22; TEMP 36.4–36.8; O2SAT 92–97
[2021-03-15] MEDS: piperacillin-tazobactam 3.375 GM in sodium chloride 0.9% (plus) 50 ML IV ×3 (01:14→16:59)
[2021-03-15] MEDS: ipratropium-albuterol 3 mL Neb INHALATION ×4 (03:01→20:51)
[2021-03-15] MEDS: azithromycin 500 MG in sodium chloride 0.9% 250 ML 250 MG IV (05:58)
[2021-03-15 06:38] LABS: Basophils % 0.4 %; Eosinophils # 0.1 10^3/uL (0.0-0.8); Hematocrit 35.7 % (42.0-52.0); Lymphocytes # 0.5 10^3/uL (0.8-4.8); Lymphocytes % 7.6 %; Mean Corpuscular HGB Conc 30.8 g/dL (30.0-36.0); Mean Corpuscular Hemoglobin 29.1 pg (28.0-34.0); Mean Corpuscular Volume 94.4 fl (80-94); Mean Platelet Volume 8.8 fL (7.4-10.4); Monocytes # 0.5 10^3/uL (0.2-0.9); Neutrophils # 5.68 10^3/uL (1.8-7.7); Neutrophils % 83.1 %; Nucleated Red Blood Cells % 0 %; Platelet Count 234 10^3/cmm (130-400); Red Blood Count 3.78 10^6/uL (4.1-5.3); Red Cell Distribution Width 13.7 % (12.1-15.1); White Blood Count 6.8 10^3/uL (4.0-10.0)
[2021-03-15 07:00] LABS: Glucose Point of Care 180 mg/dL (70-110)
[2021-03-15 07:25] LABS: Alanine Aminotransferase 17 U/L (0-41); Albumin Level 3.6 g/dL (3.5-5.2); Alkaline Phosphatase 91 IU/L (40-130); Anion Gap 16.1 (5-19); Aspartate Amino Transferase 10 U/L (0-40); Blood Urea Nitrogen 17 mg/dL (8-23); Calcium 9.1 mg/dL (8.5-10.5); Carbon Dioxide 25 mmol/L (22-29); Chloride 103 mmol/L (98-107); Globulin 3.1 g/dL (1.3-4.6); Glomerular Filtration Rate 111.8 mL/min (90-130); Glucose 186 mg/dL (65-115); Osmolality Calculated 296 mOsm/kg (285-295); Potassium 4.1 mmol/L (3.5-5.1); Sodium 140 mmol/L (136-145); Total Bilirubin 0.3 mg/dL (0.15-1.2); Total Protein 6.7 g/dL (6.6-8.7)
[2021-03-15 07:32] LABS: Procalcitonin 0.13 ng/mL (0-0.5)
[2021-03-15] MEDS: budesonide 0.5 mg/2 mL Neb INHALATION ×2 (08:35→20:51)
[2021-03-15] MEDS: pantoprazole DR 40 mg Tablet PO (08:53)
[2021-03-15] MEDS: docusate sodium 100 mg Capsule PO ×2 (08:53→18:04)
[2021-03-15] MEDS: aspirin 81 mg EC Tablet PO (08:53)
[2021-03-15] MEDS: atorvastatin 40 mg Tablet 20 MG PO (08:54)
[2021-03-15] MEDS: fluoxetine 20 mg Capsule 40 MG PO (08:54)
[2021-03-15] MEDS: dexamethasone 4 mg/mL INJ 6 MG IVP (08:58)
[2021-03-15] MEDS: enoxaparin 120 mg/0.8 mL Syringe SUBCUT ×2 (09:01→20:16)
[2021-03-15] MEDS: insulin lispro 100 unit/1 mL SUBCUT ×4 (09:02→21:51)
--- NOTE | 2021-03-15 11:57 | USCV_ITS ---
Yoni Connell Age: 70 Gender: M : 1950 Exam Date: 03/15/2021 05:16 Ordering Phys: Rosalio Goodman MD Technologist: Sharon Boateng Exam Location: [facility] [place] Indication: TROPHNIN ELEVATED BP: 107 / 67 HR: 67 Rhythm: Sinus Technical Quality: Adequate MEASUREMENTS (Male / Female) Normal Values 2D ECHO LV Diastolic Diameter PLAX 3.9 cm 4.2 - 5.9 / 3.9 - 5.3 cm LV Systolic Diameter PLAX 2.5 cm IVS Diastolic Thickness 1.9 cm 0.6 - 1.0 / 0.6 - 0.9 cm IVS Systolic Thickness 2.6 cm LVPW Diastolic Thickness 2.5 cm 0.6 - 1.0 / 0.6 - 0.9 cm LVPW Systolic Thickness 2.4 cm LVOT Diameter 2.0 cm LV Ejection Fraction 2D Teich 67.6 % LV Ejection Fraction MOD 2C 54.4 % LV Ejection Fraction 2C AL 55.9 % LA Diameter 4.6 cm LA Width 2.5 cm LA Height 6.3 cm RA Width 2.6 cm RA Height 5.0 cm Aorta at Sinotubular Diameter 3.2 cm M-MODE Aortic Annulus Diameter 3.7 cm LA Ao Ratio MM 1.2 MV E Point Septal Separation 0.6 cm DOPPLER AV Peak Velocity 160.0 cm/s LVOT Peak Velocity 75.0 cm/s AV Area Cont Eq vti 1.3 cm squared AV Area Cont Eq pk 1.5 cm squared MV Peak Velocity 125.0 cm/s MV Area PHT 3.7 cm squared MV E' Velocity 56.5 cm/s Mitral E to MV E' Ratio 12.5 Mitral E to LV E' Lateral Ratio 11.8 Mitral E to LV E' Septal Ratio 13.3 TR Peak Velocity 225.3 cm/s TR Peak Gradient 20.3 mmHg TR Mean Velocity 191.2 cm/s TR Mean Gradient 15.5 mmHg TR Velocity Time Integral 87.6 cm TV Peak E Velocity 79.0 cm/s Right Atrial Pressure 8.0 mmHg Pulmonary Artery Systolic Pressu 28.3 mmHg PV Peak Velocity 82.0 cm/s RV Acceleration Time 0.1 s RV Ejection Time 0.3 s RV AcT/ET 0.4 FINDINGS Left Ventricle Normal left ventricular size and systolic function, EF 65 %. Moderate left ventricular hypertrophy. No regional wall motion abnormalities. Right Ventricle Possibly normal RV size and ejection fraction. Right Atrium Mildly increased right atrial size. Left Atrium Mildly increased left atrial size. Mitral Valve No gross abnormalities noted Aortic Valve No gross abnormalities noted Tricuspid Valve Trace to mild tricuspid valve regurgitation. Pulmonic Valve No gross abnormalities noted Pericardium No pericardial effusion. Aorta Normal aortic annulus size. CONCLUSIONS Normal left ventricular size and systolic function, EF 65 %. Moderate left ventricular hypertrophy. No regional wall motion abnormalities. Mild biatrial enlargement. Trace to mild tricuspid valve regurgitation. Estimated pulmonary artery peak systolic pressure of 28 mm of Hg. There is no pericardial effusion. There are no intracardiac masses. Technically difficult study because of the poor ultrasonic window. Dr Bola Haile MD FACC (Electronically Signed) Final Date: 15 March 2021 22:56 S
[2021-03-15 12:29] LABS: Glucose Point of Care 210 mg/dL (70-110)
[2021-03-15] MEDS: HYDROcodone-acetaminophen 5-325 mg Tablet 1 TAB PO (12:29)
--- NOTE | 2021-03-15 15:11 | PM.PN ---
Subjective Subjective: Interval history: He is having a headache today. States got quite short of breath when forgot to put on his oxygen. Denies chest pain or pressure. No nausea vomiting or diarrhea. Vitals/I&O/Wt Last Vital Signs Temp 97.6 F 03/15/21 08:00 Pulse 71 03/15/21 08:42 Resp 18 03/15/21 08:36 BP 95/47 03/15/21 08:00 Pulse Ox 93 03/15/21 08:36 03/15/21 03/15/21 03/15/21 06:59 14:59 22:59 Intake Total 50 / 1360 540 / 540 Output Total 1151 / 3751 250 / 250 Balance -1101 / -2391 290 / 290 Weight last 48 hrs Weight 121.109 kg Weight 121.109 kg Physical Exam Const: COMMON NORMALS: no acute distress and patient oriented x3 GENERAL APPEARANCE: cooperative NUTRITIONAL APPEARANCE: overweight ORIENTATION/CONSCIOUSNESS: Yes awake OTHER: Sitting up at bedside eating lunch. HENMT: COMMON NORMALS: oropharynx normal Neck/C-Spine: COMMON NORMALS: no JVD Resp: COMMON NORMALS: normal respiratory effort and clear to auscultation bilaterally AUSCULTATION: clear to auscultation bilaterally Cardio: COMMON NORMALS: no JVD, regular rhythm, S1 normal heart sound present, S2 normal heart sound present and No murmurs present (Cardio) RHYTHM: regular rhythm HEART SOUNDS: S1 normal heart sound present and S2 normal heart sound present GI: COMMON NORMALS: Normal to inspection, nondistended, normoactive bowel sounds present, Soft to palpation and non-tender PALPATION: Yes Soft to palpation Extremity: COMMON NORMALS: no joint enlargement and no pedal edema Neuro: COMMON NORMALS: patient oriented x3 and moves all extremities Skin: COMMON NORMALS: no rashes or lesions noted GENERAL SKIN EXAM: no rashes or lesions noted Data : 03/15/21 06:25 03/15/21 06:25 Micro: Microbiology 03/14/21 01:14 Blood Culture - Preliminary Blood NEGATIVE TO DATE 03/14/21 01:14 Blood Culture - Preliminary Blood NEGATIVE TO DATE 03/14/21 07:20 MRSA Culture - Final Nose 03/14/21 07:20 Legionella Urinary Antigen - Final Urine,Voided Bacterial Antigens - Final A&P Assessment and plan (1) Bilateral pneumonia: Persistent hypoxia, requiring 6 L of oxygen by nasal cannula. Today with some headache. Pending COVID-19 PCR. Continue empiric antibiotic treatment with Zosyn, azithromycin. Continue oxygen support. CTA without suggestion of PE. Concerning for pulmonary hypertension. Follow-up TTE. Status: Acute Qualifiers: Lung location: unspecified part of lung Pneumonia type: due to unspecified organism Qualified Code(s): J18.9 - Pneumonia, unspecified organism (2) Squamous cell lung cancer: Status: Acute Additional A&P Information Possible NSTEMI: Remains chest pain-free. Follow-up echocardiogram. Discussed with him possible NSTEMI with rising troponin, positive delta. Continue aspirin, anticoagulation for now. Discussed with him would benefit from additional risk certification by stress testing once overall condition improves. He denied any chest pain currently or in recent few days. Denies past history of CAD. Somnolent 03/14: Resolved, awake, alert, Wellbutrin resumed, gabapentin dose reduced, diazepam on hold for now. Attestations Medical Necessity Statement*: Continue admission for assessment management of pneumonia, new hypoxia. Coding Level of Care Code Acute Hot Strip Finisher for [facility] Fwd Exam Comprehensive Diagnoses Bilateral pneumonia J18.9 Lung location: unspecified part of lung Pneumonia type: due to unspecified organism Squamous cell lung cancer C34.90
[2021-03-15 16:24] LABS: Coronavirus Test Green County Not Detected
[2021-03-15] MEDS: acetaminophen 325 mg Tablet 650 MG PO (16:56)
[2021-03-15 17:45] LABS: Glucose Point of Care 384 mg/dL (70-110)
[2021-03-15] MEDS: gabapentin 100 mg Capsule PO (20:15)
[2021-03-15 21:07] LABS: Glucose Point of Care 267 mg/dL (70-110)
[2021-03-16] VITALS (16 sets, daily range): BP systolic 128–151; BP diastolic 67–88; PULSE 72–99; RESP 16–20; TEMP 36.5–36.9; O2SAT 89–98
[2021-03-16] MEDS: piperacillin-tazobactam 3.375 GM in sodium chloride 0.9% (plus) 50 ML IV ×3 (00:41→17:31)
[2021-03-16] MEDS: ipratropium-albuterol 3 mL Neb INHALATION ×4 (05:10→21:08)
[2021-03-16 05:18] LABS: Basophils % 0.5 %; Eosinophils # 0.1 10^3/uL (0.0-0.8); Eosinophils % 1.9 %; Hematocrit 36.4 % (42.0-52.0); Hemoglobin 11.4 g/dL (11.7-16.6); Lymphocytes # 0.6 10^3/uL (0.8-4.8); Lymphocytes % 9.7 %; Mean Corpuscular HGB Conc 31.3 g/dL (30.0-36.0); Mean Corpuscular Hemoglobin 28.4 pg (28.0-34.0); Mean Corpuscular Volume 90.8 fl (80-94); Mean Platelet Volume 9.4 fL (7.4-10.4); Monocytes # 0.4 10^3/uL (0.2-0.9); Monocytes % 6.6 %; Neutrophils # 4.63 10^3/uL (1.8-7.7); Neutrophils % 80.4 %; Nucleated Red Blood Cells % 0 %; Platelet Count 272 10^3/cmm (130-400); Red Blood Count 4.01 10^6/uL (4.1-5.3); Red Cell Distribution Width 13.5 % (12.1-15.1); White Blood Count 5.8 10^3/uL (4.0-10.0)
[2021-03-16 05:51] LABS: Anion Gap 16.7 (5-19); Blood Urea Nitrogen 17 mg/dL (8-23); Calcium 9.3 mg/dL (8.5-10.5); Carbon Dioxide 25 mmol/L (22-29); Chloride 102 mmol/L (98-107); Glomerular Filtration Rate 111.8 mL/min (90-130); Glucose 146 mg/dL (65-115); Osmolality Calculated 294 mOsm/kg (285-295); Potassium 3.7 mmol/L (3.5-5.1); Sodium 140 mmol/L (136-145)
[2021-03-16] MEDS: buPROPion XL (24 HR) 300 mg Tablet PO (06:04)
[2021-03-16] MEDS: azithromycin 500 MG in sodium chloride 0.9% 250 ML 250 MG IV (06:08)
[2021-03-16 06:46] LABS: Glucose Point of Care 165 mg/dL (70-110)
[2021-03-16] MEDS: pantoprazole DR 40 mg Tablet PO (08:47)
[2021-03-16] MEDS: aspirin 81 mg EC Tablet PO (08:47)
[2021-03-16] MEDS: gabapentin 100 mg Capsule PO ×3 (08:47→20:53)
[2021-03-16] MEDS: fluoxetine 20 mg Capsule 40 MG PO (08:47)
[2021-03-16] MEDS: insulin lispro 100 unit/1 mL SUBCUT ×4 (08:48→20:54)
[2021-03-16] MEDS: atorvastatin 40 mg Tablet 20 MG PO (08:48)
[2021-03-16] MEDS: dexamethasone 4 mg/mL INJ 6 MG IVP (08:48)
[2021-03-16] MEDS: docusate sodium 100 mg Capsule PO ×2 (08:49→17:31)
[2021-03-16] MEDS: enoxaparin 120 mg/0.8 mL Syringe SUBCUT ×2 (08:49→20:55)
[2021-03-16] MEDS: budesonide 0.5 mg/2 mL Neb INHALATION ×2 (08:51→21:09)
[2021-03-16] MEDS: HYDROcodone-acetaminophen 5-325 mg Tablet 1 TAB PO (09:10)
[2021-03-16 12:47] LABS: Glucose Point of Care 258 mg/dL (70-110)
[2021-03-16] MEDS: acetaminophen 325 mg Tablet 650 MG PO (15:24)
[2021-03-16 17:30] LABS: Glucose Point of Care 302 mg/dL (70-110)
[2021-03-16 19:37] LABS: Glucose Point of Care 267 mg/dL (70-110)
--- NOTE | 2021-03-16 20:46 | PM.PN ---
Subjective Subjective: Interval history: He is gradually improving, but still requiring oxygen, coughing. Denies chest pain. Vitals/I&O/Wt Last Vital Signs Temp 98.1 F 03/16/21 20:00 Pulse 82 03/16/21 20:00 Resp 16 03/16/21 20:00 BP 130/67 03/16/21 20:00 Pulse Ox 95 03/16/21 20:00 03/16/21 03/16/21 03/16/21 06:59 14:59 22:59 Intake Total 50 / 1240 780 / 780 240 / 1020 Output Total 1350 / 2400 250 / 250 Balance -1300 / -1160 530 / 530 240 / 770 Physical Exam Const: COMMON NORMALS: no acute distress and patient oriented x3 GENERAL APPEARANCE: cooperative NUTRITIONAL APPEARANCE: overweight ORIENTATION/CONSCIOUSNESS: Yes awake OTHER: Reclined in bed. HENMT: COMMON NORMALS: oropharynx normal Neck/C-Spine: COMMON NORMALS: no JVD Resp: COMMON NORMALS: normal respiratory effort AUSCULTATION: diminished lung sounds Cardio: COMMON NORMALS: no JVD, regular rhythm, S1 normal heart sound present, S2 normal heart sound present and No murmurs present (Cardio) RHYTHM: regular rhythm HEART SOUNDS: S1 normal heart sound present and S2 normal heart sound present GI: COMMON NORMALS: Normal to inspection, nondistended, normoactive bowel sounds present, Soft to palpation and non-tender PALPATION: Yes Soft to palpation Extremity: COMMON NORMALS: no joint enlargement and no pedal edema Neuro: COMMON NORMALS: patient oriented x3 and moves all extremities Skin: COMMON NORMALS: no rashes or lesions noted GENERAL SKIN EXAM: no rashes or lesions noted Data : 03/16/21 04:53 03/16/21 04:53 A&P Assessment and plan (1) Bilateral pneumonia: Mild improvement in hypoxia, down to 4 L. Mildly diminished air entry. COVID-19 PCR negative. MRSA PCR negative. Urine bacterial antigens including Legionella negative. Echocardiogram with normal ejection fraction, moderate LVH, no R WMA, mild biatrial enlargement trace to mild TR, estimated pulmonary peak systolic pressure 28 mmHg. Continue empiric antibiotic treatment with Zosyn, azithromycin. Continue oxygen support. Wean off as tolerating. CTA without suggestion of PE. Concerning for pulmonary hypertension. Status: Acute Qualifiers: Lung location: unspecified part of lung Pneumonia type: due to unspecified organism Qualified Code(s): J18.9 - Pneumonia, unspecified organism (2) Squamous cell lung cancer: Status: Acute Additional A&P Information Possible NSTEMI: Remains chest pain-free. Follow-up echocardiogram. Discussed with him possible NSTEMI with rising troponin, positive delta. Continue aspirin, anticoagulation for now. Discussed with him would benefit from additional risk certification by stress testing once overall condition improves. He denied any chest pain currently or in recent few days. Denies past history of CAD. Somnolent 03/14: Resolved, awake, alert, Wellbutrin resumed, gabapentin dose reduced, diazepam on hold for now. Attestations Medical Necessity Statement*: Continue admission for assessment of management of hypoxia, pneumonia in setting of squamous cell lung cancer. Coding Level of Care Code Acute [employer] for Margarito Vera Diagnoses Bilateral pneumonia J18.9 Lung location: unspecified part of lung Pneumonia type: due to unspecified organism Squamous cell lung cancer C34.90
[2021-03-17] VITALS (9 sets, daily range): BP systolic 136–149; BP diastolic 77–91; PULSE 70–95; RESP 18–20; TEMP 36.6–36.7; O2SAT 84–97
[2021-03-17] MEDS: piperacillin-tazobactam 3.375 GM in sodium chloride 0.9% (plus) 50 ML IV ×2 (00:21→08:59)
[2021-03-17] MEDS: buPROPion XL (24 HR) 300 mg Tablet PO (05:12)
[2021-03-17 06:08] LABS: Basophils % 0.5 %; Eosinophils # 0.1 10^3/uL (0.0-0.8); Eosinophils % 1.5 %; Hematocrit 38.2 % (42.0-52.0); Hemoglobin 12.2 g/dL (11.7-16.6); Lymphocytes # 0.8 10^3/uL (0.8-4.8); Lymphocytes % 13.7 %; Mean Corpuscular HGB Conc 31.9 g/dL (30.0-36.0); Mean Corpuscular Hemoglobin 28.8 pg (28.0-34.0); Mean Corpuscular Volume 90.3 fl (80-94); Mean Platelet Volume 9.5 fL (7.4-10.4); Monocytes # 0.5 10^3/uL (0.2-0.9); Monocytes % 8.4 %; Neutrophils # 4.36 10^3/uL (1.8-7.7); Neutrophils % 74.7 %; Nucleated Red Blood Cells % 0 %; Platelet Count 307 10^3/cmm (130-400); Red Blood Count 4.23 10^6/uL (4.1-5.3); Red Cell Distribution Width 13.9 % (12.1-15.1); White Blood Count 5.8 10^3/uL (4.0-10.0)
[2021-03-17 06:33] LABS: Anion Gap 16.6 (5-19); Blood Urea Nitrogen 17 mg/dL (8-23); Calcium 9.3 mg/dL (8.5-10.5); Carbon Dioxide 25 mmol/L (22-29); Chloride 100 mmol/L (98-107); Glomerular Filtration Rate 111.8 mL/min (90-130); Glucose 145 mg/dL (65-115); Osmolality Calculated 290 mOsm/kg (285-295); Potassium 3.6 mmol/L (3.5-5.1); Sodium 138 mmol/L (136-145)
[2021-03-17 06:35] LABS: Glucose Point of Care 152 mg/dL (70-110)
[2021-03-17] MEDS: budesonide 0.5 mg/2 mL Neb INHALATION (07:48)
[2021-03-17] MEDS: ipratropium-albuterol 3 mL Neb INHALATION ×3 (07:48→14:11)
[2021-03-17] MEDS: insulin lispro 100 unit/1 mL SUBCUT ×2 (08:58→12:59)
[2021-03-17] MEDS: dexamethasone 4 mg/mL INJ 6 MG IVP (08:58)
[2021-03-17] MEDS: fluoxetine 20 mg Capsule 40 MG PO (08:59)
[2021-03-17] MEDS: aspirin 81 mg EC Tablet PO (08:59)
[2021-03-17] MEDS: docusate sodium 100 mg Capsule PO (08:59)
[2021-03-17] MEDS: gabapentin 100 mg Capsule PO (08:59)
[2021-03-17] MEDS: atorvastatin 40 mg Tablet 20 MG PO (08:59)
[2021-03-17] MEDS: pantoprazole DR 40 mg Tablet PO (08:59)
[2021-03-17] MEDS: enoxaparin 120 mg/0.8 mL Syringe SUBCUT (09:00)
[2021-03-17] MEDS: HYDROcodone-acetaminophen 5-325 mg Tablet 1 TAB PO (09:13)
--- NOTE | 2021-03-17 10:46 | PC.CHAP ---
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 [] Patient/Family/Request visit [] Outpatient visit [] Follow-up visit [] Physician referral [] Code/Alert [x] Routine visit [] Staff referral [] Actively dying [] Patient sleeping [] Family support [] [] Out of room [] Palliative care [] [x] Receiving care in room [] Pre-surgical visit [] Trauma [x] Long length of stay [] ICU visit [] Other: Relational/Emotional Strength [x] Patient feels connected with others/family/visitors/staff [] Distress [] Loneliness/isolation [] Abandonment Spirituality of Patient [x] Person of [place] [] Attends [employer] of their [place] [x] Believes in Prayer [] Reads Bible or Scientology materials [] There are Spiritual issues to be addressed Adaptive Physical Education Specialist Interventions [x] Prayer [x] Active listening [x] Non-anxious presence [x] Spiritual/emotional support [] Crisis/trauma care [x] Spiritual counseling [] Bereavement support [] Provided bereavement packet [] Provided Bible/devotional materials [] Provided toy/stuffed animal, coloring book to patient or family member [] Provided Communion [] Anointing/[place] [] Salvation [x] Completed spiritual assessment [] Other: Impact on Illness or Injury [] Angry [] Fearful [x] Anxious [] Often cries [] Exhaustion [x] Unable to work [] Unable to attend bahai [] Unable to walk/stand [] Unable to read [] Unable to drive [] Unable to eat/drink [] Unable to sleep [] Unable to be with family [] Patient intubated [] Other: Summary not sure about his health has a good attitude wants to go home soon Time spent with patient 10 mins
[2021-03-17 12:18] LABS: Glucose Point of Care 260 mg/dL (70-110)
--- NOTE | 2021-03-17 22:45 | PM.DCS ---
Discharge Providers Date of Admission: 03/14/21 02:27 Date of Discharge: March 17, 2021 Attending Provider at Admission: Sharon Olivares MD Attending Provider at Discharge: Rosalio Goodman Primary Care Provider: Flaquita Goodwin MD Diagnoses at Discharge Discharge Diagnosis (1) Bilateral pneumonia: Status: Acute Qualifiers: Lung location: unspecified part of lung Pneumonia type: due to unspecified organism Qualified Code(s): J18.9 - Pneumonia, unspecified organism (2) Squamous cell lung cancer: Status: Acute Reason for Visit Reason for Visit: shortness of breathe Hospital Course Hospital Course Pleasant 70-year-old gentleman with NSCLC, status post initial course of chemoradiation with good tumor response, COPD, was assessed and treated in hospital for pneumonia, with new worsening hypoxia compared to his usual, with bilateral lung infiltrates on CTA, with no PE noted on presentation, worsening bilateral opacities concerning for COVID-19, although COVID-19 PCR was negative. He has completed vaccination series as well. CT angiogram also concerning for main pulmonary artery enlargement, possible pulmonary hypertension. Noted small left pleural effusion. In the hospital he was treated with Zosyn, azithromycin combination. Breathing treatments, inhaled steroid, supportive care. On presentation with noted troponin abnormality with positive delta, 37-50.79-68.84. Remained chest pain-free. Underwent additional assessment by TTE, with normal ejection fraction, moderate LVH, no R WMA, mild biatrial enlargement, trace to mild TR, estimated pulmonary artery peak systolic pressure 28 mmHg, no pericardial effusion, no intracardiac masses, technically difficult study. He overall felt he was gradually improving, and felt pretty much back to his usual. Although, discussed with him still requiring more than usual oxygen at 4 L at rest, 6 L with exertion. Feeling much better, he felt comfortable returning home. Discussed with him to seek medical attention in case of any worsening. MRSA PCR noted negative. Urine bacterial antigens including Legionella negative. He was not able to provide a sputum culture. Remains afebrile, without leukocytosis. He will complete antibiotic course with Levaquin. He will also complete steroid course and taper for possible radiation pneumonitis. He is referred for additional assessment with stress testing. He will follow-up in office with pulmonology, PCP and resume other usual follow-up. Physical Exam Const: COMMON NORMALS: no acute distress and patient oriented x3 GENERAL APPEARANCE: cooperative NUTRITIONAL APPEARANCE: overweight ORIENTATION/CONSCIOUSNESS: Yes awake OTHER: Sitting up in bed. Reports he is doing well. Has been ambulating in the room. Feels comfortable with returning home. HENMT: COMMON NORMALS: oropharynx normal Neck/C-Spine: COMMON NORMALS: no JVD Resp: COMMON NORMALS: normal respiratory effort and clear to auscultation bilaterally AUSCULTATION: clear to auscultation bilaterally Cardio: COMMON NORMALS: no JVD, regular rhythm, S1 normal heart sound present, S2 normal heart sound present and No murmurs present (Cardio) RHYTHM: regular rhythm HEART SOUNDS: S1 normal heart sound present and S2 normal heart sound present GI: COMMON NORMALS: Normal to inspection, nondistended, normoactive bowel sounds present, Soft to palpation and non-tender PALPATION: Yes Soft to palpation Extremity: COMMON NORMALS: no joint enlargement and no pedal edema Neuro: COMMON NORMALS: patient oriented x3 and moves all extremities Skin: COMMON NORMALS: no rashes or lesions noted GENERAL SKIN EXAM: no rashes or lesions noted Discharge Data Data Completed and Pending: Completed Studies During Hospitalization Category Date Time Status CT angio chest PE protcl [id number] Urge nt Cat Scan 03/14/21 01:28 Completed XR chest 1V vishal ble [id number] Stat Exams 03/13/21 23:03 Completed CV. echo complete * [id number] Routine Ultrasound 03/15/21 11:57 Completed Pending at discharge Category Date Time Status Blood Culture Sta t Lab 03/13/21 23:03 Results Labs from last 24 hours 03/17/21 03/17/21 03/17/21 11:22 06:29 05:25 WBC RBC Hgb Hct MCV MCH MCHC RDW Plt Count MPV Neut % (Auto) Lymph % (Auto) [place] % (Auto) Eos % (Auto) Baso % (Auto) Neut # (Auto) Lymph # (Auto) [place] # (Auto) Eos # (Auto) Baso # (Auto) Nucleated RBC % (a uto) Nucleated RBCs # Sodium 138 Potassium 3.6 Chloride 100 Carbon Dioxide 25 Anion Gap 16.6 BUN 17 Creatinine 0.7 GFR Calculation 111.8 Glucose 145 H POC Glucose 260 H 152 H Calculated Osmolal ity 290 Calcium 9.3 03/17/21 05:25 WBC 5.8 RBC 4.23 Hgb 12.2 Hct 38.2 L MCV 90.3 MCH 28.8 MCHC 31.9 RDW 13.9 Plt Count 307 MPV 9.5 Neut % (Auto) 74.7 Lymph % (Auto) 13.7 [place] % (Auto) 8.4 Eos % (Auto) 1.5 Baso % (Auto) 0.5 Neut # (Auto) 4.36 Lymph # (Auto) 0.8 [place] # (Auto) 0.5 Eos # (Auto) 0.1 Baso # (Auto) 0.0 Nucleated RBC % (a uto) 0 Nucleated RBCs # 0.0 Sodium Potassium Chloride Carbon Dioxide Anion Gap BUN Creatinine GFR Calculation Glucose POC Glucose Calculated Osmolal ity Calcium Vitals: Last Vital Signs Temp 98.1 F 03/17/21 11:24 Pulse 95 03/17/21 14:11 Resp 20 H 03/17/21 14:11 BP 148/77 03/17/21 11:24 Pulse Ox 95 03/17/21 14:11 Discharge Plan Discharge Patient Disposition: Home Condition: Fair Prescriptions: New benzonatate 100 mg Capsule 100 mg PO TID PRN (Reason: Cough) Qty: 30 RF: 0 levofloxacin 750 mg tablet 750 mg PO DAILY 5 Days RF: 0 prednisone 20 mg tablet See Rx Instructions .ROUTE .COMPLEX Qty: 20 RF: 0 pantoprazole 40 mg tablet,delayed release (DR/EC) 40 mg PO QAM 28 Days Qty: 28 RF: 0 Continued aspirin [Aspirin Low Dose] 81 mg tablet,delayed release (DR/EC) 81 mg PO QAM RF: 0 Anoro Ellipta 62.5-25 mcg/actuation blister with device 1 inh inhalation DAILY 30 Days Qty: 60 RF: 4 trazodone 150 mg tablet 150 mg PO BEDTIME Qty: 30 RF: 2 diazepam 5 mg tablet 5 mg PO TID PRN (Reason: anxiety) Qty: 90 RF: 2 bupropion HCl [Wellbutrin XL] 300 mg tablet extended release 24 hr 300 mg PO QAM Qty: 30 RF: 2 acetaminophen [Tylenol Arthritis Pain] 650 mg tablet extended release 1,300 mg PO Q12H PRN (Reason: Pain) RF: 0 diphenhydramine HCl [Benadryl Allergy] 25 mg tablet 25 mg PO TID PRN (Reason: Allergy Symptoms) RF: 0 fluoxetine 40 mg capsule 40 mg PO QAM RF: 0 enalapril maleate 10 mg Tablet 10 mg PO QAM RF: 0 Miralax 17 gram/dose Powder 17 g PO DAILY RF: 0 aspirin-sod bicarb-citric acid 324 mg Tablet, Effervescent 1 ea PO QAM RF: 0 gabapentin 300 mg capsule 300 mg PO TID RF: 0 albuterol sulfate [ProAir HFA] 90 mcg/actuation HFA aerosol inhaler 1 - 2 puff INHALATION QID PRN (Reason: Shortness Of Breath Or Wheezing) RF: 0 metformin 1,000 mg Tablet 1,000 mg PO BID RF: 0 lovastatin 40 mg tablet 40 mg PO QAM RF: 0 ondansetron HCl [Zofran] 4 mg Tablet 4 mg PO Q6H PRN (Reason: NAUSEA/VOMITING) RF: 0 Jardiance 10 mg tablet 10 mg PO QAM RF: 0 sennosides-docusate sodium [Senna-S] 8.6-50 mg tablet 1 tab-cap PO DAILY Qty: 20 RF: 0 hydrocodone-acetaminophen 5-325 mg tablet 1 tab PO BID PRN (Reason: PAIN) 10 Days Qty: 20 RF: 0 Discharge Orders: Discharge Order (Routine); Ordered 03/17/21 Ordered By: Rosalio Goodman Other Ambulatory Orders: Sestamibi Stress Test Request (Routine) Timeframe: 3 Days Facility: [facility] - Location: Cardiac Diagnostic Laboratory Ordered By: Rosalio Goodman DME: Oxygen (Order) Location: None Selected Ordered By: Rosalio Goodman Referrals: Flaquita Goodwin MD [Primary Care Provider] - 4-7 days (CALL FOR APPOINTMENT FOR FOLLOW UP [facility] FAXED MED RECORDS) Suzanna Castillo MD [Physician] - 04/01/21 9:00 am Discharge Activity: Oxygen as instructed Patient Instructions: COPD, Benzonatate (By mouth), Prednisone (By mouth), Levofloxacin (By mouth), Pantoprazole (By mouth), Pneumonitis (GEN), COPD Stoplight, Opioid Safety Activity Restrictions/Additional Instructions: Please complete antibiotic course for suspected pneumonia. With diminished air entry, as well as concern for possible radiation induced pneumonitis you are also prescribed steroid course. Please follow-up with your lung doctor for reassessment and adjustment to therapy course. Please call 911 in case of worsening condition symptoms., any high fever, chest pain, or any other concerning You are also referred for stress testing for additional assessment due to noted abnormal troponin level. Radiation therapy does increase your risk of premature coronary disease. Please follow-up results of the stress test with your primary doctor and consider/discuss referral to a vertical borer.APPOINTMENT FOR STRESS TEST [facility] WILL CALL WITH APPOINTMENT Please discuss with your lung doctor, primary care doctor also CT angiogram findings which may show concern for pulmonary hypertension. Discussed consideration of further diagnostic assessment. Discharge Attestations Time Spent in Discharge Care*: greater than 30 min Quality Metrics Clinical Quality Measures During this hospital stay, did patient experience: None Coding Level of Care Code Acute g FW MT note Diagnoses Bilateral pneumonia J18.9 Lung location: unspecified part of lung Pneumonia type: due to unspecified organism Squamous cell lung cancer C34.90
== END 2021-03-17 15:47 | disposition home or self-care (01) | DRG 194 ==
LOC: ER 03-14 01:44 → MEDSURG 03-14 02:27
PROVIDERS: Admitting Provider Student in an Organized Health Care Education/Training Program; Emergency Provider Physician Assistant; PCP Internal Medicine; Visit Provider Internal Medicine
DX: J18.9 Pneumonia, unspecified organism (principal); C34.12 Malignant neoplasm of upper lobe, left bronchus or lung; F33.9 Major depressive disorder, recurrent, unspecified; W88.1XXA Exposure to radioactive isotopes, initial encounter; K21.9 Gastro-esophageal reflux disease without esophagitis; I10 Essential (primary) hypertension; J44.9 Chronic obstructive pulmonary disease, unspecified; E78.5 Hyperlipidemia, unspecified; Z99.81 Dependence on supplemental oxygen; Z85.51 Personal history of malignant neoplasm of bladder; M47.812 Spondylosis without myelopathy or radiculopathy, cervical region; F41.1 Generalized anxiety disorder; G62.9 Polyneuropathy, unspecified; Z87.891 Personal history of nicotine dependence; G47.30 Sleep apnea, unspecified; E11.9 Type 2 diabetes mellitus without complications; Z92.3 Personal history of irradiation; Z79.899 Other long term (current) drug therapy; R77.8 Other specified abnormalities of plasma proteins; Z79.891 Long term (current) use of opiate analgesic; Z79.84 Long term (current) use of oral hypoglycemic drugs; Z79.51 Long term (current) use of inhaled steroids; Z79.82 Long term (current) use of aspirin; I27.20 Pulmonary hypertension, unspecified; Z87.01 Personal history of pneumonia (recurrent)
CPT/HCPCS: 36415; 36416; 36600; 71045; 71275; 80048; 80051; 80053; 82330; 82805; 82962; 83605; 83880; 84145; 84484; 85025; 86140; 86403; 87040; 87426; 87449; 87635; 87641; 87804; 93005; 93306; 94640; 94664; 96372; 99285; J0456; J1100; J1650; J1815; J2543; J7050; J7626; Q9967

== ENCOUNTER 2021-03-21 06:34 | Outpatient (RCR) | payer MEDICAID, SELFPAY ==
[2021-03-21 14:17] LABS: Basophils % 0.4 %; Eosinophils % 0.4 %; Hematocrit 37.5 % (42.0-52.0); Hemoglobin 12.1 g/dL (11.7-16.6); Lymphocytes # 0.3 10^3/uL (0.8-4.8); Lymphocytes % 4.5 %; Mean Corpuscular HGB Conc 32.3 g/dL (30.0-36.0); Mean Corpuscular Hemoglobin 29.6 pg (28.0-34.0); Mean Corpuscular Volume 91.7 fl (80-94); Mean Platelet Volume 10.2 fL (7.4-10.4); Monocytes # 0.2 10^3/uL (0.2-0.9); Monocytes % 2.1 %; Neutrophils # 6.88 10^3/uL (1.8-7.7); Neutrophils % 91.4 %; Nucleated Red Blood Cells % 0 %; Platelet Count 273 10^3/cmm (130-400); Red Blood Count 4.09 10^6/uL (4.1-5.3); Red Cell Distribution Width 13.9 % (12.1-15.1); White Blood Count 7.5 10^3/uL (4.0-10.0)
[2021-03-21 14:44] LABS: Alanine Aminotransferase 20 U/L (0-41); Albumin Level 4.1 g/dL (3.5-5.2); Alkaline Phosphatase 82 IU/L (40-130); Anion Gap 16.6 (5-19); Aspartate Amino Transferase 13 U/L (0-40); Blood Urea Nitrogen 17 mg/dL (8-23); Calcium 9.6 mg/dL (8.5-10.5); Carbon Dioxide 26 mmol/L (22-29); Chloride 95 mmol/L (98-107); Globulin 2.6 g/dL (1.3-4.6); Glomerular Filtration Rate 95.8 mL/min (90-130); Glucose 248 mg/dL (65-115); Osmolality Calculated 286 mOsm/kg (285-295); Potassium 4.6 mmol/L (3.5-5.1); Sodium 133 mmol/L (136-145); Total Bilirubin 0.3 mg/dL (0.15-1.2); Total Protein 6.7 g/dL (6.6-8.7)
--- NOTE | 2021-03-22 07:13 | ONC FU_ITS ---
Dr. Tang Patient Follow-Up Note Patient: Yoni Connell Unit #: [id number]: [id number] Dicatated By: Yamil Tang M.D.Date of Visit:Mar 21, 2021 Onc Med Follow-up/Prog Note Chief Complaint: Lung cancer. 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 By clinical evaluation his disease was stage at least IIIA (T4, N1, M0) at initial diagnosis in September 2020. He had presented with hemoptysis. Chest CT on 09/17/2020 showed a left upper lobe mass measuring 4.8 x 5.4 x 7.3 cm, new compared to a prior CT from November 2019. Small nodules noted in various locations throughout the lungs appeared stable. The visualized portions of the liver and the adrenal glands appeared normal. He was referred to Dr. Castillo. On 10/01/2020 he underwent bronchoscopy/EBUS with endobronchial biopsies and with FNA biopsies from station 7 and from left hilar lymph nodes. Pathology of the left upper lobe endobronchial biopsy and of the left hilar mass FNA biopsy showed moderate to poorly differentiated squamous cell carcinoma. The FNA biopsy at station 7 showed benign pathology. I had seen him initially on 10/07/2020. His staging PET/CT on 10/16/2020 showed left upper lobe mass measuring 5.2 x 4.1 cm with SUV 20.6, consistent with primary malignancy. Lingular infiltrates were noted to be FDG negative and most likely benign. Multiple subcentimeter pulmonary nodules were too small to characterize. There was mild activity and subaortic lymph nodes, suspected to be due to local metastatic disease. Staging head MRI on 10/22/2020 showed no evidence of metastatic disease. With those findings, he underwent treatment with radiation, concurrently with weekly carboplatin/Abraxane chemotherapy. He tolerated his initial chemotherapy infusion without acute toxicity, and he was then able to continue treatment on a weekly schedule. He completed his 6th and final chemotherapy infusion on 12/20/2020. He completed radiation on 12/31/2020 to a total dose of 6600 cGy administered in [address] on 01/10/2021 showed significant decrease in the left hilar region mass measuring 1.2 x 3.1 cm compared to 5.2 x 4.1 cm on the pretreatment study. There was noted to be extension into the left upper and left lower lobe bronchovascular bundle. There was no new or increasing pulmonary mass. A 10 mm left paratracheal lymph node was noted to be slightly smaller compared to the prior study. With those findings he was recommended to continue with maintenance immunotherapy with durvalumab. His other medical illnesses include hypertension, hyperlipidemia, type 2 diabetes, GERD, COPD, obstructive sleep apnea, and peripheral neuropathy. He has history of polysubstance abuse and he has a history of depression. 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 He has a history of smoking off and on for 50 years, up to a pack of cigarettes daily. He has quit. INTERIM HISTORY: On 01/19/2021 he began cycle 1 of durvalumab administered at a fixed dosage of 1500 mg by IV infusion every 4 weeks. He tolerated it without acute toxicity. On 02/08/2021 he was admitted to the hospital with pneumonia which developed following a traumatic right fifth rib fracture. He improved on antibiotic coverage and he was discharged home with Levaquin and Medrol Dosepak. He was able to continue with cycle 2 of maintenance durvalumab on 02/15/2021. On 03/14/2021 he was admitted to the hospital with bilateral pneumonia. He had presented to the emergency room with shortness of breath. His CT pulmonary angiogram showed no evidence of pulmonary embolism. There were worsening bilateral pulmonary opacities consistent with pneumonia versus COVID-19 virus infection. However he again tested negative for COVID-19. He was given antibiotic coverage with Zosyn and azithromycin, and he was given empiric steroid therapy. He improved clinically and on 03/17/2021 he was able to be discharged home on Levaquin, prednisone, and home oxygen. He is seen for a follow-up visit. He has limited activity tolerance but with the oxygen he is able to do light work. His ECOG score is 1. Appetite has been okay. He has not had fever. He was having night sweating, but that has improved now. He has some sinus drainage. His cough is better. He does not complain of chest pain. He has no GI or complaints. He has generalized joint pain and back pain, which is chronic. He has a little bit of headache. He does not complain of dizziness or lightheadedness. He occasionally has numbness in his left foot. Medications: Advair Diskus 1 Puff(s) (of 250-50 mcg/dose) Aerosol Powder, Breath Activated Inhalation b.i.d., BuPROPion HCl ER (XL) 1 Tablet (of 300 mg) Tablet SR 24 HR Oral every am, DiazePAM 1 Tablet (of 5 mg) Oral t.i.d., Enalapril Maleate (10 mg) Tablet Oral daily, FLUoxetine HCl 1 Capsule (of 40 mg) Oral daily, Gabapentin 1 Tablet (of 300 mg) Oral t.i.d., Hydrocodone-Acetaminophen 1 Tablet (of 7.5-325 mg) Tablet Oral four times a day PRN, Lovastatin 1 Tablet (of 40 mg) Oral daily, [id number] Ethyl Esters 2 Capsule (of 1 G) Oral daily, Stiolto Respimat 2 Puff(s) (of 2.5-2.5 mcg/act) Aerosol, solution Inhalation b.i.d., TraZODone HCl 1 Tablet (of 150 mg) Oral at bedtime Allergies: No Known Allergies. Vital Signs: Performed on Mar 21, 2021 14:52 Height - 72.00 in Weight - 257.6 lbs (LOW) BSA - 2.37 sq.m BMI - 34.94 (HIGH) Temperature - 97.5 F (LOW) Pulse - 91 /min Respiration - 18 /min BP - 117/68 mm(hg) O2 Sat - 93 % (LOW) Pain - 6 Fatigue - 0 Physical Examination: Constitutional - He appears somewhat weak generally, he appears short of breath with effort, Eyes - Sclerae nonicteric. Conjunctivae clear, ENMT - No lesions noted in the oral cavity, Hematologic/Lymphatic - No cervical, clavicular, or axillary adenopathy, Respiratory - Lungs show diminished air movement with coarse breath sounds on inspiration and expiration bilaterally, Cardiovascular - Heart rhythm is regular. There is no murmur, gallop, or rub noted, Abdomen - Mildly distended. Liver and spleen are not enlarged. There is no abdominal mass or ascites noted and there is no inguinal adenopathy, Extremities - No edema, Neurologic - No focal neurologic deficits noted. Lab/Imaging: Test performed on Mar 21, 2021 13:04 Sodium 133 mmol/L Potassium 4.6 mmol/L Chloride 95 mmol/L CO2 26 mmol/L Anion Gap 16.6 BUN 17 mg/dL Creatinine 0.8 mg/dL Cr Clearance (Est) 144.03 mL/min eGFR 95.8 mL/min Glucose 248 mg/dL Osmolality - Calculated 286 mOsm/kg Calcium 9.6 mg/dL Protein, Total 6.7 g/dL Albumin 4.1 g/dL Globulin 2.6 g/dL Bilirubin, Total 0.3 mg/dL ALT (SGPT) 20 U/L AST (SGOT) 13 U/L Alkaline Phosphatase 82 IU/L WBC 7.5 10 3/uL RBC 4.09 10 6/uL HGB 12.1 g/dL HCT 37.5 % MCV 91.7 fl MCH 29.6 pg MCHC 32.3 g/dL RDW 13.9 % Platelet Count 273 10 3/cmm MPV 10.2 fL Neutrophils 6.88 10 3/uL Lymphocytes 0.3 10 3/uL Monocytes 0.2 10 3/uL Eosinophils 0.0 10 3/uL Basophils 0.0 10 3/uL Neutrophil % 91.4 % Lymphocyte % 4.5 % Monocyte % 2.1 % Eosinophil % 0.4 % Basophils % 0.4 % NRBC % 0 % Problem List: 1. Moderate to poorly differentiated squamous cell carcinoma involving the upper lobe of the left lung, by clinical evaluation stage at least IIIA (T4, N1, M0). 2. Hypertension. 3. Hyperlipidemia. 4. Type 2 diabetes. 5. COPD. 6. GERD. 7. Obstructive sleep apnea. 8. Peripheral neuropathy. 9. History of lumbar spinal stenosis. 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 11. History of polysubstance abuse. 12. Depression. 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 By clinical evaluation his disease appeared to be stage at least IIIA (T4, N1, M0). He had an endobronchial lesion with associated hemoptysis at initial presentation. His staging PET/CT also showed mild activity in subaortic lymph nodes, suggesting possible N2 disease. With those findings, he was recommended to undergo chemoradiation. On 11/15/2020 he began radiation, concurrently with weekly carboplatin/Abraxane chemotherapy. He tolerated his initial chemotherapy infusion without acute toxicity, and he was then able to continue treatment on a weekly schedule. He completed his 6th and final chemotherapy infusion on 12/20/2020. He completed radiation on 12/31/2020 to a total dose of 6600 cGy administered in 33 fractions. Overall, he tolerated the treatment well. He had a significant response by follow-up chest CT. On 01/19/2021 he began cycle 1 of maintenance durvalumab, 1500 mg by IV infusion administered at 4-week intervals. He tolerated it without acute toxicity. He will proceed now with cycle 2 of durvalumab, 1500 mg by IV infusion. On 02/08/2021 he required treatment for pneumonia which developed in association with traumatic right fifth rib fracture. He improved clinically on antibiotic therapy. He was able to continue with cycle 2 of maintenance durvalumab on 02/15/2021. On 03/14/2021 he was admitted to the hospital with bilateral pneumonia. He tested negative for COVID-19 virus infection. He is again showing clinical improvement on antibiotic and steroid therapy. While this could just be bacterial pneumonia, I am more concerned now about the possibility of this being treatment related pneumonitis. As such, his treatment will be put on hold. He will continue steroid coverage with prednisone. I will see him for a follow-up visit in 2 weeks. Signed By: Yamil Tang M.D. <<Signature on File>>
== END 2021-04-03 23:59 | disposition home or self-care (01) ==
LOC: ONCMED 06:34
PROVIDERS: PCP Internal Medicine; Visit Provider Internal Medicine Medical Oncology
DX: C34.12 Malignant neoplasm of upper lobe, left bronchus or lung (principal); I10 Essential (primary) hypertension; E78.5 Hyperlipidemia, unspecified; E11.42 Type 2 diabetes mellitus with diabetic polyneuropathy; J44.9 Chronic obstructive pulmonary disease, unspecified; K21.9 Gastro-esophageal reflux disease without esophagitis; G47.33 Obstructive sleep apnea (adult) (pediatric); M51.36 Other intervertebral disc degeneration, lumbar region; M48.061 Spinal stenosis, lumbar region without neurogenic claudication; F32.9 Major depressive disorder, single episode, unspecified; Z85.51 Personal history of malignant neoplasm of bladder; F19.11 Other psychoactive substance abuse, in remission; Z79.899 Other long term (current) drug therapy; Z92.21 Personal history of antineoplastic chemotherapy; Z92.3 Personal history of irradiation
CPT/HCPCS: 36591; 80053; 85025; 99214

== ENCOUNTER 2021-04-05 06:17 | Outpatient (RCR) | payer MEDICAID, SELFPAY ==
[2021-04-04 14:20] LABS: Basophils % 0.8 %; Eosinophils # 0.1 10^3/uL (0.0-0.8); Hemoglobin 11.4 g/dL (11.7-16.6); Lymphocytes # 0.5 10^3/uL (0.8-4.8); Lymphocytes % 9.1 %; Mean Corpuscular HGB Conc 31.7 g/dL (30.0-36.0); Mean Corpuscular Hemoglobin 28.3 pg (28.0-34.0); Mean Corpuscular Volume 89.3 fl (80-94); Monocytes # 0.4 10^3/uL (0.2-0.9); Monocytes % 7.5 %; Neutrophils # 4.05 10^3/uL (1.8-7.7); Nucleated Red Blood Cells % 0 %; Platelet Count 184 10^3/cmm (130-400); Red Blood Count 4.03 10^6/uL (4.1-5.3); Red Cell Distribution Width 13.9 % (12.1-15.1); White Blood Count 5.1 10^3/uL (4.0-10.0)
[2021-04-04 14:38] LABS: Alanine Aminotransferase 11 U/L (0-41); Albumin Level 3.9 g/dL (3.5-5.2); Alkaline Phosphatase 88 IU/L (40-130); Anion Gap 17.8 (5-19); Aspartate Amino Transferase 9 U/L (0-40); Blood Urea Nitrogen 17 mg/dL (8-23); Carbon Dioxide 25 mmol/L (22-29); Chloride 96 mmol/L (98-107); Globulin 2.3 g/dL (1.3-4.6); Glomerular Filtration Rate 111.8 mL/min (90-130); Glucose 193 mg/dL (65-115); Osmolality Calculated 287 mOsm/kg (285-295); Potassium 3.8 mmol/L (3.5-5.1); Sodium 135 mmol/L (136-145); Total Bilirubin 0.2 mg/dL (0.15-1.2); Total Protein 6.2 g/dL (6.6-8.7)
[2021-04-05 13:39] LABS: Erythrocyte Sedimentation Rate 36 mm/hr (0-10)
--- NOTE | 2021-04-07 14:08 | ONC FU_ITS ---
Dr. Tang Patient Follow-Up Note Patient: Yoni Connell Unit #: [id number]: 1950 Dicatated By: Yamil Tang M.D.Date of Visit:Apr 05, 2021 Onc Med Follow-up/Prog Note Chief Complaint: Lung cancer. 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 By clinical evaluation his disease was stage at least IIIA (T4, N1, M0) at initial diagnosis in September 2020. He had presented with hemoptysis. Chest CT on 09/17/2020 showed a left upper lobe mass measuring 4.8 x 5.4 x 7.3 cm, new compared to a prior CT from November 2019. Small nodules noted in various locations throughout the lungs appeared stable. The visualized portions of the liver and the adrenal glands appeared normal. He was referred to Dr. Castillo. On 10/01/2020 he underwent bronchoscopy/EBUS with endobronchial biopsies and with FNA biopsies from station 7 and from left hilar lymph nodes. Pathology of the left upper lobe endobronchial biopsy and of the left hilar mass FNA biopsy showed moderate to poorly differentiated squamous cell carcinoma. The FNA biopsy at station 7 showed benign pathology. I had seen him initially on 10/07/2020. His staging PET/CT on 10/16/2020 showed left upper lobe mass measuring 5.2 x 4.1 cm with SUV 20.6, consistent with primary malignancy. Lingular infiltrates were noted to be FDG negative and most likely benign. Multiple subcentimeter pulmonary nodules were too small to characterize. There was mild activity and subaortic lymph nodes, suspected to be due to local metastatic disease. Staging head MRI on 10/22/2020 showed no evidence of metastatic disease. With those findings, he underwent treatment with radiation, concurrently with weekly carboplatin/Abraxane chemotherapy. He tolerated his initial chemotherapy infusion without acute toxicity, and he was then able to continue treatment on a weekly schedule. He completed his 6th and final chemotherapy infusion on 12/20/2020. He completed radiation on 12/31/2020 to a total dose of 6600 cGy administered in [address] on 01/10/2021 showed significant decrease in the left hilar region mass measuring 1.2 x 3.1 cm compared to 5.2 x 4.1 cm on the pretreatment study. There was noted to be extension into the left upper and left lower lobe bronchovascular bundle. There was no new or increasing pulmonary mass. A 10 mm left paratracheal lymph node was noted to be slightly smaller compared to the prior study. With those findings he was recommended to continue with maintenance immunotherapy with durvalumab. His other medical illnesses include hypertension, hyperlipidemia, type 2 diabetes, GERD, COPD, obstructive sleep apnea, and peripheral neuropathy. He has history of polysubstance abuse and he has a history of depression. 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 He has a history of smoking off and on for 50 years, up to a pack of cigarettes daily. He has quit. INTERIM HISTORY: On 01/19/2021 he began cycle 1 of durvalumab administered at a fixed dosage of 1500 mg by IV infusion every 4 weeks. He tolerated it without acute toxicity. On 02/08/2021 he was admitted to the hospital with pneumonia which developed following a traumatic right fifth rib fracture. He improved on antibiotic coverage and he was discharged home with Levaquin and Medrol Dosepak. He was able to continue with cycle 2 of maintenance durvalumab on 02/15/2021. On 03/14/2021 he was admitted to the hospital with bilateral pneumonia. He had presented to the emergency room with shortness of breath. His CT pulmonary angiogram showed no evidence of pulmonary embolism. There were worsening bilateral pulmonary opacities consistent with pneumonia versus COVID-19 virus infection. However he again tested negative for COVID-19. He was given antibiotic coverage with Zosyn and azithromycin, and he was given empiric steroid therapy. He improved clinically and on 03/17/2021 he was able to be discharged home on Levaquin, prednisone, and home oxygen. At his follow-up visit on 03/21/2021 he still had significant shortness of breath. I opted to continue steroid therapy and keep his treatment on hold. He is seen now for a follow-up visit. He still does not feel good. He has shortness of breath on oxygen, and the oxygen is causing some sinus symptoms and epistaxis. He has limited activity, but he is still able to do some light work. ECOG score is 1. His appetite is okay. He does not have fever or night sweats. He does not have sore mouth or throat. He does not have much cough, and he does not complain of chest pain. He has no GI or complaints. He has pain in his back and in all of his joints. He does not complain of headache. Occasionally has numbness in his left foot. He has no other focal neurologic symptoms. Medications: Advair Diskus 1 Puff(s) (of 250-50 mcg/dose) Aerosol Powder, Breath Activated Inhalation b.i.d., BuPROPion HCl ER (XL) 1 Tablet (of 300 mg) Tablet SR 24 HR Oral every am, DiazePAM 1 Tablet (of 5 mg) Oral t.i.d., Enalapril Maleate (10 mg) Tablet Oral daily, FLUoxetine HCl 1 Capsule (of 40 mg) Oral daily, Gabapentin 1 Tablet (of 300 mg) Oral t.i.d., Hydrocodone-Acetaminophen 1 Tablet (of 7.5-325 mg) Tablet Oral four times a day PRN, Lovastatin 1 Tablet (of 40 mg) Oral daily, [id number]-5-[id number] Ethyl Esters 2 Capsule (of 1 G) Oral daily, Stiolto Respimat 2 Puff(s) (of 2.5-2.5 mcg/act) Aerosol, solution Inhalation b.i.d., TraZODone HCl 1 Tablet (of 150 mg) Oral at bedtime Allergies: No Known Allergies. Vital Signs: Performed on Apr 05, 2021 08:13 Height - 72.00 in Weight - 263.8 lbs (HIGH) BSA - 2.40 sq.m BMI - 35.78 (HIGH) Temperature - 97.8 F (LOW) Pulse - 87 /min Respiration - 20 /min BP - 111/69 mm(hg) O2 Sat - 93 % (LOW) Pain - 7 Fatigue - 8 Physical Examination: Constitutional - He appears short of breath with effort, Eyes - Sclerae nonicteric. Conjunctivae clear, ENMT - No lesions noted in the oral cavity, Hematologic/Lymphatic - No cervical, clavicular, or axillary adenopathy, Respiratory - Lungs show coarse breath sounds and diminished air movement bilaterally, Cardiovascular - Heart rhythm is regular. There is no murmur, gallop, or rub noted, Abdomen - Mildly distended. Liver and spleen are not enlarged. There is no abdominal mass or ascites noted and there is no inguinal adenopathy, Extremities - No edema, Neurologic - No focal neurologic deficits noted. Lab/Imaging: CBC shows hemoglobin 11.4 g, white blood cell count 5100, and platelet count 184,000. Comprehensive metabolic profile is unremarkable. Problem List: 1. Moderate to poorly differentiated squamous cell carcinoma involving the upper lobe of the left lung, by clinical evaluation stage at least IIIA (T4, N1, M0). 2. Hypertension. 3. Hyperlipidemia. 4. Type 2 diabetes. 5. COPD. 6. GERD. 7. Obstructive sleep apnea. 8. Peripheral neuropathy. 9. History of lumbar spinal stenosis. 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 11. History of polysubstance abuse. 12. Depression. 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 By clinical evaluation his disease appeared to be stage at least IIIA (T4, N1, M0). He had an endobronchial lesion with associated hemoptysis at initial presentation. His staging PET/CT also showed mild activity in subaortic lymph nodes, suggesting possible N2 disease. With those findings, he was recommended to undergo chemoradiation. On 11/15/2020 he began radiation, concurrently with weekly carboplatin/Abraxane chemotherapy. He tolerated his initial chemotherapy infusion without acute toxicity, and he was then able to continue treatment on a weekly schedule. He completed his 6th and final chemotherapy infusion on 12/20/2020. He completed radiation on 12/31/2020 to a total dose of 6600 cGy administered in 33 fractions. Overall, he tolerated the treatment well. He had a significant response by follow-up chest CT. On 01/19/2021 he began cycle 1 of maintenance durvalumab, 1500 mg by IV infusion administered at 4-week intervals. He tolerated it without acute toxicity. He will proceed now with cycle 2 of durvalumab, 1500 mg by IV infusion. On 02/08/2021 he required treatment for pneumonia which developed in association with traumatic right fifth rib fracture. He improved clinically on antibiotic therapy. He was able to continue with cycle 2 of maintenance durvalumab on 02/15/2021. On 03/14/2021 he was admitted to the hospital with bilateral pneumonia. CT pulmonary angiogram showed no evidence of pulmonary emboli, but there were worsening bilateral pulmonary opacities. He tested negative for COVID-19 virus infection. He remains uncertain to what extent that illness may have been due to bacterial pneumonia versus treatment related pneumonitis. He has continued on steroid therapy, thus far without significant improvement in his clinical status. As such, his treatment will remain on hold. He will continue prednisone 10 mg twice daily. He will be scheduled for follow-up with repeat chest CT in 3 weeks. Signed By: Yamil Tang M.D. <<Signature on File>>
== END 2021-04-07 13:00 | disposition home or self-care (01) ==
LOC: ONCMED 06:17
PROVIDERS: PCP Internal Medicine; Visit Provider Internal Medicine Medical Oncology
DX: C34.12 Malignant neoplasm of upper lobe, left bronchus or lung (principal); I10 Essential (primary) hypertension; E78.5 Hyperlipidemia, unspecified; E11.42 Type 2 diabetes mellitus with diabetic polyneuropathy; J44.9 Chronic obstructive pulmonary disease, unspecified; K21.9 Gastro-esophageal reflux disease without esophagitis; G47.33 Obstructive sleep apnea (adult) (pediatric); F32.9 Major depressive disorder, single episode, unspecified; Z87.39 Personal history of other diseases of the musculoskeletal system and connective tissue; Z85.51 Personal history of malignant neoplasm of bladder; F19.11 Other psychoactive substance abuse, in remission; Z79.52 Long term (current) use of systemic steroids; Z79.899 Other long term (current) drug therapy
CPT/HCPCS: 36591; 80053; 85025; 85651; 99214

== ENCOUNTER 2021-04-07 13:02 | Outpatient (CLI) | payer MEDICAID, SELFPAY ==
--- NOTE | 2021-04-07 13:47 | PFTS_ITS ---
Date of Study:04/07/21 Date of Dictation: MECHANICS: Forced vital capacity (FVC) is reduced. Forced expiratory volume in one second (FEV1) is reduced. FEV1/FVC is normal. FLOW VOLUME LOOP: Mild scooping. LUNG VOLUMES: Total lung capacity (TLC) is reduced. Residual volume (RV) is normal. DIFFUSING CAPACITY FOR CARBON MONOXIDE: Severely reduced. INTERPRETATION: The postbronchodilator spirometry is consistent with moderate restriction. The flow volume loop is consistent with small airways disease. The patient likely has a component of obstructive and restrictive ventilatory defects. Lung volumes are consistent with mild restriction. Gas exchange (DLCO) is severely reduced. MTDD
== END 2021-04-07 13:03 | disposition home or self-care (01) ==
LOC: RT 13:06
PROVIDERS: PCP Internal Medicine; Visit Provider Internal Medicine Critical Care Medicine
DX: J44.9 Chronic obstructive pulmonary disease, unspecified (principal)
CPT/HCPCS: 94060; 94726; 94729; J7611

== ENCOUNTER → 2021-04-19 14:21 | Outpatient (BNVA) | payer MEDICAID, SELFPAY | PROVIDERS: PCP Internal Medicine; Visit Provider Urology | DX: C67.0 Malignant neoplasm of trigone of bladder (principal) | CPT/HCPCS: 81003 ==

== ENCOUNTER 2021-04-21 09:15 | Outpatient (CLI) | payer MEDICAID, SELFPAY ==
--- NOTE | 2021-04-21 | CT_ITS ---
WS: [id number] CT CHEST WITH INTRAVENOUS CONTRAST HISTORY: LUNG CA TECHNIQUE: Contiguous 5 mm axial imaging performed on the thorax. Coronal and sagittal reformats are submitted. All CT scans at [facility] use at least one of these dose optimization techniques: automated exposure control; mA and/or kV adjustment per patient size (includes targeted exams where dose is matched to clinical indication); or iterative reconstruction. CONTRAST: Omnipaque 300; 95 mL IV. DLP: 1072.11 mGycm COMPARISON: 03/14/2021 and 02/08/2021 Lungs and central airway: Marked pulmonary hyperexpansion with prominent peripheral reticulations thr oughout both lungs. Mild scattered groundglass and hazy attenuation throughout both lungs. Mildly imp roved since 03/14/2021. Persistent and mildly increased opacification in the LEFT lung extending betw een the upper and lower lobes. This area of increasing consolidation may be posttreatment related. If the patient is receiving radiation this may be postradiation pneumonitis. The large area of tumor ce ntered over the LEFT hilum as seen on 09/17/2020 has significantly decreased in size. The dense area o f soft tissue thickening now at the LEFT hilum measures 3.7 x 3.3 cm and is contiguous with the addit ional increasing opacification. Pleura: Small layering LEFT pleural effusion. Heart and pericardium: Mildly enlarged heart. Mediastinum and tom: Small mediastinal and hilar lymph nodes. There is increased soft tissue at the LEFT hilum which may be residual tumor. LEFT paratracheal lymph node is 9 mm. This lymph node has dec reased in size since 09/17/2020. Vessels: Moderate atherosclerosis aorta. Pulmonary hypertension. Chest wall and lower neck: RIGHT subclavian Port-A-Cath. Upper abdomen: Hepatic steatosis. In the visualized liver no abnormality. No adrenal mass. 2.2 cm cys t LEFT kidney. Osseous structures: Mild increase in thoracic kyphosis. Destructive rib lesion on the RIGHT appears t o be the fifth rib. There is increased soft tissue. There is also a healed fracture involving the six th rib laterally. CT/CT chest w con* [id number] IMPRESSION: 1. Increasing consolidation extending between the LEFT upper and lower lobes c entered at the hilum. The previously described soft tissue mass has significant ly decreased in size. The changes now present are probably due to radiation ind uced pneumonitis. The residual soft tissue tumor at the hilum is difficult to d ifferentiate between the adjacent pneumonitis but measures approximately 3.7 x 3.[address] follow-up recommended. 2. Improved aeration throughout the RIGHT lung as compared to 03/14/2021. 3. Small LEFT pleural effusion. 4. No increasing lymphadenopathy. 5. Destructive rib lesion without union involving the RIGHT lateral fifth rib. Similar to 03/14/2021 but new since 09/17/2020. Metastatic site is not excluded .
[2021-04-21] MEDS: iohexol 300 mg/mL 100 mL Btl IV (09:35)
== END 2021-04-21 09:16 | disposition home or self-care (01) ==
PROVIDERS: PCP Internal Medicine; Visit Provider Internal Medicine Medical Oncology
DX: C34.12 Malignant neoplasm of upper lobe, left bronchus or lung (principal); J90 Pleural effusion, not elsewhere classified
CPT/HCPCS: 71260; Q9967

== ENCOUNTER 2021-04-22 08:17 | Outpatient (CLI) | payer MEDICAID, SELFPAY ==
--- NOTE | 2021-04-22 09:07 | NMCV_ITS ---
NM simone perf SPECT r/s* [id number] KoYoni Age: 70 Gender: M : 1950 Exam Date: 04/22/2021 09:33 Ordering Phys: Rosalio Goodman MD Technologist: BRIANNE Ascencio Exam Location: [facility] Indications: SHORTNESS OF BREATH STRESS TEST [facility] IMAGE PROTOCOL Rest/Stress 1 Lexiscan Day Radiopharmaceutical Dose (mCi) Administration Site Administered by Rest: Tc-99m 11.0 IV BRIANNE Orona Sestamibi Stress:Tc-99m 33.0 IV BRIANNE Orona Sestamibi Rest: 22-Apr-2021 60 Discovery 630 Stress: 22-Apr-2021 30 Discovery 630 0.4mg Lexiscan. Images obtained in supine and prone position. SPECT RESULTS Technical Quality: Excellent Raw Data Analysis: Normal Image Corrections: No attenuation or motion correction applied Summed Stress Score: 4 Summed Rest Score: 6 Summed Difference Score: 1 PERFUSION FINDINGS Moderate area of decreased tracer glucose noted in the apical anterior, apical lateral, apical inferior and LV apex. Some reversibility was noted in the apical anterior region. FUNCTIONAL RESULTS (calculated via Gated SPECT) Stress Image LV EF (%): 50 Stress EDV (mL):153 TID: 1.17 Stress ESV (mL):76 FUNCTIONAL FINDINGS: Segmental wall motion analysis revealing no gross wall motion normalities. IMPRESSIONS 1. Myocardial perfusion imaging revealing small areas of decreased uptake in the apical anterior, lateral, inferior and LV apex. Some reversibility was noted in the apical anterior region suggestive of myocardial scarring with ischemia in the distribution of the distal left anterior descending artery. 2. Normal LV ejection fraction of 50%. 3. LV wall motion analysis revealing relative hypokinesis of the apical anterior region. 4. Mildly dilated LV cavity with an end-systolic volume of 76 ml No similar previous studies are available for comparison Dr Bola Haile MD FAC (Electronically Signed) Final Date: 22 April 2021 14:08 S
--- NOTE | 2021-04-22 09:07 | ECG_ITS ---
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 Interpretive Statements NAME OF STUDY: LEXISCAN SESTAMIBI STRESS TEST INDICATION: Abnormal trop, PROCEDURE: At the baseline, the EKG revealed atrial fibrillation with a controlled regular response rate. Nonspecific T wave changes. V2/ V3 lead reversal. The baseline blood pressure was 105/68 mm Hg with a heart rate of 81 beats/min. Lexiscan was infused over a period of 20 seconds. A total of 0.4 milligrams of Lexiscan was infused. The stress phase was continued for a total of 5 minutes. Heart rate at the end of the stress phase was 82 with a blood pressure 130/61. The EKG at the peak infusion revealed no significant changes. Sestamibi was injected 20 seconds after the Lexiscan infusion. Blood pressure at the end of the recovery phase was 93/64 with a heart rate of 81 per minute. CONCLUSION: 1. No significant EKG changes with the LexiScan infusion 2. No LexiScan induced chest pain or cardiac arrhythmia 3. Normal blood pressure and heart rate response 4. Sestamibi/sestamibi perfusion scan pending; see separate report. Electronically Signed On 04-24-2021 21:17:17 [employer]UMNI RELATIONS MANAGER by Bola Haile M.D. [id number]
[2021-04-22 09:08] VITALS: BMI 35.9
[2021-04-22] MEDS: regadenoson 0.4 Mg/5 ml Syringe IVP (10:27)
[2021-04-22 10:56] VITALS: BP 93/64; PULSE 81
== END 2021-04-22 08:18 | disposition home or self-care (01) ==
LOC: CDL 08:17
PROVIDERS: PCP Internal Medicine; Visit Provider Internal Medicine
DX: R77.8 Other specified abnormalities of plasma proteins (principal); R06.02 Shortness of breath
CPT/HCPCS: 78452; 93017; A9500; J2785

== ENCOUNTER 2021-04-26 06:59 | Outpatient (RCR) | payer MEDICAID, SELFPAY ==
[2021-04-26 08:55] LABS: Basophils # 0.1 10^3/uL (0.0-0.1); Basophils % 0.4 %; Eosinophils # 0.1 10^3/uL (0.0-0.8); Eosinophils % 0.9 %; Hemoglobin 12.6 g/dL (11.7-16.6); Lymphocytes # 0.6 10^3/uL (0.8-4.8); Lymphocytes % 5.4 %; Mean Corpuscular HGB Conc 33.2 g/dL (30.0-36.0); Mean Corpuscular Hemoglobin 28.6 pg (28.0-34.0); Mean Corpuscular Volume 86.2 fl (80-94); Mean Platelet Volume 9.9 fL (7.4-10.4); Monocytes # 0.8 10^3/uL (0.2-0.9); Monocytes % 7.4 %; Neutrophils # 9.53 10^3/uL (1.8-7.7); Neutrophils % 84.5 %; Nucleated Red Blood Cells % 0 %; Platelet Count 186 10^3/cmm (130-400); Red Blood Count 4.41 10^6/uL (4.1-5.3); Red Cell Distribution Width 14.3 % (12.1-15.1); White Blood Count 11.3 10^3/uL (4.0-10.0)
[2021-04-26 09:28] LABS: Alanine Aminotransferase 10 U/L (0-41); Albumin Level 4.2 g/dL (3.5-5.2); Alkaline Phosphatase 90 IU/L (40-130); Blood Urea Nitrogen 27 mg/dL (8-23); Calcium 9.2 mg/dL (8.5-10.5); Carbon Dioxide 27 mmol/L (22-29); Chloride 92 mmol/L (98-107); Globulin 2.6 g/dL (1.3-4.6); Glomerular Filtration Rate 95.8 mL/min (90-130); Glucose 264 mg/dL (65-115); Osmolality Calculated 290 mOsm/kg (285-295); Sodium 133 mmol/L (136-145); Thyroid Stimulating Hormone 0.96 uIU/mL (0.27-4.20); Total Bilirubin 0.3 mg/dL (0.15-1.2); Total Protein 6.8 g/dL (6.6-8.7)
[2021-04-26 09:29] LABS: Anion Gap 18.6 (5-19); Aspartate Amino Transferase 11 U/L (0-40); Potassium 4.6 mmol/L (3.5-5.1)
--- NOTE | 2021-04-26 11:35 | ONC FU_ITS ---
Dr. Tang Patient Follow-Up Note Patient: Yoni Connell Unit #: [id number]: 1950 Dicatated By: Yamil Tang M.D.Date of Visit:Apr 26, 2021 Onc Med Follow-up/Prog Note Chief Complaint: Lung cancer. 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 By clinical evaluation his disease was stage at least IIIA (T4, N1, M0) at initial diagnosis in September 2020. He had presented with hemoptysis. Chest CT on 09/17/2020 showed a left upper lobe mass measuring 4.8 x 5.4 x 7.3 cm, new compared to a prior CT from November 2019. Small nodules noted in various locations throughout the lungs appeared stable. The visualized portions of the liver and the adrenal glands appeared normal. He was referred to Dr. Castillo. On 10/01/2020 he underwent bronchoscopy/EBUS with endobronchial biopsies and with FNA biopsies from station 7 and from left hilar lymph nodes. Pathology of the left upper lobe endobronchial biopsy and of the left hilar mass FNA biopsy showed moderate to poorly differentiated squamous cell carcinoma. The FNA biopsy at station 7 showed benign pathology. I had seen him initially on 10/07/2020. His staging PET/CT on 10/16/2020 showed left upper lobe mass measuring 5.2 x 4.1 cm with SUV 20.6, consistent with primary malignancy. Lingular infiltrates were noted to be FDG negative and most likely benign. Multiple subcentimeter pulmonary nodules were too small to characterize. There was mild activity and subaortic lymph nodes, suspected to be due to local metastatic disease. Staging head MRI on 10/22/2020 showed no evidence of metastatic disease. With those findings, he underwent treatment with radiation, concurrently with weekly carboplatin/Abraxane chemotherapy. He tolerated his initial chemotherapy infusion without acute toxicity, and he was then able to continue treatment on a weekly schedule. He completed his 6th and final chemotherapy infusion on 12/20/2020. He completed radiation on 12/31/2020 to a total dose of 6600 cGy administered in [address] on 01/10/2021 showed significant decrease in the left hilar region mass measuring 1.2 x 3.1 cm compared to 5.2 x 4.1 cm on the pretreatment study. There was noted to be extension into the left upper and left lower lobe bronchovascular bundle. There was no new or increasing pulmonary mass. A 10 mm left paratracheal lymph node was noted to be slightly smaller compared to the prior study. With those findings he was recommended to continue with maintenance immunotherapy with durvalumab. His other medical illnesses include hypertension, hyperlipidemia, type 2 diabetes, GERD, COPD, obstructive sleep apnea, and peripheral neuropathy. He has history of polysubstance abuse and he has a history of depression. 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 He has a history of smoking off and on for 50 years, up to a pack of cigarettes daily. He has quit. INTERIM HISTORY: On 01/19/2021 he began cycle 1 of durvalumab administered at a fixed dosage of 1500 mg by IV infusion every 4 weeks. He tolerated it without acute toxicity. On 02/08/2021 he was admitted to the hospital with pneumonia which developed following a traumatic right fifth rib fracture. He improved on antibiotic coverage and he was discharged home with Levaquin and Medrol Dosepak. He was able to continue with cycle 2 of maintenance durvalumab on 02/15/2021. On 03/14/2021 he was admitted to the hospital with bilateral pneumonia. He had presented to the emergency room with shortness of breath. His CT pulmonary angiogram showed no evidence of pulmonary embolism. There were worsening bilateral pulmonary opacities consistent with pneumonia versus COVID-19 virus infection. However he again tested negative for COVID-19. He was given antibiotic coverage with Zosyn and azithromycin, and he was given empiric steroid therapy. He improved clinically and on 03/17/2021 he was able to be discharged home on Levaquin, prednisone, and home oxygen. At his follow-up visit on 03/21/2021 he still had significant shortness of breath. I opted to continue steroid therapy and keep his treatment on hold. His restaging chest CT on 04/21/2021 showed increasing consolidation between the left upper and lower lobes centered at the hilum, thought to be most likely due to radiation pneumonitis. There appeared to be a significant decrease in the size of the previously described soft tissue mass, estimated at 3.7 x 3.3 cm. There was improved aeration throughout the right lung compared to March 2021. There was no increasing lymphadenopathy. A destructive rib lesion involving the right lateral fifth rib appeared similar to March 2021 but new since September 2020. A metastatic site was not excluded. He then had a sestamibi stress test on 04/22/2021. The myocardial perfusion imaging revealed small areas of decreased uptake in the apical anterior, lateral, inferior, and LV apex. Some reversibility was noted in the apical anterior region suggestive of myocardial scarring with ischemia in the distribution of the distal left anterior descending artery. The left ventricular ejection fraction was normal at 50%. He is seen for a follow-up visit. He has noted some improvement in his energy/activity tolerance, though he is still using oxygen most of the time. His ECOG score is 1. He has good appetite. He has not had fever. He sometimes has sweating at night. He complains of having a lot of back pain. He also complains of having arthritis and sciatica pain. He has not had sore mouth or throat. He has a little bit of cough to clear his throat. He says his breathing has been okay on the oxygen. He does not complain of chest pain. He has had some acid reflux. Bowel and bladder function remain adequate. He does not complain of headache or dizziness. He has occasional tingling in his left foot, but that has been going on for years. He has no other focal neurologic symptoms. Medications: Advair Diskus 1 Puff(s) (of 250-50 mcg/dose) Aerosol Powder, Breath Activated Inhalation b.i.d., BuPROPion HCl ER (XL) 1 Tablet (of 300 mg) Tablet SR 24 HR Oral every am, DiazePAM 1 Tablet (of 5 mg) Oral t.i.d., Enalapril Maleate (10 mg) Tablet Oral daily, FLUoxetine HCl 1 Capsule (of 40 mg) Oral daily, Gabapentin 1 Tablet (of 300 mg) Oral t.i.d., Hydrocodone-Acetaminophen 1 Tablet (of 7.5-325 mg) Tablet Oral four times a day PRN, Lovastatin 1 Tablet (of 40 mg) Oral daily, [id number] Ethyl Esters 2 Capsule (of 1 G) Oral daily, predniSONE 1 Tablet (of 10 mg) Oral b.i.d., Stiolto Respimat 2 Puff(s) (of 2.5-2.5 mcg/act) Aerosol, solution Inhalation b.i.d., TraZODone HCl 1 Tablet (of 150 mg) Oral at bedtime Allergies: No Known Allergies. Vital Signs: Performed on Apr 26, 2021 09:58 Height - 72.00 in Weight - 264.2 lbs (HIGH) BSA - 2.40 sq.m BMI - 35.83 (HIGH) Temperature - 96.3 F (LOW) Pulse - 82 /min Respiration - 20 /min BP - 114/77 mm(hg) O2 Sat - 94 % (LOW) Pain - 0 Fatigue - 5 Physical Examination: Constitutional - He does not appear acutely ill, Eyes - Sclerae nonicteric. Conjunctivae clear, ENMT - No lesions noted in the oral cavity, Hematologic/Lymphatic - No cervical, clavicular, or axillary adenopathy, Respiratory - Lungs sound clear with diminished air movement bilaterally, Cardiovascular - Heart rhythm is irregular. There is no murmur, gallop, or rub noted, Abdomen - Mildly distended. Liver and spleen are not enlarged. There is no abdominal mass or ascites noted and there is no inguinal adenopathy, Extremities - No edema, Neurologic - No focal neurologic deficits noted. Lab/Imaging: Test performed on Apr 26, 2021 08:30 Sodium 133 mmol/L TSH 0.96 uIU/mL Potassium 4.6 mmol/L Chloride 92 mmol/L CO2 27 mmol/L Anion Gap 18.6 BUN 27 mg/dL Creatinine 0.8 mg/dL Cr Clearance (Est) 147.72 mL/min eGFR 95.8 mL/min Glucose 264 mg/dL Osmolality - Calculated 290 mOsm/kg Calcium 9.2 mg/dL Protein, Total 6.8 g/dL Albumin 4.2 g/dL Globulin 2.6 g/dL Bilirubin, Total 0.3 mg/dL ALT (SGPT) 10 U/L AST (SGOT) 11 U/L Alkaline Phosphatase 90 IU/L WBC 11.3 10 3/uL RBC 4.41 10 6/uL HGB 12.6 g/dL HCT 38.0 % MCV 86.2 fl MCH 28.6 pg MCHC 33.2 g/dL RDW 14.3 % Platelet Count 186 10 3/cmm MPV 9.9 fL Neutrophils 9.53 10 3/uL Lymphocytes 0.6 10 3/uL Monocytes 0.8 10 3/uL Eosinophils 0.1 10 3/uL Basophils 0.1 10 3/uL Neutrophil % 84.5 % Lymphocyte % 5.4 % Monocyte % 7.4 % Eosinophil % 0.9 % Basophils % 0.4 % NRBC % 0 % Problem List: 1. Moderate to poorly differentiated squamous cell carcinoma involving the upper lobe of the left lung, by clinical evaluation stage at least IIIA (T4, N1, M0). 2. Hypertension. 3. Hyperlipidemia. 4. Type 2 diabetes. 5. COPD. 6. GERD. 7. Obstructive sleep apnea. 8. Peripheral neuropathy. 9. History of lumbar spinal stenosis. 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 11. History of polysubstance abuse. 12. Depression. Problems Addressed with this Encounter and Plan: 1. 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 By clinical evaluation his disease appeared to be stage at least IIIA (T4, N1, M0). He had an endobronchial lesion with associated hemoptysis at initial presentation. His staging PET/CT also showed mild activity in subaortic lymph nodes, suggesting possible N2 disease. With those findings, he was recommended to undergo chemoradiation. On 11/15/2020 he began radiation, concurrently with weekly carboplatin/Abraxane chemotherapy. He tolerated his initial chemotherapy infusion without acute toxicity, and he was then able to continue treatment on a weekly schedule. He completed his 6th and final chemotherapy infusion on 12/20/2020. He completed radiation on 12/31/2020 to a total dose of 6600 cGy administered in 33 fractions. Overall, he tolerated the treatment well. He had a significant response by follow-up chest CT. On 01/19/2021 he began cycle 1 of maintenance durvalumab, 1500 mg by IV infusion administered at 4-week intervals. He tolerated it without acute toxicity. He will proceed now with cycle 2 of durvalumab, 1500 mg by IV infusion. On 02/08/2021 he required treatment for pneumonia which developed in association with traumatic right fifth rib fracture. He improved clinically on antibiotic therapy. He was able to continue with cycle 2 of maintenance durvalumab on 02/15/2021. On 03/14/2021 he was admitted to the hospital with bilateral pneumonia. CT pulmonary angiogram showed no evidence of pulmonary emboli, but there were worsening bilateral pulmonary opacities. He tested negative for COVID-19 virus infection. It was uncertain to what extent that illness may have been due to bacterial pneumonia versus treatment related pneumonitis. I opted to continue his steroid therapy. His repeat chest CT on 04/21/2021 showed findings which were most consistent with radiation pneumonitis. There was noted to be significant decrease in the size of his tumor mass. With those findings, he will continue steroid therapy with prednisone 10 mg twice daily. His treatment will remain on hold. I will see him again in 1 month. In the meantime, as his oxygen saturation on room air did go back down to 83% with activity, he is recommended to continue his home oxygen therapy. 2. He had an abnormal sestamibi stress test and I will confer with cardiology regarding recommendations for further cardiac evaluation. 3. He has chronic pain. At least some component may be treatment related, he will continue symptomatic management with hydrocodone/APAP. Signed By: Yamil Tang M.D. <<Signature on File>>
== END 2021-05-03 23:59 | disposition home or self-care (01) ==
LOC: ONCMED 06:59
PROVIDERS: PCP Internal Medicine; Visit Provider Internal Medicine Medical Oncology
DX: C34.12 Malignant neoplasm of upper lobe, left bronchus or lung (principal); I10 Essential (primary) hypertension; E78.5 Hyperlipidemia, unspecified; E11.42 Type 2 diabetes mellitus with diabetic polyneuropathy; J44.9 Chronic obstructive pulmonary disease, unspecified; K21.9 Gastro-esophageal reflux disease without esophagitis; G47.33 Obstructive sleep apnea (adult) (pediatric); F32.9 Major depressive disorder, single episode, unspecified; F19.11 Other psychoactive substance abuse, in remission; Z87.39 Personal history of other diseases of the musculoskeletal system and connective tissue; Z85.51 Personal history of malignant neoplasm of bladder; Z99.81 Dependence on supplemental oxygen; Z79.52 Long term (current) use of systemic steroids; Z79.899 Other long term (current) drug therapy; Z92.21 Personal history of antineoplastic chemotherapy; Z92.3 Personal history of irradiation
CPT/HCPCS: 36591; 80053; 84443; 85025; 99214

== ENCOUNTER → 2021-05-17 07:43 | Outpatient (BNVA) | payer MEDICAID, SELFPAY | PROVIDERS: PCP Internal Medicine; Visit Provider Nurse Practitioner | DX: F41.1 Generalized anxiety disorder (principal); F33.2 Major depressive disorder, recurrent severe without psychotic features | CPT/HCPCS: 99214 ==

== ENCOUNTER 2021-06-02 06:15 | Outpatient (RCR) | payer MEDICAID, SELFPAY ==
[2021-06-01 15:19] LABS: Basophils # 0.1 10^3/uL (0.0-0.1); Basophils % 0.7 %; Eosinophils # 0.1 10^3/uL (0.0-0.8); Eosinophils % 0.9 %; Hematocrit 44.1 % (42.0-52.0); Lymphocytes # 1.1 10^3/uL (0.8-4.8); Lymphocytes % 11.9 %; Mean Corpuscular HGB Conc 31.7 g/dL (30.0-36.0); Mean Corpuscular Hemoglobin 27.6 pg (28.0-34.0); Mean Corpuscular Volume 86.8 fl (80-94); Mean Platelet Volume 9.8 fL (7.4-10.4); Monocytes # 0.8 10^3/uL (0.2-0.9); Monocytes % 8.8 %; Neutrophils # 6.84 10^3/uL (1.8-7.7); Neutrophils % 76.1 %; Nucleated Red Blood Cells % 0 %; Platelet Count 213 10^3/cmm (130-400); Red Blood Count 5.08 10^6/uL (4.1-5.3)
[2021-06-01 15:34] LABS: Erythrocyte Sedimentation Rate 6 mm/hr (0-10)
[2021-06-01 15:41] LABS: Alanine Aminotransferase 12 U/L (0-41); Albumin Level 4.1 g/dL (3.5-5.2); Alkaline Phosphatase 80 IU/L (40-130); Aspartate Amino Transferase 9 U/L (0-40); Blood Urea Nitrogen 25 mg/dL (8-23); Calcium 8.9 mg/dL (8.5-10.5); Carbon Dioxide 22 mmol/L (22-29); Chloride 97 mmol/L (98-107); Globulin 2.5 g/dL (1.3-4.6); Glomerular Filtration Rate 83.4 mL/min (90-130); Glucose 378 mg/dL (65-115); Osmolality Calculated 300 mOsm/kg (285-295); Sodium 135 mmol/L (136-145); Total Bilirubin 0.3 mg/dL (0.15-1.2); Total Protein 6.6 g/dL (6.6-8.7)
[2021-06-01 15:42] LABS: Anion Gap 20.2 (5-19); Potassium 4.2 mmol/L (3.5-5.1)
--- NOTE | 2021-06-04 10:50 | ONC FU_ITS ---
Dr. Tang Patient Follow-Up Note Patient: Yoni Connell Unit #: [id number]: 1950 Dicatated By: Yamil Tang M.D.Date of Visit:Jun 02, 2021 Onc Med Follow-up/Prog Note Chief Complaint: Lung cancer. 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 By clinical evaluation his disease was stage at least IIIA (T4, N1, M0) at initial diagnosis in September 2020. He had presented with hemoptysis. Chest CT on 09/17/2020 showed a left upper lobe mass measuring 4.8 x 5.4 x 7.3 cm, new compared to a prior CT from November 2019. Small nodules noted in various locations throughout the lungs appeared stable. The visualized portions of the liver and the adrenal glands appeared normal. He was referred to Dr. Castillo. On 10/01/2020 he underwent bronchoscopy/EBUS with endobronchial biopsies and with FNA biopsies from station 7 and from left hilar lymph nodes. Pathology of the left upper lobe endobronchial biopsy and of the left hilar mass FNA biopsy showed moderate to poorly differentiated squamous cell carcinoma. The FNA biopsy at station 7 showed benign pathology. I had seen him initially on 10/07/2020. His staging PET/CT on 10/16/2020 showed left upper lobe mass measuring 5.2 x 4.1 cm with SUV 20.6, consistent with primary malignancy. Lingular infiltrates were noted to be FDG negative and most likely benign. Multiple subcentimeter pulmonary nodules were too small to characterize. There was mild activity and subaortic lymph nodes, suspected to be due to local metastatic disease. Staging head MRI on 10/22/2020 showed no evidence of metastatic disease. With those findings, he underwent treatment with radiation, concurrently with weekly carboplatin/Abraxane chemotherapy. He tolerated his initial chemotherapy infusion without acute toxicity, and he was then able to continue treatment on a weekly schedule. He completed his 6th and final chemotherapy infusion on 12/20/2020. He completed radiation on 12/31/2020 to a total dose of 6600 cGy administered in [address] on 01/10/2021 showed significant decrease in the left hilar region mass measuring 1.2 x 3.1 cm compared to 5.2 x 4.1 cm on the pretreatment study. There was noted to be extension into the left upper and left lower lobe bronchovascular bundle. There was no new or increasing pulmonary mass. A 10 mm left paratracheal lymph node was noted to be slightly smaller compared to the prior study. With those findings he was recommended to continue with maintenance immunotherapy with durvalumab. His other medical illnesses include hypertension, hyperlipidemia, type 2 diabetes, GERD, COPD, obstructive sleep apnea, and peripheral neuropathy. He has history of polysubstance abuse and he has a history of depression. 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 He has a history of smoking off and on for 50 years, up to a pack of cigarettes daily. He has quit. INTERIM HISTORY: On 01/19/2021 he began cycle 1 of durvalumab administered at a fixed dosage of 1500 mg by IV infusion every 4 weeks. He tolerated it without acute toxicity. On 02/08/2021 he was admitted to the hospital with pneumonia which developed following a traumatic right fifth rib fracture. He improved on antibiotic coverage and he was discharged home with Levaquin and Medrol Dosepak. He was able to continue with cycle 2 of maintenance durvalumab on 02/15/2021. On 03/14/2021 he was admitted to the hospital with bilateral pneumonia. He had presented to the emergency room with shortness of breath. His CT pulmonary angiogram showed no evidence of pulmonary embolism. There were worsening bilateral pulmonary opacities consistent with pneumonia versus COVID-19 virus infection. However he again tested negative for COVID-19. He was given antibiotic coverage with Zosyn and azithromycin, and he was given empiric steroid therapy. He improved clinically and on 03/17/2021 he was able to be discharged home on Levaquin, prednisone, and home oxygen. At his follow-up visit on 03/21/2021 he still had significant shortness of breath. I opted to continue steroid therapy and keep his treatment on hold. His restaging chest CT on 04/21/2021 showed increasing consolidation between the left upper and lower lobes centered at the hilum, thought to be most likely due to radiation pneumonitis. There appeared to be a significant decrease in the size of the previously described soft tissue mass, estimated at 3.7 x 3.3 cm. There was improved aeration throughout the right lung compared to March 2021. There was no increasing lymphadenopathy. A destructive rib lesion involving the right lateral fifth rib appeared similar to March 2021 but new since September 2020. A metastatic site was not excluded. He then had a sestamibi stress test on 04/22/2021. The myocardial perfusion imaging revealed small areas of decreased uptake in the apical anterior, lateral, inferior, and LV apex. Some reversibility was noted in the apical anterior region suggestive of myocardial scarring with ischemia in the distribution of the distal left anterior descending artery. The left ventricular ejection fraction was normal at 50%. As of his follow-up visit on 04/26/2021 he was feeling better, but his oxygen saturation was still dropping down into the low 80s on room air. He continued on steroid therapy with prednisone 10 mg twice daily and his treatment remained on hold. He also continued on home oxygen. He is seen for a follow-up visit. He has been feeling a little better generally. He still has some fatigue, but is able to do light work. ECOG score is 1. He has good appetite. He has not had fever. He has had sweating at night, but not lately. He has not had sore mouth or throat. He has only a little bit of cough. He says his breathing is pretty good now. He still has chest pain occasionally. He currently has no GI or complaints. He has pain in his back and sides, but that is chronic. He does not complain of headache or dizziness, and he has no focal neurologic symptoms. Medications: Advair Diskus 1 Puff(s) (of 250-50 mcg/dose) Aerosol Powder, Breath Activated Inhalation b.i.d., BuPROPion HCl ER (XL) 1 Tablet (of 300 mg) Tablet SR 24 HR Oral every am, DiazePAM 1 Tablet (of 5 mg) Oral t.i.d., Enalapril Maleate (10 mg) Tablet Oral daily, FLUoxetine HCl 1 Capsule (of 40 mg) Oral daily, Gabapentin 1 Tablet (of 300 mg) Oral t.i.d., Hydrocodone-Acetaminophen 1 Tablet (of 7.5-325 mg) Tablet Oral four times a day PRN, Lovastatin 1 Tablet (of 40 mg) Oral daily, [id number] Ethyl Esters 2 Capsule (of 1 G) Oral daily, predniSONE 1 Tablet (of 10 mg) Oral b.i.d., Stiolto Respimat 2 Puff(s) (of 2.5-2.5 mcg/act) Aerosol, solution Inhalation b.i.d., TraZODone HCl 1 Tablet (of 150 mg) Oral at bedtime Allergies: No Known Allergies. Vital Signs: Performed on Jun 02, 2021 08:41 Height - 72.00 in Weight - 152.8 lbs (LOW) BSA - 1.90 sq.m BMI - 20.72 Temperature - 97.7 F (LOW) Pulse - 62 /min Respiration - 19 /min BP - 103/68 mm(hg) O2 Sat - 94 % (LOW) Pain - 6 Fatigue - 3 Physical Examination: Constitutional - He looks pretty good generally, Eyes - Sclerae nonicteric. Conjunctivae clear, ENMT - No lesions noted in the oral cavity, Hematologic/Lymphatic - No cervical, clavicular, or axillary adenopathy, Respiratory - Lungs sound clear with diminished air movement bilaterally, Cardiovascular - Heart rhythm appears regular. There is no murmur, gallop, or rub noted, Abdomen - Mildly distended. Liver and spleen are not enlarged. There is no abdominal mass or ascites noted and there is no inguinal adenopathy, Extremities - No edema, Neurologic - No focal neurologic deficits noted. Lab/Imaging: CBC shows hemoglobin 14.0 g, white blood cell count 9000, and platelet count 213,000. Comprehensive metabolic profile is unremarkable. Problem List: 1. Moderate to poorly differentiated squamous cell carcinoma involving the upper lobe of the left lung, by clinical evaluation stage at least IIIA (T4, N1, M0). 2. Hypertension. 3. Hyperlipidemia. 4. Type 2 diabetes. 5. COPD. 6. GERD. 7. Obstructive sleep apnea. 8. Peripheral neuropathy. 9. History of lumbar spinal stenosis. 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 11. History of polysubstance abuse. 12. Depression. Problems Addressed with this Encounter and Plan: 1. 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 By clinical evaluation his disease appeared to be stage at least IIIA (T4, N1, M0). He had an endobronchial lesion with associated hemoptysis at initial presentation. His staging PET/CT also showed mild activity in subaortic lymph nodes, suggesting possible N2 disease. With those findings, he was recommended to undergo chemoradiation. On 11/15/2020 he began radiation, concurrently with weekly carboplatin/Abraxane chemotherapy. He tolerated his initial chemotherapy infusion without acute toxicity, and he was then able to continue treatment on a weekly schedule. He completed his 6th and final chemotherapy infusion on 12/20/2020. He completed radiation on 12/31/2020 to a total dose of 6600 cGy administered in 33 fractions. Overall, he tolerated the treatment well. He had a significant response by follow-up chest CT. On 01/19/2021 he began cycle 1 of maintenance durvalumab, 1500 mg by IV infusion administered at 4-week intervals. He tolerated it without acute toxicity. He will proceed now with cycle 2 of durvalumab, 1500 mg by IV infusion. On 02/08/2021 he required treatment for pneumonia which developed in association with traumatic right fifth rib fracture. He improved clinically on antibiotic therapy. He was able to continue with cycle 2 of maintenance durvalumab on 02/15/2021. On 03/14/2021 he was admitted to the hospital with bilateral pneumonia. CT pulmonary angiogram showed no evidence of pulmonary emboli, but there were worsening bilateral pulmonary opacities. He tested negative for COVID-19 virus infection. It was uncertain to what extent that illness may have been due to bacterial pneumonia versus treatment related pneumonitis. I opted to continue his steroid therapy. His repeat chest CT on 04/21/2021 showed findings which were most consistent with radiation pneumonitis. There was noted to be significant decrease in the size of his tumor mass. At that point he was still hypoxic on room air. He continued on steroid therapy with prednisone 10 mg twice daily and his treatment remained on hold. He will be scheduled for a follow-up visit with a restaging chest CT scan in 2 months. 2. He has had chest pain and he also had an abnormal sestamibi stress test. He is being followed by cardiology and is being managed medically. 3. He has chronic pain. He continues symptomatic management with hydrocodone/APAP. Signed By: Yamil Tang M.D. <<Signature on File>>
== END 2021-06-03 23:59 | disposition home or self-care (01) ==
LOC: ONCMED 06:15
PROVIDERS: Internal Medicine Hematology & Oncology; PCP Internal Medicine; Visit Provider Internal Medicine Medical Oncology
DX: C34.12 Malignant neoplasm of upper lobe, left bronchus or lung (principal); I10 Essential (primary) hypertension; E78.5 Hyperlipidemia, unspecified; E11.42 Type 2 diabetes mellitus with diabetic polyneuropathy; J44.9 Chronic obstructive pulmonary disease, unspecified; K21.9 Gastro-esophageal reflux disease without esophagitis; G47.33 Obstructive sleep apnea (adult) (pediatric); F32.9 Major depressive disorder, single episode, unspecified; F19.11 Other psychoactive substance abuse, in remission; Z85.51 Personal history of malignant neoplasm of bladder; Z87.39 Personal history of other diseases of the musculoskeletal system and connective tissue; Z79.52 Long term (current) use of systemic steroids; Z79.899 Other long term (current) drug therapy
CPT/HCPCS: 36591; 80053; 85025; 85651; 99214

== ENCOUNTER 2021-06-30 19:57 | Emergency (ER) | payer MEDICAID, SELFPAY ==
[2021-06-30 20:01] VITALS: BP 113/73; PULSE 118; RESP 18; O2SAT 92; BMI 33.5
--- NOTE | 2021-06-30 20:08 | XRR_ITS ---
PROCEDURE INFORMATION: Exam: XR Chest Exam date and time: 06/30/2021 8:08 PM Age: 71 years old Clinical indication: Other: Diziness; Additional info: Dizziness TECHNIQUE: Imaging protocol: XR of the chest. Views: 1 view. COMPARISON: CT chest w con* [id number] 04/21/2021 9:32 AM FINDINGS: Tubes, catheters and devices: A right chest wall venous access port ends in the mid superior vena cava. Lungs: In the left mid chest there is a persisting complex opacity which on the recent CT appear to be due to focal masslike fibrosis and atelectasis. There is mild peripheral fibrosis in the right lung. Pleural spaces: Unremarkable. No pleural effusion. No pneumothorax. Heart/Mediastinum: Unremarkable. No cardiomegaly. Bones/joints: Unremarkable. XR/XR chest 1V portable [id number] IMPRESSION: 1. No acute findings 2. Persisting left mid lung focal masslike fibrosis and atelectasis 3. Mild right lung fibrosis
--- NOTE | 2021-06-30 20:08 | CTR_ITS ---
PROCEDURE INFORMATION: Exam: CT Head Without Contrast Exam date and time: 06/30/2021 8:08 PM Age: 71 years old Clinical indication: Patient HX: C/O dizziness TECHNIQUE: Imaging protocol: Computed tomography of the head without contrast. Radiation optimization: All CT scans at this facility use at least one of these dose optimization techniques: automated exposure control; mA and/or kV adjustment per patient size (includes targeted exams where dose is matched to clinical indication); or iterative reconstruction. COMPARISON: MR head wo/w con [id number] 10/22/2020 11:38 AM RADIATION DOSE METRICS: Total DLP (mGy-cm): 1033.72 FINDINGS: Brain: No CT evidence for acute ischemia, mass or hemorrhage. Cerebral ventricles: Diffuse sulcal widening and ventricular enlargement are advanced age related changes. Paranasal sinuses: Multifocal mucosal thickening in the maxillary sinuses. Mastoid air cells: Visualized mastoid air cells are well aerated. Vasculature: Extensive intracranial atherosclerosis. Bones/joints: Bilateral orbital floor fractures are only partially seen and acuity is uncertain but is probably chronic. Soft tissues: Unremarkable. CT/CT head wo con* [id number] IMPRESSION: 1. No acute intracranial findings. 2. Generalized atrophy. 3. Bilateral orbital floor fractures, probably chronic but only partially seen
[2021-06-30 20:14] LABS: Basophils % 0.6 %; Eosinophils # 0.1 10^3/uL (0.0-0.8); Eosinophils % 0.7 %; Hematocrit 42.7 % (42.0-52.0); Hemoglobin 13.7 g/dL (11.7-16.6); Lymphocytes # 0.4 10^3/uL (0.8-4.8); Lymphocytes % 5.3 %; Mean Corpuscular HGB Conc 32.1 g/dL (30.0-36.0); Mean Corpuscular Hemoglobin 27.8 pg (28.0-34.0); Mean Corpuscular Volume 86.6 fl (80-94); Mean Platelet Volume 9.8 fL (7.4-10.4); Monocytes # 1.1 10^3/uL (0.2-0.9); Monocytes % 15.9 %; Neutrophils # 5.38 10^3/uL (1.8-7.7); Neutrophils % 75.1 %; Nucleated Red Blood Cells % 0 %; Platelet Count 155 10^3/cmm (130-400); Red Blood Count 4.93 10^6/uL (4.1-5.3); Red Cell Distribution Width 15.4 % (12.1-15.1); White Blood Count 7.2 10^3/uL (4.0-10.0)
--- NOTE | 2021-06-30 20:33 | ED_ITS ---
HPI - Dizziness General: Chief Complaint: Dizziness Stated Complaint: DIZZINESS Time Seen by Provider: 06/30/21 19:59 Source: patient and EMS Mode of arrival: EMS Limitations: no limitations History of Present Illness: HPI Narrative: 71-year-old male who states that he has been having dizziness and vertigo since 4:56 PM. He states he has a long history of vertigo but this feels similar its much worse with sudden movements improved with rest. No other focal neurologic deficits denies any weakness denies any change in vision. States he is also had some shortness of breath cough he is on 2 to 3 L of oxygen here he does not wear oxygen at baseline at home. Unknown if he had any fevers. Associated symptoms: Denies chest pain, chills, headache(s), nausea or vomiting Review of Systems Const: Denies: fever(s), chills, body aches or change in appetite Eyes: Denies: blurry vision or eye discomfort ENMT: Denies: throat pain or dental pain Card: Denies: chest pain Resp: Reports: dyspnea GI: Denies: abdominal pain, nausea, vomiting or diarrhea : Denies: dysuria Musc: Denies: neck pain or back pain Skin/Breast: Denies: rash Neuro: Reports: dizziness and vertigo; Denies: headache(s) Psych: Denies: depression Jose/Lymph: Denies: easy bruising All/Imm: Denies: urticaria PFSH ED PFSH: Medical History Alcohol intoxication Anxiety Atrial fibrillation Bladder cancer Cancer of trigone of urinary bladder Cervical spondylosis COPD (chronic obstructive pulmonary disease) Dyslipidemia Generalized anxiety disorder GERD (gastroesophageal reflux disease) History of colon polyps Hypertension Lung mass Major depressive disorder, recurrent severe without psychotic features Neuropathy Nicotine dependence, cigarettes, in remission Polysubstance abuse Psychiatric care Sleep apnea Squamous cell lung cancer Type 2 diabetes mellitus Surgical History H/O circumcision H/O laminectomy History of bladder surgery history of bladder cancer History of dental surgery History of tonsillectomy Port-A-Cath in place (11/02/20) Status post colonoscopy with polypectomy 08/04/19: rectal polyp Family History Father , in his 50's Heart failure Mother , at age 73 Cancer breast Other CAD (coronary artery disease) Diabetes Hyperlipidemia Denies family history of Anesthesia complication Bleeding disorder Social History Smoking and tobacco status: former smoker Quit status (tobacco): has quit using tobacco Year quit tobacco: Jun [id number] Second hand smoke exposure: Yes Smoking risk assessment/counseling performed?: Yes Tobacco counseling given: counseling >3 minutes Alcohol intake: current Alcohol intake frequency: few times a month Alcohol type: beer Lives independently: Yes Household members: none Housing: House Marital status: service: No Current occupational status: disabled Pets and animals: Yes History of recent travel: No Current gender identity: Male Physical Exam Const: COMMON NORMALS: patient oriented x3 and healthy appearing GENERAL APPEARANCE: in distress and ill appearing HENMT: COMMON NORMALS: normocephalic and atraumatic HEAD & SCALP: normocephalic and atraumatic Eye: COMMON NORMALS: Equal, round and reactive pupils present and EOMs intact bilaterally PUPIL: Yes Equal, round and reactive pupils present Neck/C-Spine: COMMON NORMALS: full ROM and supple Chest: COMMONS NORMALS: normal inspection of the chest and normal palpation of entire chest wall Resp: COMMON NORMALS: No retractions EFFORT & INSPECTION: Yes tachypneic AUSCULTATION: rales Cardio: COMMON NORMALS: regular rate, regular rhythm and No murmurs present (Cardio) RATE: regular rate RHYTHM: regular rhythm GI: COMMON NORMALS: Normal to inspection, nondistended, normoactive bowel sounds present, Soft to palpation, non-tender and no masses PALPATION: Yes Soft to palpation Extremity: COMMON NORMALS: normal to inspection and full ROM Neuro: COMMON NORMALS: patient oriented x3, moves all extremities and no focal motor deficits Psych: COMMON NORMALS: mental status grossly normal, Normal thought process present and cooperative THOUGHT PROCESS: Normal thought process present Skin: COMMON NORMALS: no rashes or lesions noted and no wounds GENERAL SKIN EXAM: no rashes or lesions noted Course Vital Signs: Vital signs: Vital Signs Pulse Rate 102 H 06/30/21 21:28 Respiratory Rate 18 06/30/21 21:28 Blood Pressure 113/78 06/30/21 21:28 Pulse Oximetry 91 06/30/21 21:28 MDM - Dizziness MDM Narrative Medical decision making narrative: Patient presents here with vertigo also some dyspnea does have Covid spoke to patient at length strongly recommended admission but he refuses he states he hates staying at hospitals and just wants to go home he does have home oxygen already he is to follow-up with PCP and return if he has any worsening symptoms or if he changes his mind about admission he understands agrees to plan. His vertigo is chronic in nature no signs of acute stroke his symptoms improved with meclizine Lab Data Result diagrams: 06/30/21 19:50 06/30/21 19:50 Labs: Radiology Impressions Chest X-Ray 06/30/21 20:08 IMPRESSION: 1. No acute findings 2. Persisting left mid lung focal masslike fibrosis and atelectasis 3. Mild right lung fibrosis Head CT 06/30/21 20:08 IMPRESSION: 1. No acute intracranial findings. 2. Generalized atrophy. 3. Bilateral orbital floor fractures, probably chronic but only partially seen Laboratory Results WBC 7.2 10^3/uL (4.0-10.0) 06/30/21 19:50 RBC 4.93 10^6/uL (4.1-5.3) 06/30/21 19:50 Hgb 13.7 g/dL (11.7-16.6) 06/30/21 19:50 Hct 42.7 % (42.0-52.0) 06/30/21 19:50 MCV 86.6 fl (80-94) 06/30/21 19:50 MCH 27.8 pg (28.0-34.0) L 06/30/21 19:50 MCHC 32.1 g/dL (30.0-36.0) 06/30/21 19:50 RDW 15.4 % (12.1-15.1) H 06/30/21 19:50 Plt Count 155 10^3/cmm (130-400) 06/30/21 19:50 MPV 9.8 fL (7.4-10.4) 06/30/21 19:50 Neut % (Auto) 75.1 % 06/30/21 19:50 Lymph % (Auto) 5.3 % 06/30/21 19:50 [place] % (Auto) 15.9 % 06/30/21 19:50 Eos % (Auto) 0.7 % 06/30/21 19:50 Baso % (Auto) 0.6 % 06/30/21 19:50 Neut # (Auto) 5.38 10^3/uL (1.8-7.7) 06/30/21 19:50 Lymph # (Auto) 0.4 10^3/uL (0.8-4.8) L 06/30/21 19:50 [place] # (Auto) 1.1 10^3/uL (0.2-0.9) H 06/30/21 19:50 Eos # (Auto) 0.1 10^3/uL (0.0-0.8) 06/30/21 19:50 Baso # (Auto) 0.0 10^3/uL (0.0-0.1) 06/30/21 19:50 Nucleated RBC % (auto) 0 % 06/30/21 19:50 Nucleated RBCs # 0.0 /100WBC 06/30/21 19:50 Sodium 130 mmol/L (136-145) L 06/30/21 19:50 Potassium 4.0 mmol/L (3.5-5.1) 06/30/21 19:50 Chloride 95 mmol/L (98-107) L 06/30/21 19:50 Carbon Dioxide 20 mmol/L (22-29) L 06/30/21 19:50 Anion Gap 19.0 (5-19) 06/30/21 19:50 BUN 13 mg/dL (8-23) 06/30/21 19:50 Creatinine 0.7 mg/dL (0.7-1.2) 06/30/21 19:50 GFR Calculation 111.5 mL/min (90-130) 06/30/21 19:50 Glucose 383 mg/dL (65-115) H 06/30/21 19:50 POC Glucose 350 mg/dL (70-110) H 06/30/21 21:37 Calculated Osmolality 286 mOsm/kg (285-295) 06/30/21 19:50 Calcium 8.6 mg/dL (8.5-10.5) 06/30/21 19:50 Total Bilirubin 0.3 mg/dL (0.15-1.2) 06/30/21 19:50 AST 9 U/L (0-40) 06/30/21 19:50 ALT 11 U/L (0-41) 06/30/21 19:50 Alkaline Phosphatase 86 IU/L (40-130) 06/30/21 19:50 Troponin T Baseline 15 ng/L (0-15) 06/30/21 19:50 Troponin T 120 Minute 14.69 ng/L (0-15) 06/30/21 21:52 Delta Troponin T -0.31 ABS# (0-10) L 06/30/21 21:52 Total Protein 6.5 g/dL (6.6-8.7) L 06/30/21 19:50 Albumin 4.2 g/dL (3.5-5.2) 06/30/21 19:50 Globulin 2.3 g/dL (1.3-4.6) 06/30/21 19:50 Urine Color Yellow (Yellow) 06/30/21 20:45 Urine Appearance Clear (CLEAR) 06/30/21 20:45 Urine pH 5 (5-7) 06/30/21 20:45 Ur Specific [place] 1.020 (1.005-1.030) 06/30/21 20:45 Urine Protein Neg (Negative) 06/30/21 20:45 Urine Glucose (UA) 4+ (Normal) H 06/30/21 20:45 Urine Ketones 1+ (Negative) H 06/30/21 20:45 Urine Blood Neg (Negative) 06/30/21 20:45 Urine Nitrate Negative (Negative) 06/30/21 20:45 Urine Bilirubin Neg (Negative) 06/30/21 20:45 Urine Urobilinogen Norm mg/dL (Negative) 06/30/21 20:45 Ur Leukocyte Esterase Negative (Negative) 06/30/21 20:45 SARS-CoV-2 Ag (Rapid) Positive (Negative) H 06/30/21 20:54 Discharge Plan Discharge Patient Disposition: Home Clinical Impression: COVID-19, Dizziness Condition: Stable Prescriptions: New Antivert 50 mg tablet 50 mg PO BID PRN (Reason: dizziness) Qty: 14 0RF No Action aspirin [Aspirin Low Dose] 81 mg tablet,delayed release (DR/EC) 81 mg PO QAM 0RF Anoro Ellipta 62.5-25 mcg/actuation blister with device 1 inh inhalation DAILY 30 Days Qty: 60 6RF acetaminophen [Tylenol Arthritis Pain] 650 mg tablet extended release 1,300 mg PO Q12H PRN (Reason: Pain) 0RF diphenhydramine HCl [Benadryl Allergy] 25 mg tablet 25 mg PO TID PRN (Reason: Allergy Symptoms) 0RF bupropion HCl [Wellbutrin XL] 300 mg tablet extended release 24 hr 300 mg PO QAM Qty: 30 2RF diazepam 5 mg tablet 5 mg PO TID PRN (Reason: anxiety) Qty: 90 2RF fluoxetine 40 mg capsule 40 mg PO QAM Qty: 30 2RF trazodone 150 mg tablet 150 mg PO BEDTIME Qty: 30 2RF Eliquis 5 mg tablet 5 mg PO BID Qty: 60 3RF enalapril maleate 10 mg tablet 5 mg PO QAM 0RF metoprolol tartrate 25 mg tablet 25 mg PO BID Qty: 60 3RF nitroglycerin 0.4 mg tablet, sublingual 0.4 mg sublingual Q5M PRN (Reason: chest pain) Qty: 25 6RF Rx Instructions: do not exceed 3 doses per episode Miralax 17 gram/dose Powder 17 g PO DAILY 0RF benzonatate 100 mg Capsule 100 mg PO TID PRN (Reason: Cough) Qty: 30 0RF prednisone 20 mg tablet See Rx Instructions .ROUTE .COMPLEX Qty: 20 0RF Rx Instructions: 2 tab daily for 7 days, then 1 tab for 3 days, then 1/2 tab for 3 days 1/2 tab every other day for 2 doses and stop gabapentin 300 mg capsule 300 mg PO TID 0RF albuterol sulfate [ProAir HFA] 90 mcg/actuation HFA aerosol inhaler 1 - 2 puff INHALATION QID PRN (Reason: Shortness Of Breath Or Wheezing) 0RF metformin 1,000 mg Tablet 1,000 mg PO BID 0RF lovastatin 40 mg tablet 40 mg PO QAM 0RF ondansetron HCl [Zofran] 4 mg Tablet 4 mg PO Q6H PRN (Reason: NAUSEA/VOMITING) 0RF Jardiance 10 mg tablet 10 mg PO QAM 0RF sennosides-docusate sodium [Senna-S] 8.6-50 mg tablet 1 tab-cap PO DAILY Qty: 20 0RF hydrocodone-acetaminophen 5-325 mg tablet 1 tab PO BID PRN (Reason: PAIN) 10 Days Qty: 20 0RF Discharge Orders: Discharge ED (Routine); Ordered 06/30/21 Ordered By: Katia Noyola Referrals: Flaquita Goodwin MD [Primary Care Provider] - 1-3 days Discharge Diet: Advance as tolerated Discharge Activity: Resume usual activity Patient Instructions: COVID-19 (Coronavirus Disease 2019) (ED) Coding Level of Care Code ED Magnetic Doctor for Chg Fwd Exam Comprehensive
[2021-06-30 20:46] LABS: Troponin(5th) Baseline 15 ng/L (0-15)
[2021-06-30 20:47] LABS: Alanine Aminotransferase 11 U/L (0-41); Albumin Level 4.2 g/dL (3.5-5.2); Alkaline Phosphatase 86 IU/L (40-130); Aspartate Amino Transferase 9 U/L (0-40); Blood Urea Nitrogen 13 mg/dL (8-23); Calcium 8.6 mg/dL (8.5-10.5); Carbon Dioxide 20 mmol/L (22-29); Chloride 95 mmol/L (98-107); Globulin 2.3 g/dL (1.3-4.6); Glomerular Filtration Rate 111.5 mL/min (90-130); Glucose 383 mg/dL (65-115); Osmolality Calculated 286 mOsm/kg (285-295); Sodium 130 mmol/L (136-145); Total Bilirubin 0.3 mg/dL (0.15-1.2); Total Protein 6.5 g/dL (6.6-8.7)
--- NOTE | 2021-06-30 20:49 | PC.NURSE ---
Pt. refuses to stay in bed though he is dizzy when standing. Pt. states Oh Fuck! if I don't get some water!! PT. states that he needed to urinate and I tried to help him use a urinal in bed and he said no he needed to stand , I urged against it but he did anyway and was unable to get up and get his shorts off and urinated in the floor and on himself.
[2021-06-30 20:52] LABS: Add Urine Microscopic? NO; Charge for UA Resulting for Rev
[2021-06-30 20:56] LABS: Bilirubin Urine Neg (Negative); Blood Urine Neg (Negative); Glucose Urine UA 4+ (Normal); Ketones Urine 1+ (Negative); Leukocyte Esterase Urine Negative (Negative); Nitrate Urine Negative (Negative); Protein Urine Neg (Negative); Urine Appearance Clear (CLEAR); Urine Color Yellow (Yellow); Urobilinogen Urine Norm (Negative); pH Urine 5 (5-7)
[2021-06-30] MEDS: insulin regular-human 100 units/1 mL 10 UNIT IVP (21:09)
[2021-06-30 21:19] LABS: SARS Covid-2 Antigen Positive (Negative)
[2021-06-30 21:28] VITALS: BP 113/78; PULSE 102; RESP 18; O2SAT 91
[2021-06-30 21:41] LABS: Glucose Point of Care 350 mg/dL (70-110)
[2021-06-30] MEDS: morphine 4 mg/mL SDV 1 mL IVP (22:14)
[2021-06-30] MEDS: ondansetron 2 mg/ML SDV 2 mL 4 MG IVP (22:15)
[2021-06-30 22:25] LABS: Troponin 5 2HR 14.69 ng/L (0-15)
[2021-06-30 22:39] LABS: Troponin 5 2HR Delta -0.31 ABS# (0-10)
--- NOTE | 2021-07-01 17:31 | ECG_ITS ---
[facility] Test Date: 2021-06-30 Pat Name: Yoni Connell Department: Room: Gender: Male Cardiac Cath Lab Technologist: : 1950 Requested By: Leroy Jean Baptiste Order Number: [id number] Reading MD: JANELLE SILVEIRA Measurements Intervals [place] Rate: 104 P: ME: QRS: 75 QRSD: 117 T: 40 QT: 318 QTc: 420 Interpretive Statements ATRIAL FIBRILLATION WITH RAPID VENTRICULAR RESPONSE LOW QRS VOLTAGE IN EXTREMITY LEADS [QRS DEFLECTION < 0.5 mV IN LIMB LEADS] MODERATE INTRAVENTRICULAR CONDUCTION DELAY [110+ ms QRS DURATION] ABNORMAL RHYTHM ECG Compared to ECG 03/13/2021 22:57:47 Low QRS voltage now present Intraventricular conduction delay now present Sinus tachycardia no longer present Ventricular premature complex(es) no longer present Electronically Signed On 07-02-2021 17:47:34 RETURNED GOODS INSPECTOR by JANELLE SILVEIRA [id number]
== END 2021-06-30 22:31 | disposition home or self-care (01) ==
PROVIDERS: Emergency Provider Emergency Medicine; PCP Internal Medicine
DX: U07.1 COVID-19 (principal); R42 Dizziness and giddiness; Z79.01 Long term (current) use of anticoagulants; Z79.84 Long term (current) use of oral hypoglycemic drugs; Z79.82 Long term (current) use of aspirin; Z85.51 Personal history of malignant neoplasm of bladder; J44.9 Chronic obstructive pulmonary disease, unspecified; E78.5 Hyperlipidemia, unspecified; I10 Essential (primary) hypertension; E11.9 Type 2 diabetes mellitus without complications; Z85.118 Personal history of other malignant neoplasm of bronchus and lung; Z87.891 Personal history of nicotine dependence
CPT/HCPCS: 36415; 36416; 70450; 71045; 80053; 81003; 82962; 84484; 85025; 87040; 87426; 93005; 96374; 96375; 99283; J1815; J2270; J2405

== ENCOUNTER 2021-07-07 04:33 | Emergency (ER) | payer MEDICAID, SELFPAY ==
--- NOTE | 2021-07-07 04:38 | XRR_ITS ---
PROCEDURE INFORMATION: Exam: XR Chest Exam date and time: 07/07/2021 4:38 AM Age: 71 years old Clinical indication: Patient HX: 71-year-old male who states that over the last 3 to 4 days has been having nausea vomiting diarrhea along with some shortness of breath. He was seen here about 5 days ago and was diagnosed with covid. He is on roughly day 10 of his covid. ; Additional info: SOB TECHNIQUE: Imaging protocol: XR of the chest. Views: 1 view. COMPARISON: CR XR chest 1V portable [id number] 06/30/2021 8:23 PM FINDINGS: Tubes, catheters and devices: [id number] positioned at the lateral upper right chest with lead tip positioning at the level of superior vena cava. Lungs: Compared to the prior chest there is progressive interstitial infiltrates diffusely throughout the right lung and there is progressive band of abnormal consolidation in the left mid chest. Persistent tenting or stranding extending from the superior left hemidiaphragm at the lower left lung. Pleural spaces: No pneumothorax. Heart/Mediastinum: Cardiomediastinal silhouette is similar with accentuation of the heart size. Vasculature: Calcified tortuous thoracic aorta. Bones/joints: Degenerative change of the spine. Other findings: Developing small left effusion. XR/XR chest 1V portable [id number] IMPRESSION: 1. Progressive diffuse interstitial infiltrate throughout the right lung. 2. Progressive consolidation of the left mid lung. 3. Small left pleural effusion.
[2021-07-07 04:39] VITALS: BP 120/76; PULSE 100; RESP 24; TEMP 36.9; O2SAT 94; BMI 32.5
--- NOTE | 2021-07-07 04:39 | ECG_ITS ---
[facility] Test Date: 2021-07-07 Pat Name: Yoni Connell Department: Room: Gender: Male Therapist'S Assistant: : 1950 Requested By: Katia Noyola Order Number: [id number] MD: Kathryn Cabrera M.D. Measurements Intervals [place] Rate: 96 P: [place]: QRS: 101 QRSD: 102 T: 75 QT: 351 QTc: 443 Interpretive Statements ATRIAL FIBRILLATION RIGHT AXIS DEVIATION [QRS AXIS > 100] Compared to ECG 06/30/2021 20:39:40 Right-axis deviation now present Intraventricular conduction delay no longer present Electronically Signed On 07-07-2021 9:18:49 CHRONOMETER ASSEMBLER by Kathryn Cabrera M.D. [id number]
[2021-07-07 04:45] LABS: Basophils % 0.2 %; Eosinophils # 0.1 10^3/uL (0.0-0.8); Eosinophils % 1.2 %; Hematocrit 41.9 % (42.0-52.0); Hemoglobin 12.9 g/dL (11.7-16.6); Lymphocytes # 0.5 10^3/uL (0.8-4.8); Mean Corpuscular HGB Conc 30.8 g/dL (30.0-36.0); Mean Corpuscular Hemoglobin 27.3 pg (28.0-34.0); Mean Corpuscular Volume 88.6 fl (80-94); Mean Platelet Volume 9.8 fL (7.4-10.4); Monocytes # 0.4 10^3/uL (0.2-0.9); Monocytes % 6.3 %; Neutrophils # 4.78 10^3/uL (1.8-7.7); Neutrophils % 80.9 %; Nucleated Red Blood Cells % 0 %; Platelet Count 181 10^3/cmm (130-400); Red Blood Count 4.73 10^6/uL (4.1-5.3); White Blood Count 5.9 10^3/uL (4.0-10.0)
[2021-07-07] MEDS: sodium chloride 0.9% 1,000 ML 999 ML IV (04:47)
[2021-07-07] MEDS: diphenoxylate/atropine Tablet 1 TAB PO (04:47)
--- NOTE | 2021-07-07 04:50 | W.ED.NAVMDI ---
HPI - Nausea/Vomiting/Diarrhea General: Chief complaint: Nausea/Vomiting/Diarrhea Stated complaint: resp distress n/v/d Time Seen by Provider: 07/07/21 04:37 Source: patient and EMS Mode of arrival: EMS Limitations: no limitations History of Present Illness: 71-year-old male who states that over the last 3 to 4 days has been having nausea vomiting diarrhea along with some shortness of breath. He was seen here about 5 days ago and was diagnosed with Covid. He is on roughly day 10 of his Covid. He states he has home oxygen at home and supposed to wear 4 to 6 L he has not been wearing his oxygen EMS states that on 5 L he was 95% which she is here as well. He denies any pain and denies any worsening improving factors. Associated nausea: Yes Associated symtoms: Reports nausea; Denies chest pain, dysuria or headache(s) Review of Systems Const: Reports: chills and body aches Eyes: Denies: blurry vision or eye discomfort ENMT: Denies: throat pain or dental pain Card: Denies: chest pain Resp: Reports: dyspnea and non-productive cough GI: Reports: nausea, vomiting and diarrhea : Denies: dysuria Musc: Denies: neck pain or back pain Skin/Breast: Denies: rash Neuro: Denies: headache(s) Psych: Denies: depression Jose/Lymph: Denies: easy bruising All/Imm: Denies: urticaria PFSH ED PFSH: Medical History Alcohol intoxication Anxiety Atrial fibrillation Bladder cancer Cancer of trigone of urinary bladder Cervical spondylosis COPD (chronic obstructive pulmonary disease) Dyslipidemia Generalized anxiety disorder GERD (gastroesophageal reflux disease) History of colon polyps Hypertension Lung mass Major depressive disorder, recurrent severe without psychotic features Neuropathy Nicotine dependence, cigarettes, in remission Polysubstance abuse Psychiatric care Sleep apnea Squamous cell lung cancer Type 2 diabetes mellitus Surgical History H/O circumcision H/O laminectomy History of bladder surgery history of bladder cancer History of dental surgery History of tonsillectomy Port-A-Cath in place (11/02/20) Status post colonoscopy with polypectomy 08/04/19: rectal polyp Family History Father , in his 50's Heart failure Mother , at age 73 Cancer breast Other CAD (coronary artery disease) Diabetes Hyperlipidemia Denies family history of Anesthesia complication Bleeding disorder Social History Smoking and tobacco status: former smoker Quit status (tobacco): has quit using tobacco Year quit tobacco: Jun [id number] Second hand smoke exposure: Yes Smoking risk assessment/counseling performed?: Yes Tobacco counseling given: counseling >3 minutes Alcohol intake: current Alcohol intake frequency: few times a month Alcohol type: beer Lives independently: Yes Household members: none Housing: House Marital status: service: No Current occupational status: disabled Pets and animals: Yes History of recent travel: No Current gender identity: Male Physical Exam Const: COMMON NORMALS: patient oriented x3 and healthy appearing HENMT: COMMON NORMALS: normocephalic and atraumatic HEAD & SCALP: normocephalic and atraumatic Eye: COMMON NORMALS: Equal, round and reactive pupils present and EOMs intact bilaterally PUPIL: Yes Equal, round and reactive pupils present Neck/C-Spine: COMMON NORMALS: full ROM and supple Chest: COMMONS NORMALS: normal inspection of the chest and normal palpation of entire chest wall Resp: COMMON NORMALS: normal respiratory effort, No retractions, No use of accessory muscles and clear to auscultation bilaterally AUSCULTATION: clear to auscultation bilaterally Cardio: COMMON NORMALS: regular rate, regular rhythm and No murmurs present (Cardio) RATE: regular rate RHYTHM: regular rhythm GI: COMMON NORMALS: Normal to inspection, nondistended, normoactive bowel sounds present, Soft to palpation, non-tender and no masses PALPATION: Yes Soft to palpation Extremity: COMMON NORMALS: normal to inspection and full ROM Neuro: COMMON NORMALS: patient oriented x3, moves all extremities and no focal motor deficits Psych: COMMON NORMALS: mental status grossly normal, Normal thought process present and cooperative THOUGHT PROCESS: Normal thought process present Skin: COMMON NORMALS: no rashes or lesions noted and no wounds GENERAL SKIN EXAM: no rashes or lesions noted Course Vital Signs: Vital signs: Vital Signs Temperature 98.4 F 07/07/21 04:39 Pulse Rate 99 07/07/21 06:07 Respiratory Rate 18 07/07/21 06:03 Blood Pressure 120/76 07/07/21 04:39 Pulse Oximetry 96 07/07/21 06:03 MDM - Nausea/Vomiting/Diarrhea Medical Decision Making Patient presents here with vomiting diarrhea likely from Covid he is currently on 5 L here which is his baseline at home he is well-appearing here feels much improved would like to go home we will prescribe him Zofran he is to take Lomotil [id number] he is to follow-up with PCP and return if worsening. Lab Data : 07/07/21 04:36 07/07/21 04:36 Radiology Impressions Chest X-Ray 07/07/21 04:38 IMPRESSION: 1. Progressive diffuse interstitial infiltrate throughout the right lung. 2. Progressive consolidation of the left mid lung. 3. Small left pleural effusion. Laboratory Results WBC 5.9 10^3/uL (4.0-10.0) 07/07/21 04:36 RBC 4.73 10^6/uL (4.1-5.3) 07/07/21 04:36 Hgb 12.9 g/dL (11.7-16.6) 07/07/21 04:36 Hct 41.9 % (42.0-52.0) L 07/07/21 04:36 MCV 88.6 fl (80-94) 07/07/21 04:36 MCH 27.3 pg (28.0-34.0) L 07/07/21 04:36 MCHC 30.8 g/dL (30.0-36.0) 07/07/21 04:36 RDW 15.0 % (12.1-15.1) 07/07/21 04:36 Plt Count 181 10^3/cmm (130-400) 07/07/21 04:36 MPV 9.8 fL (7.4-10.4) 07/07/21 04:36 Neut % (Auto) 80.9 % 07/07/21 04:36 Lymph % (Auto) 8.0 % 07/07/21 04:36 [place] % (Auto) 6.3 % 07/07/21 04:36 Eos % (Auto) 1.2 % 07/07/21 04:36 Baso % (Auto) 0.2 % 07/07/21 04:36 Neut # (Auto) 4.78 10^3/uL (1.8-7.7) 07/07/21 04:36 Lymph # (Auto) 0.5 10^3/uL (0.8-4.8) L 07/07/21 04:36 [place] # (Auto) 0.4 10^3/uL (0.2-0.9) 07/07/21 04:36 Eos # (Auto) 0.1 10^3/uL (0.0-0.8) 07/07/21 04:36 Baso # (Auto) 0.0 10^3/uL (0.0-0.1) 07/07/21 04:36 Nucleated RBC % (auto) 0 % 07/07/21 04:36 Nucleated RBCs # 0.0 /100WBC 07/07/21 04:36 PT 13.40 SECONDS (12.1-14.9) 07/07/21 04:36 INR 0.99 (0.8-1.2) 07/07/21 04:36 Specimen Type Arterial 07/07/21 05:06 Sample Site Radial, left 07/07/21 05:06 ABG pH 7.42 (7.35-7.45) 07/07/21 05:06 ABG pCO2 49.5 mmHg (35-45) H 07/07/21 05:06 ABG pO2 61.9 mmHg (80.0-100.0) L 07/07/21 05:06 ABG HCO3 32.2 mmol/L (22-26) H 07/07/21 05:06 ABG Base Excess 6.6 mmol/L (-2.0-2.0) H 07/07/21 05:06 Bladimir Test Pos 07/07/21 05:06 Hematocrit 34.6 % (42-52) L 07/07/21 05:06 O2 Delivery Device Nc 07/07/21 05:06 O2 Liters/Min 5.0 % 07/07/21 05:06 Senior Grants Officer ID Hensa 07/07/21 05:06 Sodium 139 mmol/L (136-145) 07/07/21 04:36 Potassium 4.0 mmol/L (3.5-5.1) 07/07/21 04:36 Chloride 95 mmol/L (98-107) L 07/07/21 04:36 Carbon Dioxide 29 mmol/L (22-29) 07/07/21 04:36 Anion Gap 19.0 (5-19) 07/07/21 04:36 BUN 11 mg/dL (8-23) 07/07/21 04:36 Creatinine 0.6 mg/dL (0.7-1.2) L 07/07/21 04:36 GFR Calculation 133.2 mL/min (90-130) H 07/07/21 04:36 Glucose 314 mg/dL (65-115) H 07/07/21 04:36 Calculated Osmolality 299 mOsm/kg (285-295) H 07/07/21 04:36 Lactate 1.5 mmol/L (0.5-2.2) 07/07/21 05:30 Calcium 8.5 mg/dL (8.5-10.5) 07/07/21 04:36 Total Bilirubin 0.5 mg/dL (0.15-1.2) 07/07/21 04:36 AST 24 U/L (0-40) 07/07/21 04:36 ALT 43 U/L (0-41) H 07/07/21 04:36 Alkaline Phosphatase 124 IU/L (40-130) 07/07/21 04:36 NT-Pro-B Natriuret Pep 1268 pg/mL (0-125) H 07/07/21 04:36 Total Protein 5.7 g/dL (6.6-8.7) L 07/07/21 04:36 Albumin 3.9 g/dL (3.5-5.2) 07/07/21 04:36 Globulin 1.8 g/dL (1.3-4.6) 07/07/21 04:36 EKG Data EKG 1: I personally reviewed and interpreted this EKG as follows: EKG interpretation date: 07/07/21 EKG interpretation time: 04:55 Interpretation: afib hr [address] or t wave abnormalities qrs [id number] Discharge Plan Discharge Patient Disposition: Home Clinical Impression: COVID-19, Nausea vomiting and diarrhea Condition: Stable Prescriptions: New ondansetron 4 mg tablet,disintegrating 4 mg PO Q6H PRN (Reason: nausea and vomiting) Qty: 14 0RF No Action aspirin [Aspirin Low Dose] 81 mg tablet,delayed release (DR/EC) 81 mg PO QAM 0RF Anoro Ellipta 62.5-25 mcg/actuation blister with device 1 inh inhalation DAILY 30 Days Qty: 60 6RF acetaminophen [Tylenol Arthritis Pain] 650 mg tablet extended release 1,300 mg PO Q12H PRN (Reason: Pain) 0RF diphenhydramine HCl [Benadryl Allergy] 25 mg tablet 25 mg PO TID PRN (Reason: Allergy Symptoms) 0RF bupropion HCl [Wellbutrin XL] 300 mg tablet extended release 24 hr 300 mg PO QAM Qty: 30 2RF diazepam 5 mg tablet 5 mg PO TID PRN (Reason: anxiety) Qty: 90 2RF fluoxetine 40 mg capsule 40 mg PO QAM Qty: 30 2RF trazodone 150 mg tablet 150 mg PO BEDTIME Qty: 30 2RF Eliquis 5 mg tablet 5 mg PO BID Qty: 60 3RF enalapril maleate 10 mg tablet 5 mg PO QAM 0RF metoprolol tartrate 25 mg tablet 25 mg PO BID Qty: 60 3RF nitroglycerin 0.4 mg tablet, sublingual 0.4 mg sublingual Q5M PRN (Reason: chest pain) Qty: 25 6RF Rx Instructions: do not exceed 3 doses per episode Miralax 17 gram/dose Powder 17 g PO DAILY 0RF benzonatate 100 mg Capsule 100 mg PO TID PRN (Reason: Cough) Qty: 30 0RF prednisone 20 mg tablet See Rx Instructions .ROUTE .COMPLEX Qty: 20 0RF Rx Instructions: 2 tab daily for 7 days, then 1 tab for 3 days, then 1/2 tab for 3 days 1/2 tab every other day for 2 doses and stop gabapentin 300 mg capsule 300 mg PO TID 0RF albuterol sulfate [ProAir HFA] 90 mcg/actuation HFA aerosol inhaler 1 - 2 puff INHALATION QID PRN (Reason: Shortness Of Breath Or Wheezing) 0RF metformin 1,000 mg Tablet 1,000 mg PO BID 0RF lovastatin 40 mg tablet 40 mg PO QAM 0RF ondansetron HCl [Zofran] 4 mg Tablet 4 mg PO Q6H PRN (Reason: NAUSEA/VOMITING) 0RF Jardiance 10 mg tablet 10 mg PO QAM 0RF sennosides-docusate sodium [Senna-S] 8.6-50 mg tablet 1 tab-cap PO DAILY Qty: 20 0RF hydrocodone-acetaminophen 5-325 mg tablet 1 tab PO BID PRN (Reason: PAIN) 10 Days Qty: 20 0RF Antivert 50 mg tablet 50 mg PO BID PRN (Reason: dizziness) Qty: 14 0RF Discharge Orders: Discharge ED (Routine); Ordered 07/07/21 Ordered By: Katia Noyola Referrals: Flaquita Goodwin MD [Primary Care Provider] - 1-3 days Discharge Diet: Advance as tolerated Discharge Activity: Resume usual activity Patient Instructions: Acute Nausea and Vomiting (ED), Acute Diarrhea (ED), COVID-19 (Coronavirus Disease 2019) (ED) Coding Level of Care Code ED Structural Engineering Drafting Officer for Margarito Fwd Exam Comprehensive
[2021-07-07] MEDS: ipratropium-albuterol 3 mL Neb INHALATION (04:52)
[2021-07-07 05:03] LABS: INR 0.99 (0.8-1.2)
[2021-07-07 05:05] VITALS: PULSE 108; RESP 22; O2SAT 95
[2021-07-07 05:19] LABS: ABG PCO2 49.5 mmHg (35-45); ABG PH Result 7.42 (7.35-7.45); Arterial Blood Gas Hematocrit 34.6 % (42-52); Base Excess ABG 6.6 mmol/L (-2.0-2.0); Blood Gas Allen Test Pos; Blood Gas Sample Site Radial, left; Blood Gas Sample Type Arterial; HCO3 ABG 32.2 mmol/L (22-26); Oxygen Device NC; PO2 ABG 61.9 mmHg (80.0-100.0)
[2021-07-07 05:23] LABS: Alanine Aminotransferase 43 U/L (0-41); Albumin Level 3.9 g/dL (3.5-5.2); Alkaline Phosphatase 124 IU/L (40-130); Aspartate Amino Transferase 24 U/L (0-40); Blood Urea Nitrogen 11 mg/dL (8-23); Calcium 8.5 mg/dL (8.5-10.5); Carbon Dioxide 29 mmol/L (22-29); Chloride 95 mmol/L (98-107); Globulin 1.8 g/dL (1.3-4.6); Glomerular Filtration Rate 133.2 mL/min (90-130); Glucose 314 mg/dL (65-115); NT Pro B Type Natriuretic Pept 1268 pg/mL (0-125); Osmolality Calculated 299 mOsm/kg (285-295); Sodium 139 mmol/L (136-145); Total Bilirubin 0.5 mg/dL (0.15-1.2); Total Protein 5.7 g/dL (6.6-8.7)
[2021-07-07 05:24] VITALS: PULSE 98
[2021-07-07 05:52] LABS: Lactate (Lactic Acid level) 1.5 mmol/L (0.5-2.2)
[2021-07-07] MEDS: albuterol 8 gm MDI 2 PUFF INHALATION (06:02)
[2021-07-07 06:03] VITALS: PULSE 100; RESP 18; O2SAT 96
[2021-07-07 06:07] VITALS: PULSE 99
== END 2021-07-07 06:31 | disposition home or self-care (01) ==
PROVIDERS: Emergency Provider Emergency Medicine; PCP Internal Medicine
DX: U07.1 COVID-19 (principal); Z79.82 Long term (current) use of aspirin; Z79.01 Long term (current) use of anticoagulants; Z79.84 Long term (current) use of oral hypoglycemic drugs; Z85.51 Personal history of malignant neoplasm of bladder; J44.9 Chronic obstructive pulmonary disease, unspecified; E78.5 Hyperlipidemia, unspecified; I10 Essential (primary) hypertension; Z85.118 Personal history of other malignant neoplasm of bronchus and lung; E11.9 Type 2 diabetes mellitus without complications; Z87.891 Personal history of nicotine dependence
CPT/HCPCS: 36600; 71045; 80053; 82803; 83605; 83880; 85025; 85610; 93005; 94640; 96360; 99284; J3535; J7030

== ENCOUNTER 2021-07-09 09:47 | Emergency (ER) | payer MEDICAID, SELFPAY ==
[2021-07-09 09:48] VITALS: BMI 33.9
--- NOTE | 2021-07-09 09:50 | XRR_ITS ---
PROCEDURE INFORMATION: Exam: XR Chest Exam date and time: 07/09/2021 9:50 AM Age: 71 years old Clinical indication: Cough and dyspnea; Patient HX: Cough/dyspnea; Additional info: Dyspnea/cough TECHNIQUE: Imaging protocol: XR of the chest. Views: 1 view. COMPARISON: CR (CHEST, ) 07/07/2021 5:16 AM FINDINGS: Tubes, catheters and devices: Right IJ approach MediPort is in satisfactory position, with distal tip in the SVC, approximately 6 cm above the SVC/RA junction. Lungs: Persistent bilateral airspace opacities. No large pleural effusion or pneumothorax. Pleural spaces: See Lungs finding. Heart/Mediastinum: Stable cardiomediastinal silhouette. Stable cardiomediastinal silhouette. Bones/joints: Degenerative changes of the spine seen. No acute osseous injury identified. XR/XR chest 1V portable [id number] IMPRESSION: Persistent bilateral airspace opacities.
[2021-07-09 09:55] VITALS: BP 121/69; PULSE 92; RESP 26; TEMP 37.3; O2SAT 91
--- NOTE | 2021-07-09 09:59 | W.ED.WEAKNES ---
HPI - Weakness General: Chief complaint: Weakness Stated complaint: WEAKNESS S/P FALL Time Seen by Provider: 07/09/21 09:50 History of Present Illness: 71-year-old male presents to the emergency room with complaints of shortness of breath and weakness. Patient fell at home was on the ground for about an hour. Not strike his head there is no loss of consciousness. Just generally felt weak he tested positive for Covid on June 30 he is on day 9. He reports that he is normally on oxygen he says he is on 7 the other report we got that is usually on 4 L/min he uses a concentrator at home he uses a regular cannula does not believe he is over 5 or 6 at very most. He has been increasing his oxygen use because of shortness of breath. He still having some fever and significant diarrhea. MD Complaint: generalized weakness Onset (ago): day(s) Duration: intermittent Location: generalized Migration: none Relieving factors: none Exacerbating factors: none Associated symptoms: Reports short of breath; Denies chest pain, chills, confusion, melena, decreased appetite, diaphoresis, dysuria, easy bruising, fever(s), headache(s), myalgias, nausea, rash, syncope or vomiting Review of Systems Const: Denies: fever(s), chills or diaphoresis ENMT: Denies: throat pain, ear or mastoid pain, nasal discharge or nasal congestion Card: Denies: chest pain or syncope Resp: Denies: dyspnea, productive cough or non-productive cough GI: Denies: nausea, vomiting or melena : Denies: dysuria Skin/Breast: Denies: rash or pruritus Neuro: Denies: headache(s) or confusion Jose/Lymph: Denies: easy bruising PFS ED PFSH: Medical History Alcohol intoxication Anxiety Atrial fibrillation Bladder cancer Cancer of trigone of urinary bladder Cervical spondylosis COPD (chronic obstructive pulmonary disease) Dyslipidemia Generalized anxiety disorder GERD (gastroesophageal reflux disease) History of colon polyps Hypertension Lung mass Major depressive disorder, recurrent severe without psychotic features Neuropathy Nicotine dependence, cigarettes, in remission Polysubstance abuse Psychiatric care Sleep apnea Squamous cell lung cancer Type 2 diabetes mellitus Surgical History H/O circumcision H/O laminectomy History of bladder surgery history of bladder cancer History of dental surgery History of tonsillectomy Port-A-Cath in place (11/02/20) Status post colonoscopy with polypectomy 08/04/19: rectal polyp Family History Father , in his 50's Heart failure Mother , at age 73 Cancer breast Other CAD (coronary artery disease) Diabetes Hyperlipidemia Denies family history of Anesthesia complication Bleeding disorder Social History Smoking and tobacco status: former smoker Quit status (tobacco): has quit using tobacco Year quit tobacco: Jun [id number] Second hand smoke exposure: Yes Smoking risk assessment/counseling performed?: Yes Tobacco counseling given: counseling >3 minutes Alcohol intake: current Alcohol intake frequency: few times a month Alcohol type: beer Lives independently: Yes Household members: none Housing: House Marital status: service: No Current occupational status: disabled Pets and animals: Yes History of recent travel: No Current gender identity: Male Physical Exam Const: COMMON NORMALS: no acute distress GENERAL APPEARANCE: cooperative and comfortable ORIENTATION/CONSCIOUSNESS: Yes awake, Yes oriented to person, Yes oriented to place and Yes oriented to time HENMT: COMMON NORMALS: normocephalic, atraumatic and hearing grossly normal bilaterally HEAD & SCALP: normocephalic and atraumatic Neck/C-Spine: COMMON NORMALS: no JVD Resp: COMMON NORMALS: normal respiratory effort, No retractions and No use of accessory muscles AUSCULTATION: crackles and wheezes Cardio: COMMON NORMALS: no JVD, regular rate, regular rhythm and No murmurs present (Cardio) RATE: regular rate RHYTHM: regular rhythm GI: COMMON NORMALS: Soft to palpation and No hepatosplenomegaly present AUSCULTATION: Yes normoactive bowel sounds PALPATION: Yes Soft to palpation, No Tenderness to palpation present (GI), No Guarding due to palpation present (GI) and Yes No hepatosplenomegaly present Extremity: COMMON NORMALS: normal to inspection, capillary refill normal, no clubbing, cyanosis or edema, no calf tenderness and no pedal edema Neuro: SENSORIUM/ORIENTATION: Yes oriented to person, Yes oriented to place and Yes oriented to time Skin: COMMON NORMALS: no rashes or lesions noted GENERAL SKIN EXAM: no rashes or lesions noted Course Vital Signs: Vital signs: Vital Signs Temperature 99.1 F 07/09/21 09:55 Pulse Rate 94 07/09/21 14:55 Respiratory Rate 18 07/09/21 14:55 Blood Pressure 119/50 07/09/21 14:55 Pulse Oximetry 96 07/09/21 14:55 MDM - Weakness Medical Decision Making Patient is stable on 4 L by nasal cannula. Sats remain good in the mid and upper 90s. He is having quite a bit of diarrhea. He states it began when he has started having COVID symptoms. At this point despite his lung cancer and his chest x-ray which is a little bit worse he is not requiring any more oxygen than his usual baseline. Overall he is doing well. I think he can be discharged home at this point encouraged him to continue his usual oxygen increase his fluid intake follow-up with his primary care doctor next week. Medical Records I reviewed the patient's medical records. Lab Data I reviewed the patient's lab results. : 07/09/21 10:22 07/09/21 10:22 Radiology Impressions Chest X-Ray 07/09/21 09:50 IMPRESSION: Persistent bilateral airspace opacities. Chest CTA 07/09/21 11:59 IMPRESSION: 1. Persistent left hilar/peribronchial soft tissue thickening, consistent with known malignancy. 2. Dense consolidation in the left mid lung, which may represent pneumonia or progression of disease. 3. Imaging findings of pulmonary fibrosis 4. Commonly reported imaging features of (COVID-19) are present, concerning for superimposed pneumonia. Other processes such as influenza pneumonia and organizing pneumonia, as can be seen with drug toxicity and connective tissue disease, can cause a similar imaging pattern. 5. Centrilobular and paraseptal emphysema. 6. Small bilateral pleural effusions, left greater than right. COMMENTS: Consistent with the [employer]'s Incidental Findings Committee white paper (J Am Ileana Radiol 2018): Any incidental renal lesion less than 1 cm or classified as too small to characterize, or any incidental cystic renal lesion characterized as simple-appearing, is likely benign. No follow-up imaging is recommended for these lesions per consensus recommendations based on imaging criteria. Laboratory Results WBC 5.1 10^3/uL (4.0-10.0) 07/09/21 10:22 RBC 4.14 10^6/uL (4.1-5.3) 07/09/21 10:22 Hgb 11.3 g/dL (11.7-16.6) L 07/09/21 10:22 Hct 36.4 % (42.0-52.0) L 07/09/21 10:22 MCV 87.9 fl (80-94) 07/09/21 10:22 MCH 27.3 pg (28.0-34.0) L 07/09/21 10:22 MCHC 31.0 g/dL (30.0-36.0) 07/09/21 10: RDW 14.8 % (12.1-15.1) 07/09/21 10:22 Plt Count 192 10^3/cmm (130-400) 07/09/21 10:22 MPV 9.7 fL (7.4-10.4) 07/09/21 10:22 Neut % (Auto) 81.6 % 07/09/21 10:22 Lymph % (Auto) 5.9 % 07/09/21 10:22 [place] % (Auto) 10.5 % 07/09/21 10:22 Eos % (Auto) 0.4 % 07/09/21 10:22 Baso % (Auto) 0.2 % 07/09/21 10:22 Neut # (Auto) 4.18 10^3/uL (1.8-7.7) 07/09/21 10:22 Lymph # (Auto) 0.3 10^3/uL (0.8-4.8) L 07/09/21 10:22 [place] # (Auto) 0.5 10^3/uL (0.2-0.9) 07/09/21 10:22 Eos # (Auto) 0.0 10^3/uL (0.0-0.8) 07/09/21 10:22 Baso # (Auto) 0.0 10^3/uL (0.0-0.1) 07/09/21 10:22 Nucleated RBC % (auto) 0 % 07/09/21 10:22 Nucleated RBCs # 0.0 /100WBC 07/09/21 10:22 Sodium 137 mmol/L (136-145) 07/09/21 10:22 Potassium 3.6 mmol/L (3.5-5.1) 07/09/21 10:22 Chloride 95 mmol/L (98-107) L 07/09/21 10:22 Carbon Dioxide 28 mmol/L (22-29) 07/09/21 10:22 Anion Gap 17.6 (5-19) 07/09/21 10:22 BUN 9 mg/dL (8-23) 07/09/21 10:22 Creatinine 0.6 mg/dL (0.7-1.2) L 07/09/21 10:22 GFR Calculation 133.2 mL/min (90-130) H 07/09/21 10: Glucose 311 mg/dL (65-115) H 07/09/21 10: Calculated Osmolality 294 mOsm/kg (285-295) 07/09/21 10:22 Calcium 8.6 mg/dL (8.5-10.5) 07/09/21 10:22 Total Bilirubin 0.7 mg/dL (0.15-1.2) 07/09/21 10:22 AST 15 U/L (0-40) 07/09/21 10:22 ALT 29 U/L (0-41) 07/09/21 10:22 Alkaline Phosphatase 95 IU/L (40-130) 07/09/21 10:22 Total Protein 5.8 g/dL (6.6-8.7) L 07/09/21 10:22 Albumin 3.5 g/dL (3.5-5.2) 07/09/21 10:22 Globulin 2.3 g/dL (1.3-4.6) 07/09/21 10:22 Discharge Plan Discharge Patient Disposition: Home Clinical Impression: COVID-19, Squamous cell lung cancer, Hypertension Condition: Stable Prescriptions: No Action aspirin [Aspirin Low Dose] 81 mg tablet,delayed release (DR/EC) 81 mg PO QAM 0RF Anoro Ellipta 62.5-25 mcg/actuation blister with device 1 inh inhalation DAILY 30 Days Qty: 60 6RF acetaminophen [Tylenol Arthritis Pain] 650 mg tablet extended release 1,300 mg PO Q12H PRN (Reason: Pain) 0RF diphenhydramine HCl [Benadryl Allergy] 25 mg tablet 25 mg PO TID PRN (Reason: Allergy Symptoms) 0RF bupropion HCl [Wellbutrin XL] 300 mg tablet extended release 24 hr 300 mg PO QAM Qty: 30 2RF diazepam 5 mg tablet 5 mg PO TID PRN (Reason: anxiety) Qty: 90 2RF fluoxetine 40 mg capsule 40 mg PO QAM Qty: 30 2RF trazodone 150 mg tablet 150 mg PO BEDTIME Qty: 30 2RF Eliquis 5 mg tablet 5 mg PO BID Qty: 60 3RF enalapril maleate 10 mg tablet 5 mg PO QAM 0RF metoprolol tartrate 25 mg tablet 25 mg PO BID Qty: 60 3RF nitroglycerin 0.4 mg tablet, sublingual 0.4 mg sublingual Q5M PRN (Reason: chest pain) Qty: 25 6RF Rx Instructions: do not exceed 3 doses per episode Miralax 17 gram/dose Powder 17 g PO DAILY 0RF benzonatate 100 mg Capsule 100 mg PO TID PRN (Reason: Cough) Qty: 30 0RF prednisone 20 mg tablet See Rx Instructions .ROUTE .COMPLEX Qty: 20 0RF Rx Instructions: 2 tab daily for 7 days, then 1 tab for 3 days, then 1/2 tab for 3 days 1/2 tab every other day for 2 doses and stop gabapentin 300 mg capsule 300 mg PO TID 0RF albuterol sulfate [ProAir HFA] 90 mcg/actuation HFA aerosol inhaler 1 - 2 puff INHALATION QID PRN (Reason: Shortness Of Breath Or Wheezing) 0RF metformin 1,000 mg Tablet 1,000 mg PO BID 0RF lovastatin 40 mg tablet 40 mg PO QAM 0RF ondansetron HCl [Zofran] 4 mg Tablet 4 mg PO Q6H PRN (Reason: NAUSEA/VOMITING) 0RF Jardiance 10 mg tablet 10 mg PO QAM 0RF sennosides-docusate sodium [Senna-S] 8.6-50 mg tablet 1 tab-cap PO DAILY Qty: 20 0RF hydrocodone-acetaminophen 5-325 mg tablet 1 tab PO BID PRN (Reason: PAIN) 10 Days Qty: 20 0RF Antivert 50 mg tablet 50 mg PO BID PRN (Reason: dizziness) Qty: 14 0RF ondansetron 4 mg tablet,disintegrating 4 mg PO Q6H PRN (Reason: nausea and vomiting) Qty: 14 0RF Discharge Orders: Discharge ED (Routine); Ordered 07/09/21 Ordered By: Leroy Whitehead Referrals: Flaquita Goodwin MD [Primary Care Provider] - Discharge Diet: Usual diet Patient Instructions: Opioid Safety Activity Restrictions/Additional Instructions: Monitor her oxygen at home continue using her routine 4 L by nasal cannula follow-up with your primary care doctor next week be sure to increase your fluid intake with the diarrhea. Coding Level of Care Code ED Wafer Production Lead Worker for Chg Fwd Exam Comprehensive
[2021-07-09 10:26] LABS: Basophils % 0.2 %; Eosinophils % 0.4 %; Hematocrit 36.4 % (42.0-52.0); Hemoglobin 11.3 g/dL (11.7-16.6); Lymphocytes # 0.3 10^3/uL (0.8-4.8); Lymphocytes % 5.9 %; Mean Corpuscular Hemoglobin 27.3 pg (28.0-34.0); Mean Corpuscular Volume 87.9 fl (80-94); Mean Platelet Volume 9.7 fL (7.4-10.4); Monocytes # 0.5 10^3/uL (0.2-0.9); Monocytes % 10.5 %; Neutrophils # 4.18 10^3/uL (1.8-7.7); Neutrophils % 81.6 %; Nucleated Red Blood Cells % 0 %; Platelet Count 192 10^3/cmm (130-400); Red Blood Count 4.14 10^6/uL (4.1-5.3); Red Cell Distribution Width 14.8 % (12.1-15.1); White Blood Count 5.1 10^3/uL (4.0-10.0)
[2021-07-09 10:55] VITALS: BP 128/72; PULSE 113; RESP 24; O2SAT 94
[2021-07-09 11:09] LABS: Alanine Aminotransferase 29 U/L (0-41); Albumin Level 3.5 g/dL (3.5-5.2); Alkaline Phosphatase 95 IU/L (40-130); Aspartate Amino Transferase 15 U/L (0-40); Chloride 95 mmol/L (98-107); Potassium 3.6 mmol/L (3.5-5.1); Sodium 137 mmol/L (136-145)
[2021-07-09 11:29] LABS: Anion Gap 17.6 (5-19); Blood Urea Nitrogen 9 mg/dL (8-23); Calcium 8.6 mg/dL (8.5-10.5); Carbon Dioxide 28 mmol/L (22-29); Globulin 2.3 g/dL (1.3-4.6); Glomerular Filtration Rate 133.2 mL/min (90-130); Glucose 311 mg/dL (65-115); Osmolality Calculated 294 mOsm/kg (285-295); Total Bilirubin 0.7 mg/dL (0.15-1.2); Total Protein 5.8 g/dL (6.6-8.7)
[2021-07-09 11:55] VITALS: BP 131/84; PULSE 74; RESP 18; O2SAT 91
--- NOTE | 2021-07-09 11:59 | CTR_ITS ---
PROCEDURE INFORMATION: Exam: CTA Chest With Contrast Exam date and time: 07/09/2021 11:59 AM Age: 71 years old Clinical indication: Other: Lung ca/covid/dypsnea TECHNIQUE: Imaging protocol: Computed tomographic angiography of the chest with contrast. 3D rendering (Not supervised by radiologist): MIP and/or 3D reconstructed images were created by the technologist. Radiation optimization: All CT scans at this facility use at least one of these dose optimization techniques: automated exposure control; mA and/or kV adjustment per patient size (includes targeted exams where dose is matched to clinical indication); or iterative reconstruction. Contrast material: OMNI; Contrast volume: 95 ml; Contrast route: INTRAVENOUS (IV); COMPARISON: CT angio chest PE protcl [id number] 03/14/2021 2:04 AM RADIATION DOSE METRICS: Total DLP (mGy-cm): 595.89 FINDINGS: Tubes, catheters and devices: Right subclavian approach MediPort is in satisfactory position, with distal tip in the SVC, approximately 2 cm above the SVC/RA junction. Pulmonary arteries: Normal. No pulmonary emboli. Aorta: Unremarkable. No aortic aneurysm. No aortic dissection. Other arteries: Mild diffuse atherosclerotic disease is present. Lungs: There is centrilobular and paraseptal emphysema. There is scattered ground-glass opacities in a predominantly peripheral distribution. There is reticular subpleural opacities, in association with honeycombing, consistent with interstitial lung disease. Superimposed pneumonia should be excluded clinically. There is a dense consolidation in the left mid lung. There is left hilar/peribronchial soft tissue thickening, consistent with known malignancy. Pleural spaces: There is a small bilateral pleural effusions, left greater than right. No pneumothorax. Heart: Mildly enlarged heart. Coronary atherosclerotic calcifications seen. Trace pericardial effusion noted. Lymph nodes: Unremarkable. No enlarged lymph nodes. Kidneys and ureters: There is a 3.0 cm cyst in the left kidney. Bones/joints: Degenerative changes of the spine seen. Old healed fracture deformity noted in the right ribcage. Soft tissues: Unremarkable. CT/CT angio chest PE protcl [id number] IMPRESSION: 1. Persistent left hilar/peribronchial soft tissue thickening, consistent with known malignancy. 2. Dense consolidation in the left mid lung, which may represent pneumonia or progression of disease. 3. Imaging findings of pulmonary fibrosis 4. Commonly reported imaging features of (COVID-19) are present, concerning for superimposed pneumonia. Other processes such as influenza pneumonia and organizing pneumonia, as can be seen with drug toxicity and connective tissue disease, can cause a similar imaging pattern. 5. Centrilobular and paraseptal emphysema. 6. Small bilateral pleural effusions, left greater than right. COMMENTS: Consistent with the [employer]'s Incidental Findings Committee white paper (J Am Ileana Radiol 2018): Any incidental renal lesion less than 1 cm or classified as too small to characterize, or any incidental cystic renal lesion characterized as simple-appearing, is likely benign. No follow-up imaging is recommended for these lesions per consensus recommendations based on imaging criteria.
[2021-07-09 12:55] VITALS: BP 125/66; PULSE 79; RESP 16; O2SAT 96
--- NOTE | 2021-07-09 13:39 | PC.NURSE ---
PATIENT ARRIVED COVERED IN STOOL- STATES HE JUST GOES WHEREVER HE IS AT, HE HAS NO HELP AT HOME AND UNABLE TO CARE FOR SELF. STATES HE FELL AND LAID ON THE FLOOR FOR AN UNKNOWN AMOUNT OF TIME, FINALLY PULLED THE TABLE OVER AND GOT HIS PHONE, HE CALLED HIS DOCTOR- THEY CALLED EMS, WHEN ASKED IF SOMEONE WOULD CLEAN UP HIS HOUSE HE SAID NO ONE WILL DO THAT.
[2021-07-09 13:55] VITALS: BP 130/79; PULSE 110; RESP 14; O2SAT 98
[2021-07-09] MEDS: iohexol 350 mg/mL 100 mL Btl IV (14:15)
[2021-07-09 14:55] VITALS: BP 119/50; PULSE 94; RESP 18; O2SAT 96
--- NOTE | 2021-07-09 15:34 | PC.NURSE ---
assisted patient with getting dressed- patient able to transfer self to wheelchair, patient contacting a ride home- patient verbalizes understanding of all instructions, patient taken via wheelchair to covid waiting
== END 2021-07-09 15:38 | disposition home or self-care (01) ==
PROVIDERS: Emergency Provider Family Medicine; PCP Internal Medicine
DX: U07.1 COVID-19 (principal); I10 Essential (primary) hypertension; C34.90 Malignant neoplasm of unspecified part of unspecified bronchus or lung; Z79.01 Long term (current) use of anticoagulants; Z79.82 Long term (current) use of aspirin; Z79.84 Long term (current) use of oral hypoglycemic drugs; Z85.51 Personal history of malignant neoplasm of bladder; J44.9 Chronic obstructive pulmonary disease, unspecified; E78.5 Hyperlipidemia, unspecified; E11.9 Type 2 diabetes mellitus without complications; Z87.891 Personal history of nicotine dependence
CPT/HCPCS: 71045; 71275; 80053; 85025; 99284; Q9967

== ENCOUNTER 2021-07-12 11:18 | Emergency (ER) | payer MEDICAID, SELFPAY ==
[2021-07-12 11:24] VITALS: BP 107/61; PULSE 51; RESP 18; TEMP 36.4; O2SAT 96; BMI 4296.1
--- NOTE | 2021-07-12 11:26 | ED_ITS ---
HPI - Weakness General: Chief complaint: Fall Stated complaint: GENERALIZED WEAKNESS Time Seen by Provider: 07/12/21 11:22 Source: patient Mode of arrival: EMS Limitations: no limitations History of Present Illness: 71-year-old male presents emergency room after a fall at home he was found down on the floor by [employer]. Patient tested positive for Covid on 06/30/2021. He is having some slurred speech at this time.Patient is on Eliquis for atrial fibrillation. He denies any chest or abdominal pain he has had some shortness of breath. He is not usually on oxygen at baseline. He had been started on oxygen for his COVID continues to require it. Not having any chest or abdominal pain. MD Complaint: generalized weakness Onset (ago): minute(s) Duration: constant Location: generalized Severity: mild Relieving factors: none Exacerbating factors: none Associated symptoms: Denies chest pain, chills, confusion, melena, decreased appetite, diaphoresis, dysuria, easy bruising, fever(s), headache(s), myalgias, nausea, rash, short of breath, syncope or vomiting Review of Systems Const: Denies: fever(s), chills or diaphoresis ENMT: Denies: throat pain, ear or mastoid pain, nasal discharge or nasal congestion Card: Denies: chest pain or syncope Resp: Denies: dyspnea, productive cough or non-productive cough GI: Denies: nausea, vomiting or melena : Denies: dysuria Skin/Breast: Denies: rash or pruritus Neuro: Denies: headache(s) or confusion Jose/Lymph: Denies: easy bruising PFS ED PFSH: Medical History Alcohol intoxication Anxiety Atrial fibrillation Bladder cancer Cancer of trigone of urinary bladder Cervical spondylosis COPD (chronic obstructive pulmonary disease) Dyslipidemia Generalized anxiety disorder GERD (gastroesophageal reflux disease) History of colon polyps Hypertension Lung mass Major depressive disorder, recurrent severe without psychotic features Neuropathy Nicotine dependence, cigarettes, in remission Polysubstance abuse Psychiatric care Sleep apnea Squamous cell lung cancer Type 2 diabetes mellitus Surgical History H/O circumcision H/O laminectomy History of bladder surgery history of bladder cancer History of dental surgery History of tonsillectomy Port-A-Cath in place (11/02/20) Status post colonoscopy with polypectomy 08/04/19: rectal polyp Family History Father , in his 50's Heart failure Mother , at age 73 Cancer breast Other CAD (coronary artery disease) Diabetes Hyperlipidemia Denies family history of Anesthesia complication Bleeding disorder Social History Smoking and tobacco status: former smoker Quit status (tobacco): has quit using tobacco Year quit tobacco: Jun [id number] Second hand smoke exposure: Yes Smoking risk assessment/counseling performed?: Yes Tobacco counseling given: counseling >3 minutes Alcohol intake: current Alcohol intake frequency: few times a month Alcohol type: beer Lives independently: Yes Household members: none Housing: House Marital status: service: No Current occupational status: disabled Pets and animals: Yes History of recent travel: No Current gender identity: Male Physical Exam Const: GENERAL APPEARANCE: cooperative and comfortable ORIENTATION/CONSCIOUSNESS: Yes awake, Yes oriented to person, Yes oriented to place and Yes oriented to time HENMT: COMMON NORMALS: normocephalic, atraumatic and hearing grossly normal bilaterally HEAD & SCALP: normocephalic and atraumatic Neck/C-Spine: COMMON NORMALS: no JVD Resp: COMMON NORMALS: normal respiratory effort, No retractions, No use of accessory muscles and clear to auscultation bilaterally AUSCULTATION: clear to auscultation bilaterally Cardio: COMMON NORMALS: no JVD, regular rate and No murmurs present (Cardio) RATE: regular rate RHYTHM: abnormal rhythm irregularly irregular GI: COMMON NORMALS: Soft to palpation and No hepatosplenomegaly present AUSCULTATION: Yes normoactive bowel sounds PALPATION: Yes Soft to palpation, No Tenderness to palpation present (GI), No Guarding due to palpation present (GI) and Yes No hepatosplenomegaly present Extremity: COMMON NORMALS: normal to inspection, capillary refill normal, no clubbing, cyanosis or edema, no calf tenderness and no pedal edema Neuro: SENSORIUM/ORIENTATION: Yes oriented to person, Yes oriented to place and Yes oriented to time Skin: COMMON NORMALS: no rashes or lesions noted GENERAL SKIN EXAM: no rashes or lesions noted Course Vital Signs: Vital signs: Vital Signs Temperature 97.6 F 07/12/21 11:24 Pulse Rate 86 07/12/21 16:56 Respiratory Rate 16 07/12/21 16:56 Blood Pressure 115/75 07/12/21 16:56 Pulse Oximetry 95 07/12/21 16:56 MDM - Weakness Medical Decision Making Patient is tolerating well does have COVID no indication for admission at this t [place] oxygen sats are good reviewed findings with the patient. He normally is on 6 L at home this is a normal amount for him because of his lung cancer. We will go ahead and discharge him home on that he does not have any increased oxygen need due to the Covid. Medical Records I reviewed the patient's medical records. Lab Data I reviewed the patient's lab results. : 07/12/21 11:26 07/12/21 11:26 Radiology Impressions Chest X-Ray 07/12/21 11:27 IMPRESSION: No acute abnormality. Head CT 07/12/21 11:33 IMPRESSION: 1. No acute intracranial hemorrhage or edema. 2. Cerebral and cerebellar atrophy, unchanged. 3. Very small high RIGHT parietal scalp hematoma. No fracture. Laboratory Results WBC 6.5 10^3/uL (4.0-10.0) 07/12/21 11:26 RBC 4.01 10^6/uL (4.1-5.3) L 07/12/21 11:26 Hgb 11.1 g/dL (11.7-16.6) L 07/12/21 11:26 Hct 34.9 % (42.0-52.0) L 07/12/21 11:26 MCV 87.0 fl (80-94) 07/12/21 11:26 MCH 27.7 pg (28.0-34.0) L 07/12/21 11:26 MCHC 31.8 g/dL (30.0-36.0) 07/12/21 11:26 RDW 14.7 % (12.1-15.1) 07/12/21 11:26 Plt Count 244 10^3/cmm (130-400) 07/12/21 11:26 MPV 10.5 fL (7.4-10.4) H 07/12/21 11:26 Neut % (Auto) 89.4 % 07/12/21 11:26 Lymph % (Auto) 4.4 % 07/12/21 11:26 [place] % (Auto) 4.6 % 07/12/21 11:26 Eos % (Auto) 0.2 % 07/12/21 11:26 Baso % (Auto) 0.2 % 07/12/21 11:26 Neut # (Auto) 5.83 10^3/uL (1.8-7.7) 07/12/21 11:26 Lymph # (Auto) 0.3 10^3/uL (0.8-4.8) L 07/12/21 11:26 [place] # (Auto) 0.3 10^3/uL (0.2-0.9) 07/12/21 11:26 Eos # (Auto) 0.0 10^3/uL (0.0-0.8) 07/12/21 11:26 Baso # (Auto) 0.0 10^3/uL (0.0-0.1) 07/12/21 11:26 Nucleated RBC % (auto) 0 % 07/12/21 11: Nucleated RBCs # 0.0 /100WBC 07/12/21 11:26 Sodium 134 mmol/L (136-145) L 07/12/21 11:26 Potassium 3.8 mmol/L (3.5-5.1) 07/12/21 11:26 Chloride 88 mmol/L (98-107) L 07/12/21 11:26 Carbon Dioxide 27 mmol/L (22-29) 07/12/21 11:26 Anion Gap 22.8 (5-19) H 07/12/21 11:26 BUN 22 mg/dL (8-23) 07/12/21 11:26 Creatinine 0.9 mg/dL (0.7-1.2) 07/12/21 11:26 GFR Calculation 83.4 mL/min (90-130) L 07/12/21 11:26 Glucose 341 mg/dL (65-115) H 07/12/21 11:26 Calculated Osmolality 295 mOsm/kg (285-295) 07/12/21 11:26 Calcium 8.3 mg/dL (8.5-10.5) L 07/12/21 11:26 Magnesium 1.6 mg/dL (1.7-2.3) L 07/12/21 11:26 Total Bilirubin 0.8 mg/dL (0.15-1.2) 07/12/21 11:26 AST 30 U/L (0-40) 07/12/21 11:26 ALT 35 U/L (0-41) 07/12/21 11:26 Alkaline Phosphatase 204 IU/L (40-130) H 07/12/21 11:26 Creatine Kinase 62 U/L (39-308) 07/12/21 11:26 Troponin T Baseline 26 ng/L (0-15) H 07/12/21 11:26 Troponin T 120 Minute 17.33 ng/L (0-15) H 07/12/21 13:50 Delta Troponin T -8.67 ABS# (0-10) L 07/12/21 13:50 Total Protein 5.9 g/dL (6.6-8.7) L 07/12/21 11:26 Albumin 3.8 g/dL (3.5-5.2) 07/12/21 11:26 Globulin 2.1 g/dL (1.3-4.6) 07/12/21 11:26 Urine Color Yellow (Yellow) 07/12/21 11:58 Urine Appearance Clear (CLEAR) 07/12/21 11:58 Urine pH 5 (5-7) 07/12/21 11:58 Ur Specific [place] 1.020 (1.005-1.030) 07/12/21 11:58 Urine Protein Trace (Negative) 07/12/21 11:58 Urine Glucose (UA) 4+ (Normal) H 07/12/21 11:58 Urine Ketones 1+ (Negative) H 07/12/21 11:58 Urine Blood Neg (Negative) 07/12/21 11:58 Urine Nitrate Negative (Negative) 07/12/21 11:58 Urine Bilirubin 1+ (Negative) H 07/12/21 11:58 Urine Urobilinogen 4 mg/dL (Negative) H 07/12/21 11:58 Ur Leukocyte Esterase Negative (Negative) 07/12/21 11:58 Urine RBC None /hpf (0-2) 07/12/21 11:58 Urine WBC None /hpf (0-5) 07/12/21 11:58 Ur Squamous Epith Cells 5-10 /hpf (0-5) H 07/12/21 11:58 Amorphous Sediment Not Reportable 07/12/21 11:58 Urine Bacteria 1+ /hpf (NONE) H 07/12/21 11:58 Hyaline Casts 5-10 /lpf H 07/12/21 11:58 Urine Mucus 2+ /hpf 07/12/21 11:58 Discharge Plan Discharge Patient Disposition: Home Clinical Impression: Fall, COVID-19, Squamous cell lung cancer Condition: Stable Prescriptions: No Action aspirin [Aspirin Low Dose] 81 mg tablet,delayed release (DR/EC) 81 mg PO QAM 0RF Anoro Ellipta 62.5-25 mcg/actuation blister with device 1 inh inhalation DAILY 30 Days Qty: 60 6RF acetaminophen [Tylenol Arthritis Pain] 650 mg tablet extended release 1,300 mg PO Q12H PRN (Reason: Pain) 0RF diphenhydramine HCl [Benadryl Allergy] 25 mg tablet 25 mg PO TID PRN (Reason: Allergy Symptoms) 0RF bupropion HCl [Wellbutrin XL] 300 mg tablet extended release 24 hr 300 mg PO QAM Qty: 30 2RF diazepam 5 mg tablet 5 mg PO TID PRN (Reason: anxiety) Qty: 90 2RF fluoxetine 40 mg capsule 40 mg PO QAM Qty: 30 2RF trazodone 150 mg tablet 150 mg PO BEDTIME Qty: 30 2RF Eliquis 5 mg tablet 5 mg PO BID Qty: 60 3RF enalapril maleate 10 mg tablet 5 mg PO QAM 0RF metoprolol tartrate 25 mg tablet 25 mg PO BID Qty: 60 3RF nitroglycerin 0.4 mg tablet, sublingual 0.4 mg sublingual Q5M PRN (Reason: chest pain) Qty: 25 6RF Rx Instructions: do not exceed 3 doses per episode Miralax 17 gram/dose Powder 17 g PO DAILY 0RF benzonatate 100 mg Capsule 100 mg PO TID PRN (Reason: Cough) Qty: 30 0RF prednisone 20 mg tablet See Rx Instructions .ROUTE .COMPLEX Qty: 20 0RF Rx Instructions: 2 tab daily for 7 days, then 1 tab for 3 days, then 1/2 tab for 3 days 1/2 tab every other day for 2 doses and stop gabapentin 300 mg capsule 300 mg PO TID 0RF albuterol sulfate [ProAir HFA] 90 mcg/actuation HFA aerosol inhaler 1 - 2 puff INHALATION QID PRN (Reason: Shortness Of Breath Or Wheezing) 0RF metformin 1,000 mg Tablet 1,000 mg PO BID 0RF lovastatin 40 mg tablet 40 mg PO QAM 0RF ondansetron HCl [Zofran] 4 mg Tablet 4 mg PO Q6H PRN (Reason: NAUSEA/VOMITING) 0RF Jardiance 10 mg tablet 10 mg PO QAM 0RF sennosides-docusate sodium [Senna-S] 8.6-50 mg tablet 1 tab-cap PO DAILY Qty: 20 0RF hydrocodone-acetaminophen 5-325 mg tablet 1 tab PO BID PRN (Reason: PAIN) 10 Days Qty: 20 0RF Antivert 50 mg tablet 50 mg PO BID PRN (Reason: dizziness) Qty: 14 0RF ondansetron 4 mg tablet,disintegrating 4 mg PO Q6H PRN (Reason: nausea and vomiting) Qty: 14 0RF Discharge Orders: Discharge ED (Routine); Ordered 07/12/21 Ordered By: Leroy Whitehead Referrals: Flaquita Goodwin MD [Primary Care Provider] - Discharge Diet: Usual diet Discharge Activity: Increase activity as tolerated Patient Instructions: Opioid Safety Activity Restrictions/Additional Instructions: Follow-up with your primary care doctor within the next week. Coding Level of Care Code ED Cardiac Technologist for Margarito Fwmayank Exam Comprehensive
--- NOTE | 2021-07-12 11:27 | ECG_ITS ---
[facility] Test Date: 2021-07-12 Pat Name: Yoni Connell Department: Room: Gender: Male Relationship Consultant: : 1950 Requested By: Leroy Jean Baptiste Order Number: [id number] Rody MD: Demarcus Henriquez M.D. Measurements Intervals [place] Rate: 67 P: [place]: QRS: 40 QRSD: 105 T: 32 QT: 420 QTc: 443 Interpretive Statements ATRIAL FIBRILLATION LOW QRS VOLTAGE IN EXTREMITY LEADS [QRS DEFLECTION < 0.5 mV IN LIMB LEADS] Compared to ECG 07/07/2021 04:55:31 Low QRS voltage now present Right-axis deviation no longer present Electronically Signed On 07-12-2021 17:09:45 CIRCULAR GANG SAW OPERATOR by Demarcus Henriquez M.D. [id number]
--- NOTE | 2021-07-12 11:27 | XR_ITS ---
WS: [id number] XR chest 1V portable [id number] REASON FOR EXAM: dyspnea/cough FINDINGS: Chemotherapy infusion port in place over the right chest with transvenous right subclavian vein [address], tip located in the distal superior vena cava. Moderate ectasia of the thoracic aorta without aneurysmal dilatation. Heart at the upper limits of normal in size. Bilateral reticular and groundglass lung opacities which do not appear to have changed significantly compared to 10/21/2021. No new findings. XR/XR chest 1V portable [id number] IMPRESSION: No acute abnormality.
--- NOTE | 2021-07-12 11:33 | CT_ITS ---
WS: [id number] CT HEAD NONCONTRAST HISTORY: fall/slurred speech/on anticoagulants TECHNIQUE: Contiguous axial imaging performed through the brain in 2.5 mm imaging. Bone and soft tiss ue windows. Sagittal and coronal reformats reviewed. All CT scans at [facility] use at least one of these dose optimization techniques: automated exposure control; mA and/or kV adjustment per pa tient size (includes targeted exams where dose is matched to clinical indication); or iterative recon struction. DLP: 970.11 mGy.cm COMPARISON: 06/30/2021 No acute intracranial hemorrhage, midline shift or mass effect. Bifrontal moderate atrophy is symmetric. There is also additional mild temporal lobe atrophy which is also symmetric. Mild bilateral cerebellar atrophy. No lacunar infarct or recent infarct. Ventricles: Normal size with no hydrocephalus. No inferior displacement of cerebellar tonsils. Paranasal sinuses: Mucoperiosteal thickening throughout the RIGHT maxillary sinus with deformity davon lar to the prior study. Mastoid air cells: Well pneumatized. Calvarium and scalp: No skull fracture. There is a new small scalp hematoma centered over the high RI GHT parietal bone. Moderate atherosclerotic plaque within the intracranial carotid arteries. CT/CT head wo con* [id number] IMPRESSION: 1. No acute intracranial hemorrhage or edema. 2. Cerebral and cerebellar atrophy, unchanged. 3. Very small high RIGHT parietal scalp hematoma. No fracture.
[2021-07-12 11:36] LABS: Basophils % 0.2 %; Eosinophils % 0.2 %; Hematocrit 34.9 % (42.0-52.0); Hemoglobin 11.1 g/dL (11.7-16.6); Lymphocytes # 0.3 10^3/uL (0.8-4.8); Lymphocytes % 4.4 %; Mean Corpuscular HGB Conc 31.8 g/dL (30.0-36.0); Mean Corpuscular Hemoglobin 27.7 pg (28.0-34.0); Mean Platelet Volume 10.5 fL (7.4-10.4); Monocytes # 0.3 10^3/uL (0.2-0.9); Monocytes % 4.6 %; Neutrophils # 5.83 10^3/uL (1.8-7.7); Neutrophils % 89.4 %; Nucleated Red Blood Cells % 0 %; Platelet Count 244 10^3/cmm (130-400); Red Blood Count 4.01 10^6/uL (4.1-5.3); Red Cell Distribution Width 14.7 % (12.1-15.1); White Blood Count 6.5 10^3/uL (4.0-10.0)
[2021-07-12 11:56] VITALS: BP 107/61; PULSE 68; RESP 22; O2SAT 96
[2021-07-12 12:05] LABS: Troponin(5th) Baseline 26 ng/L (0-15)
[2021-07-12 12:08] LABS: Add Urine Microscopic? YES; Bilirubin Urine 1+ (Negative); Blood Urine Neg (Negative); Glucose Urine UA 4+ (Normal); Ketones Urine 1+ (Negative); Leukocyte Esterase Urine Negative (Negative); Nitrate Urine Negative (Negative); Protein Urine Trace (Negative); Urine Appearance Clear (CLEAR); Urine Color Yellow (Yellow); Urobilinogen Urine 4 mg/dL (Negative); pH Urine 5 (5-7)
[2021-07-12 12:11] LABS: Alanine Aminotransferase 35 U/L (0-41); Albumin Level 3.8 g/dL (3.5-5.2); Alkaline Phosphatase 204 IU/L (40-130); Anion Gap 22.8 (5-19); Aspartate Amino Transferase 30 U/L (0-40); Blood Urea Nitrogen 22 mg/dL (8-23); Calcium 8.3 mg/dL (8.5-10.5); Carbon Dioxide 27 mmol/L (22-29); Chloride 88 mmol/L (98-107); Creatine Phosphokinase 62 U/L (39-308); Globulin 2.1 g/dL (1.3-4.6); Glomerular Filtration Rate 83.4 mL/min (90-130); Glucose 341 mg/dL (65-115); Magnesium 1.6 mg/dL (1.7-2.3); Osmolality Calculated 295 mOsm/kg (285-295); Potassium 3.8 mmol/L (3.5-5.1); Sodium 134 mmol/L (136-145); Total Bilirubin 0.8 mg/dL (0.15-1.2); Total Protein 5.9 g/dL (6.6-8.7)
[2021-07-12 12:12] LABS: Add Urine Culture? No; Bacteria Urine 1+ /hpf; Mucus Urine 2+ /hpf
[2021-07-12 12:17] VITALS: BP 118/83; PULSE 72; RESP 20; O2SAT 96
--- NOTE | 2021-07-12 13:27 | ECG_ITS ---
[facility] Test Date: 2021-07-12 Pat Name: Yoni Connell Department: Room: Gender: Male Fruit Washer: : 1950 Requested By: Leroy Jean Baptiste Order Number: [id number] Rody MD: Demarcus Henriquez M.D. Measurements Intervals [place] Rate: 93 P: [place]: QRS: 82 QRSD: 105 T: 28 QT: 385 QTc: 481 Interpretive Statements ATRIAL FIBRILLATION LOW QRS VOLTAGE IN EXTREMITY LEADS [QRS DEFLECTION < 0.5 mV IN LIMB LEADS] Compared to ECG 07/12/2021 12:00:53 No significant changes Electronically Signed On 07-12-2021 17:15:20 ELECTRICAL DEVELOPMENT ENGINEER by Demarcus Henriquez M.D. [email or web address] [id number]
--- NOTE | 2021-07-12 13:40 | CT_ITS ---
WS: [id number] CTA HEAD AND NECK TECHNIQUE: Contrast enhanced CTA of the head and neck with coronal and sagittal reformatted images an d maximum intensity projection (MIP) images. NASCET criteria utilized. CLINICAL INFORMATION: slurred speech COMPARISON: None. DLP: 2740.[address] scans at [facility] use at least one of these dose optimization techniques: automated e xposure control; mA and/or kV adjustment per patient size (includes targeted exams where dose is matc hed to clinical indication); or iterative reconstruction. FINDINGS: RIGHT: RIGHT common carotid artery is patent. Moderate calcified atheromatous disease RIGHT carotid b ulb extending into the ICA. Less than 50% RIGHT ICA stenosis. RIGHT ICA is patent to the skull base. LEFT: LEFT common carotid artery is patent. Mild calcified atheromatous disease LEFT carotid bulb. Le ss than 50% LEFT ICA stenosis. LEFT ICA is patent to the skull base. INTRACRANIAL CTA: LEFT dominant vertebral artery. Both vertebral arteries are patent. Proximal basilar artery is patent . Mild intracranial vertebral artery vascular calcification. Normal vascularity to the ACCOUNT SUPPORT ASSOCIATE territory bilaterally. Patent RIGHT posterior communicating artery with hypoplastic P1 segment. Normal vascularity to the ACCOUNT SUPPORT ASSOCIATE territory bilaterally. Both ICAs are patent at the skull base. Moderate calcified atheromatous disease in the cavernous mccoy tid arteries bilaterally. Patent anterior communicating artery. Normal vascularity to the INGRID and MCA territories bilaterally. No evidence of flow-limiting stenosis or aneurysm. Moderate spondylitic changes cervical spine with anterior hypertrophic changes. Mastoid air cells are well aerated. Mild mucosal thickening in the paranasal sinuses. Inspissated secretions with opacific ation of the hypoplastic RIGHT maxillary sinus. Small retention cyst in the sphenoid sinus. Normal pa rapharyngeal fat. Incidental RIGHT intraparotid lymph node. Normal parapharyngeal fat. Normal posteri or nasopharynx. No evidence of supraglottic or glottic mass. Normal subglottic airway. A few slight p rominent lymph nodes in the anterior mediastinum nonspecific but likely reactive. Pulmonary fibrosis and atelectasis in the lung apices. IMPRESSION: 1. Less than 50% cervical ICA stenosis bilaterally. 2. Normal intracranial CTA. No evidence of flow-limiting stenosis or aneurysm. 3. Near persistent RIGHT ACCOUNT SUPPORT ASSOCIATE. 4. Moderate spondylitic changes cervical spine. 5. A few prominent lymph nodes in the anterior mediastinum with pulmonary fibrosis in the lung apice s. This is unchanged since the recent CTA chest July 09, 2021
[2021-07-12] MEDS: iohexol 350 mg/mL 100 mL Btl IV (14:24)
[2021-07-12 14:29] LABS: Troponin 5 2HR 17.33 ng/L (0-15)
[2021-07-12 16:18] VITALS: BP 118/78; PULSE 75; RESP 16; O2SAT 95
[2021-07-12 16:56] VITALS: BP 115/75; PULSE 86; RESP 16; O2SAT 95
== END 2021-07-12 17:40 | disposition home or self-care (01) ==
PROVIDERS: Emergency Provider Family Medicine; PCP Internal Medicine
DX: U07.1 COVID-19 (principal); C34.90 Malignant neoplasm of unspecified part of unspecified bronchus or lung; Z79.82 Long term (current) use of aspirin; Z79.01 Long term (current) use of anticoagulants; Z79.84 Long term (current) use of oral hypoglycemic drugs; Z87.891 Personal history of nicotine dependence; Z85.51 Personal history of malignant neoplasm of bladder; J44.9 Chronic obstructive pulmonary disease, unspecified; E78.5 Hyperlipidemia, unspecified; I10 Essential (primary) hypertension; E11.9 Type 2 diabetes mellitus without complications; W19.XXXA Unspecified fall, initial encounter
CPT/HCPCS: 36415; 70450; 70496; 70498; 71045; 80053; 81001; 82550; 83735; 84484; 85025; 93005; 99284; Q9967